=== PATIENT | male | born 1940 | race Caucasian/White ===

== ENCOUNTER 2024-09-25 08:49 | Inpatient (IN) | payer MEDICARE, SELFPAY ==
--- NOTE | ~2024-09-25 | CT_ITS ---
EXAMINATION: CT CHEST, ABDOMEN AND PELVIS WITH CONTRAST CLINICAL INFORMATION: Abdominal discomfort. Feeling unwell. COMPARISON: None available. TECHNIQUE: Multidetector volumetric CT imaging of the chest, abdomen, and pelvis was performed after the administration of 100 mL of Omnipaque 300 intravenous contrast without immediate adverse reactions. DOSE LOWERING TECHNIQUES: This CT examination was performed using dose optimization techniques as appropriate, variously including the following: - Automated exposure control - Adjustment of mA and/or kV according to patient size (this includes techniques or standardized protocols for targeted exams where dose is matched to indication/reason for exam; i.e. extremities or head) - Use of iterative reconstruction technique DLP: 885 mGy-cm. FINDINGS: CHEST: LUNGS: Left lower lobe atelectasis. No suspicious pulmonary nodule. Central airways are patent. Elevated left hemidiaphragm. MEDIASTINUM: No bulky axillary, hilar or mediastinal lymphadenopathy. Ascending thoracic aorta measures 4.5 cm. Heart is enlarged. No pericardial effusion. Severe coronary artery calcifications. PLEURA: No pleural effusion. ABDOMEN AND PELVIS: LIVER, GALLBLADDER, AND BILIARY TREE: The noncontrast liver is decreased in attenuation. No biliary ductal dilatation is present. Sludge and stones in the gallbladder. PANCREAS: Fatty infiltration. SPLEEN: Not enlarged. ADRENAL GLANDS: No adrenal mass. KIDNEYS AND URETERS: The kidneys are symmetric in size. 3.3 cm upper to mid pole right renal cyst. No further imaging follow-up is needed. No hydronephrosis. No perinephric stranding. Delayed images demonstrate intact renal function bilaterally. BLADDER: Fills with excreted contrast. Trabeculated pattern. Irregular filling defects at the base of the urinary bladder possibly related to the prostate gland. GASTROINTESTINAL TRACT: No small bowel obstruction. Fecal impaction in the rectum. Extensive diverticular disease of the colon. There are subtle mild pericolonic inflammatory changes in the right lower quadrant. Appendix is within normal limits. Lipoma in the duodenum. Duodenal diverticulum. ABDOMINAL WALL: Fat-containing right inguinal hernia. LYMPH NODES: No bulky lymphadenopathy. VASCULAR: Infrarenal abdominal aorta measures 2.7 x 3.2 cm. Recommend surveillance ultrasound in 3 years. Retroaortic left renal vein. 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 PELVIC VISCERA: Coarse calcification of the prostate gland. OSSEOUS STRUCTURES: Mild height loss at T1, T2 and T9 vertebral bodies. Sclerotic changes of the L1 and L2 vertebral bodies. Old right-sided rib fractures. CT/CT abdomen pelvis wo IV con IMPRESSION: Mild acute sigmoid diverticulitis. Trabeculated urinary bladder. Irregular filling defects at the base of the urinary bladder may be attributable to the prostate gland. Consider correlation with cystoscopy. Cholelithiasis. Ascending thoracic aorta measures 4.5 cm. Infrarenal abdominal aorta measures 2.7 x 3.2 cm. Recommend surveillance ultrasound 3 years. 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 Mild height loss T1, T2 and T9. Sclerotic changes of L1 and L2. Consider nuclear medicine bone scan. Electronically signed by: Joaquin Sharpe MD 09/25/2024 01:13 PM [facility]
--- NOTE | ~2024-09-25 | CT_ITS ---
EXAMINATION: CT HEAD WITHOUT CONTRAST CLINICAL INFORMATION: 84-year-old male COMPARISON: September 25, 2024 TECHNIQUE: Contiguous axial imaging was performed from the skull base to vertex without intravenous administration of contrast. This CT examination was performed using dose optimization techniques as appropriate, variously including the following: *Automated exposure control *Adjustment of mA and/or kV according to patient size (this includes techniques or standardized protocols for targeted exams where dose is matched to indication/reason for exam; i.e. extremities or head) *Use of iterative reconstruction technique DLP: 875 mGy-cm FINDINGS: There is no interval change since the previous examination in an appearance of mildly prominent sulci and ventricles and calcifications in basal ganglia. There is no new intracranial hemorrhage, masses, mass affect, midline shift. No new periventricular white matter changes. Osseous structures are unremarkable and paranasal sinuses and mastoids are well-aerated. CT/CT head/brain wo IV con IMPRESSION: No acute intracranial pathology. Mild global volume loss and calcifications in basal ganglia Electronically signed by: Ti Montes De Oca MD 09/29/2024 10:48 AM [facility]
--- NOTE | ~2024-09-25 | US_ITS ---
EXAMINATION: US RETROPERITONEAL LIMITED (RENAL ONLY) CLINICAL INFORMATION: VENU. COMPARISON: CT chest, abdomen and pelvis 09/25/2024. X-ray abdomen 01/07/2018. Ultrasound retroperitoneum 01/07/2018. TECHNIQUE: Real-time imaging of the kidneys. Technically limited study secondary to bowel gas and patient's limited mobility. FINDINGS: RIGHT KIDNEY: 7.4 x 4.5 x 3.5 cm (SAG x AP x TRV). Kidney is small with increased echogenicity. Renal cortical thickness is normal. No renal calculi or hydronephrosis. A benign mid to upper pole 1.4 cm Bosniak class I renal cyst is noted which requires no additional imaging or follow up. No solid renal masses are seen. LEFT KIDNEY: 10.0 x 4.3 x 3.9 cm (SAG x AP x TRV). The kidney is normal in size and contour but with slightly increased echogenicity. Renal cortical thickness is normal. No definite calculi or focal parenchymal lesions. No hydronephrosis. Pack seen at the lower pole of the kidney without discrete stones seen. US/US renal BI IMPRESSION: 1. Small right kidney with increased echogenicity suggesting medical renal disease. 2. Left kidney is normal in size but with slightly increased echogenicity suggesting medical renal disease. Electronically signed by: Justo Arora MD 09/27/2024 11:18 PM [facility]
--- NOTE | ~2024-09-25 | CT_ITS ---
EXAMINATION: CT HEAD WITHOUT CONTRAST (STROKE PROTOCOL) CLINICAL INFORMATION: Stroke protocol. Left-sided facial droopd COMPARISON: None available. TECHNIQUE: Contiguous axial imaging was performed from the skull base to vertex without intravenous administration of contrast. This CT examination was performed using dose optimization techniques as appropriate, variously including the following: *Automated exposure control *Adjustment of mA and/or kV according to patient size (this includes techniques or standardized protocols for targeted exams where dose is matched to indication/reason for exam; i.e. extremities or head) *Use of iterative reconstruction technique DLP: 880 mGy-cm FINDINGS: There is prominence of the sulci commensurate with that of the ventricles compatible with age-related volume loss. Minimal periventricular white matter changes compatible small vessel disease. There is no mass hemorrhage or cerebral edema Velásquez white differentiation normal. Basal ganglia calcifications noted bilaterally No extra-axial fluid collection. Sinuses clear. Mastoid air cells normal. CT/CT head for stroke IMPRESSION: No acute intracranial pathology. This critical result was discussed with Mayo Gonzalez at 9:05 AM on 09/25/2024 by physician support associated Rafael Velasquez. It was ascertained that the content and urgency of the report was understood at the time of direct communication. Electronically signed by: Yony Lopez MD 09/25/2024 09:07 AM [facility]
--- NOTE | ~2024-09-25 | CT_ITS ---
EXAMINATION: CTA NECK WITH CONTRAST (STROKE) CTA BRAIN WITH CONTRAST (STROKE) CLINICAL INFORMATION: Suspect acute stroke. Assess for major vessel occlusion. Please call report. COMPARISON: Concurrently performed CT of the head TECHNIQUE: CTA of the head and neck was performed in the axial plane from the mediastinum to the skull vertex using 70 mL Omnipaque 350 intravenous contrast. Additional reformatted multiplanar images including maximum intensity projection MIP images are generated on the CT workstation. This CT examination was performed using dose optimization techniques as appropriate, variously including the following: *Automated exposure control *Adjustment of mA and/or kV according to patient size (this includes techniques or standardized protocols for targeted exams where dose is matched to indication/reason for exam; i.e. extremities or head) *Use of iterative reconstruction technique DLP: 1706 mGy-cm FINDINGS: CTA Head: Atherosclerotic calcified plaque is noted involving the cavernous and supraclinoid portions of the internal carotid arteries, without significant stenosis. The anterior and middle cerebral arteries are patent with normal contrast enhancement and branching pattern. There is a normal anterior communicating artery complex. The vertebral and basilar arteries demonstrate normal enhancement without stenosis or occlusion. The posterior cerebral arteries have a normal caliber and branching pattern. The posterior communicating arteries are not definitely seen. There is no evidence of stenosis, occlusion, aneurysm or arteriovenous malformation. CTA Neck: Mild atherosclerotic plaque is noted at the aortic arch. The aortic arch and origin of the major vessels are otherwise unremarkable. Moderate atheromatous plaque is noted at the right carotid bulb, without significant stenosis by NASCET criteria. The right common, internal and external carotid arteries are normal in appearance. Moderate atheromatous plaque is noted at the left carotid bulb, without significant stenosis by NASCET criteria. The left common, internal and external carotid arteries are normal in appearance. The cervical portions of the vertebral arteries demonstrate normal enhancement. There is no evidence of a significant stenosis or a dissection. The visualized soft tissues are unremarkable. The visualized lung is unremarkable. Moderate degenerative disease of the cervical spine. Postsurgical changes of the left globe. CT/CT angio head neck stroke IMPRESSION: 1. No significant stenosis in the major arteries of the head and neck. 2. Moderate atheromatous plaque at the bilateral carotid bulbs, without significant stenosis by NASCET criteria. Electronically signed by: Rayna Michel MD 09/25/2024 09:16 AM KYLEE
--- NOTE | ~2024-09-25 | CT_ITS ---
EXAMINATION: CT FEMUR WITHOUT CONTRAST, LEFT CLINICAL INFORMATION: Upper leg pain. COMPARISON: None available. TECHNIQUE: Axial imaging. Sagittal and coronal reconstructions. The distal femur is not included in the [id number]. DLP: 331 mGy-cm FINDINGS: BONES/JOINTS: Femoral head is well-seated in the acetabulum. Mild left hip arthritis. No evidence of acute fracture in the visualized femur. No acute left pubic ramus fracture seen. Moderate symphysis pubis degeneration. Sclerotic focus in the left ischium measuring up to 2 cm. Partially visualized left SI joint appears intact. MUSCLE/TENDONS: Evaluation limited on CT. No measurable muscle tear is identified. SOFT TISSUES: There is mild soft tissue stranding in the medial left gluteal region. No fluid collection is seen. Vascular calcifications present. ADDITIONAL FINDINGS: Prostate calcifications. CT/CT femur LT wo IV con IMPRESSION: 1. Mild left hip arthritis. 2. No evidence of acute femur fracture or malalignment. 3. A 2 cm sclerotic focus in the left ischium. Consider bone scan evaluation. Electronically signed by: Farshad Escobedo MD 09/26/2024 04:43 PM KYLEE
--- NOTE | 2024-09-25 08:53 | ECG_ITS ---
Test Reason : stroke Blood Pressure : / mmHG Vent. Rate : 060 BPM Atrial Rate : 060 BPM P-R Int : 156 ms QRS Dur : 168 ms QT Int : 520 ms P-R-T Axes : 000 104 -82 degrees QTc Int : 520 ms AV dual-paced rhythm Abnormal ECG No previous ECGs available Referred By: Mayo Gonzalez Electronically Signed By:MYLENE BALES
--- NOTE | 2024-09-25 08:55 | ED.GENADULT ---
HPI - General Adult General Chief complaint: Stroke Stated complaint: L SIDED FACIAL DROOP/WEAKNESS Source: patient and EMS Mode of arrival: EMS Limitations: other (dementia/ poor historian) History of Present Illness ED Provider: Carlos MOJICA HPI narrative: 84 year old male hx of HFrEF, CKD, HTN, HLD, V tach, Afib, Pacer in place, anxiety, bipolar, dementia presents from [facility] with left sided facial droop and weakness noted at 0600 am when nurse was rounding on the residents on the unit. Per EMS nursing staff at [facility] reported he was normal last night but unclear exactly when patient started having this droop. This was noted around shift change. Patient is oriented to person and place not time or situation. He denies complaints at this time and states hes feeling fine. + thinners. No falls or trauma. NIHSS-0 Related Data Allergies Allergy/AdvReac Type Severity Reaction Status Date / Time Unable to Assess Allergy Verified 09/25/24 09:25 Review of Systems Review of Systems: Yes all other systems are reviewed and are negative [facility] Past Medical History Attestation statement: The following information was validated with the patient. Source: old records reviewed and nursing notes reviewed Social History Social History Advance Directives: No Advance Directives Information Provided: Yes Physical Exam ED Vital Signs: Vital Signs - 24 hr 09/25/24 09:18 09/25/24 11:37 Temperature 96.8 F 97.8 F Pulse Rate 60 62 Respiratory Rate 16 18 Blood Pressure 138/74 133/71 Pulse Oximetry 97 95 Oxygen Delivery Method Room Air Room Air BMI result Body Mass Index 25.5 vss Appearance: Alert.? Oriented X2.? No acute distress.? Head: Normocephalic, atraumatic, no step-offs or deformities Eyes: Pupils equal, round and reactive to light.? CVS: Normal heart rate and rhythm.? Pulses normal.? Respiratory: No respiratory distress.? Breath sounds normal.? Abdomen: Soft and diffusely tender abdomen.? Skin: Skin warm and dry.? Normal skin color.? Normal skin turgor.? Extremities: No lower extremity edema.? No calf ttp. 5/5 strength to bilateral upper and lower extremities Back: No midline tenderness, no C-spine tenderness, full range of motion, no CVA tenderness bilaterally Neuro: Oriented X 3.? No motor deficit.? No sensory deficit. CN 2-12 intact Course Reevaluation(s) Reevaluation #1: CT head no acute intracranial findings, no significant stenosis in the major arteries of the head and neck. Moderate atheromatous plaque at the b/l carotid bulbs without significant stenosis. CBC unremarkable. Chemistry with VENU. Will give 1 L IV fluids at this time. UA clean Time: 12:00 Reevaluation #2: Per [facility] 09/20 patient was admitted to [facility]. Patient was verbal at that time and talking. Yesterday afternoon [employer] reported he didnt feel well but was still talking and verbal. Baseline incontinence. Night time meds taken ok last night around 2100. He has been feeling unwell over the past few days. Nursing this morning noted a big change in behavior. Per nurse there daughter visted him last night. Time: 12:20 Reevaluation #3: Patient was recently seen on 09/12 at [facility] [place] for hypotension and PNA dc to [facility] on 09/20/2024/ Time: 12:24 Additional Reevaluation(s): CT abdomen and pelvis mild acute sigmoid diverticulitis, trabeculated urinary bladder irregular filling defects at the base of the urinary bladder could attribute to prostate gland. Cholelithiasis no signs of acute cholecystitis. 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 Mild height loss T1, T2 and T9. Will give Flagyl and Levaquin. Patient poor historian, becoming more lethargic. Diffusely tender abdomen Plan- hospital admission Medications Administered Discontinued Medications Generic Name Dose Route Start Last Admin Trade Name Freq PRN Reason Stop Dose Admin Sodium Chloride 1,000 mls @ 999 mls/hr 09/25/24 12:30 09/25/24 12:44 Ns IV 09/25/24 13:30 999 mls/hr .Q1H1M SHAYY Administration Iohexol 100 ml 09/25/24 09:06 09/25/24 09:06 Iohexol 350 Mg/Ml 100 Ml Infus..Btl IV 09/25/24 09:07 70 ml ONCE ONE Administration Medical Decision Making Medical Decision Making [facility] Narrative: 0853 84 year old male presents w/ weakness and left sided facial droop coming from SNF PE left sided facial droop, noted to be oriented to person and place not time or situation . Diffusely tender abdomen Hx and pe concerning for possible stroke , ich, tia. Also possible metabolic deragments, uti, complex migrane Plan- labs, urine, stroke protocol No indication for TNK, LKWT unclear, on thinenrs, no need for neuro stat consult NIHSS-3 NIH Stroke Scale/Score (NIHSS) from [employer] on 09/25/2024 All calculations should be rechecked by clinician prior to use RESULT SUMMARY: 3 points NIH Stroke Scale INPUTS: 1A: Level of consciousness ?> 0 = Alert; keenly responsive 1B: Ask month and age ?> 2 = 0 questions right 1C: 'Blink eyes' & 'squeeze hands' ?> 0 = Performs both tasks 2: Horizontal extraocular movements ?> 0 = Normal 3: Visual salcedo ?> 0 = No visual loss 4: Facial palsy ?> 1 = Minor paralysis (flat nasolabial fold, smile asymmetry) 5A: Left arm motor drift ?> 0 = No drift for 10 seconds 5B: Right arm motor drift ?> 0 = No drift for 10 seconds 6A: Left leg motor drift ?> 0 = No drift for 5 seconds 6B: Right leg motor drift ?> 0 = No drift for 5 seconds 7: Limb Ataxia ?> 0 = No ataxia 8: Sensation ?> 0 = Normal; no sensory loss 9: Language/aphasia ?> 0 = Normal; no aphasia 10: Dysarthria ?> 0 = Normal 11: Extinction/inattention ?> 0 = No abnormality Differential Diagnosis Differential Diagnoses: The differential diagnosis associated with the presentation includes (Hx and pe concerning for possible stroke , ich, tia. Also possible metabolic deragments, uti, complex migrane ) Admission/Observation Consideration of admission/observation: Escalation of care including admission/observation considered Lab Data MDM Lab Attestation statement: I reviewed the patient's lab results. 09/25/24 09:21 09/25/24 09:21 Labs: Lab Results 09/25/24 09/25/24 09/25/24 Range/Units 08:52 09:21 09:52 WBC 6.2 (4.8-10.8) X10*3/uL RBC 3.68 L (4.60-5.80) X10*6/uL Hgb 10.7 L (14.0-18.0) g/dl Hct 32.9 L (42.0-52.0) % MCV 89.4 (80.0-98.0) fL MCH 29.1 (27.0-33.0) pg MCHC 32.5 (31.0-36.0) g/dl RDW 14.1 (11.0-16.0) % Plt Count 183 (160-400) X10*3/uL MPV 9.8 (9.4-12.4) fL Immature Gran % (Auto) 0.5 H (0.0-0.4) % Neut % (Auto) 59.4 (45-73) % Lymph % (Auto) 21.9 (20-40) % Bryan % (Auto) 13.5 H (2-11) % Eos % (Auto) 4.2 H (0-4) % Baso % (Auto) 0.5 (0-2) % Lymph # (Auto) 1.4 (1.2-4.9) X10*3/uL Bryan # (Auto) 0.8 (0.1-1.2) X10*3/uL Eos # (Auto) 0.3 (0.0-0.4) X10*3/uL Baso # (Auto) 0.0 (0.0-0.2) X10*3/uL Abs Immat Gran (auto) 0.03 (0.00-0.03) X10*3/uL Absolute Neuts (auto) 3.7 (2.0-8.3) x10*3/uL Absolute Nucleated RBC 0.000 (0.0-0.012) X10*3/uL Nucleated RBC % (auto) 0.0 (0.0-0.2) /100WBC PT 16.4 H (10.9-12.4) SEC Whole Blood PT 15.9 H (11.1-13.5) sec INR 1.4 H (0.9-1.1) Whole Blood INR 1.3 H (0.9-1.1) APTT 32.0 (26.0-36.8) SEC Sodium 142 (135-145) mmol/L Potassium 4.3 (3.3-5.1) mmol/L Chloride 108 (96-108) mmol/L Carbon Dioxide 25 (22-29) mmol/L Anion Gap 13 (12-20) BUN 29 H (9-16) mg/dL Creatinine 1.73 H (0.5-1.4) mg/dL Estim Creat Clear Calc 32.2 Estimated GFR 38 POC Glucose 81 (60-115) mg/dL Random Glucose 85 (60-115) mg/dL Calcium 9.4 (8.4-10.2) mg/dL Total Creatine Kinase 37 L (38-174) U/L Troponin I High Sens 9.9 (<3.5-35.0) ng/L Triglycerides 86 (<150) mg/dL Cholesterol 136 (<200) mg/dL LDL Cholesterol, Calc 92 (<100) mg/dL HDL Cholesterol 27 L (>40) mg/dL Urine Color Urine Appearance Urine pH (5.0-9.0) Ur Specific Rosebud (1.005-1.025) Urine Protein (Neg-Trace) mg/dL Urine Glucose (UA) (Negative) mg/dL Urine Ketones (Negative) mg/dL Urine Blood (Negative) Urine Nitrite (Negative) Ur Leukocyte Esterase (Negative) 09/25/24 Range/Units 11:35 WBC (4.8-10.8) X10*3/uL RBC (4.60-5.80) X10*6/uL Hgb (14.0-18.0) g/dl Hct (42.0-52.0) % MCV (80.0-98.0) fL MCH (27.0-33.0) pg MCHC (31.0-36.0) g/dl RDW (11.0-16.0) % Plt Count (160-400) X10*3/uL MPV (9.4-12.4) fL Immature Gran % (Auto) (0.0-0.4) % Neut % (Auto) (45-73) % Lymph % (Auto) (20-40) % Bryan % (Auto) (2-11) % Eos % (Auto) (0-4) % Baso % (Auto) (0-2) % Lymph # (Auto) (1.2-4.9) X10*3/uL Bryan # (Auto) (0.1-1.2) X10*3/uL Eos # (Auto) (0.0-0.4) X10*3/uL Baso # (Auto) (0.0-0.2) X10*3/uL Abs Immat Gran (auto) (0.00-0.03) X10*3/uL Absolute Neuts (auto) (2.0-8.3) x10*3/uL Absolute Nucleated RBC (0.0-0.012) X10*3/uL Nucleated RBC % (auto) (0.0-0.2) /100WBC PT (10.9-12.4) SEC Whole Blood PT (11.1-13.5) sec INR (0.9-1.1) Whole Blood INR (0.9-1.1) APTT (26.0-36.8) SEC Sodium (135-145) mmol/L Potassium (3.3-5.1) mmol/L Chloride (96-108) mmol/L Carbon Dioxide (22-29) mmol/L Anion Gap (12-20) BUN (9-16) mg/dL Creatinine (0.5-1.4) mg/dL Estim Creat Clear Calc Estimated GFR POC Glucose (60-115) mg/dL Random Glucose (60-115) mg/dL Calcium (8.4-10.2) mg/dL Total Creatine Kinase (38-174) U/L Troponin I High Sens (<3.5-35.0) ng/L Triglycerides (<150) mg/dL Cholesterol (<200) mg/dL LDL Cholesterol, Calc (<100) mg/dL HDL Cholesterol (>40) mg/dL Urine Color Yellow Urine Appearance Clear Urine pH 6.5 (5.0-9.0) Ur Specific Rosebud >= 1.030 H (1.005-1.025) Urine Protein Negative (Neg-Trace) mg/dL Urine Glucose (UA) Negative (Negative) mg/dL Urine Ketones Trace (Negative) mg/dL Urine Blood Negative (Negative) Urine Nitrite Negative (Negative) Ur Leukocyte Esterase Negative (Negative) Independent Interpretation I performed an independent interpretation of an: CT Scan ( CT/CT angio head neck stroke IMPRESSION: 1. No significant stenosis in the major arteries of the head and neck. 2. Moderate atheromatous plaque at the bilateral carotid bulbs, without significant stenosis by NASCET criteria. ) Radiology Impression Discussion of test interpretation with radiology: I have reviewed the radiologist's reading. Independent Historian Clinical information obtained from an independent historian. History obtained from or confirmed by: EMS ([facility] ) Chronic Conditions Patient?s care impacted by: Other (see HPI ) Critical Care Time Critical Care Time Critical Care Time: Yes Total Critical Care Time: 35 Attestation: I attest to this time spent taking care of the patient, obtaining history, physical, reviewing labs, imaging, treatment of patients condition +/- specialist/hospitalist consult Discharge Plan Discharge Clinical Impression: Diverticulitis, Delirium Patient Disposition: Still a Patient Print Language: Burkinan
[2024-09-25 08:56] LABS: Glucose, Whole Blood 81 mg/dL (60-115)
[2024-09-25 08:57] LABS: Prothrombin Time Whole Bld POC 15.9 sec (11.1-13.5); ~PT, ~INR - Anti Coag Clinic 1.3 (0.9-1.1)
[2024-09-25] MEDS: iohexoL 350 MG/ML 100 ML INFUS..BTL IV (09:06)
[2024-09-25 09:18] VITALS: BP 138/74; PULSE 60; RESP 16; TEMP 36; O2SAT 97; BMI 25.5
[2024-09-25 09:24] LABS: MANUAL DIFF FLAG NO
[2024-09-25 09:25] LABS: Basophils Percent Auto 0.5 % (0-2); Eosinophils Absolute Auto 0.3 X10*3/uL (0.0-0.4); Eosinophils Percent Auto 4.2 % (0-4); Hematocrit 32.9 % (42.0-52.0); Hemoglobin 10.7 g/dl (14.0-18.0); Imm Gran Abs Auto 0.03 X10*3/uL (0.00-0.03); Imm Gran Pct Auto 0.5 % (0.0-0.4); Lymphocytes Absolute Auto 1.4 X10*3/uL (1.2-4.9); Lymphocytes Percent Auto 21.9 % (20-40); Mean Corpuscular HGB Conc 32.5 g/dl (31.0-36.0); Mean Corpuscular Hemoglobin 29.1 pg (27.0-33.0); Mean Corpuscular Volume 89.4 fL (80.0-98.0); Mean Platelet Volume 9.8 fL (9.4-12.4); Monocytes Absolute Auto 0.8 X10*3/uL (0.1-1.2); Monocytes Percent Auto 13.5 % (2-11); Neutrophils Absolute Auto 3.7 x10*3/uL (2.0-8.3); Neutrophils Percent Auto 59.4 % (45-73); Platelet Count 183 X10*3/uL (160-400); Red Blood Count 3.68 X10*6/uL (4.60-5.80); Red Cell Distribution Width 14.1 % (11.0-16.0); White Blood Count 6.2 X10*3/uL (4.8-10.8)
[2024-09-25 09:30] LABS: INTERNATIONAL NORM RATIO 1.4 (0.9-1.1); Prothrombin Time 16.4 SEC (10.9-12.4)
[2024-09-25 09:33] LABS: Stroke Lab Use COMPLETE
[2024-09-25 09:38] LABS: Anion Gap 13 (12-20); Blood Urea Nitrogen 29 mg/dL (9-16); Calcium 9.4 mg/dL (8.4-10.2); Carbon Dioxide 25 mmol/L (22-29); Chloride 108 mmol/L (96-108); Cholesterol 136 mg/dL (<200); Creatinine Clr Calc Pharmacy 32.2; Estimated Glomerular Filt Rate 38; Glucose Random 85 mg/dL (60-115); HDL Cholesterol 27 mg/dL (>40); LDL Cholesterol Calculated 92 mg/dL (<100); Potassium 4.3 mmol/L (3.3-5.1); Sodium 142 mmol/L (135-145); Triglycerides 86 mg/dL (<150)
[2024-09-25 09:46] LABS: Troponin-I High Sensitivity 9.9 ng/L (<3.5-35.0)
[2024-09-25 11:37] VITALS: BP 133/71; PULSE 62; RESP 18; TEMP 36.6; O2SAT 95
[2024-09-25 11:46] LABS: Appearance Urine Clear; Color Urine Yellow; Glucose Urine UA Negative (Negative); Leukocyte Esterase Urine Negative (Negative); Nitrite Urine Negative (Negative); PH 6.5 (5.0-9.0); Specific Gravity - Urine >= 1.030 (1.005-1.025); Urine Blood Negative (Negative); Urine Ketones Trace mg/dL (Negative); Urine Protein Negative (Neg-Trace)
[2024-09-25] MEDS: 0.9 % Sodium Chloride 1,000 ML 999 ML IV (12:44)
--- NOTE | 2024-09-25 12:44 | PC.NURSE ---
BEN lara from [facility] whom provided information about patient baseline since arriving to their facitily and stated he came on 09/20 and had been doing well and from [employer] reports that on thursday was ambulating to BR with 1 assist and eating independently on own, but at night would have some disturbed screaming and sleep disruptions. Per jane patient had self reported not feeling well yesterday afternoon but ate dinner and took bedtime medications per their documentation. Then overnight [employer] checks every 2hrs noted him sleeping well no concerns until RN assessed pt this morning at 6am and was noting a left sided facial droop and weakness and fatigue and not as alert as he had been. Jane reports daughter elda had visitng patient last night but unable to get ahold of her to discuss patient transfer to hospital. This RN attempted phone call to daughter fabricio as well with direct voicemail. Will attempt again later. MD aware of new information.
[2024-09-25 14:15] LABS: Influenza A PCR NEGATIVE (Negative); Influenza B PCR NEGATIVE (Negative); Resp Syncy Virus RNA Qual PCR NEGATIVE (Negative); SARS COV2 PCR INHOUSE NEGATIVE (Negative)
[2024-09-25] MEDS: levoFLOXacin/D5W 500 MG/100 ML PIGGYBACK 100 MG IV (14:26)
[2024-09-25] MEDS: metroNIDAZOLE/NS 500 MG/100 ML PIGGYBACK 100 MG IV ×2 (14:26→21:30)
[2024-09-25 14:40] LABS: Lactic Acid 1.4 mmol/L (0.5-2.0)
--- NOTE | 2024-09-25 14:44 | MHC.EDTECH ---
lab called to add matt to ua, results pending
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
[2024-09-25 15:02] LABS: Amphetamine Screen Urine Not Detected (Not Detect); Barbiturates, Urine Not Detected (Not Detect); Benzodiazepines Screen Urine POSITIVE (Not Detect); Buprenorphine Scr Not Detected (Not Detect); Cannabinoid Screen Urine Not Detected (Not Detect); Cocaine Screen Urine Not Detected (Not Detect); Fentanyl, urine Not Detected (Not Detect); Methadone Screen, Urine Not Detected (Not Detect); Opiate Screen Urine Not Detected (Not Detect); Oxycodone Screen Urine Not Detected (Not Detect); Phencyclidine Screen Urine Not Detected (Not Detect)
--- NOTE | 2024-09-25 15:05 | PHA.MEDREC ---
Addendum entered by Payton Dodge RPh 09/25/24 15:45: [facility] reviewed Original Note: Pharmacy Consult ? Medication Reconciliation Pharmacy has completed the medication reconciliation. List from [facility]. at [place].
[2024-09-25 16:18] VITALS: BP 127/67; PULSE 60; RESP 20; TEMP 36.6; O2SAT 97
[2024-09-25 16:26] LABS: Alanine Aminotransferase 40 U/L (0-40); Albumin Level 3.1 g/dL (3.5-5.0); Alkaline Phosphatase 45 U/L (39-117); Aspartate Amino Transferase 45 U/L (5-37); Bilirubin Direct 0.2 mg/dL (0.0-0.5); Bilirubin Total 0.5 mg/dL (0.0-1.0); Total Protein 5.6 g/dL (6.5-8.0)
[2024-09-25 17:20] LABS: Ammonia 30 umol/L (13-55)
[2024-09-25] MEDS: Aspirin 81 MG TAB.CHEW PO (17:32)
--- NOTE | 2024-09-25 18:48 | MHC.EDTECH ---
pt was redirected after he successfully got out of bed by himself, 2 other ED Techs assisted, pt was helped back in bed, obie was changed, linens changed, warm blanket given, pt resting comfortably and all needs met at this time.
[2024-09-25 19:59] VITALS: BP 116/60; PULSE 60; RESP 16; TEMP 36.9; O2SAT 97
[2024-09-25 21:55] VITALS: BMI 25.8
[2024-09-26] MEDS: Mirtazapine 15 MG TABLET PO ×2 (00:25→20:21)
[2024-09-26] MEDS: Divalproex Sodium Sprinkles 125 MG CAP.DR.SPR 750 MG PO ×2 (00:25→20:20)
[2024-09-26] MEDS: Tamsulosin HCL 0.4 MG CAPSULE PO ×2 (00:25→20:21)
[2024-09-26] MEDS: Apixaban 2.5 MG TABLET PO ×2 (00:25→20:21)
[2024-09-26] MEDS: 0.9 % Sodium Chloride Flush 3 ML SYRINGE IVFLUSH ×3 (00:26→20:21)
[2024-09-26 04:00] VITALS: BP 111/58; PULSE 64; RESP 18; TEMP 36.1; O2SAT 92
[2024-09-26] MEDS: metroNIDAZOLE/NS 500 MG/100 ML PIGGYBACK 100 MG IV ×3 (05:25→23:08)
[2024-09-26 06:45] LABS: Alanine Aminotransferase 35 U/L (0-40); Alkaline Phosphatase 47 U/L (39-117); Anion Gap 14 (12-20); Aspartate Amino Transferase 41 U/L (5-37); Bilirubin Total 0.5 mg/dL (0.0-1.0); Blood Urea Nitrogen 26 mg/dL (9-16); Calcium 9.2 mg/dL (8.4-10.2); Carbon Dioxide 24 mmol/L (22-29); Chloride 108 mmol/L (96-108); Creatinine Clr Calc Pharmacy 35.5; Estimated Glomerular Filt Rate 42; Glucose Random 76 mg/dL (60-115); Potassium 4.3 mmol/L (3.3-5.1); Sodium 142 mmol/L (135-145); Total Protein 5.6 g/dL (6.5-8.0)
[2024-09-26 07:42] VITALS: BP 117/65; PULSE 80; RESP 18; TEMP 36.2; O2SAT 95
[2024-09-26] MEDS: Fluticasone/Vilanterol 100/25 BLST.W.DEV 1 PUFF INHALE (08:34)
[2024-09-26 08:36] VITALS: PULSE 65; RESP 16; O2SAT 95
--- NOTE | 2024-09-26 09:49 | PM.NEUROCN ---
History of Present Illness Data of Consult Service Date: 09/26/24 Primary Care Provider: Jarvis Perez MD [facility] Reason for consult: Possible stroke 84-year-old male with a PMH significant for?HFrEF, CKD, paroxysmal AFib on Eliquis, hx of V tach, s/p pacer in place, HLD, dementia, anxiety, and bipolar disorder who presents to the ED from [facility] for evalatuion of possible left-sided facial droop and weakness. He said that he was fine and has been walking without a walker. He also said that he was living at home. Review of Systems Review of Systems: Could not be reliably done with him PMFSH Past Medical History Medical History Bipolar disorder Dementia Hyperlipidemia Ventricular tachycardia Paroxysmal A-fib CKD (chronic kidney disease) Systolic heart failure Social History Social History Household Members: Other Housing: Senior Living Do you presently have visiting nurse or other home services: Yes Patient Tobacco Use Status: Tobacco use Unknown Smoked in Last 30 Days: No Patient Interested in Nicotine Replacement: No Patient Given Instructions on How to Stop Smoking: No Use of substances other than those prescribed or required for medical reasons: No Currently Displaying Signs/Symptoms of Drug Intoxication Withdrawal: No Any prior treatment program specific to substance use: No Have you been hit, kicked, punched, or otherwise hurt by someone within the past year? If so, by whom?: No Do you feel safe in your current relationship?: No Current Relationship Is there a partner from a previous relationship who is making you feel unsafe now?: No Are you made to feel afraid or neglected: No Advance Directives: No Advance Directives Information Provided: No Advance Directives on File: No Do you have a plan to hurt others: No Plan Recently lost weight without trying: Unsure How much weight loss: Unsure Eating poorly because of decreased appetite: No Nutrition screen score: 4 Nutrition Risks: On aspiration precautions Poor oral hygiene: No Meds Allergies Allergy/AdvReac Type Severity Reaction Status Date / Time melatonin Allergy Unknown Unverified 09/26/24 08:24 rosuvastatin [From Crestor] Allergy Unknown Unverified 09/26/24 08:24 [id number]-[id number] Reductase Allergy Unknown Unverified 09/26/24 08:24 Inhibitor Active Medications: Current Medications Acetaminophen (Acetaminophen 325 Mg Tablet) 650 mg PO Q6H PRN PRN Reason: Pain, Mild (Pain Scale 1-3), fever or headache Albuterol Sulfate (Albuterol Sulfate 90 Mcg 8 Gm Inhaler) 2 puff INHALE Q4H PRN PRN Reason: Shortness Of Breath Or Wheezing Alprazolam (Alprazolam 0.5 Mg Tablet) 0.5 mg PO BID [facility] Last Admin: 09/26/24 08:53 Dose: Not Given Amiodarone HCl (Amiodarone Hcl 200 Mg Tablet) 200 mg PO DAILY [facility] Last Admin: 09/26/24 08:53 Dose: Not Given Apixaban (Apixaban 2.5 Mg Tablet) 2.5 mg PO BID [facility] Last Admin: 09/26/24 08:53 Dose: Not Given Benzonatate (Benzonatate 100 Mg Capsule) 100 mg PO TID PRN PRN Reason: Cough Bisacodyl (Bisacodyl 10 Mg Supp.Rect) 10 mg IA DAILY PRN PRN Reason: Constipation Calcium Carbonate (Calcium Carbonate 750 Mg Tab.Chew) 750 mg PO Q4H PRN PRN Reason: Heartburn Ceftriaxone Sodium (Ceftriaxone Sodium 1 Gm Vial) 1 gm IVPUSH Q24H [facility] Divalproex Sodium (Divalproex Sodium Sprinkles 125 Mg Cap.Dr.Spr) 750 mg PO BEDTIME [facility] Last Admin: 09/26/24 00:25 Dose: 750 mg Fluticasone/Vilanterol (Fluticasone/Vilanterol 100/25 Blst.W.Dev) 1 puff INHALE RDAILY [facility] Last Admin: 09/26/24 08:34 Dose: 1 puff Metronidazole (Flagyl) 500 mg in 100 mls @ 100 mls/hr IV Q8H [facility] Last Infusion: 09/26/24 06:25 Dose: Infused Magnesium Hydroxide (Milk Of Magnesia 30 Ml Oral.Susp) 30 ml PO DAILY PRN PRN Reason: Constipation Melatonin (Melatonin 3 Mg Tablet) 6 mg PO BEDTIME PRN PRN Reason: Insomnia Metoprolol Succinate (Metoprolol Succinate Er 50 Mg Tab.Er.24h) 50 mg PO DAILY [facility]; Protocol Last Admin: 09/26/24 08:53 Dose: Not Given Mirtazapine (Mirtazapine 15 Mg Tablet) 15 mg PO BEDTIME [facility] Last Admin: 09/26/24 00:25 Dose: 15 mg Naloxone HCl (Naloxone Hcl Nasal 4 Mg [place]) 4 mg NOSTRILALT Q3M PRN PRN Reason: Opioid Overdose Risperidone (Risperidone 1 Mg Tablet) 1 mg PO DAILY [facility] Last Admin: 09/26/24 08:53 Dose: Not Given Sodium Biphosphate/Sodium Phosphate (Sodium Phosphate,[place]-Dibasic 133 Ml Enema) 118 ml IA DAILY PRN PRN Reason: Constipation Sodium Chloride (0.9 % Sodium Chloride Flush 3 Ml Syringe) 3 ml IVFLUSH QSHIFT [facility] Last Admin: 09/26/24 09:31 Dose: 3 ml Tamsulosin HCl (Tamsulosin Hcl 0.4 Mg Capsule) 0.4 mg PO BEDTIME [facility] Last Admin: 09/26/24 00:25 Dose: 0.4 mg Trazodone HCl (Trazodone Hcl 50 Mg Tablet) 50 mg PO BEDTIME [facility] Last Admin: 09/26/24 00:50 Dose: Not Given Home Medications ?Medication ?Instructions ?Recorded ?Confirmed ?Last Taken ?Type acetaminophen 325 mg tablet 650 mg PO Q4H PRN Fever Or Pain 09/25/24 09/25/24 Unknown History (Tylenol) acetaminophen 650 mg rectal 650 mg IA Q4H PRN Fever Or Pain 09/25/24 09/25/24 Unknown History suppository albuterol sulfate 90 mcg/actuation 2 puff inhalation Q4H PRN 09/25/24 09/25/24 Unknown History aerosol inhaler Shortness Of Breath Or Wheezing alprazolam 0.5 mg tablet 0.5 mg PO BID 09/25/24 09/25/24 Unknown History amiodarone 200 mg tablet 200 mg PO DAILY 09/25/24 09/25/24 Unknown History apixaban 2.5 mg tablet (Eliquis) 2.5 mg PO BID 09/25/24 09/25/24 Unknown History apixaban 2.5 mg tablet (Eliquis) 5 mg PO BID 09/25/24 09/25/24 Unknown History bisacodyl 10 mg rectal suppository 10 mg IA DAILY PRN Constipation 09/25/24 09/25/24 Unknown History divalproex 125 mg capsule,delayed 750 mg PO BEDTIME 09/25/24 09/25/24 Unknown History release sprinkle fluticasone furoate 100 1 inh inhalation DAILY 09/25/24 09/25/24 Unknown History mcg-vilanterol 25 mcg/dose inhalation powder (Breo Ellipta) magnesium hydroxide 400 mg/5 mL 30 ml PO DAILY PRN Constipation 09/25/24 09/25/24 Unknown History oral suspension (Milk of Magnesia) metoprolol succinate 50 mg 50 mg PO DAILY 09/25/24 09/25/24 Unknown History tablet,extended release 24 hr mirtazapine 15 mg tablet 15 mg PO BEDTIME 09/25/24 09/25/24 Unknown History naloxone 4 mg/actuation nasal 4 mg intranasal Q3M PRN Opioid 09/25/24 09/25/24 Unknown History spray (Narcan) Overdose risperidone 1 mg tablet 1 mg PO DAILY 09/25/24 09/25/24 Unknown History sodium phosphates 19 gram-7 118 ml IA DAILY PRN Constipation 09/25/24 09/25/24 Unknown History gram/118 mL enema (Fleet Enema) tamsulosin 0.4 mg capsule 0.4 mg PO BEDTIME 09/25/24 09/25/24 Unknown History trazodone 50 mg tablet 50 mg PO BEDTIME 09/25/24 09/25/24 Unknown History Physical Exam Vital Signs: Vital Signs: Last Vital Signs Temp 97.2 F 09/26/24 07:42 Pulse 65 09/26/24 08:36 Resp 16 09/26/24 08:36 BP 117/65 09/26/24 07:42 Pulse Ox 95 09/26/24 07:42 O2 Del Method Room Air 09/26/24 07:42 BMI result Body Mass Index 25.8 Neuro: Other: He is alert and awake with normal spontaneity of speech fluency comprehension and affect. There is mild left-sided ptosis. Face otherwise symmetrical. Visual salcedo are full. There is no pronator drift. [id number] testing revealed mild tremor. Deep tendon reflexes are absent with left equivocal and right flexor plantars. Speech is normal. Results Labs 09/25/24 09:21 09/26/24 05:49 Labs: BMP 09/26/24 05:49 Sodium 142 Potassium 4.3 Chloride 108 Carbon Dioxide 24 BUN 26 H Creatinine 1.57 H Calcium 9.2 Cardiac Enzymes 09/25/24 Range/Units 09:21 Total Creatine Kinase 37 L (38-174) U/L Liver Function 09/25/24 09/26/24 Range/Units 09:21 05:49 Total Bilirubin 0.5 0.5 (0.0-1.0) mg/dL Direct Bilirubin 0.2 (0.0-0.5) mg/dL AST 45 H 41 H (5-37) U/L ALT 40 35 (0-40) U/L Alkaline Phosphatase 45 47 (39-117) U/L Albumin 3.1 L 3.0 L (3.5-5.0) g/dL Urine 09/25/24 Range/Units 11:35 Urine Color Yellow Urine Appearance Clear Urine pH 6.5 (5.0-9.0) Ur Specific [place] >= 1.030 H (1.005-1.025) Urine Protein Negative (Neg-Trace) mg/dL Urine Glucose (UA) Negative (Negative) mg/dL Head CT revealed moderately severe diffuse cerebral and cerebellar central cortical atrophy and moderate bilateral basal ganglia area calcification. CTA did not reveal any vascular lesion. EKG revealed paced rhythm. Assessment and Plan (1) Delirium: Status: Acute 84 years old man who probably has moderately severe degenerative dementia came to hospital with observation of change in mental status and left facial droop. At this time, he was disoriented but cooperative to exam. There was mild left-sided ptosis, probably old. There was no obvious metabolic or infectious condition that was diagnosed. My recommendation is to obtain an EEG as possibility of seizure disorder were significant in this patient. Otherwise symptomatic supportive care is recommended. Procedures Date of Service Date of Service: 09/26/24
[2024-09-26 11:09] VITALS: BP 123/60; PULSE 62; RESP 18; TEMP 36.3; O2SAT 98
--- NOTE | 2024-09-26 14:04 | MHC.CM.PN ---
Addendum entered by Zari Iraheta 09/26/24 15:40: This CM placed a call to pts daughter/HCP Frei[facility], voicemail was left, awaiting return call. Original Note: Pt with confusion, unable to answer this CM's questions appropriately to complete CM intake assessment. Pt was from [facility] [place] for STR, he is not a bed hold, but they will follow for his discharge. This CM requested [facility] send a copy of his HCP to us.
[2024-09-26] MEDS: cefTRIAXone sodium 1 GM VIAL IVPUSH (14:23)
--- NOTE | 2024-09-26 14:23 | P.PNIM_ITS ---
Subjective Subjective Date of Service: 09/26/24 Interval History: encephalopathy vs dementia unspecified Review of Systems seems more awake and calm denies any chest pain or sob has left upper thigh pain Physical Exam 2 Vital Signs: Vital Signs: Last Vital Signs Temp 97.3 F 09/26/24 11:09 Pulse 62 09/26/24 11:09 Resp 18 09/26/24 11:09 BP 123/60 09/26/24 11:09 Pulse Ox 98 09/26/24 11:09 O2 Del Method Room Air 09/26/24 11:09 BMI result Body Mass Index 25.8 Appearance: Alert.? Oriented X2 (knows his name and says it is daytime).? cvs: rrr, [id number] . res: clear to auscultation ,no rhonchii or wheezing abd: no rebound or guarding ,nt, bs present. ext pulses present , no cyanosis ,left upper leg pain , also left leg weakness ( somewhat improving from yesterday). neuro: axo3 , nonfocal. Objective Data Active Medications Acetaminophen (Acetaminophen 325 Mg Tablet) 650 mg PO Q6H PRN PRN Reason: Pain, Mild (Pain Scale 1-3), fever or headache Albuterol Sulfate (Albuterol Sulfate 90 Mcg 8 Gm Inhaler) 2 puff INHALE Q4H PRN PRN Reason: Shortness Of Breath Or Wheezing Alprazolam (Alprazolam 0.5 Mg Tablet) 0.5 mg PO BID [facility] Last Admin: 09/26/24 08:53 Dose: Not Given Documented By: JAMAR Non-Admin Reason: NPO Amiodarone HCl (Amiodarone Hcl 200 Mg Tablet) 200 mg PO DAILY [facility] Last Admin: 09/26/24 08:53 Dose: Not Given Documented By: JAMAR Non-Admin Reason: NPO Apixaban (Apixaban 2.5 Mg Tablet) 2.5 mg PO BID [facility] Last Admin: 09/26/24 08:53 Dose: Not Given Documented By: JAMAR Non-Admin Reason: NPO Benzonatate (Benzonatate 100 Mg Capsule) 100 mg PO TID PRN PRN Reason: Cough Bisacodyl (Bisacodyl 10 Mg Supp.Rect) 10 mg AL DAILY PRN PRN Reason: Constipation Calcium Carbonate (Calcium Carbonate 750 Mg Tab.Chew) 750 mg PO Q4H PRN PRN Reason: Heartburn Ceftriaxone Sodium (Ceftriaxone Sodium 1 Gm Vial) 1 gm IVPUSH Q24H [facility] Divalproex Sodium (Divalproex Sodium Sprinkles 125 Mg ) 750 mg PO BEDTIME [facility] Last Admin: 09/26/24 00:25 Dose: 750 mg Documented By: NATHAN Fluticasone/Vilanterol (Fluticasone/Vilanterol 100/25 Blst.W.Dev) 1 puff INHALE RDAILY [facility] Last Admin: 09/26/24 08:34 Dose: 1 puff Documented By: KEVIN Metronidazole (Flagyl) 500 mg in 100 mls @ 100 mls/hr IV Q8H [facility] Last Infusion: 09/26/24 06:25 Dose: Infused Documented By: NATHAN Magnesium Hydroxide (Milk Of Magnesia 30 Ml Oral.Susp) 30 ml PO DAILY PRN PRN Reason: Constipation Melatonin (Melatonin 3 Mg Tablet) 6 mg PO BEDTIME PRN PRN Reason: Insomnia Metoprolol Succinate (Metoprolol Succinate Er 50 Mg Tab.Er.24h) 50 mg PO DAILY [facility]; Protocol Last Admin: 09/26/24 08:53 Dose: Not Given Documented By: JAMAR Non-Admin Reason: NPO Mirtazapine (Mirtazapine 15 Mg Tablet) 15 mg PO BEDTIME [facility] Last Admin: 09/26/24 00:25 Dose: 15 mg Documented By: NATHAN Naloxone HCl (Naloxone Hcl Nasal 4 Mg [place]) 4 mg NOSTRILALT Q3M PRN PRN Reason: Opioid Overdose Risperidone (Risperidone 1 Mg Tablet) 1 mg PO DAILY [facility] Last Admin: 09/26/24 08:53 Dose: Not Given Documented By: JAMAR Non-Admin Reason: NPO Sodium Biphosphate/Sodium Phosphate (Sodium Phosphate,[place]-Dibasic 133 Ml Enema) 118 ml AL DAILY PRN PRN Reason: Constipation Sodium Chloride (0.9 % Sodium Chloride Flush 3 Ml Syringe) 3 ml IVFLUSH QSHIFT [facility] Last Admin: 09/26/24 09:31 Dose: 3 ml Documented By: JAMAR Tamsulosin HCl (Tamsulosin Hcl 0.4 Mg Capsule) 0.4 mg PO BEDTIME [facility] Last Admin: 09/26/24 00:25 Dose: 0.4 mg Documented By: NATHAN Trazodone HCl (Trazodone Hcl 50 Mg Tablet) 50 mg PO BEDTIME [facility] Last Admin: 09/26/24 00:50 Dose: Not Given Documented By: NATHAN Non-Admin Reason: hold per md order Labs 09/25/24 09:21 09/26/24 05:49 Labs: Laboratory Results - last 24 hr 09/25/24 09/25/24 09/25/24 09:21 11:35 14:11 Hold Purple Top Hold Blue Top Anion Gap Estim Creat Clear Calc Estimated GFR Random Glucose Lactic Acid 1.4 Calcium Total Bilirubin 0.5 Direct Bilirubin 0.2 AST 45 H ALT 40 Alkaline Phosphatase 45 Ammonia Total Protein 5.6 L Albumin 3.1 L Hold Red Top Urine Opiates Screen Not Detected Ur Buprenorphine Scrn Not Detected Ur Oxycodone Screen Not Detected Urine Methadone Screen Not Detected Urine Fentanyl Screen Not Detected Ur Barbiturates Screen Not Detected Ur Phencyclidine Scrn Not Detected Ur Amphetamines Screen Not Detected U Benzodiazepines Scrn POSITIVE H Urine Cocaine Screen Not Detected U Marijuana (THC) Screen Not Detected 09/25/24 09/26/24 17:08 05:49 Hold Purple Top SEE NOTE SEE NOTE Hold Blue Top SEE NOTE Anion Gap 14 Estim Creat Clear Calc 35.5 Estimated GFR 42 Random Glucose 76 Lactic Acid Calcium 9.2 Total Bilirubin 0.5 Direct Bilirubin AST 41 H ALT 35 Alkaline Phosphatase 47 Ammonia 30 Total Protein 5.6 L Albumin 3.0 L Hold Red Top See Note Urine Opiates Screen Ur Buprenorphine Scrn Ur Oxycodone Screen Urine Methadone Screen Urine Fentanyl Screen Ur Barbiturates Screen Ur Phencyclidine Scrn Ur Amphetamines Screen U Benzodiazepines Scrn Urine Cocaine Screen U Marijuana (THC) Screen Assessment and Plan (1) Acute metabolic encephalopathy: Status: Acute (2) Delirium: Status: Acute (3) Diverticulitis: Status: Acute Assessment and Plan: 84-year-old male with a PMH significant for?HFrEF, CKD, paroxysmal AFib on Eliquis, hx of V tach, s/p pacer in place, HLD, dementia, anxiety, and bipolar disorder who presents to the ED from [facility] for evalatuion of possible left-sided facial droop and weakness at 06:00 during nursing rounds. Pt will be admitted to the hospital for treatment and further evaluation of acute metabolic encephalopathy and generalized weakness in the setting of acute diverticulitis. Acute sigmoid diverticulitis As noted on CT scan; left lower side pain, no N/V/D noted continue Flagyl and ceftriaxone, started 09/25/2024 NPO for now, swallow eval pending ?Left-sided deficits-consern for tia vs cva Left-sided facial droop noted at SNF, Left lower extremity weaker than right, upper extremities equal CTA of head and neck negative for acute findings. MRI of head/brain added left leg ct added . plan:continue aspirin Lipid panel with HDL low at 27 PT/OT consult Monitor on telemetry Neurology consult Acute metabolic encephalopathy vs dementia unspecified. possible mulitfactorial-dehydration ,elavted cr UA negative Pt more confused at baseline per [facility] Treat and workup as above Monitor mentation,sitter CT found irregular filling defects at base of urinary bladder moniter pvr Consider urology consult outaptient ckd stage 3? Elevated creatinine on CKD 3 s/p IVF Creatinine imrpoving from 1.73 - 1.57 (Elevated from 1.48 on discharge from [facility] on 09/20) Likely in the setting of decreased p.o. 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 Pt will require hospital-level of care for administration of IV antibiotics, additional imaging and specialist consultation for possible CVA, and close monitoring of mentation Quality Stroke Does the patient have a stroke diagnosis?: No Reason for No Anti-thrombotic by Day Two: Contraindicated (Last known well time outside of tNK therapeutic window; pt already on Eliquis) VTE Prior VTE?: No VTE Risk Level:: Medical - moderate - high VTE Device Contraindication: Treatment Not Indicated VTE Drug Contraindication: N/A - Med Ordered
[2024-09-26 15:45] VITALS: BP 136/68; PULSE 65; RESP 18; TEMP 36.6; O2SAT 97
--- NOTE | 2024-09-26 16:11 | MHC.SL.SWA ---
Speech Pathologist Impression: Mild dysphagia, ? thrush Risk of Aspiration Due to: Altered mental status Question of CVA Dysphasia Diet Status: Liquid Consistency and Strategies for Safe Swallow: Liquid Intake Recommendation: Thin Liquid Intake Strategies: Small Sips Solid Food Consistency: Dietary Recommendations: Pureed (NDD1) Additional Modifications to Solid Foods: Pt trialed only with thins and purees d/t reduced ROM and decreased strength of L side of mouth/cheek. Pt tolerated sips of thins by cup and by straw without overt s/s of aspiration. No anterior loss with thins. Purees by tsp tolerated efficiently, with good coordination of anterior to posterior transit/trigger of pharyngeal swallow. Pt voicing absent of wetness, no concerns for airway penetration upon consecutive boluses and swallows. Pt is able to communicate his preferences in PO intake, but expressed worry that he usually brushes his tongue. Tongue appears to be coated by plaque, question thrush. RN consulted. Oral Medication Intake: Crushed with Puree Please contact the pharmacy regarding appropriate crushable or liquid drug formulations that are available whenever modified delivery is recommended. Compensatory Strategies and Precautions to be Taken for Safe Swallow: Sitting Upright (90 deg) Liquids from Cup Liquids from Straw Liquids from Wide Cup Small Bites and Sips Alternate Liquids/Solids Rate of Ingestion Change Supervision While Eating and Drinking for Safe Swallow: Total Supervision (1:1) Foods to Avoid: Swallowing Recommended Treatments: Compens. Strategy Educat. Recommendation for Speech: Comment: Frequency/Duration: Date Range for Service Req: Timeline to reassess: Health Information Technologist Clinican/Clinical Fellow: No Supervisory Statement: I have reviewed and agree with the student/clinical fellow's documentation: N/A Speech Language Pathologist: Madison Dickens M.S., CCC-SYSTEM ADMIN
[2024-09-26 20:00] VITALS: BP 124/72; PULSE 88; RESP 16; TEMP 36.5; O2SAT 97
[2024-09-26] MEDS: traZODone HCL 50 MG TABLET PO (20:21)
[2024-09-26] MEDS: Acetaminophen 325 MG TABLET 650 MG PO (20:21)
[2024-09-26] MEDS: ALPRAZolam 0.5 MG TABLET PO (20:32)
[2024-09-27] VITALS (8 sets, daily range): BP systolic 96–137; BP diastolic 54–73; PULSE 60–116; RESP 14–18; TEMP 36.2–36.9; O2SAT 95–98
--- NOTE | 2024-09-27 | EEG_ITS ---
FINDINGS: Waking background activity consists of a moderate voltage diffuse 6 hertz theta intermixed with muscle artifacts anteriorly. Photic stimulation is without activation. Hyperventilation was omitted. No focal, lateralizing, or paroxysmal discharges are seen. IMPRESSION: This is an abnormal EEG due to diffuse background slowing consistent with a diffuse encephalopathic process. No epileptiform discharges are seen. MD BAKARI Morales/KERMIT / [id number]
[2024-09-27] MEDS: metroNIDAZOLE/NS 500 MG/100 ML PIGGYBACK 100 MG IV ×3 (05:58→21:29)
[2024-09-27] MEDS: Fluticasone/Vilanterol 100/25 BLST.W.DEV 1 PUFF INHALE (08:01)
[2024-09-27 08:02] LABS: Alanine Aminotransferase 33 U/L (0-40); Albumin Level 3.1 g/dL (3.5-5.0); Alkaline Phosphatase 61 U/L (39-117); Anion Gap 16 (12-20); Aspartate Amino Transferase 33 U/L (5-37); Bilirubin Total 0.4 mg/dL (0.0-1.0); Blood Urea Nitrogen 29 mg/dL (9-16); Calcium 9.4 mg/dL (8.4-10.2); Carbon Dioxide 20 mmol/L (22-29); Chloride 110 mmol/L (96-108); Creatinine Clr Calc Pharmacy 32.2; Estimated Glomerular Filt Rate 38; Glucose Random 90 mg/dL (60-115); Potassium 3.9 mmol/L (3.3-5.1); Sodium 142 mmol/L (135-145); Total Protein 5.8 g/dL (6.5-8.0)
[2024-09-27] MEDS: Metoprolol Succinate ER 50 MG TAB.ER.24H PO (08:44)
[2024-09-27] MEDS: Apixaban 2.5 MG TABLET PO ×2 (08:45→21:29)
[2024-09-27] MEDS: Amiodarone HCL 200 MG TABLET PO (08:45)
[2024-09-27] MEDS: ALPRAZolam 0.5 MG TABLET PO ×2 (08:45→21:29)
[2024-09-27] MEDS: risperiDONE 1 MG TABLET PO (08:45)
[2024-09-27] MEDS: 0.9 % Sodium Chloride Flush 3 ML SYRINGE IVFLUSH ×2 (08:45→15:31)
[2024-09-27] MEDS: Dextrose 5 % and 0.9 % NaCl 1,000 ML 80 ML IVCONT (11:50)
[2024-09-27] MEDS: Albumin Human 25 % 100 ML IV ×2 (11:50→17:23)
--- NOTE | 2024-09-27 12:44 | P.CONNP_ITS ---
History of Present Illness Reason for Consult Consult date: 09/27/24 Chief Complaint Chief complaint: Encephalopathy, acute diverticulitis, ?CVA History of Present Illness Narrative: 84 y/o male with a medical history of HFrEF, CKD, paroxysmal afib, hx vtach, s/p pacer in place, HLD, dementia, anxiety, bipolar disorder. ED from SNF on 09/25 with change in mental status per SNF, left-sided facial droop and weakness. Reportedly feeling unwell/not himself for a few days. CT head negative for acute process. CTA head/neck negative. Utox + benzodiazepines. Nephrology consult for VENU on CKD 09/25 creatinine 1.73, 09/26 1.57, 09/27 1.73. Per 09/25 hospitalist creatinine 1.[address] [facility] on 09/20 GFR 38-42 09/25-09/27 09/25 urine bland with elevated specific gravity UA negative for UTI CT scan on 09/25 kidneys and ureters unremarkable, no hydronephrosis or obstruction noted. 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 trabeculated urinary bladder and mild acute diverticulitis on CT. pt is receiving albumin 25% every 6 hours and D5 and NS at 80mL/hr at bedside pt is awake in chair, but does not make eye contact. He states he is upset because he recently lost two of his sisters. He does not wish to answer when I ask if he lives at long term or other place/with whom he states his breathing is comfortable he denies chest pain, dizziness he denies pain, difficulty urinating, states he has been urianting regularly and comfortably he states he has pain in his left thigh ongoing He denies other concerns/complaints Review of Systems Constitutional: Reports fatigue and Reports weakness (reports improving) Denies dizziness Cardiovascular: Denies chest pain, Denies lightheadedness and Denies dyspnea Respiratory: Denies cough and Denies dyspnea Gastrointestinal: Denies abdominal pain, Denies constipation, Denies diarrhea, Denies nausea and Denies vomiting Genitourinary: Denies hematuria, Denies oliguria, Denies difficulty urinating, Denies flank pain and Denies urinary incontinence Comments: reports pain in upper left thigh ongoing Skin/Breast: Denies rash Reports confusion, Denies dizziness and Reports weakness (reports improving) Psychiatric: Reports confusion Endocrine: Reports fatigue PMFSH Past Medical History Medical History (Updated 09/27/24 @ 13:08 by Ann Killian, TANJA, SUPERIOR COURT CLERK-BC) Bipolar disorder Dementia Hyperlipidemia Ventricular tachycardia Paroxysmal A-fib CKD (chronic kidney disease) Systolic heart failure Social History Social History Household Members: Other Housing: Care Home Do you presently have visiting nurse or other home services: Yes Comment: sitter in room Patient Tobacco Use Status: Tobacco use Unknown Smoked in Last 30 Days: No Patient Interested in Nicotine Replacement: No Patient Given Instructions on How to Stop Smoking: No Use of substances other than those prescribed or required for medical reasons: No Currently Displaying Signs/Symptoms of Drug Intoxication Withdrawal: No Any prior treatment program specific to substance use: No Have you been hit, kicked, punched, or otherwise hurt by someone within the past year? If so, by whom?: No Do you feel safe in your current relationship?: No Current Relationship Is there a partner from a previous relationship who is making you feel unsafe now?: No Are you made to feel afraid or neglected: No Advance Directives: No Advance Directives Information Provided: No Advance Directives on File: No Do you have a plan to hurt others: No Plan Recently lost weight without trying: Unsure How much weight loss: Unsure Eating poorly because of decreased appetite: No Nutrition screen score: 4 Nutrition Risks: On aspiration precautions Poor oral hygiene: No service: Yes Meds Allergies Allergy/AdvReac Type Severity Reaction Status Date / Time melatonin Allergy Unknown Unverified 09/26/24 08:24 rosuvastatin [From Crestor] Allergy Unknown Unverified 09/26/24 08:24 [id number] Reductase Allergy Unknown Unverified 09/26/24 08:24 Inhibitor Active Medications: Current Medications Acetaminophen (Acetaminophen 325 Mg Tablet) 650 mg PO Q6H PRN PRN Reason: Pain, Mild (Pain Scale 1-3), fever or headache Last Admin: 09/26/24 20:21 Dose: 650 mg Albuterol Sulfate (Albuterol Sulfate 90 Mcg 8 Gm Inhaler) 2 puff INHALE Q4H PRN PRN Reason: Shortness Of Breath Or Wheezing Alprazolam (Alprazolam 0.5 Mg Tablet) 0.5 mg PO BID SHAYY Last Admin: 09/27/24 08:45 Dose: 0.5 mg Amiodarone HCl (Amiodarone Hcl 200 Mg Tablet) 200 mg PO DAILY [facility] Last Admin: 09/27/24 08:45 Dose: 200 mg Apixaban (Apixaban 2.5 Mg Tablet) 2.5 mg PO BID [facility] Last Admin: 09/27/24 08:45 Dose: 2.5 mg Benzonatate (Benzonatate 100 Mg Capsule) 100 mg PO TID PRN PRN Reason: Cough Bisacodyl (Bisacodyl 10 Mg Supp.Rect) 10 mg [place] DAILY PRN PRN Reason: Constipation Calcium Carbonate (Calcium Carbonate 750 Mg Tab.Chew) 750 mg PO Q4H PRN PRN Reason: Heartburn Ceftriaxone Sodium (Ceftriaxone Sodium 1 Gm Vial) 1 gm IVPUSH Q24H [facility] Last Admin: 09/26/24 14:23 Dose: 1 gm Divalproex Sodium (Divalproex Sodium Sprinkles 125 Mg Cap.DrTarikSpr) 750 mg PO BEDTIME [facility] Last Admin: 09/26/24 20:20 Dose: 750 mg Fluticasone/Vilanterol (Fluticasone/Vilanterol 100/25 Blst.W.Dev) 1 puff INHALE RDAILY [facility] Last Admin: 09/27/24 08:01 Dose: 1 puff Metronidazole (Flagyl) 500 mg in 100 mls @ 100 mls/hr IV Q8H [facility] Last Infusion: 09/27/24 07:40 Dose: Infused Dextrose/Sodium Chloride (D5ns) 1,000 mls @ 80 mls/hr IVCONT .[id number] [facility] Last Admin: 09/27/24 11:50 Dose: 80 mls/hr Albumin Human (Kedbumin 25 %) 100 mls @ 100 mls/hr IV Q6H [facility] Stop: 09/28/24 06:14 Last Admin: 09/27/24 11:50 Dose: 100 mls/hr Magnesium Hydroxide (Milk Of Magnesia 30 Ml Oral.Susp) 30 ml PO DAILY PRN PRN Reason: Constipation Melatonin (Melatonin 3 Mg Tablet) 6 mg PO BEDTIME PRN PRN Reason: Insomnia Metoprolol Succinate (Metoprolol Succinate Er 50 Mg Tab.Er.24h) 50 mg PO DAILY [facility]; Protocol Last Admin: 09/27/24 08:44 Dose: 50 mg Mirtazapine (Mirtazapine 15 Mg Tablet) 15 mg PO BEDTIME [facility] Last Admin: 09/26/24 20:21 Dose: 15 mg Naloxone HCl (Naloxone Hcl Nasal 4 Mg [place]) 4 mg NOSTRILALT Q3M PRN PRN Reason: Opioid Overdose Risperidone (Risperidone 1 Mg Tablet) 1 mg PO DAILY [facility] Last Admin: 09/27/24 08:45 Dose: 1 mg Sodium Biphosphate/Sodium Phosphate (Sodium Phosphate,[place]-Dibasic 133 Ml Enema) 118 ml NV DAILY PRN PRN Reason: Constipation Sodium Chloride (0.9 % Sodium Chloride Flush 3 Ml Syringe) 3 ml IVFLUSH QSHIFT [facility] Last Admin: 09/27/24 08:45 Dose: 3 ml Tamsulosin HCl (Tamsulosin Hcl 0.4 Mg Capsule) 0.4 mg PO BEDTIME [facility] Last Admin: 09/26/24 20:21 Dose: 0.4 mg Trazodone HCl (Trazodone Hcl 50 Mg Tablet) 50 mg PO BEDTIME [facility] Last Admin: 09/26/24 20:21 Dose: 50 mg Home Medications ?Medication ?Instructions ?Recorded ?Confirmed ?Last Taken ?Type acetaminophen 325 mg tablet 650 mg PO Q4H PRN Fever Or Pain 09/25/24 09/25/24 Unknown History (Tylenol) acetaminophen 650 mg rectal 650 mg NV Q4H PRN Fever Or Pain 09/25/24 09/25/24 Unknown History suppository albuterol sulfate 90 mcg/actuation 2 puff inhalation Q4H PRN 09/25/24 09/25/24 Unknown History aerosol inhaler Shortness Of Breath Or Wheezing alprazolam 0.5 mg tablet 0.5 mg PO BID 09/25/24 09/25/24 Unknown History amiodarone 200 mg tablet 200 mg PO DAILY 09/25/24 09/25/24 Unknown History apixaban 2.5 mg tablet (Eliquis) 2.5 mg PO BID 09/25/24 09/25/24 Unknown History apixaban 2.5 mg tablet (Eliquis) 5 mg PO BID 09/25/24 09/25/24 Unknown History bisacodyl 10 mg rectal suppository 10 mg NV DAILY PRN Constipation 09/25/24 09/25/24 Unknown History divalproex 125 mg capsule,delayed 750 mg PO BEDTIME 09/25/24 09/25/24 Unknown History release sprinkle fluticasone furoate 100 1 inh inhalation DAILY 09/25/24 09/25/24 Unknown History mcg-vilanterol 25 mcg/dose inhalation powder (Breo Ellipta) magnesium hydroxide 400 mg/5 mL 30 ml PO DAILY PRN Constipation 09/25/24 09/25/24 Unknown History oral suspension (Milk of Magnesia) metoprolol succinate 50 mg 50 mg PO DAILY 09/25/24 09/25/24 Unknown History tablet,extended release 24 hr mirtazapine 15 mg tablet 15 mg PO BEDTIME 09/25/24 09/25/24 Unknown History naloxone 4 mg/actuation nasal 4 mg intranasal Q3M PRN Opioid 09/25/24 09/25/24 Unknown History spray (Narcan) Overdose risperidone 1 mg tablet 1 mg PO DAILY 09/25/24 09/25/24 Unknown History sodium phosphates 19 gram-7 118 ml NV DAILY PRN Constipation 09/25/24 09/25/24 Unknown History gram/118 mL enema (Fleet Enema) tamsulosin 0.4 mg capsule 0.4 mg PO BEDTIME 09/25/24 09/25/24 Unknown History trazodone 50 mg tablet 50 mg PO BEDTIME 09/25/24 09/25/24 Unknown History Physical Exam Vital Signs: Last Vital Signs Temp 97.2 F 09/27/24 11:36 Pulse 60 09/27/24 11:36 Resp 18 09/27/24 11:36 BP 96/54 L 09/27/24 11:36 Pulse Ox 96 09/27/24 11:36 O2 Del Method Room Air 09/27/24 11:36 BMI result Body Mass Index 25.8 Const General: alert, awake and confusion Orientation/consciousness: confusion Resp Effort & Inspection: normal respiratory effort and able to speak in complete sentences Auscultation: clear to auscultation bilaterally Cardio Jugular venous distension: no JVD Rate: regular rate Rhythm: regular rhythm Heart sounds: S1 normal heart sound present and S2 normal heart sound present GI Palpation (GI): Soft to palpation and nontender General: Yes no CVA tenderness Back/Spine/Pelvis Back: no CVA tenderness Skin Rashes: no rashes Neuro General: confusion Extrem General: No edema (no LE edema) Results Lab Results 09/25/24 09:21 09/27/24 07:22 Lab results: Chemistry 09/25/24 09/26/24 09/27/24 09:21 05:49 07:22 Sodium 142 142 142 Potassium 4.3 4.3 3.9 Carbon Dioxide 25 24 20 L BUN 29 H 26 H 29 H Creatinine 1.73 H 1.57 H 1.73 H Calcium 9.4 9.2 9.4 Hematology 09/25/24 09:21 WBC 6.2 Hgb 10.7 L Plt Count 183 Urinalysis 09/25/24 11:35 Urine Color Yellow Urine Appearance Clear Urine pH 6.5 Ur Specific [place] >= 1.030 H Urine Protein Negative Urine Glucose (UA) Negative Urine Ketones Trace Urine Blood Negative Urine Nitrite Negative Ur Leukocyte Esterase Negative Assessment and Plan (1) VENU (acute kidney injury): Status: Acute Plan VENU on CKD secondary to hypoperfusion from reduced oral intake at [facility] has improvement in creatinine 09/26, then followed by second VENU due to contrast nephropathy from contrast received from [facility] on 09/25 recommend to discontinue albumin recommend only 1L of D5 NA fluids then discontinue recommend reducing dose of metoprolol from 50mg daily to 25mg daily due to hypotension recommend checking electrolytes and renal function daily monitor intake and output and blood pressure closely avoid nephrotoxic medications continue supportive care will continue to follow Discussed with Dr Josemanuel Herman Date of Service Date of Service: 09/27/24
--- NOTE | 2024-09-27 13:12 | P.PNIM_ITS ---
Subjective Subjective Date of Service: 09/27/24 Interval History: encephalopathy ,?little boderline bp Review of Systems mental status seems improving no fevers Physical Exam 2 Vital Signs: Vital Signs: Last Vital Signs Temp 97.2 F 09/27/24 11:36 Pulse 60 09/27/24 11:36 Resp 18 09/27/24 11:36 BP 96/54 L 09/27/24 11:36 Pulse Ox 96 09/27/24 11:36 O2 Del Method Room Air 09/27/24 11:36 BMI result Body Mass Index 25.8 Appearance: Alert.? Oriented X2 (knows his name and says it is daytime).? cvs: rrr, [id number] . res: clear to auscultation ,no rhonchii or wheezing abd: no rebound or guarding ,NT , bs present. ext pulses present , no cyanosis ,left upper leg pain , also left leg weakness ( somewhat improving from yesterday). neuro: axo3 , nonfocal. Objective Data Active Medications Acetaminophen (Acetaminophen 325 Mg Tablet) 650 mg PO Q6H PRN PRN Reason: Pain, Mild (Pain Scale 1-3), fever or headache Last Admin: 09/26/24 20:21 Dose: 650 mg Documented By: BAILEY Albuterol Sulfate (Albuterol Sulfate 90 Mcg 8 Gm Inhaler) 2 puff INHALE Q4H PRN PRN Reason: Shortness Of Breath Or Wheezing Alprazolam (Alprazolam 0.5 Mg Tablet) 0.5 mg PO BID [facility] Last Admin: 09/27/24 08:45 Dose: 0.5 mg Documented By: JUAN LUIS Amiodarone HCl (Amiodarone Hcl 200 Mg Tablet) 200 mg PO DAILY [facility] Last Admin: 09/27/24 08:45 Dose: 200 mg Documented By: JUAN LUIS Apixaban (Apixaban 2.5 Mg Tablet) 2.5 mg PO BID [facility] Last Admin: 09/27/24 08:45 Dose: 2.5 mg Documented By: JUAN LUIS Benzonatate (Benzonatate 100 Mg Capsule) 100 mg PO TID PRN PRN Reason: Cough Bisacodyl (Bisacodyl 10 Mg Supp.Rect) 10 mg [place] DAILY PRN PRN Reason: Constipation Calcium Carbonate (Calcium Carbonate 750 Mg Tab.Chew) 750 mg PO Q4H PRN PRN Reason: Heartburn Ceftriaxone Sodium (Ceftriaxone Sodium 1 Gm Vial) 1 gm IVPUSH Q24H [facility] Last Admin: 09/26/24 14:23 Dose: 1 gm Documented By: JAMAR Divalproex Sodium (Divalproex Sodium Sprinkles 125 Mg ) 750 mg PO BEDTIME [facility] Last Admin: 09/26/24 20:20 Dose: 750 mg Documented By: BAILEY Fluticasone/Vilanterol (Fluticasone/Vilanterol 100/25 Blst.W.Dev) 1 puff INHALE RDAILY [facility] Last Admin: 09/27/24 08:01 Dose: 1 puff Documented By: BEN Metronidazole (Flagyl) 500 mg in 100 mls @ 100 mls/hr IV Q8H [facility] Last Infusion: 09/27/24 07:40 Dose: Infused Documented By: JUAN LUIS Dextrose/Sodium Chloride (D5ns) 1,000 mls @ 80 mls/hr IVCONT .[id number] [facility] Last Admin: 09/27/24 11:50 Dose: 80 mls/hr Documented By: JUAN LUIS Albumin Human (Kedbumin 25 %) 100 mls @ 100 mls/hr IV Q6H [facility] Stop: 09/28/24 06:14 Last Infusion: 09/27/24 12:50 Dose: Infused Documented By: JUAN LUIS Magnesium Hydroxide (Milk Of Magnesia 30 Ml Oral.Susp) 30 ml PO DAILY PRN PRN Reason: Constipation Melatonin (Melatonin 3 Mg Tablet) 6 mg PO BEDTIME PRN PRN Reason: Insomnia Metoprolol Succinate (Metoprolol Succinate Er 50 Mg Tab.Er.24h) 50 mg PO DAILY [facility]; Protocol Last Admin: 09/27/24 08:44 Dose: 50 mg Documented By: JUAN LUIS Mirtazapine (Mirtazapine 15 Mg Tablet) 15 mg PO BEDTIME [facility] Last Admin: 09/26/24 20:21 Dose: 15 mg Documented By: BAILEY Naloxone HCl (Naloxone Hcl Nasal 4 Mg [place]) 4 mg NOSTRILALT Q3M PRN PRN Reason: Opioid Overdose Risperidone (Risperidone 1 Mg Tablet) 1 mg PO DAILY [facility] Last Admin: 09/27/24 08:45 Dose: 1 mg Documented By: JUAN LUIS Sodium Biphosphate/Sodium Phosphate (Sodium Phosphate,[place]-Dibasic 133 Ml Enema) 118 ml [place] DAILY PRN PRN Reason: Constipation Sodium Chloride (0.9 % Sodium Chloride Flush 3 Ml Syringe) 3 ml IVFLUSH QSHIFT [facility] Last Admin: 09/27/24 08:45 Dose: 3 ml Documented By: JUAN LUIS Tamsulosin HCl (Tamsulosin Hcl 0.4 Mg Capsule) 0.4 mg PO BEDTIME [facility] Last Admin: 09/26/24 20:21 Dose: 0.4 mg Documented By: BAILEY Trazodone HCl (Trazodone Hcl 50 Mg Tablet) 50 mg PO BEDTIME [facility] Last Admin: 09/26/24 20:21 Dose: 50 mg Documented By: BAILEY Labs 09/25/24 09:21 09/27/24 07:22 Labs: Laboratory Results - last 24 hr 09/27/24 07:22 Hold Purple Top SEE NOTE Anion Gap 16 Estim Creat Clear Calc 32.2 Estimated GFR 38 Random Glucose 90 Calcium 9.4 Total Bilirubin 0.4 AST 33 ALT 33 Alkaline Phosphatase 61 Total Protein 5.8 L Albumin 3.1 L Microbiology Microbiology Results: Microbiology 09/25/24 14:18 Blood Culture - Preliminary Blood - Venous No growth after 24 hours. 09/25/24 14:10 Blood Culture - Preliminary Blood - Venous No growth after 24 hours. Assessment and Plan (1) Acute metabolic encephalopathy: Status: Acute (2) Delirium: Status: Acute (3) Diverticulitis: Status: Acute Assessment and Plan: 84-year-old male with a PMH significant for?HFrEF, CKD, paroxysmal AFib on Eliquis, hx of V tach, s/p pacer in place, HLD, dementia, anxiety, and bipolar disorder who presents to the ED from [facility] for evalatuion of possible left-sided facial droop and weakness at 06:00 during nursing rounds. Pt will be admitted to the hospital for treatment and further evaluation of acute metabolic encephalopathy and generalized weakness in the setting of acute diverticulitis. Acute sigmoid diverticulitis As noted on CT scan; left lower side pain, no N/V/D noted continue Flagyl and ceftriaxone, started 09/25/2024 diet advanced as [employer]. ?Left-sided deficits-consern for tia vs cva Left-sided facial droop noted at SNF, Left lower extremity weaker than right, upper extremities equal CTA of head and neck negative for acute findings. MRI of head/brain added left leg ct added- he said has leg soarness -mild hip arthritis . 2 cm sclerotic focus in the left ischium. Consider bone scan evaluation . leg pain seems to improved. plan:continue aspirin Lipid panel with HDL low at 27 neuro eval noted(please see neuro note on 09/26/24) -added eeg PT/OT consult-rec str Acute metabolic encephalopathy vs dementia unspecified. possible mulitfactorial-dehydration ,elavted cr UA negative confusion somewhat improving Treat and workup as above Monitor mentation,sitter CT found irregular filling defects at base of urinary bladder moniter pvr Consider urology consult outaptient ckd stage 3? , boderline bp Elevated creatinine worsening,Likely in the setting of decreased p.o. intake Creatinine flactuating from 1.57 - 1.73 (Elevated from 1.48 on [place] [facility] [place] hypoalbuminemia plan: added ivf ,albumin nutrionist consult moniter bmp closely consider nephrology eval. 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 outpatient follow up Paroxysmal AFib Continue Eliquis, metoprolol HFrEF Not in acute exacerbation, appears euvolemic Not on home diuretics Continue metoprolol BPH Tamsulosin Mood disorder/dementia Continue alprazolam, Depakote, mirtazapine, risperidone, and trazodone Full Code DVT Prophylaxis: On Eliquis ongoing need for hospitalization of at least two nights for treatment of?acute metabolic encephalopathy and generalized weakness in the setting of acute diverticulitis, as well as left-sided deficits vs delirum,little: -need of IV antibiotics, additional imaging and specialist consultation for possible CVA, and close monitoring of mentation Quality Stroke Does the patient have a stroke diagnosis?: No Reason for No Anti-thrombotic by Day Two: Contraindicated (Last known well time outside of tNK therapeutic window; pt already on Eliquis) VTE Prior VTE?: No VTE Risk Level:: Medical - moderate - high VTE Device Contraindication: Treatment Not Indicated VTE Drug Contraindication: N/A - Med Ordered
--- NOTE | 2024-09-27 13:40 | MHC.SPEECHCO ---
Pt out of room during Lunch. RN requested to contact LEARNING CONSULTANT when he returns. Per RN, he is requesting upgrade.
--- NOTE | 2024-09-27 14:36 | MHC.CM.PN ---
IMM 09/27/24, EMR REVIEWED, PT W/DEMENTIA, ABLE TO ANSWER SOME QUESTIONS HOWEVER CM DID NEED TO CONTACT PT'S DTR/HCP ALBERTO SILVA LIVES W/PT, PT HAS A CANE HE USES ON OCCASION FOR AMBULATION, NO HOME SERVICES AT THIS TIME PT CAME FROM [facility], CONY WOULD LIKE PT TO RETURN AND REPORTS SHE IS WORKING ON HOME SERVICES FOR PT FOR BATHING AND LOOKING FOR A WALKER AND WC (FOR APPTS), CONY GIVEN CONTACT INFO FOR [facility], [facility] ON AGING AND ADDRESS AND HRS FOR FREE ERIC'S DME PROGRAM ON SATURDAYS. PCP VERIFIED DR. CONNELL AND HCP IS CONY AND COPY FAXED TO CM FROM [facility].
[2024-09-27] MEDS: 0.9 % Sodium Chloride 1,000 ML 80 ML IVCONT (15:30)
[2024-09-27] MEDS: cefTRIAXone sodium 1 GM VIAL IVPUSH (15:31)
--- NOTE | 2024-09-27 15:48 | MHC.SL.DTX ---
Dysphagia Diet modifications: Last documented Solid diet consistencies: Pureed (NDD1) Last documented Liquid consistency: Thin Changes made to current diet?: Yes Liquid Consistency and Strategies: Liquid Intake Recommendation: Thin Compensatory Strategies for Safe Swallow: Small Sips Compensatory Strategies for Safe Swallow(b): Sitting Upright (90 deg) No Straw Liquids from Cup Small Bites and Sips Alternate Liquids/Solids Rate of Ingestion Change Solid Food Consistency: Dietary Recommendations: Chopped/Advanced (NDD3) Oral Medication Intake: Whole with Puree Strategies and Precautions to be Taken for Safe Swallow: Sitting Upright (90 deg) No Straw Liquids from Cup Small Bites and Sips Alternate Liquids/Solids Rate of Ingestion Change Supervision While Eating and/Drinking: Total Supervision (1:1) Foods to Avoid: Swallowing Recommended Treatments: Compens. Strategy Educat. Level of Impact on: Daily activities: Mild Interpersonal interactions: Education: Employment: Community: Mild Prognosis for Improvement: Good Recommendation for Speech: Treatment: DENTAL CERAMIST HELPER attempted to see Pt for Lunch but he was out of the room. RN contact DENTAL CERAMIST HELPER when he returned. Per RN, he has been complaining about the texture of his food. Pt is upright in his chair. He is verbalizing more, but still confused. Left-side facial droop is decreased. No evidence of Dysarthria. He remains confused, states that, if you knew the stories about my family it would make you curl up into a ball . But he is redirectable. He rejects initial offering of Pudding or Samir Cracker, but agrees to trial a [place] with Stein. Pt observed eating half of the sandwich within overt s/s of aspiration and mild oral residue. Oral residue is removed with Thin Liquid wash. Pt is noted to take small bites and sips independently. He is able to bring food and liquid to his mouth from a bedside table. DENTAL CERAMIST HELPER recommending upgrade to Chopped/Advanced Solids (NDD3) and Thin Liquids. Meds Whole with Liquids. Pt will benefit from tray set-up and intermittent supervision to encourage completion of meals. Assessment: Databases Software Consultant Clinican/Clinical Fellow: No Supervisory Statement: I have reviewed and agree with the student/clinical fellow's documentation: N/A Speech Language Pathologist: Kiko Damon M.A., [facility]-DENTAL CERAMIST HELPER
[2024-09-27 18:02] LABS: Creatinine Urine 227.39 mg/dL; Microalbum/Creatinine Ratio Ur 5.7 ug/mg cr (<30); Protein/Creatinine Ratio, Ur 0.06 (<0.2); Total Protein Urine Random 14 mg/dL (<12)
[2024-09-27] MEDS: Mirtazapine 15 MG TABLET PO (21:29)
[2024-09-27] MEDS: Divalproex Sodium Sprinkles 125 MG CAP.DR.SPR 750 MG PO (21:29)
[2024-09-27] MEDS: Tamsulosin HCL 0.4 MG CAPSULE PO (21:29)
[2024-09-27] MEDS: traZODone HCL 50 MG TABLET PO (21:29)
[2024-09-28] MEDS: Dextrose 5 % and 0.9 % NaCl 1,000 ML 80 ML IVCONT (00:14)
[2024-09-28] MEDS: Albumin Human 25 % 100 ML IV ×2 (00:15→04:44)
[2024-09-28 03:43] VITALS: BP 126/76; PULSE 61; RESP 18; TEMP 36.4; O2SAT 98
[2024-09-28] MEDS: metroNIDAZOLE/NS 500 MG/100 ML PIGGYBACK 100 MG IV (04:44)
[2024-09-28 07:22] VITALS: BP 135/71; PULSE 60; RESP 18; TEMP 36.7; O2SAT 95
[2024-09-28 08:10] LABS: Alanine Aminotransferase 20 U/L (0-40); Albumin Level 3.9 g/dL (3.5-5.0); Alkaline Phosphatase 34 U/L (39-117); Anion Gap 14 (12-20); Aspartate Amino Transferase 23 U/L (5-37); Bilirubin Total 0.6 mg/dL (0.0-1.0); Blood Urea Nitrogen 21 mg/dL (9-16); Calcium 9.1 mg/dL (8.4-10.2); Carbon Dioxide 21 mmol/L (22-29); Chloride 111 mmol/L (96-108); Creatinine Clr Calc Pharmacy 39.2; Estimated Glomerular Filt Rate 47; Glucose Random 83 mg/dL (60-115); Potassium 3.7 mmol/L (3.3-5.1); Sodium 142 mmol/L (135-145); Total Protein 5.8 g/dL (6.5-8.0)
--- NOTE | 2024-09-28 08:15 | P.PNNP_ITS ---
Subjective Subjective Date of Service: 09/28/24 Interval history: 84 y/o male with a medical history of HFrEF, CKD, paroxysmal afib, hx vtach, s/p pacer in place, HLD, dementia, anxiety, bipolar disorder. ED from [facility] on 09/25 with change in mental status per SNF, left-sided facial droop and weakness. Reportedly feeling unwell/not himself for a few days. CT head negative for acute process. CTA head/neck negative. Utox + benzodiazepines. Nephrology consult for VENU on CKD 09/25 creatinine 1.73, 09/26 1.57, 09/27 1.73, 09/28 1.42. Per 09/25 hospitalist creatinine 1.48 upon discharge from [facility] on 09/20 GFR 38-42 09/25-09/27 09/25 urine bland with elevated specific gravity UA negative for UTI CT scan on 09/25 kidneys and ureters unremarkable, no hydronephrosis or obstruction noted. 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 trabeculated urinary bladder and mild acute diverticulitis on CT. he states his breathing is comfortable today he denies chest pain, dizziness he denies pain, difficulty urinating, states he has been urinating regularly and comfortably he has pain in his left thigh ongoing He denies other concerns/complaints Physical Exam 2 Vital Signs: Vital Signs: Last Vital Signs Temp 97.6 F 09/28/24 10:56 Pulse 68 09/28/24 10:56 Resp 18 09/28/24 10:56 BP 114/66 09/28/24 10:56 Pulse Ox 95 09/28/24 10:56 O2 Del Method Room Air 09/28/24 10:56 BMI result Body Mass Index 25.8 Const: General: alert, awake and confusion Orientation/consciousness: c onfusion Resp: Effort & Inspection: normal respiratory effort and able to speak in complete sentences Auscultation: clear to auscultation bilaterally Cardio: Jugular venous distension: no JVD Rate: regular rate Rhythm: r egular rhythm Heart sounds: S1 normal heart sound present and S2 normal heart sound present GI: Palpation (GI): Soft to palpation and nontender : General: Yes no CVA tenderness Back/Spine/Pelvis: Back: no CVA tenderness Skin: Rashes: no rashes Neuro: General: confusion Extrem: General: No edema (no LE edema) Objective Data Labs 09/25/24 09:21 09/28/24 06:55 Labs: Laboratory Results - last 24 hr 09/27/24 09/28/24 17:37 06:55 Hold Purple Top SEE NOTE Sodium 142 Potassium 3.7 Chloride 111 H Carbon Dioxide 21 L Anion Gap 14 BUN 21 H Creatinine 1.42 H Estim Creat Clear Calc 39.2 Estimated GFR 47 Random Glucose 83 Calcium 9.1 Total Bilirubin 0.6 AST 23 ALT 20 Alkaline Phosphatase 34 L Total Protein 5.8 L Albumin 3.9 U Random Total Protein 14 H Urine Creatinine 227.39 Urine Microalbumin 13.0 Microalb/Creat Ratio 5.7 Protein/Creatinin Ratio 0.06 Microbiology Microbiology Results: Microbiology 09/25/24 14:18 Blood - Venous Blood Culture - Preliminary No growth after 48 hours. 09/25/24 14:10 Blood - Venous Blood Culture - Preliminary No growth after 48 hours. Procedures Date of Service Date of Service: 09/28/24 Assessment & Plan Assessment and plan (1) CKD (chronic kidney disease): Status: Acute (2) VENU (acute kidney injury): Status: Acute Plan VENU on CKD secondary to hypoperfusion from reduced oral intake at SNF has improvement in creatinine 09/26, then followed by second VENU due to contrast nephropathy from contrast received from CTA on 09/25 creatinine improving, unknown baseline continue metoprolol 25mg daily, blood pressures acceptable recommend checking electrolytes and renal function daily monitor intake and output and blood pressure closely avoid nephrotoxic medications continue supportive care will continue to follow recommend nephrology outpatient follow up in 2-4 weeks post discharge for continued management of CKD Discussed with Dr Abernathy Time Spent With Patient Time: Total time managing care of this patient today ____ minutes. Progress Note: Quality Stroke Does the patient have a stroke diagnosis?: No Reason for No Anti-thrombotic by Day Two: Contraindicated (Last known well time outside of tNK therapeutic window; pt already on Eliquis)
[2024-09-28] MEDS: ALPRAZolam 0.5 MG TABLET PO ×2 (09:06→20:37)
[2024-09-28] MEDS: risperiDONE 1 MG TABLET PO (09:06)
[2024-09-28] MEDS: Metoprolol Succinate ER 25 MG TAB.ER.24H PO (09:06)
[2024-09-28] MEDS: Amiodarone HCL 200 MG TABLET PO (09:06)
[2024-09-28] MEDS: Apixaban 2.5 MG TABLET PO ×2 (09:06→20:37)
[2024-09-28 10:56] VITALS: BP 114/66; PULSE 68; RESP 18; TEMP 36.4; O2SAT 95
--- NOTE | 2024-09-28 11:54 | HE.CSO ---
EMR REVIEWED, PER HOSPITLALIST PT WILL REMAIN INPT SHARON HERRING UPDATED AND WILL SUBMIT FOR AUTH, CM WILL CONT TO FOLLOW DC NEEDS.
--- NOTE | 2024-09-28 12:41 | HO.PM.IMPN ---
Subjective Subjective Date of Service: 09/28/24 Interval History: Agitated overnight, now minimally arousable Physical Exam Vital Signs: Vital Signs: Last Vital Signs Temp 97.6 F 09/28/24 10:56 Pulse 68 09/28/24 10:56 Resp 18 09/28/24 10:56 BP 114/66 09/28/24 10:56 Pulse Ox 95 09/28/24 10:56 O2 Del Method Room Air 09/28/24 10:56 BMI result Body Mass Index 25.8 Obtunded, does react to deep stimulation, frail appearing, lungs clear Objective Data Active Medications Acetaminophen (Acetaminophen 325 Mg Tablet) 650 mg PO Q6H PRN PRN Reason: Pain, Mild (Pain Scale 1-3), fever or headache Last Admin: 09/26/24 20:21 Dose: 650 mg Documented By: BAILEY Albuterol Sulfate (Albuterol Sulfate 90 Mcg 8 Gm Inhaler) 2 puff INHALE Q4H PRN PRN Reason: Shortness Of Breath Or Wheezing Alprazolam (Alprazolam 0.5 Mg Tablet) 0.5 mg PO BID [facility] Last Admin: 09/28/24 09:06 Dose: 0.5 mg Documented By: THUY Amiodarone HCl (Amiodarone Hcl 200 Mg Tablet) 200 mg PO DAILY [facility] Last Admin: 09/28/24 09:06 Dose: 200 mg Documented By: THUY Apixaban (Apixaban 2.5 Mg Tablet) 2.5 mg PO BID [facility] Last Admin: 09/28/24 09:06 Dose: 2.5 mg Documented By: THUY Benzonatate (Benzonatate 100 Mg Capsule) 100 mg PO TID PRN PRN Reason: Cough Bisacodyl (Bisacodyl 10 Mg Supp.Rect) 10 mg [place] DAILY PRN PRN Reason: Constipation Calcium Carbonate (Calcium Carbonate 750 Mg Tab.Chew) 750 mg PO Q4H PRN PRN Reason: Heartburn Ceftriaxone Sodium (Ceftriaxone Sodium 1 Gm Vial) 1 gm IVPUSH Q24H [facility] Last Admin: 09/27/24 15:31 Dose: 1 gm Documented By: JUAN LUIS Divalproex Sodium (Divalproex Sodium Sprinkles 125 Mg ) 750 mg PO BEDTIME [facility] Last Admin: 09/27/24 21:29 Dose: 750 mg Documented By: BO Fluticasone/Vilanterol (Fluticasone/Vilanterol 100/25 Blst.W.Dev) 1 puff INHALE RDAILY [facility] Last Admin: 09/28/24 08:02 Dose: Not Given Documented By: KEVIN Non-Admin Reason: pt asleep, sitter in room. diff night. Dextrose/Sodium Chloride (D5ns) 1,000 mls @ 80 mls/hr IVCONT .[id number] [facility] Last Admin: 09/28/24 00:14 Dose: 80 mls/hr Documented By: BO Magnesium Hydroxide (Milk Of Magnesia 30 Ml Oral.Susp) 30 ml PO DAILY PRN PRN Reason: Constipation Melatonin (Melatonin 3 Mg Tablet) 6 mg PO BEDTIME PRN PRN Reason: Insomnia Metoprolol Succinate (Metoprolol Succinate Er 25 Mg Tab.Er.24h) 25 mg PO DAILY [facility]; Protocol Last Admin: 09/28/24 09:06 Dose: 25 mg Documented By: THUY Metronidazole (Metronidazole 500 Mg Tablet) 500 mg PO Q12H [facility] Mirtazapine (Mirtazapine 15 Mg Tablet) 15 mg PO BEDTIME [facility] Last Admin: 09/27/24 21:29 Dose: 15 mg Documented By: BO Naloxone HCl (Naloxone Hcl Nasal 4 Mg [place]) 4 mg NOSTRILALT Q3M PRN PRN Reason: Opioid Overdose Risperidone (Risperidone 1 Mg Tablet) 1 mg PO DAILY [facility] Last Admin: 09/28/24 09:06 Dose: 1 mg Documented By: THUY Sodium Biphosphate/Sodium Phosphate (Sodium Phosphate,[place]-Dibasic 133 Ml Enema) 118 ml [place] DAILY PRN PRN Reason: Constipation Sodium Chloride (0.9 % Sodium Chloride Flush 3 Ml Syringe) 3 ml IVFLUSH QSHIFT [facility] Last Admin: 09/28/24 09:06 Dose: Not Given Documented By: THUY Non-Admin Reason: IV Running Tamsulosin HCl (Tamsulosin Hcl 0.4 Mg Capsule) 0.4 mg PO BEDTIME [facility] Last Admin: 09/27/24 21:29 Dose: 0.4 mg Documented By: BO Trazodone HCl (Trazodone Hcl 50 Mg Tablet) 50 mg PO BEDTIME [facility] Last Admin: 09/27/24 21:29 Dose: 50 mg Documented By: BO Labs 09/25/24 09:21 09/28/24 06:55 Labs: Laboratory Results - last 24 hr 09/27/24 09/28/24 17:37 06:55 Hold Purple Top SEE NOTE Anion Gap 14 Estim Creat Clear Calc 39.2 Estimated GFR 47 Random Glucose 83 Calcium 9.1 Total Bilirubin 0.6 AST 23 ALT 20 Alkaline Phosphatase 34 L Total Protein 5.8 L Albumin 3.9 U Random Total Protein 14 H Urine Creatinine 227.39 Urine Microalbumin 13.0 Microalb/Creat Ratio 5.7 Protein/Creatinin Ratio 0.06 Microbiology Microbiology Results: Microbiology 09/25/24 14:18 Blood Culture - Preliminary Blood - Venous No growth after 48 hours. 09/25/24 14:10 Blood Culture - Preliminary Blood - Venous No growth after 48 hours. Assessment and Plan (1) Acute metabolic encephalopathy: Status: Acute (2) Delirium: Status: Acute (3) Diverticulitis: Status: Acute Assessment and Plan: 84M PMH significant for?HFrEF, CKD, paroxysmal AFib on Eliquis, hx of V tach, s/p pacer in place, HLD, dementia, anxiety, and bipolar disorder who presented to the ED from [facility]F for evalatuion of possible left-sided facial droop and weakness at 06:00 during nursing rounds. Pt admitted to the hospital for treatment and further evaluation of acute metabolic encephalopathy and generalized weakness in the setting of acute diverticulitis. Acute sigmoid diverticulitis As noted on CT scan; left lower side pain, no N/V/D noted continue Flagyl and ceftriaxone, started 09/25/2024 diet advanced as [employer]. ?Left-sided deficits-consern for tia vs cva Left-sided facial droop noted at SNF, Left lower extremity weaker than right, upper extremities equal CTA of head and neck negative for acute findings. MRI of head/brain unobtainable due to AICD We will get repeat CT head continue apixaban Lipid panel with LDL low at 92 Neuro appreciated-Follow up EEG PT/OT consult-rec str Acute metabolic encephalopathy vs dementia unspecified. 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 outpatient follow up Paroxysmal AFib Continue Eliquis, metoprolol HFrEF Not in acute exacerbation, appears euvolemic Not on home diuretics Continue metoprolol BPH Tamsulosin Mood disorder/dementia Continue alprazolam, Depakote, mirtazapine, risperidone, and trazodone Full Code DVT Prophylaxis: On Eliquis reason for continued hospitalization: Following up repeat CT head, EEG Quality Stroke Does the patient have a stroke diagnosis?: No Reason for No Anti-thrombotic by Day Two: Contraindicated (Last known well time outside of tNK therapeutic window; pt already on Eliquis) VTE Prior VTE?: No VTE Risk Level:: Medical - moderate - high VTE Device Contraindication: Treatment Not Indicated VTE Drug Contraindication: N/A - Med Ordered
--- NOTE | 2024-09-28 14:17 | MHC.SLORD ---
Speech Language Pathology Order Status: Pt sleeping this morning, too lethargic for [employer] tx. Pt taken for procedure in afternoon. [employer] to check PO tolerance tomorrow, pt currently on NDD1 with thin liquids and full supevision.
[2024-09-28] MEDS: cefTRIAXone sodium 1 GM VIAL IVPUSH (14:55)
[2024-09-28] MEDS: 0.9 % Sodium Chloride Flush 3 ML SYRINGE IVFLUSH ×2 (14:56→20:37)
[2024-09-28 15:18] VITALS: BP 119/67; PULSE 60; RESP 19; TEMP 36.3; O2SAT 94
[2024-09-28] MEDS: metroNIDAZOLE 500 MG TABLET PO (15:46)
[2024-09-28] MEDS: Acetaminophen 325 MG TABLET 650 MG PO (15:46)
[2024-09-28 19:35] VITALS: BP 120/64; PULSE 60; RESP 16; TEMP 36.6; O2SAT 96
[2024-09-28] MEDS: Mirtazapine 15 MG TABLET PO (20:37)
[2024-09-28] MEDS: traZODone HCL 50 MG TABLET PO (20:37)
[2024-09-28] MEDS: Tamsulosin HCL 0.4 MG CAPSULE PO (20:37)
[2024-09-28] MEDS: Divalproex Sodium Sprinkles 125 MG CAP.DR.SPR 750 MG PO (20:37)
[2024-09-28 23:41] VITALS: BP 113/69; PULSE 60; RESP 18; TEMP 36.3; O2SAT 96
[2024-09-29 03:52] VITALS: BP 116/67; PULSE 60; RESP 18; O2SAT 96
[2024-09-29] MEDS: metroNIDAZOLE 500 MG TABLET PO (05:36)
[2024-09-29 06:42] LABS: Hematocrit 31.6 % (42.0-52.0); Hemoglobin 10.3 g/dl (14.0-18.0); Mean Corpuscular HGB Conc 32.6 g/dl (31.0-36.0); Mean Platelet Volume 9.9 fL (9.4-12.4); Platelet Count 180 X10*3/uL (160-400); Red Blood Count 3.55 X10*6/uL (4.60-5.80); Red Cell Distribution Width 14.4 % (11.0-16.0); White Blood Count 5.3 X10*3/uL (4.8-10.8)
[2024-09-29 06:55] LABS: Anion Gap 12 (12-20); Blood Urea Nitrogen 22 mg/dL (9-16); Calcium 9.1 mg/dL (8.4-10.2); Carbon Dioxide 23 mmol/L (22-29); Chloride 110 mmol/L (96-108); Creatinine Clr Calc Pharmacy 42.8; Estimated Glomerular Filt Rate 52; Glucose Fasting 90 mg/dL (60-99); Potassium 3.9 mmol/L (3.3-5.1); Sodium 141 mmol/L (135-145)
[2024-09-29 07:29] VITALS: BP 137/66; PULSE 60; RESP 20; TEMP 36.2; O2SAT 95
[2024-09-29] MEDS: Fluticasone/Vilanterol 100/25 BLST.W.DEV 1 PUFF INHALE (07:39)
[2024-09-29 07:41] VITALS: PULSE 63; RESP 20; O2SAT 97
[2024-09-29 08:39] VITALS: BP 137/66; PULSE 63
[2024-09-29] MEDS: risperiDONE 1 MG TABLET PO (08:39)
[2024-09-29] MEDS: 0.9 % Sodium Chloride Flush 3 ML SYRINGE IVFLUSH (08:39)
[2024-09-29] MEDS: Amiodarone HCL 200 MG TABLET PO (08:39)
[2024-09-29] MEDS: Apixaban 2.5 MG TABLET PO (08:39)
[2024-09-29] MEDS: Metoprolol Succinate ER 25 MG TAB.ER.24H PO (08:39)
[2024-09-29] MEDS: ALPRAZolam 0.5 MG TABLET PO (08:43)
--- NOTE | 2024-09-29 10:06 | P.PNNP_ITS ---
Subjective Subjective Date of Service: 09/29/24 Interval history: 84 y/o male with a medical history of HFrEF, CKD, paroxysmal afib, hx vtach, s/p pacer in place, HLD, dementia, anxiety, bipolar disorder. ED from [facility] on 09/25 with change in mental status per SNF, left-sided facial droop and weakness. Reportedly feeling unwell/not himself for a few days. CT head negative for acute process. CTA head/neck negative. Utox + benzodiazepines. Nephrology consult for VENU on CKD 09/25 creatinine 1.73, 09/26 1.57, 09/27 1.73, 09/28 1.42, 09/29 is 1.30. Per 09/25 hospitalist creatinine 1.48 upon [place] [facility] [place] GFR 38-42 09/25-09/29 09/25 urine bland with elevated specific gravity UA negative for UTI CT scan on 09/25 kidneys and ureters unremarkable, no hydronephrosis or obstruction noted. 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 trabeculated urinary bladder and mild acute diverticulitis on CT. he states his breathing is comfortable today he denies chest pain, dizziness he denies pain, difficulty urinating, states he has been urinating regularly and comfortably he has pain in his left thigh ongoing He denies other concerns/complaints Physical Exam 2 Vital Signs: Vital Signs: Last Vital Signs Temp 97.2 F 09/29/24 07:29 Pulse 63 09/29/24 08:39 Resp 20 09/29/24 07:41 BP 137/66 09/29/24 08:39 Pulse Ox 95 09/29/24 07:29 O2 Del Method Room Air 09/29/24 07:29 BMI result Body Mass Index 25.8 Const: General: alert, awake and confusion Orientation/consciousness: c onfusion Resp: Effort & Inspection: normal respiratory effort and able to speak in complete sentences Auscultation: clear to auscultation bilaterally Cardio: Jugular venous distension: no JVD Rate: regular rate Rhythm: r egular rhythm Heart sounds: S1 normal heart sound present and S2 normal heart sound present GI: Palpation (GI): Soft to palpation and nontender : General: Yes no CVA tenderness Back/Spine/Pelvis: Back: no CVA tenderness Skin: Rashes: no rashes Neuro: General: confusion Extrem: General: No edema (no LE edema) Objective Data Labs 09/29/24 06:24 09/29/24 06:24 Labs: Laboratory Results - last 24 hr 09/29/24 06:24 WBC 5.3 RBC 3.55 L Hgb 10.3 L Hct 31.6 L MCV 89.0 MCH 29.0 MCHC 32.6 RDW 14.4 Plt Count 180 MPV 9.9 Absolute Nucleated RBC 0.000 Nucleated RBC % (auto) 0.0 Sodium 141 Potassium 3.9 Chloride 110 H Carbon Dioxide 23 Anion Gap 12 BUN 22 H Creatinine 1.30 Estim Creat Clear Calc 42.8 Estimated GFR 52 Fasting Glucose 90 Calcium 9.1 Microbiology Microbiology Results: Microbiology 09/25/24 14:18 Blood - Venous Blood Culture - Preliminary No growth after 48 hours. 09/25/24 14:10 Blood - Venous Blood Culture - Preliminary No growth after 48 hours. Procedures Date of Service Date of Service: 09/29/24 Assessment & Plan Assessment and plan (1) CKD (chronic kidney disease): Status: Acute (2) VENU (acute kidney injury): Status: Acute Plan VENU on CKD secondary to hypoperfusion from reduced oral intake at [facility] has improvement in creatinine 09/26, then followed by second VENU due to contrast nephropathy from contrast received from CTA on 09/25 creatinine improving, unknown baseline but is improved from recent [facility] discharge continue metoprolol 25mg daily, blood pressures acceptable recommend checking electrolytes and renal function daily monitor intake and output and blood pressure closely avoid nephrotoxic medications continue supportive care will continue to follow recommend nephrology outpatient follow up in 2-4 weeks post discharge for continued management of CKD Discussed with Dr Abernathy Time Spent With Patient Time: Total time managing care of this patient today ____ minutes. Progress Note: Quality Stroke Does the patient have a stroke diagnosis?: No Reason for No Anti-thrombotic by Day Two: Contraindicated (Last known well time outside of tNK therapeutic window; pt already on Eliquis)
--- NOTE | 2024-09-29 10:29 | P.PNIM_ITS ---
Subjective Subjective Date of Service: 09/29/24 Interval History: much calmer and more alert today Physical Exam 2 Vital Signs: Vital Signs: Last Vital Signs Temp 97.2 F 09/29/24 07:29 Pulse 63 09/29/24 08:39 Resp 20 09/29/24 07:41 BP 137/66 09/29/24 08:39 Pulse Ox 95 09/29/24 07:29 O2 Del Method Room Air 09/29/24 07:29 BMI result Body Mass Index 25.8 General: AO X 1, no acute distress Resp: CTA bilateral, no accessory muscles used CVS: S1,S2,RRR GI: soft, non tender, non distended Neuro: motor grossly intact, alert Objective Data Active Medications Acetaminophen (Acetaminophen 325 Mg Tablet) 650 mg PO Q6H PRN PRN Reason: Pain, Mild (Pain Scale 1-3), fever or headache Last Admin: 09/28/24 15:46 Dose: 650 mg Documented By: THUY Albuterol Sulfate (Albuterol Sulfate 90 Mcg 8 Gm Inhaler) 2 puff INHALE Q4H PRN PRN Reason: Shortness Of Breath Or Wheezing Alprazolam (Alprazolam 0.5 Mg Tablet) 0.5 mg PO BID [facility] Last Admin: 09/29/24 08:43 Dose: 0.5 mg Documented By: KATHRINE Amiodarone HCl (Amiodarone Hcl 200 Mg Tablet) 200 mg PO DAILY [facility] Last Admin: 09/29/24 08:39 Dose: 200 mg Documented By: KATHRINE Apixaban (Apixaban 2.5 Mg Tablet) 2.5 mg PO BID [facility] Last Admin: 09/29/24 08:39 Dose: 2.5 mg Documented By: KATHRINE Benzonatate (Benzonatate 100 Mg Capsule) 100 mg PO TID PRN PRN Reason: Cough Bisacodyl (Bisacodyl 10 Mg Supp.Rect) 10 mg [place] DAILY PRN PRN Reason: Constipation Calcium Carbonate (Calcium Carbonate 750 Mg Tab.Chew) 750 mg PO Q4H PRN PRN Reason: Heartburn Ceftriaxone Sodium (Ceftriaxone Sodium 1 Gm Vial) 1 gm IVPUSH Q24H [facility] Last Admin: 09/28/24 14:55 Dose: 1 gm Documented By: THUY Divalproex Sodium (Divalproex Sodium Sprinkles 125 Mg ) 750 mg PO BEDTIME [facility] Last Admin: 09/28/24 20:37 Dose: 750 mg Documented By: DEANA Fluticasone/Vilanterol (Fluticasone/Vilanterol 100/25 Blst.W.Dev) 1 puff INHALE RDAILY [facility] Last Admin: 09/29/24 07:39 Dose: 1 puff Documented By: HARMAN Magnesium Hydroxide (Milk Of Magnesia 30 Ml Oral.Susp) 30 ml PO DAILY PRN PRN Reason: Constipation Melatonin (Melatonin 3 Mg Tablet) 6 mg PO BEDTIME PRN PRN Reason: Insomnia Metoprolol Succinate (Metoprolol Succinate Er 25 Mg Tab.Er.24h) 25 mg PO DAILY [facility]; Protocol Last Admin: 09/29/24 08:39 Dose: 25 mg Documented By: KATHRINE Metronidazole (Metronidazole 500 Mg Tablet) 500 mg PO Q12H [facility] Last Admin: 09/29/24 05:36 Dose: 500 mg Documented By: DEANA Mirtazapine (Mirtazapine 15 Mg Tablet) 15 mg PO BEDTIME [facility] Last Admin: 09/28/24 20:37 Dose: 15 mg Documented By: DEANA Naloxone HCl (Naloxone Hcl Nasal 4 Mg [place]) 4 mg NOSTRILALT Q3M PRN PRN Reason: Opioid Overdose Risperidone (Risperidone 1 Mg Tablet) 1 mg PO DAILY [facility] Last Admin: 09/29/24 08:39 Dose: 1 mg Documented By: KATHRINE Sodium Biphosphate/Sodium Phosphate (Sodium Phosphate,[place]-Dibasic 133 Ml Enema) 118 ml [place] DAILY PRN PRN Reason: Constipation Sodium Chloride (0.9 % Sodium Chloride Flush 3 Ml Syringe) 3 ml IVFLUSH QSHIFT [facility] Last Admin: 09/29/24 08:39 Dose: 3 ml Documented By: KATHRINE Tamsulosin HCl (Tamsulosin Hcl 0.4 Mg Capsule) 0.4 mg PO BEDTIME [facility] Last Admin: 09/28/24 20:37 Dose: 0.4 mg Documented By: DEANA Trazodone HCl (Trazodone Hcl 50 Mg Tablet) 50 mg PO BEDTIME [facility] Last Admin: 09/28/24 20:37 Dose: 50 mg Documented By: DEANA Labs 09/29/24 06:24 09/29/24 06:24 Labs: Laboratory Results - last 24 hr 09/29/24 06:24 MCV 89.0 MCH 29.0 MCHC 32.6 RDW 14.4 Plt Count 180 MPV 9.9 Absolute Nucleated RBC 0.000 Nucleated RBC % (auto) 0.0 Anion Gap 12 Estim Creat Clear Calc 42.8 Estimated GFR 52 Fasting Glucose 90 Calcium 9.1 Assessment and Plan (1) Acute metabolic encephalopathy: Status: Acute (2) Delirium: Status: Acute (3) Diverticulitis: Status: Acute Assessment and Plan: 84M PMH significant for?HFrEF, CKD, paroxysmal AFib on Eliquis, hx of V tach, s/p pacer in place, HLD, dementia, anxiety, and bipolar disorder who presented to the ED from [facility] for evalatuion of possible left-sided facial droop and weakness at 06:00 during nursing rounds. Pt admitted to the hospital for treatment and further evaluation of acute metabolic encephalopathy and generalized weakness in the setting of acute diverticulitis. Acute sigmoid diverticulitis As noted on CT scan; left lower side pain, no N/V/D noted continue Flagyl and ceftriaxone, started 09/25/2024 diet advanced as [employer]. ?Left-sided deficits-consern for tia vs cva Left-sided facial droop noted at SNF, Left lower extremity weaker than right, upper extremities equal CTA of head and neck negative for acute findings. MRI of head/brain unobtainable due to AICD follow up repeat CT head continue apixaban Lipid panel with LDL low at 92 Neuro appreciated-Follow up EEG PT/OT consult-rec str Acute metabolic encephalopathy vs dementia unspecified. 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 outpatient follow up Paroxysmal AFib Continue Eliquis, metoprolol HFrEF Not in acute exacerbation, appears euvolemic Not on home diuretics Continue metoprolol BPH Tamsulosin Mood disorder/dementia Continue alprazolam, Depakote, mirtazapine, risperidone, and trazodone Full Code DVT Prophylaxis: On Eliquis reason for continued hospitalization: Following up repeat CT head, EEG Quality Stroke Does the patient have a stroke diagnosis?: No Reason for No Anti-thrombotic by Day Two: Contraindicated (Last known well time outside of tNK therapeutic window; pt already on Eliquis) VTE Prior VTE?: No VTE Risk Level:: Medical - moderate - high VTE Device Contraindication: Treatment Not Indicated VTE Drug Contraindication: N/A - Med Ordered
--- NOTE | 2024-09-29 10:30 | MHC.SL.SWA ---
Speech Pathologist Impression: Risk of Aspiration Due to: None Dysphasia Diet Status: Recommend continue on diet of Chopped/Advanced (NDD3) with thin liquids, pills whole in puree. Patient currently requires 1-1 feeding. Do not attempt if patient is too lethargic/not attentive or aware of meal. Liquid Consistency and Strategies for Safe Swallow: Liquid Intake Recommendation: Thin Liquid Intake Strategies: Small Sips Solid Food Consistency: Dietary Recommendations: Chopped/Advanced (NDD3) Additional Modifications to Solid Foods: 1-1 feeding. Do not attempted if patient is too lethargic, and discontinue if patient becomes lethargic/disengaged during meal. Alternate liquids and solids. Assure patient has swallowed bite of food before administering more. Oral Medication Intake: Whole with Puree Please contact the pharmacy regarding appropriate crushable or liquid drug formulations that are available whenever modified delivery is recommended. Compensatory Strategies and Precautions to be Taken for Safe Swallow: Sitting Upright (90 deg) No Straw Liquids from Cup Small Bites and Sips Alternate Liquids/Solids Rate of Ingestion Change Oral Check Supervision While Eating and Drinking for Safe Swallow: Total Assistance (1:1) Foods to Avoid: Mixed consistencies, tough to chew solids. Swallowing Recommended Treatments: Compens. Strategy Educat. Recommendation for Speech: Comment: Patient seen at breakfast, immediately after being bathed/cleaned up by RN and placed in recliner beside bed. Initially patient was awake and alert, communicative but confused. Asked about preference to have food re-warmed, patient stated it doesn't matter. NEUROUROLOGIST prepped chopped pancakes with syrup, scooped some on fork and invited patient to eat, however patient did not initiate, began to close eyes. NEUROUROLOGIST then fed patient bites of pancake, with patient producing slow, rotary chew on texture, and initiating swallow after mild delay. After 2-3 bites, patient noted to cough, but appeared unrelated to swallow. Patient was alternately given sips of milk by straw, which patient was noted to hold bolus sucked up by straw in mouth before propelling for swallow. As meal slowly progressed patient became lethargic to a point where it was deemed unsafe to continue to feed him. Patient took only trace amounts of food on tray. Nutritional supplement was removed from tray to be tried with patient at later time if he became more alert (which was advised to NIGHT TIME NANNY/Sitter in room). Per NIGHT TIME NANNY, he also needed to feed patient yesterday (patient was not independent with meal) but he noted no difficulties/coughing. Recommend continue on diet of Chopped/Advanced (NDD3) with thin liquids, pills whole in puree. Patient currently requires 1-1 feeding. Do not attempt is patient is too lethargic/not attentive or aware of meal. NEUROUROLOGIST will continue to follow. Frequency/Duration: Date Range for Service Req: Timeline to reassess: Meter Technician Clinican/Clinical Fellow: No Supervisory Statement: I have reviewed and agree with the student/clinical fellow's documentation: N/A Speech Language Pathologist: Ann Dodd M.A., CCC-NEUROUROLOGIST
--- NOTE | 2024-09-29 10:39 | MHC.CM.PN ---
Addendum entered by Ann Allen RN 09/29/24 12:00: CM RECEIVED CALL BACK FROM PT'S DTR/HCP CONY DONNELLY AGREEABLE TO DC PLAN. Addendum entered by Ann Allen RN 09/29/24 10:40: CM ATTEMPTED TO CONTACT PT'S DTR/HCP CONY HOWEVER VOICEMAIL FULL, CM TO REVISIT. Original Note: PT MEDICALLY CLEARED FOR DC BACK TO [facility], THEY HAVE INSURANCE [facility] FOR BLS TRANSPORT AT 2PM
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
[2024-09-29 11:09] VITALS: BP 84/52; PULSE 60; RESP 23; TEMP 36.4; O2SAT 96
[2024-09-29] MEDS: 0.9 % Sodium Chloride 500 ML 999 ML IV (11:29)
[2024-09-29] MEDS: cefTRIAXone sodium 1 GM VIAL IVPUSH (13:28)
== END 2024-09-29 14:42 | disposition skilled nursing facility (03) | DRG 391 ==
LOC: HO.ED 14:33 → HO.EDOVER 16:30 → HO.IMC 19:34
PROVIDERS: Family Medicine; Internal Medicine; Physician Assistant; Admitting Provider Student in an Organized Health Care Education/Training Program; Emergency Provider Emergency Medicine Emergency Medical Services; PCP Internal Medicine; Visit Provider Internal Medicine
DX: K57.32 Diverticulitis of large intestine without perforation or abscess without bleeding (principal); G93.41 Metabolic encephalopathy; I13.0 Hypertensive heart and chronic kidney disease with heart failure and stage 1 through stage 4 chronic kidney disease, or unspecified chronic kidney disease; I50.22 Chronic systolic (congestive) heart failure; N17.9 Acute kidney failure, unspecified; F31.9 Bipolar disorder, unspecified; I71.43 Infrarenal abdominal aortic aneurysm, without rupture; N18.30 Chronic kidney disease, stage 3 unspecified; N32.89 Other specified disorders of bladder; G83.14 Monoplegia of lower limb affecting left nondominant side; N40.0 Benign prostatic hyperplasia without lower urinary tract symptoms; N14.11 Contrast-induced nephropathy; T50.8X5A Adverse effect of diagnostic agents, initial encounter; F03.C0 Unspecified dementia, severe, without behavioral disturbance, psychotic disturbance, mood disturbance, and anxiety; I48.0 Paroxysmal atrial fibrillation; Z95.0 Presence of cardiac pacemaker; Z20.822 Contact with and (suspected) exposure to COVID-19; Z79.51 Long term (current) use of inhaled steroids; Z79.01 Long term (current) use of anticoagulants; Z79.899 Other long term (current) drug therapy
CPT/HCPCS: 0241U; 36415; 70450; 70496; 70498; 71250; 73700; 74176; 76775; 80048; 80053; 80061; 80076; 80307; 81003; 82043; 82140; 82550; 82570; 82947; 83605; 84156; 84484; 85025; 85027; 85610; 85730; 87040; 92526; 92610; 93005; 94640; 95816; 97162; 97165; 97166; 97530; 99285; J0696; J1836; J1956; P9047; Q9967

== ENCOUNTER → 2024-09-25 08:53 | Outpatient (BNV) | payer MEDICARE, SELFPAY | PROVIDERS: Emergency Provider Emergency Medicine Emergency Medical Services; PCP Family Medicine; Visit Provider Internal Medicine | DX: R94.31 Abnormal electrocardiogram [ECG] [EKG] (principal) | CPT/HCPCS: 93010 ==

== ENCOUNTER → 2024-09-25 16:11 | Outpatient (BNV) | payer MEDICARE, SELFPAY | PROVIDERS: Admitting Provider Student in an Organized Health Care Education/Training Program; Emergency Provider Emergency Medicine Emergency Medical Services; PCP Family Medicine; Visit Provider Nurse Practitioner Family | DX: N17.9 Acute kidney failure, unspecified (principal); N18.9 Chronic kidney disease, unspecified | CPT/HCPCS: 99222; 99232 ==

== ENCOUNTER → 2024-09-25 16:11 | Outpatient (BNV) | payer MEDICARE, SELFPAY | PROVIDERS: Admitting Provider Student in an Organized Health Care Education/Training Program; Emergency Provider Emergency Medicine Emergency Medical Services; PCP Family Medicine; Visit Provider Psychiatry & Neurology Neurology | DX: R41.82 Altered mental status, unspecified (principal) | CPT/HCPCS: 99222 ==

== ENCOUNTER → 2024-09-25 16:11 | Outpatient (BNV) | payer MEDICARE, SELFPAY | PROVIDERS: Admitting Provider Student in an Organized Health Care Education/Training Program; Emergency Provider Emergency Medicine Emergency Medical Services; PCP Family Medicine; Visit Provider Student in an Organized Health Care Education/Training Program | DX: G93.41 Metabolic encephalopathy (principal); R41.0 Disorientation, unspecified; K57.92 Diverticulitis of intestine, part unspecified, without perforation or abscess without bleeding | CPT/HCPCS: 99223; 99231; 99232; 99239; 99499 ==

== ENCOUNTER 2024-10-02 13:16 | Emergency (ER) | payer MEDICARE, SELFPAY ==
[2024-10-02 13:22] VITALS: BP 96/53; PULSE 62; O2SAT 98; BMI 24.3
[2024-10-02 13:32] VITALS: BP 95/56; PULSE 60; RESP 16; TEMP 36.4; O2SAT 96
[2024-10-02 13:41] LABS: MANUAL DIFF FLAG NO
[2024-10-02 13:47] LABS: Basophils Percent Auto 0.2 % (0-2); Eosinophils Absolute Auto 0.2 X10*3/uL (0.0-0.4); Eosinophils Percent Auto 2.1 % (0-4); Hematocrit 35.8 % (42.0-52.0); Hemoglobin 11.8 g/dl (14.0-18.0); Imm Gran Abs Auto 0.05 X10*3/uL (0.00-0.03); Imm Gran Pct Auto 0.6 % (0.0-0.4); Lymphocytes Absolute Auto 0.7 X10*3/uL (1.2-4.9); Lymphocytes Percent Auto 7.7 % (20-40); Mean Corpuscular Hemoglobin 29.2 pg (27.0-33.0); Mean Corpuscular Volume 88.6 fL (80.0-98.0); Mean Platelet Volume 9.9 fL (9.4-12.4); Monocytes Absolute Auto 0.7 X10*3/uL (0.1-1.2); Neutrophils Absolute Auto 7.1 x10*3/uL (2.0-8.3); Neutrophils Percent Auto 81.4 % (45-73); Platelet Count 224 X10*3/uL (160-400); Red Blood Count 4.04 X10*6/uL (4.60-5.80); Red Cell Distribution Width 14.7 % (11.0-16.0); White Blood Count 8.7 X10*3/uL (4.8-10.8)
[2024-10-02 13:56] LABS: Alanine Aminotransferase 24 U/L (0-40); Albumin Level 3.9 g/dL (3.5-5.0); Alkaline Phosphatase 42 U/L (39-117); Anion Gap 15 (12-20); Aspartate Amino Transferase 30 U/L (5-37); Bilirubin Total 0.4 mg/dL (0.0-1.0); Blood Urea Nitrogen 33 mg/dL (9-16); Carbon Dioxide 23 mmol/L (22-29); Chloride 110 mmol/L (96-108); Estimated Glomerular Filt Rate 37; Glucose Random 133 mg/dL (60-115); Potassium 4.1 mmol/L (3.3-5.1); Sodium 144 mmol/L (135-145); Total Protein 6.5 g/dL (6.5-8.0)
--- NOTE | 2024-10-02 14:00 | PC.NURSE ---
[place] from [facility] d/t period of unknown amount of time while pt was unresponsive. pt reports not responding to staff at facility purposely d/t increased depression x a few weeks r/t recent in family. denies SI/HI. upon ED arrival - pt mostly alert and oriented. alert to self, date of and location. pt unaware on what year it is. vss and up to date aside from being slightly hypotensive (hx hypotension). pt has no physical complaints. denies any pain. pt reports that when he was at the facility he didn't answer the staff on purpose because i didn't want to. i have been so off and so sad for the past few weeks since the multiple deaths that have happened in my family recently. pt reports deaths including , and 2 daughters. pt denies any SI/HI to this chief underwriter. labs obtained/sent to lab. [place] catheter in place as pt was incontinent upon arrival. stage 1 pressure ulcer noted to pt's coccyx. original dressing from facility removed as it was not dated. barrier cream/new pink foam applied to affected area. pt tolerated well. on RA w/o difficulty. no sob/wob noted. respirations even/unlabored. plan of care ongoing. call colon placed within reach.
--- NOTE | 2024-10-02 15:10 | ED.GENADULT ---
HPI - General Adult General Chief complaint: Psychiatric Symptoms Stated complaint: DEPRESSION Time Seen by Provider: 10/02/24 13:35 Source: patient, EMS, RN notes reviewed and old records reviewed Mode of arrival: EMS History of Present Illness ED Provider: Mary Kay PA-C HPI narrative: 84-year-old male with a past medical history bipolar disorder, dementia, HLD, ventricular tachycardia, proximal AFib, CKD, CHF, presenting to the ED via EMS from [facility] due to unresponsive episode at facility. Per EMS patient stated he was not responding to staff at facility purposefully secondary to increased depression over the past few weeks due to multiple deaths in the family. Patient states he recently lost his daughter and . Denies SI/HI at present, however slow/hesitant to respond. Patient denies other complaints at present. Remaining history limited due to patient's baseline dementia Related Data Home Medications ?Medication ?Instructions ?Recorded ?Confirmed acetaminophen 325 mg tablet 650 mg PO Q4H PRN Fever Or Pain 09/25/24 09/25/24 (Tylenol) acetaminophen 650 mg rectal 650 mg ID Q4H PRN Fever Or Pain 09/25/24 09/25/24 suppository albuterol sulfate 90 mcg/actuation 2 puff inhalation Q4H PRN 09/25/24 09/25/24 aerosol inhaler Shortness Of Breath Or Wheezing alprazolam 0.5 mg tablet 0.5 mg PO BID 09/25/24 09/25/24 amiodarone 200 mg tablet 200 mg PO DAILY 09/25/24 09/25/24 apixaban 2.5 mg tablet (Eliquis) 2.5 mg PO BID 09/25/24 09/25/24 apixaban 2.5 mg tablet (Eliquis) 5 mg PO BID 09/25/24 09/25/24 bisacodyl 10 mg rectal suppository 10 mg ID DAILY PRN Constipation 09/25/24 09/25/24 divalproex 125 mg capsule,delayed 750 mg PO BEDTIME 09/25/24 09/25/24 release sprinkle fluticasone furoate 100 1 inh inhalation DAILY 09/25/24 09/25/24 mcg-vilanterol 25 mcg/dose inhalation powder (Breo Ellipta) magnesium hydroxide 400 mg/5 mL 30 ml PO DAILY PRN Constipation 09/25/24 09/25/24 oral suspension (Milk of Magnesia) metoprolol succinate 50 mg 50 mg PO DAILY 09/25/24 09/25/24 tablet,extended release 24 hr mirtazapine 15 mg tablet 15 mg PO BEDTIME 09/25/24 09/25/24 naloxone 4 mg/actuation nasal 4 mg intranasal Q3M PRN Opioid 09/25/24 09/25/24 spray (Narcan) Overdose risperidone 1 mg tablet 1 mg PO DAILY 09/25/24 09/25/24 sodium phosphates 19 gram-7 118 ml ID DAILY PRN Constipation 09/25/24 09/25/24 gram/118 mL enema (Fleet Enema) tamsulosin 0.4 mg capsule 0.4 mg PO BEDTIME 09/25/24 09/25/24 trazodone 50 mg tablet 50 mg PO BEDTIME 09/25/24 09/25/24 Previous Rx's ?Medication ?Instructions ?Recorded cefuroxime axetil 500 mg tablet 500 mg PO Q12H #10 tabs 09/29/24 metronidazole 500 mg tablet 500 mg PO Q12H #0 tabs 09/29/24 Allergies Allergy/AdvReac Type Severity Reaction Status Date / Time melatonin Allergy Unknown Verified 10/02/24 13:25 rosuvastatin [From Crestor] Allergy Unknown Verified 10/02/24 13:25 Wpekgpm-AQU-JrA Reductase Allergy Unknown Verified 10/02/24 13:25 Inhibitor Review of Systems Review of Systems: Yes all other systems are reviewed and are negative Constitutional: Constitutional: Reports as per [facility] Past Medical History Attestation statement: The following information was validated with the patient. Source: old records reviewed Medical History Bipolar disorder Dementia Hyperlipidemia Ventricular tachycardia Paroxysmal A-fib CKD (chronic kidney disease) Systolic heart failure Social History Social History Household Members: Other Housing: Detention Do you presently have visiting nurse or other home services: Yes Comment: sitter in room Patient Tobacco Use Status: Tobacco use Unknown Advance Directives: No Advance Directives Information Provided: No Do you have a plan to hurt others: No Plan service: Yes Physical Exam ED Vital Signs: Vital Signs - 24 hr 10/02/24 13:32 Temperature 97.6 F Pulse Rate 60 Respiratory Rate 16 Blood Pressure 95/56 L Pulse Oximetry 96 Oxygen Delivery Method Room Air BMI result Body Mass Index 24.3 Const General: no acute distress Orientation/consciousness: oriented to person and oriented to place HENMT Head: Yes normal to inspection and Yes atraumatic Ears: hearing grossly normal bilaterally General nose exam: Normal external nose present Face and sinus: Yes normal facial exam Eyes General: appearance normal, both eyes and all related structures EOM: EOMs intact bilaterally Neck Neck: Yes normal visual inspection and Yes no meningeal signs Resp Effort & Inspection: normal respiratory effort and no respiratory distress Auscultation: clear to auscultation bilaterally Cardio Rate: regular rate Heart sounds: S1 normal heart sound present and S2 normal heart sound present GI Inspection: Yes normal to inspection Palpation (GI): Soft to palpation, nontender, no guarding and not rigid Skin Rashes: no rashes Wounds: no wounds Neuro Other: Pleasantly confused General: oriented to person, oriented to place, tone normal, moves all extremities and no meningeal signs Cranial nerves: Yes CN's II-XII intact bilaterally Extrem General: Yes normal to inspection Psych Affect: Sad affect present Thought content: suicidality, no homicidality and Depressive thoughts present Course Course Course Narrative: -1514--no leukocytosis. H/H stable. Acute on chronic CKD. -physician observation initiated at 15:15 as patient needs more time to be evaluated by CARE team. UA currently pending -1630--ED care transferred to [facility] pending UA and CARE team consult Medical Decision Making Medical Decision Making MDM Narrative: 84-year-old male with a past medical history bipolar disorder, dementia, HLD, ventricular tachycardia, proximal AFib, CKD, CHF, presenting to the ED via EMS from [facility] due to unresponsive episode at facility. Per EMS patient stated he was not responding to staff at facility purposefully secondary to increased depression over the past few weeks due to multiple deaths in the family. On exam BP soft, NAD, nontoxic appearing, awake and alert at baseline mentation per facility, baseline dementia, A&O x2, no evidence of trauma. Reports increasing depression however denies SI/HI. Low suspicion for severe sepsis at this time. Rule out metabolic / infectious etiologies Plan: Labs, UA, tox screen, CARE team consult Please refer to course for remaining clinical decision making, interpretation of labs/imaging results, and discussions with consultants and/or family members. Differential Diagnosis Differential Diagnoses: The differential diagnosis associated with the presentation includes As above Admission/Observation Consideration of admission/observation: Escalation of care including admission/observation considered Consult Healthcare Provider Management of the patient was discussed with: Behavioral Health Provider Lab Data MDM Lab Attestation statement: I reviewed the patient's lab results. 10/02/24 13:37 10/02/24 13:37 Labs: Lab Results 10/02/24 Range/Units 13:37 WBC 8.7 (4.8-10.8) X10*3/uL RBC 4.04 L (4.60-5.80) X10*6/uL Hgb 11.8 L (14.0-18.0) g/dl Hct 35.8 L (42.0-52.0) % MCV 88.6 (80.0-98.0) fL MCH 29.2 (27.0-33.0) pg MCHC 33.0 (31.0-36.0) g/dl RDW 14.7 (11.0-16.0) % Plt Count 224 (160-400) X10*3/uL MPV 9.9 (9.4-12.4) fL Immature Gran % (Auto) 0.6 H (0.0-0.4) % Neut % (Auto) 81.4 H (45-73) % Lymph % (Auto) 7.7 L (20-40) % [place] % (Auto) 8.0 (2-11) % Eos % (Auto) 2.1 (0-4) % Baso % (Auto) 0.2 (0-2) % Lymph # (Auto) 0.7 L (1.2-4.9) X10*3/uL [place] # (Auto) 0.7 (0.1-1.2) X10*3/uL Eos # (Auto) 0.2 (0.0-0.4) X10*3/uL Baso # (Auto) 0.0 (0.0-0.2) X10*3/uL Abs Immat Gran (auto) 0.05 H (0.00-0.03) X10*3/uL Absolute Neuts (auto) 7.1 (2.0-8.3) x10*3/uL Absolute Nucleated RBC 0.000 (0.0-0.012) X10*3/uL Nucleated RBC % (auto) 0.0 (0.0-0.2) /100WBC Sodium 144 (135-145) mmol/L Potassium 4.1 (3.3-5.1) mmol/L Chloride 110 H (96-108) mmol/L Carbon Dioxide 23 (22-29) mmol/L Anion Gap 15 (12-20) BUN 33 H (9-16) mg/dL Creatinine 1.74 H (0.5-1.4) mg/dL Estim Creat Clear Calc 33.0 Estimated GFR 37 Random Glucose 133 H (60-115) mg/dL Calcium 10.0 D (8.4-10.2) mg/dL Magnesium 2.0 (1.6-2.6) mg/dL Total Bilirubin 0.4 (0.0-1.0) mg/dL AST 30 (5-37) U/L ALT 24 (0-40) U/L Alkaline Phosphatase 42 (39-117) U/L Total Protein 6.5 (6.5-8.0) g/dL Albumin 3.9 (3.5-5.0) g/dL Radiology Impression Discussion of test interpretation with radiology: I have reviewed the radiologist's reading. Independent Historian Clinical information obtained from an independent historian. History obtained from or confirmed by: EMS External Record Review External record reviewed: Inpatient record, Office record, Outpatient record, Prior outpatient labs, Prior outpatient radiology, Primary care record and Outside ED record Tests considered The following testing was considered but not selected: As above Chronic Conditions Patient?s care impacted by: Other Social Determinants Patient?s care significantly limited by Social Determinants of Health including: Problems related to primary support group and Other Social Determinant of Health Discharge Plan Discharge Clinical Impression: CKD (chronic kidney disease), Depression Patient Disposition: Still a Patient Prescriptions: No Action acetaminophen [Tylenol] 325 mg Tablet 650 mg PO Q4H PRN (Reason: Fever Or Pain) Rx Instructions: DNE 3G/24 HRS acetaminophen 650 mg Suppository 650 mg ID Q4H PRN (Reason: Fever Or Pain) Rx Instructions: DNE 3G/24HRS trazodone 50 mg tablet 50 mg PO BEDTIME amiodarone 200 mg tablet 200 mg PO DAILY metoprolol succinate 50 mg tablet extended release 24 hr 50 mg PO DAILY alprazolam 0.5 mg tablet 0.5 mg PO BID magnesium hydroxide [Milk of Magnesia] 400 mg/5 mL Suspension 30 ml PO DAILY PRN (Reason: Constipation) tamsulosin 0.4 mg capsule 0.4 mg PO BEDTIME bisacodyl 10 mg Suppository 10 mg ID DAILY PRN (Reason: Constipation) Fleet Enema 19-7 gram/118 mL Enema 118 ml ID DAILY PRN (Reason: Constipation) mirtazapine 15 mg tablet 15 mg PO BEDTIME albuterol sulfate 90 mcg/actuation HFA aerosol inhaler 2 puff inhalation Q4H PRN (Reason: Shortness Of Breath Or Wheezing) divalproex 125 mg capsule, delayed rel sprinkle 750 mg PO BEDTIME risperidone 1 mg tablet 1 mg PO DAILY Eliquis 2.5 mg Tablet 2.5 mg PO BID Rx Instructions: START 09/28/24 Eliquis 2.5 mg Tablet 5 mg PO BID Rx Instructions: END DATE: 09/27/24 fluticasone furoate-vilanterol [Breo Ellipta] 100-25 mcg/dose Blister With Device 1 inh INHALATION DAILY naloxone [Narcan] 4 mg/actuation [place],Non-Aerosol 4 mg INTRANASAL Q3M PRN (Reason: Opioid Overdose) Rx Instructions: spray 1 dose into ONE nostril; alternate nostrils w each dose until help arrives metronidazole 500 mg Tablet 500 mg PO Q12H Qty: 0 0RF cefuroxime axetil 500 mg tablet 500 mg PO Q12H Qty: 10 0RF Print Language: Cypriot
--- NOTE | 2024-10-02 18:30 | PC.NURSE ---
geovanni catheter originally in place but pt self removed. pt incontinent of urine. gricel care performed. new sheets/pads/hospital attire applied. new [place] catheter now in place at this time. pt aware urine sample is still needed at this time in order to proceed w/ original care in regards to speaking w/ care team. per [facility], pt does not need to have a straight catheterization performed until bladder reaches >500ml. tech bedside obtaining bladder scan. bladder can displays w/ 220ml. provider notified/aware of results. pt provided w/ dinner tray but states he is not hungry. tray placed bedside for convenience. pt otherwise continues to rest in no apparent distress. vss and up to date. on RA w/o difficulty. no sob/wob noted. respirations remain even/unlabored. plan of care ongoing. call colon placed within reach.
[2024-10-02 18:43] VITALS: BP 137/76; PULSE 59; RESP 14; O2SAT 93
[2024-10-02 21:21] VITALS: BP 138/70; PULSE 59; RESP 16; TEMP 36.9; O2SAT 97
--- NOTE | 2024-10-02 21:25 | MHC.EDTECH ---
This pct assumed care of Patient at 2114 ,vitals taken ,patient urine sample collected and sent to lab ,Patient was clean up and reposition in bed ,warm blanket given ,Patient refused supper ,rn aware ,All safety measure in place .Patient resting with eyes closed.
[2024-10-02 21:39] LABS: Appearance Urine Clear; Color Urine Dark Yellow; Glucose Urine UA Negative (Negative); Leukocyte Esterase Urine Moderate (2+) (Negative); Nitrite Urine Negative (Negative); PH 5.5 (5.0-9.0); Specific Gravity - Urine 1.025 (1.005-1.025); UMIC TRIGGER UACC YES; Urine Blood Negative (Negative); Urine Ketones 15 mg/dL (Negative); Urine Protein Trace mg/dL (Neg-Trace)
[2024-10-02 21:49] LABS: Amphetamine Screen Urine Not Detected (Not Detect); Barbiturates, Urine Not Detected (Not Detect); Benzodiazepines Screen Urine POSITIVE (Not Detect); Buprenorphine Scr Not Detected (Not Detect); Cannabinoid Screen Urine Not Detected (Not Detect); Cocaine Screen Urine Not Detected (Not Detect); Fentanyl, urine Not Detected (Not Detect); Methadone Screen, Urine Not Detected (Not Detect); Opiate Screen Urine Not Detected (Not Detect); Oxycodone Screen Urine Not Detected (Not Detect); Phencyclidine Screen Urine Not Detected (Not Detect)
[2024-10-02 21:51] LABS: Bacteria Urine None Seen (None Seen); Hyaline Casts Urine 0-2 /LPF (0-2); RBC Urine 0-2 /HPF (0-2); Squamous Epithelial Cell Urine 0-2 /HPF (0-2); UACC Culture Trigger YES
[2024-10-02 23:57] VITALS: BP 140/79; PULSE 59; RESP 16; TEMP 36.4; O2SAT 95
[2024-10-03 06:00] VITALS: BP 128/69; PULSE 72; RESP 16; TEMP 36.1; O2SAT 98
[2024-10-03 08:08] VITALS: BP 157/79; PULSE 64; RESP 17; TEMP 36.8; O2SAT 92
--- NOTE | 2024-10-03 09:33 | PC.NURSE ---
Incontinence care provided to pt. by electric motor repairman. Full bed change and bed bath. Pt. is clean and dry at this time.
--- NOTE | 2024-10-03 09:59 | MHC.CARE ---
Pt seen and cleared by CARE team and can be discharged back to [facility]
--- NOTE | 2024-10-03 11:15 | PC.NURSE ---
Report given to Diamante Sarmiento RN
[2024-10-03 12:50] VITALS: BP 146/72; PULSE 65; RESP 18; O2SAT 95
[2024-10-03 13:52] VITALS: BP 146/72; PULSE 68; RESP 18; TEMP 36.8; O2SAT 97
== END 2024-10-03 13:53 ==
PROVIDERS: Physician Assistant; Emergency Provider Emergency Medicine; PCP Internal Medicine
DX: F33.1 Major depressive disorder, recurrent, moderate (principal); F03.90 Unspecified dementia, unspecified severity, without behavioral disturbance, psychotic disturbance, mood disturbance, and anxiety; I47.20 Ventricular tachycardia, unspecified; N18.9 Chronic kidney disease, unspecified; Z79.899 Other long term (current) drug therapy; Z51.81 Encounter for therapeutic drug level monitoring; Z79.01 Long term (current) use of anticoagulants
CPT/HCPCS: 36415; 80053; 80307; 81001; 83735; 85025; 87086; 99285; S9485

== ENCOUNTER 2024-10-10 11:08 | Emergency (ER) | payer MEDICARE, SELFPAY ==
[2024-10-10] VITALS (8 sets, daily range): BP systolic 92–128; BP diastolic 60–78; PULSE 66–84; RESP 14–25; TEMP 36.9–37.7; O2SAT 89–94; BMI 23.8
--- NOTE | ~2024-10-10 | CT_ITS ---
EXAMINATION: CT HEAD WITHOUT CONTRAST CLINICAL INFORMATION: ams COMPARISON: CT chest dated September 28, 2024. TECHNIQUE: Contiguous axial imaging was performed from the skull base to vertex without intravenous administration of contrast. This CT examination was performed using dose optimization techniques as appropriate, variously including the following: *Automated exposure control *Adjustment of mA and/or kV according to patient size (this includes techniques or standardized protocols for targeted exams where dose is matched to indication/reason for exam; i.e. extremities or head) *Use of iterative reconstruction technique DLP: 812 mGy-cm FINDINGS: No acute intracranial hemorrhage, mass effect, midline shift, hydrocephalus or herniation. Velásquez-white matter differentiation is normal. Posterior cranial fossa contents demonstrated no acute intracranial hemorrhage or mass effect. Dystrophic calcifications in the basal ganglia/putamen bilaterally. Bilateral multifocal patchy deep periventricular white matter both hemispheres. Sellar/suprasellar region demonstrated no gross mass. Craniocervical junction is intact. Prominence of the extra-axial CSF spaces cerebral sulci and ventricles. Calcified plaques in the cavernous supracavernous segments both ICA. Radiopaque banding of the left eyeball. No air-fluid levels in the included paranasal sinuses. Tympanic cavities and mastoid cells are aerated. CT/CT head/brain wo IV con IMPRESSION: No acute intracranial hemorrhage. Small vessel occlusive disease. Global atrophy. Calcium metabolic disorders cannot be excluded. Electronically signed by: Bernard Alicea MD 10/10/2024 02:12 PM [facility]
--- NOTE | ~2024-10-10 | CT_ITS ---
EXAMINATION: CT CHEST WITHOUT CONTRAST CLINICAL INFORMATION: eval pna vs chronic changes COMPARISON: CT chest September 25, 2024 TECHNIQUE: Multidetector volumetric CT imaging of the chest was done. Axial MIP volume rendering provided. Sagittal and coronal reformatted images were obtained. This CT examination was performed using dose optimization techniques as appropriate, variously including the following: *Automated exposure control *Adjustment of mA and/or kV according to patient size (this includes techniques or standardized protocols for targeted exams where dose is matched to indication/reason for exam; i.e. extremities or head) *Use of iterative reconstruction technique DLP: 322 mGy-cm FINDINGS: Breathing motion limits study. LUNGS: Bilateral lower lobe reticular opacities likely due to atelectasis, right greater than left. No focal consolidation. Central bronchial airways are open. MEDIASTINUM: No mediastinal mass or significant lymphadenopathy. Pacemaker leads in the heart. Heart size normal. No pericardial effusion. Vascular calcifications of aorta. No aneurysm. CORONARY ARTERY CALCIFICATION: Heavy volume of coronary calcification PLEURA: There is no pleural effusion. No pleural mass or thickening. AXILLA: No lymphadenopathy. UPPER ABDOMEN: Unremarkable. OSSEOUS STRUCTURES: Multilevel degenerative spondylosis spine. CT/CT chest wo IV con IMPRESSION: Bilateral lower lobe reticular opacities likely due to atelectasis, right greater than left. No focal consolidation. Fleischner guidelines were followed. Electronically signed by: Chidi Yap MD 10/10/2024 08:12 PM [facility]
--- NOTE | ~2024-10-10 | XR_ITS ---
EXAMINATION: XR CHEST CLINICAL INFORMATION: ams. cough COMPARISON: Correlated to CT chest dated September 25, 2024 TECHNIQUE: Frontal view of the chest was obtained. FINDINGS: Haziness in the left lower hemithorax. Prominence of the interstitial markings. No pneumothorax. Cardiomediastinal silhouette overlaps the left hemithorax due to patient's positioning. There are 3 intact electrode leads in the right transverse and coronary sinus. Left-sided pacemaker reservoir. Calcified plaque thoracic aorta. Multilevel thoracic spondylosis. S-shaped curvature of the thoracic spine. Osteopenia versus osteoporosis. Degenerative changes in the right shoulder. XR/XR chest 1V IMPRESSION: Left-sided pleural effusion, [id number] volume. Acute on chronic airspace disease versus mild interstitial lung edema Electronically signed by: Bernard Alicea MD 10/10/2024 01:45 PM [facility]
--- NOTE | 2024-10-10 11:29 | HO.SKINPHOTO ---
Location: coccyx Category: Stage: 2 Length: Width: Depth: cm Location: Category: Stage: Length: Width: Depth: cm Location: Category: Stage: Length: Width: Depth: cm Location: Category: Stage: Length: Width: Depth: cm Location: Category: Stage: Length: Width: Depth: cm Location: Category: Stage: Length: Width: Depth: cm
--- NOTE | 2024-10-10 11:38 | ECG_ITS ---
Test Reason : AMS Blood Pressure : / mmHG Vent. Rate : 066 BPM Atrial Rate : 066 BPM P-R Int : 156 ms QRS Dur : 134 ms QT Int : 512 ms P-R-T Axes : 023 -84 091 degrees QTc Int : 536 ms Atrial-sensed ventricular-paced rhythm Abnormal ECG When compared with ECG of 25-SEP-2024 09:16, Vent. rate has increased BY 6 BPM Referred By: Mary Kay Electronically Signed By:PRASAD ALVARADO MD
--- NOTE | 2024-10-10 11:39 | ED.AMS ---
HPI - Altered Mental Status General Chief Complaint: Altered Mental Status Stated Complaint: Per Staff, disoriented SNF, Low BP, 96% 2Liters Time Seen by Provider: 10/10/24 11:26 Source: patient, EMS, RN notes reviewed and old records reviewed Mode of arrival: EMS History of Present Illness ED Provider: Mary Kay PA-C HPI narrative: 84-year-old male with a past medical history VENU, dementia, mood disorder, anxiety, PE, AFib on Eliquis, CHF, diverticulitis, metabolic encephalopathy, hemiplegia affecting left side, presenting to the ED via EMS from [facility] for noted confusion upon waking this morning by facility RN. Per RN at facility she is unaware of patient's baseline. No reported fall/trauma. Remaining history limited due to patient's acute mental status Related Data Home Medications ?Medication ?Instructions ?Recorded ?Confirmed alprazolam 0.5 mg tablet 0.5 mg PO BID 09/25/24 10/10/24 amiodarone 200 mg tablet 200 mg PO DAILY 09/25/24 10/10/24 apixaban 2.5 mg tablet (Eliquis) 2.5 mg PO BID 09/25/24 10/10/24 divalproex 125 mg capsule,delayed 750 mg PO BEDTIME 09/25/24 10/10/24 release sprinkle fluticasone furoate 100 1 inh inhalation DAILY 09/25/24 10/10/24 mcg-vilanterol 25 mcg/dose inhalation powder (Breo Ellipta) metoprolol succinate 50 mg 50 mg PO DAILY 09/25/24 10/10/24 tablet,extended release 24 hr mirtazapine 15 mg tablet 15 mg PO BEDTIME 09/25/24 10/10/24 risperidone 1 mg tablet 1 mg PO DAILY 09/25/24 10/10/24 tamsulosin 0.4 mg capsule 0.4 mg PO BEDTIME 09/25/24 10/10/24 trazodone 50 mg tablet 50 mg PO BEDTIME 09/25/24 10/10/24 Allergies Allergy/AdvReac Type Severity Reaction Status Date / Time melatonin Allergy Unknown Verified 10/10/24 11:21 rosuvastatin [From Crestor] Allergy Unknown Verified 10/10/24 11:21 Lfteiit-MVL-VsY Reductase Allergy Unknown Verified 10/10/24 11:21 Inhibitor Review of Systems Review of Systems: Yes all other systems are reviewed and are negative Constitutional: Constitutional: Reports as per [facility] Past Medical History Attestation statement: The following information was validated with the patient. Source: old records reviewed Medical History Bipolar disorder Dementia Hyperlipidemia Ventricular tachycardia Paroxysmal A-fib CKD (chronic kidney disease) Systolic heart failure Social History Social History Household Members: Other Housing: Shelter Do you presently have visiting nurse or other home services: Yes Comment: sitter in room Patient Tobacco Use Status: Tobacco use Unknown Smoked in Last 30 Days: No Use of substances other than those prescribed or required for medical reasons: No Advance Directives: No Advance Directives Information Provided: No Do you have a plan to hurt others: No Plan service: Yes Physical Exam ED Vital Signs: Vital Signs - 24 hr 10/10/24 11:19 10/10/24 11:38 10/10/24 13:30 Temperature 99.9 F Pulse Rate 70 66 76 Respiratory Rate 17 25 H 20 Blood Pressure 106/62 108/64 128/78 Pulse Oximetry 91 L 93 94 Oxygen Delivery Method Room Air Room Air Room Air 10/10/24 14:17 10/10/24 16:27 Temperature 99.6 F Pulse Rate 82 81 Respiratory Rate 14 15 Blood Pressure 110/61 102/70 Pulse Oximetry 94 94 Oxygen Delivery Method Room Air Room Air BMI result Body Mass Index 23.8 Const General: cooperative, healthy appearing and no acute distress Orientation/consciousness: oriented to person Limitations: no limitations HENNJ Head: Yes normal to inspection and Yes atraumatic Ears: hearing grossly normal bilaterally General nose exam: Normal external nose present Face and sinus: Yes normal facial exam Eyes General: appearance normal, both eyes and all related structures EOM: EOMs intact bilaterally Neck Neck: Yes normal visual inspection and Yes no meningeal signs Resp Effort & Inspection: normal respiratory effort and no respiratory distress Auscultation: diminished lung sounds diffuse Cardio Rate: regular rate Heart sounds: S1 normal heart sound present and S2 normal heart sound present GI Inspection: Yes normal to inspection Palpation (GI): Soft to palpation, nontender, no guarding and not rigid General: Yes no CVA tenderness Back/Spine/Pelvis Back: no CVA tenderness Skin Rashes: no rashes Wounds: no wounds Neuro General: oriented to person, tone normal, moves all extremities, no meningeal signs, no focal motor deficits and CN's II-XI intact bilaterally Cranial nerves: Yes CN's II-XII intact bilaterally Extrem General: Yes normal to inspection Course Course Course Narrative: -1524--leukocytosis of 13.1. H&H at patient's baseline. Chronic CKD. Initial troponin 20.1 > will obtain 3 hour repeat XR chest 1V IMPRESSION: Left-sided pleural effusion, [id number] volume. Acute on chronic airspace disease versus mild interstitial lung edema > will obtain chest CT for further eval CT head/brain wo IV con IMPRESSION: No acute intracranial hemorrhage. Small vessel occlusive disease. Global atrophy. Calcium metabolic disorders cannot be excluded. -1630--ED care transferred to [facility] pending UA and CT chest. Anticipate admission >1654--UA infected will give empiric IV Rocephin Medical Decision Making Medical Decision Making [facility] Narrative: 84-year-old male with a past medical history VENU, dementia, mood disorder, anxiety, PE, AFib on Eliquis, CHF, diverticulitis, metabolic encephalopathy, hemiplegia affecting left side, presenting to the ED via EMS from [facility] for noted confusion upon waking this morning by facility RN. On exam satting 93% on RA, low-grade temp 99.9 degrees rectally, A&O x1 with known baseline dementia. Patient's ED nurse spoke with facility nurse who was unaware of patient's baseline. This administrative underwriter attempted to contact [facility] however unable to get a hold of anyone for additional information. Concern for AMS vs encephalopathy vs known dementia. Rule out metabolic infectious etiologies. Rule out CVA. Low suspicion for severe sepsis at this time Plan: EKG, labs, UA, CXR, head CT Please refer to course for remaining clinical decision making, interpretation of labs/imaging results, and discussions with consultants and/or family members. Differential Diagnosis Differential Diagnoses: The differential diagnosis associated with the presentation includes As above Admission/Observation Consideration of admission/observation: Escalation of care including admission/observation considered Lab Data [facility] Lab Attestation statement: I reviewed the patient's lab results. 10/10/24 11:46 10/10/24 11:46 Labs: Lab Results 10/10/24 10/10/24 10/10/24 Range/Units 11:45 11:46 16:26 WBC 13.1 H (4.8-10.8) X10*3/uL RBC 4.26 L (4.60-5.80) X10*6/uL Hgb 12.3 L (14.0-18.0) g/dl Hct 38.2 L (42.0-52.0) % MCV 89.7 (80.0-98.0) fL MCH 28.9 (27.0-33.0) pg MCHC 32.2 (31.0-36.0) g/dl RDW 14.7 (11.0-16.0) % Plt Count 232 (160-400) X10*3/uL MPV 9.9 (9.4-12.4) fL Immature Gran % (Auto) 0.5 H (0.0-0.4) % Neut % (Auto) 79.5 H (45-73) % Lymph % (Auto) 9.2 L (20-40) % [place] % (Auto) 9.7 (2-11) % Eos % (Auto) 0.7 (0-4) % Baso % (Auto) 0.4 (0-2) % Lymph # (Auto) 1.2 (1.2-4.9) X10*3/uL [place] # (Auto) 1.3 H (0.1-1.2) X10*3/uL Eos # (Auto) 0.1 (0.0-0.4) X10*3/uL Baso # (Auto) 0.1 (0.0-0.2) X10*3/uL Abs Immat Gran (auto) 0.07 H (0.00-0.03) X10*3/uL Absolute Neuts (auto) 10.4 H (2.0-8.3) x10*3/uL Absolute Nucleated RBC 0.000 (0.0-0.012) X10*3/uL Nucleated RBC % (auto) 0.0 (0.0-0.2) /100WBC PT 15.5 H (10.9-12.4) SEC INR 1.3 H (0.9-1.1) Sodium 145 (135-145) mmol/L Potassium 4.1 (3.3-5.1) mmol/L Chloride 111 H (96-108) mmol/L Carbon Dioxide 27 (22-29) mmol/L Anion Gap 11 L (12-20) BUN 27 H (9-16) mg/dL Creatinine 1.75 H (0.5-1.4) mg/dL Estim Creat Clear Calc 31.8 Estimated GFR 37 Random Glucose 117 H (60-115) mg/dL Lactic Acid 1.2 (0.5-2.0) mmol/L Calcium 9.8 (8.4-10.2) mg/dL Magnesium 1.9 (1.6-2.6) mg/dL Total Bilirubin 0.7 (0.0-1.0) mg/dL Direct Bilirubin 0.3 (0.0-0.5) mg/dL AST 49 H (5-37) U/L ALT 17 (0-40) U/L Alkaline Phosphatase 50 (39-117) U/L Ammonia 29 (13-55) umol/L Troponin I High Sens 20.1 D (<3.5-35.0) ng/L Total Protein 6.5 (6.5-8.0) g/dL Albumin 3.8 (3.5-5.0) g/dL Lipase 14 (8-78) U/L Urine Color Dark Yellow Urine Appearance Clear Urine pH 6.0 (5.0-9.0) Ur Specific [place] 1.025 (1.005-1.025) Urine Protein 30 (1+) H (Neg-Trace) mg/dL Urine Glucose (UA) Negative (Negative) mg/dL Urine Ketones 15 (Negative) mg/dL Urine Blood Large (3+) H (Negative) Urine Nitrite Negative (Negative) Ur Leukocyte Esterase Small (1+) H (Negative) Urine RBC >20 H (0-2) /HPF Urine WBC 21-50 H (0-5) /HPF Ur Squamous Epith Cells 0-2 (0-2) /HPF Urine Bacteria None Seen (None Seen) Hyaline Casts 0-2 (0-2) /LPF Influenza Type A (PCR) NEGATIVE (Negative) Influenza Type B (PCR) NEGATIVE (Negative) RSV RNA Qual (PCR) NEGATIVE (Negative) SARS-CoV-2 RNA (RT-PCR) NEGATIVE (Negative) Radiology Impression Discussion of test interpretation with radiology: I have reviewed the radiologist's reading. Independent Historian Clinical information obtained from an independent historian. History obtained from or confirmed by: EMS External Record Review External record reviewed: Inpatient record, Office record, Outpatient record, Prior outpatient labs, Prior outpatient radiology, Primary care record and Outside ED record Tests considered The following testing was considered but not selected: As above Chronic Conditions Patient?s care impacted by: Other Social Determinants Patient?s care significantly limited by Social Determinants of Health including: Inadequate housing, Problems related to primary support group and Other Social Determinant of Health Discharge Plan Discharge Clinical Impression: Altered mental status Patient Disposition: Still a Patient Prescriptions: No Action trazodone 50 mg tablet 50 mg PO BEDTIME amiodarone 200 mg tablet 200 mg PO DAILY metoprolol succinate 50 mg tablet extended release 24 hr 50 mg PO DAILY alprazolam 0.5 mg tablet 0.5 mg PO BID tamsulosin 0.4 mg capsule 0.4 mg PO BEDTIME mirtazapine 15 mg tablet 15 mg PO BEDTIME divalproex 125 mg capsule, delayed rel sprinkle 750 mg PO BEDTIME risperidone 1 mg tablet 1 mg PO DAILY Eliquis 2.5 mg Tablet 2.5 mg PO BID Rx Instructions: START 09/28/24 fluticasone furoate-vilanterol [Breo Ellipta] 100-25 mcg/dose Blister With Device 1 inh INHALATION DAILY Print Language: Grenadian
[2024-10-10 11:51] LABS: MANUAL DIFF FLAG NO
[2024-10-10 11:58] LABS: Basophils Absolute Auto 0.1 X10*3/uL (0.0-0.2); Basophils Percent Auto 0.4 % (0-2); Eosinophils Absolute Auto 0.1 X10*3/uL (0.0-0.4); Eosinophils Percent Auto 0.7 % (0-4); Hematocrit 38.2 % (42.0-52.0); Hemoglobin 12.3 g/dl (14.0-18.0); Imm Gran Abs Auto 0.07 X10*3/uL (0.00-0.03); Imm Gran Pct Auto 0.5 % (0.0-0.4); Lymphocytes Absolute Auto 1.2 X10*3/uL (1.2-4.9); Lymphocytes Percent Auto 9.2 % (20-40); Mean Corpuscular HGB Conc 32.2 g/dl (31.0-36.0); Mean Corpuscular Hemoglobin 28.9 pg (27.0-33.0); Mean Corpuscular Volume 89.7 fL (80.0-98.0); Mean Platelet Volume 9.9 fL (9.4-12.4); Monocytes Absolute Auto 1.3 X10*3/uL (0.1-1.2); Monocytes Percent Auto 9.7 % (2-11); Neutrophils Absolute Auto 10.4 x10*3/uL (2.0-8.3); Neutrophils Percent Auto 79.5 % (45-73); Platelet Count 232 X10*3/uL (160-400); Red Blood Count 4.26 X10*6/uL (4.60-5.80); Red Cell Distribution Width 14.7 % (11.0-16.0); White Blood Count 13.1 X10*3/uL (4.8-10.8)
[2024-10-10 12:02] LABS: INTERNATIONAL NORM RATIO 1.3 (0.9-1.1); Prothrombin Time 15.5 SEC (10.9-12.4)
[2024-10-10 12:06] LABS: Ammonia 29 umol/L (13-55)
[2024-10-10 12:08] LABS: Lactic Acid 1.2 mmol/L (0.5-2.0)
[2024-10-10 12:10] LABS: Alanine Aminotransferase 17 U/L (0-40); Albumin Level 3.8 g/dL (3.5-5.0); Alkaline Phosphatase 50 U/L (39-117); Anion Gap 11 (12-20); Aspartate Amino Transferase 49 U/L (5-37); Bilirubin Direct 0.3 mg/dL (0.0-0.5); Bilirubin Total 0.7 mg/dL (0.0-1.0); Blood Urea Nitrogen 27 mg/dL (9-16); Calcium 9.8 mg/dL (8.4-10.2); Carbon Dioxide 27 mmol/L (22-29); Chloride 111 mmol/L (96-108); Creatinine Clr Calc Pharmacy 31.8; Estimated Glomerular Filt Rate 37; Glucose Random 117 mg/dL (60-115); Lipase 14 U/L (8-78); Magnesium 1.9 mg/dL (1.6-2.6); Potassium 4.1 mmol/L (3.3-5.1); Sodium 145 mmol/L (135-145); Total Protein 6.5 g/dL (6.5-8.0)
[2024-10-10 12:16] LABS: Troponin-I High Sensitivity 20.1 ng/L (<3.5-35.0)
[2024-10-10 12:35] LABS: Influenza A PCR NEGATIVE (Negative); Influenza B PCR NEGATIVE (Negative); Resp Syncy Virus RNA Qual PCR NEGATIVE (Negative); SARS COV2 PCR INHOUSE NEGATIVE (Negative)
--- NOTE | 2024-10-10 15:28 | PHA.MEDREC ---
Addendum entered by Payton Dodge RPh 10/10/24 16:46: [employer] reviewed Original Note: Pharmacy Consult ? Medication Reconciliation Pharmacy has completed the medication reconciliation Utilized list from [facility] to confirm med list..
[2024-10-10 16:37] LABS: Appearance Urine Clear; Color Urine Dark Yellow; Glucose Urine UA Negative (Negative); Leukocyte Esterase Urine Small (1+) (Negative); Nitrite Urine Negative (Negative); Specific Gravity - Urine 1.025 (1.005-1.025); UMIC TRIGGER UACC YES; Urine Blood Large (3+) (Negative); Urine Ketones 15 mg/dL (Negative); Urine Protein 30 (1+) mg/dL (Neg-Trace)
[2024-10-10 16:50] LABS: Bacteria Urine None Seen (None Seen); Hyaline Casts Urine 0-2 /LPF (0-2); RBC Urine >20 /HPF (0-2); Squamous Epithelial Cell Urine 0-2 /HPF (0-2); UACC Culture Trigger YES; WBC Urine 21-50 /HPF (0-5)
[2024-10-10] MEDS: cefTRIAXone sodium 1 GM VIAL IVPUSH (18:36)
--- NOTE | 2024-10-10 21:25 | PC.NURSE ---
nurse to nurse given to Se[facility]
== END 2024-10-10 22:33 | disposition home or self-care (01) ==
PROVIDERS: Physician Assistant; Emergency Provider Emergency Medicine Emergency Medical Services; PCP Family Medicine
DX: R41.82 Altered mental status, unspecified (principal); N39.0 Urinary tract infection, site not specified; J90 Pleural effusion, not elsewhere classified; Z03.818 Encounter for observation for suspected exposure to other biological agents ruled out; E78.5 Hyperlipidemia, unspecified; I48.0 Paroxysmal atrial fibrillation; F03.90 Unspecified dementia, unspecified severity, without behavioral disturbance, psychotic disturbance, mood disturbance, and anxiety; Z95.0 Presence of cardiac pacemaker; Z79.01 Long term (current) use of anticoagulants; Z79.899 Other long term (current) drug therapy
CPT/HCPCS: 0241U; 51701; 70450; 71045; 71250; 80048; 80076; 81001; 82140; 83605; 83690; 83735; 84484; 85025; 85610; 87040; 87086; 87088; 87186; 93005; 96374; 99285; J0696

== ENCOUNTER → 2024-10-10 11:38 | Outpatient (BNV) | payer MEDICARE, SELFPAY | PROVIDERS: Emergency Provider Emergency Medicine Emergency Medical Services; PCP Family Medicine; Visit Provider Internal Medicine Cardiovascular Disease | DX: R94.31 Abnormal electrocardiogram [ECG] [EKG] (principal) | CPT/HCPCS: 93010 ==

== ENCOUNTER → 2024-10-10 11:38 | Outpatient (BNV) | payer MEDICARE, SELFPAY | PROVIDERS: Emergency Provider Emergency Medicine Emergency Medical Services; PCP Family Medicine; Visit Provider Radiology Diagnostic Radiology | DX: R41.82 Altered mental status, unspecified (principal); G31.89 Other specified degenerative diseases of nervous system; J90 Pleural effusion, not elsewhere classified | CPT/HCPCS: 70450; 71045 ==

== ENCOUNTER 2024-10-14 14:16 | Inpatient (IN) | payer MEDICARE, SELFPAY ==
[2024-10-14] VITALS (13 sets, daily range): BP systolic 90–149; BP diastolic 56–92; PULSE 60–159; RESP 10–26; TEMP 36.6–37.2; O2SAT 80–100; BMI 23.2
--- NOTE | ~2024-10-14 | US_ITS ---
EXAMINATION: US ABDOMEN LIMITED (GALLBLADDER) CLINICAL INFORMATION: Distended gallbladder seen on CT without gallstones (see gallbladder/CBD only per M.D.). COMPARISON: CT abdomen and pelvis 10/14/2024. Ultrasound renal 09/27/2024. TECHNIQUE: Real-time imaging of the right upper quadrant abdominal viscera. FINDINGS: GALLBLADDER: Cholelithiasis. Distended gallbladder without wall thickening or pericholecystic free fluid to suggest acute cholecystitis. Negative sonographic Fox's sign. COMMON BILE DUCT: Likely visualized measuring up to 0.8 cm. US/US abdomen limited IMPRESSION: Cholelithiasis without gallbladder wall thickening or pericholecystic free fluid to suggest acute cholecystitis. Negative sonographic Fox's sign. Electronically signed by: Claude Núñez MD 10/15/2024 07:58 PM EST
--- NOTE | ~2024-10-14 | CT_ITS ---
EXAMINATION: CT CHEST, ABDOMEN AND PELVIS WITHOUT CONTRAST CLINICAL INFORMATION: Fall. Hypoxia COMPARISON: 09/25/2024 TECHNIQUE: Multidetector volumetric imaging was performed from the thoracic inlet through the pubic symphysis without intravenous contrast. Sagittal and coronal reformatted images were obtained on the technologist workstation. This CT examination was performed using dose optimization techniques as appropriate, variously including the following: *Automated exposure control *Adjustment of mA and/or kV according to patient size (this includes techniques or standardized protocols for targeted exams where dose is matched to indication/reason for exam; i.e. extremities or head) *Use of iterative reconstruction technique DLP: 294 mGy-cm FINDINGS: CHEST: LUNGS: Motion degradation limits assessment. No discrete nodule or mass. Bibasilar dependent atelectasis. MEDIASTINUM: The mediastinum is notable for dual-chamber pacemaker device in place. Severe coronary atherosclerotic calcifications are present. No mediastinal mass or hematoma. No pathologic lymphadenopathy. Ascending aorta remains 4.5 cm in diameter. PERICARDIUM/PLEURA: There is no significant effusion. No pleural mass or thickening. CHEST WALL/AXILLA: Unremarkable. ABDOMEN/PELVIS: LIVER, GALLBLADDER, BILIARY TREE: The liver is normal in size, shape, and attenuation. No focal hepatic lesion or biliary ductal dilatation is present. The gallbladder appears distended without gallstones. No definite gallbladder wall thickening on this nonenhanced study. Limited detail. No gross biliary ductal dilatation. PANCREAS: Unremarkable. SPLEEN: Unremarkable. ADRENAL GLANDS: Unremarkable. KIDNEYS AND URETERS: The kidneys are normal in size, shape, and attenuation. No hydronephrosis or hydroureter or calculi seen. No perinephric stranding. Right-sided renal cortical cysts noted. 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 BLADDER: Unremarkable. GASTROINTESTINAL TRACT: Large stool ball within the rectum measuring up to 8 cm which can predispose to stercoral colitis. Severe diverticulosis throughout the colon without definite acute inflammatory changes. No obstruction. No fluid collection. No small bowel pathology. Normal appendix. Large duodenal diverticulum at the third portion of duodenum. No free fluid. ABDOMINAL WALL: No hernia is demonstrated. LYMPH NODES: Normal. VASCULAR: Unremarkable. PELVIC VISCERA: Unremarkable. OSSEOUS STRUCTURES: Severe spondylosis. No definite acute deformity. Stable minor endplate concavities. CT/CT abdomen pelvis wo IV con IMPRESSION: 1. No acute traumatic abnormality. No hematoma. 2. Distended gallbladder without gallstones. Consider ultrasound. 3. Severe diverticulosis without acute inflammatory changes. 4. Large stool ball within the rectum which can predispose to stercoral colitis. Electronically signed by: Scott Kruse MD 10/14/2024 06:56 PM EST
--- NOTE | ~2024-10-14 | CT_ITS ---
EXAM: CT HEAD WITHOUT CONTRAST CT CERVICAL SPINE INDICATION: Head injury, altered mental status. TECHNIQUE: A noncontrast CT scan was performed from the skull base to the vertex. A noncontrast CT scan of the cervical spine was performed from the base of the skull through T1 at 2.5 mm and 0.625 mm collimation. Coronal and sagittal reformats were obtained at the acquisition workstation. This CT examination was performed using dose optimization techniques as appropriate, variously including the following: Automated exposure control Adjustment of mA and/or kV according to patient size (this includes techniques or standardized protocols for targeted exams where dose is matched to indication/reason for exam; i.e. extremities or head) Use of iterative reconstruction technique Dose length product is 687 mGy-cm. COMPARISON: CT 10/10/2024. FINDINGS: Head: Motion artifact degrading images limiting evaluation of the inferior brain and posterior fossa. Consider repeat CT scan. There is no evidence of acute intracranial hemorrhage or edematous large vessel territorial infarction. No abnormal mass effect or midline shift is seen. Velásquez to white matter differentiation is well preserved. No abnormal extra-axial fluid collections are identified. Commensurate prominence of the ventricles and sulci is compatible with generalized parenchymal volume loss. There is patchy periventricular and subcortical white matter hypoattenuation, most likely representing microangiopathic disease. Prominent bilateral basal ganglia dystrophic calcifications, stable. No acute calvarial fracture.. Paranasal sinuses and mastoid air cells are well-aerated. Cervical Spine: Motion artifact, degrading image. This limits evaluation. The atlantooccipital and atlantoaxial articulation is maintained. Mild anterolisthesis of C4 on C5, C5 on C6. There is depression of the superior aspect of the T2 vertebral body. There is undulation/depression of the superior aspect T1 vertebral body. These are of indeterminate age. Motion artifact limiting evaluation of the C6 and C7 vertebral bodies. No acute fractures otherwise seen. Multilevel cervical spondylosis. Findings include moderate C6-C7, C7-T1 disc degeneration. Multilevel severe disc degeneration. No prevertebral soft tissue swelling. No suspicious thyroid findings. No suspicious finding the visualized lung apices. CT/CT head/brain wo IV con IMPRESSION: 1. Motion artifact degrading images of the CT head, limiting evaluation. Consider repeat CT scan as clinically indicated. 2. In the nonobscured portion of the brain, there is no CT evidence of acute intracranial hemorrhage or edematous territorial infarction 3. Motion artifact degrading the cervical spine imaging. Consider repeat CT scan as clinically warranted. 4. Depression of the superior aspect of T2 vertebral body, and the T1 vertebral body. This of indeterminate age. Clinically correlate. Further evaluation with MRI as clinically indicated. 5. Multilevel cervical spondylosis. Electronically signed by: Farshad Escobedo MD 10/14/2024 06:16 PM KYLEE CINTRON
--- NOTE | 2024-10-14 14:21 | ED.GENADULT ---
HPI - General Adult General Chief complaint: Fall Stated complaint: AMS FROM SNF, FALL X1HR Time Seen by Provider: 10/14/24 14:20 Source: patient, EMS, RN notes reviewed and old records reviewed Mode of arrival: EMS History of Present Illness ED Provider: Mary Kay PA-C HPI narrative: 84-year-old male with a past medical history bipolar, dementia, HLD, ventricular tachycardia, proximal AFib on Eliquis, CKD, CHF, presenting to the ED via EMS from [facility] s/p unwitnessed fall from bed at facility [facility]. Per EMS patient was found on the ground head 1st, with feet still on bed, unknown LOC. patient was hypoxic at facility, 80% on RA, placed on 3 L NC with good effect, productive / coarse cough appreciated. Patient is DNR, not DNI. patient was recently discharged from our facility on 10/10 s/p evaluation for AMS, diagnosed with UTI and questionable pneumonia, discharged back to facility. Related Data Home Medications ?Medication ?Instructions ?Recorded ?Confirmed alprazolam 0.5 mg tablet 0.5 mg PO BID 09/25/24 10/10/24 amiodarone 200 mg tablet 200 mg PO DAILY 09/25/24 10/10/24 apixaban 2.5 mg tablet (Eliquis) 2.5 mg PO BID 09/25/24 10/10/24 divalproex 125 mg capsule,delayed 750 mg PO BEDTIME 09/25/24 10/10/24 release sprinkle fluticasone furoate 100 1 inh inhalation DAILY 09/25/24 10/10/24 mcg-vilanterol 25 mcg/dose inhalation powder (Breo Ellipta) metoprolol succinate 50 mg 50 mg PO DAILY 09/25/24 10/10/24 tablet,extended release 24 hr mirtazapine 15 mg tablet 15 mg PO BEDTIME 09/25/24 10/10/24 risperidone 1 mg tablet 1 mg PO DAILY 09/25/24 10/10/24 tamsulosin 0.4 mg capsule 0.4 mg PO BEDTIME 09/25/24 10/10/24 trazodone 50 mg tablet 50 mg PO BEDTIME 09/25/24 10/10/24 Previous Rx's ?Medication ?Instructions ?Recorded cephalexin 500 mg capsule 500 mg PO BID #14 caps 10/10/24 Allergies Allergy/AdvReac Type Severity Reaction Status Date / Time melatonin Allergy Unknown Verified 10/14/24 14:21 rosuvastatin [From Crestor] Allergy Unknown Verified 10/14/24 14:21 [id number] Reductase Allergy Unknown Verified 10/14/24 14:21 Inhibitor Review of Systems Review of Systems: Yes all other systems are reviewed and are negative Constitutional: Constitutional: Reports as per [facility] Past Medical History Attestation statement: The following information was validated with the patient. Source: old records reviewed Medical History Bipolar disorder Dementia Hyperlipidemia Ventricular tachycardia Paroxysmal A-fib CKD (chronic kidney disease) Systolic heart failure Social History Social History Household Members: Other Housing: Alf Do you presently have visiting nurse or other home services: Yes Unable to assess alcohol history related to: Unable to respond Comment: sitter in room Patient Tobacco Use Status: Tobacco use Unknown Use of substances other than those prescribed or required for medical reasons: Refusing to respond Advance Directives: No Advance Directives Information Provided: Yes Do you have a plan to hurt others: No Plan service: Yes Physical Exam ED Vital Signs: Vital Signs - 24 hr 10/14/24 14:19 10/14/24 14:30 10/14/24 14:31 Temperature 98.9 F Pulse Rate 159 H Respiratory Rate 10 L Blood Pressure 149/87 H Pulse Oximetry 90 L 84 L 90 L Oxygen Delivery Method Nasal Cannula Nasal Cannula Nasal Cannula Oxygen Flow Rate 3 6 10/14/24 14:50 10/14/24 14:55 10/14/24 15:00 Temperature Pulse Rate 93 90 Respiratory Rate 18 26 H Blood Pressure 141/79 H Pulse Oximetry 91 L 99 Oxygen Delivery Method Nasal Cannula Nasal Cannula Oxygen Flow Rate 3 3 10/14/24 16:09 10/14/24 17:57 Temperature 98.4 F 97.8 F Pulse Rate 90 96 Respiratory Rate 22 H 18 Blood Pressure 127/69 130/86 Pulse Oximetry 91 L 97 Oxygen Delivery Method Nasal Cannula Nasal Cannula Oxygen Flow Rate 3 3 BMI result Body Mass Index 23.2 Const Other: Arousable to voice/painful stimuli. No answering questions HENUT Head: Yes normal to inspection and Yes atraumatic Ears: hearing grossly normal bilaterally General nose exam: Normal external nose present Face and sinus: Yes normal facial exam Eyes General: appearance normal, both eyes and all related structures Pupils: Equal, round and reactive pupils present EOM: EOMs intact bilaterally Neck Other: C-collar in place Neck: Yes normal visual inspection and Yes no meningeal signs Resp Effort & Inspection: Actively coughing and no stridor Auscultation: rhonchi lower bilaterally and diminished lung sounds diffuse Cardio Rate: tachycardic Heart sounds: S1 normal heart sound present and S2 normal heart sound present GI Inspection: Yes normal to inspection Palpation (GI): Soft to palpation, Tenderness to palpation present (GI) in the RLQ; with no rebound tenderness, no guarding and not rigid Back/Spine/Pelvis Other: No midline cervical/thoracic/lumbar spinous tenderness/step-off or deformity Skin Rashes: no rashes Wounds: no wounds Neuro General: tone normal and no meningeal signs Cranial nerves: Yes Equal, round and reactive pupils present Extrem General: Yes normal to inspection and Yes no pedal edema Course Course Course Narrative: -1900-- no leukocytosis. H/H stable. BNP mildly elevated 378. Troponin x2 negative - viral studies negative CT head/brain wo IV con/CT cervical spine wo IV con IMPRESSION: 1. Motion artifact degrading images of the CT head, limiting evaluation. Consider repeat CT scan as clinically indicated. 2. In the nonobscured portion of the brain, there is no CT evidence of acute intracranial hemorrhage or edematous territorial infarction 3. Motion artifact degrading the cervical spine imaging. Consider repeat CT scan as clinically warranted. 4. Depression of the superior aspect of T2 vertebral body, and the T1 vertebral body. This of indeterminate age. Clinically correlate. Further evaluation with MRI as clinically indicated. 5. Multilevel cervical spondylosis. > C-collar cleared CT chest wo IV con/CT abdomen pelvis wo IV con IMPRESSION: 1. No acute traumatic abnormality. No hematoma. 2. Distended gallbladder without gallstones. Consider ultrasound. 3. Severe diverticulosis without acute inflammatory changes. 4. Large stool ball within the rectum which can predispose to stercoral colitis. > will perform rectal disimpaction. Patient with urinary retention > 891 mL on bladder scan >> Corral catheter placed with gurvinder bloody output, manually irrigated with some clots however now clogged. Will place [address] for CBI > manual disimpaction successful -patient admitted for further management Medications Administered Discontinued Medications Generic Name Dose Route Start Last Admin Trade Name Abdoulayeq PRN Reason Stop Dose Admin Albuterol Sulfate 2.5 mg/ 0 mg 10/14/24 14:38 10/14/24 14:44 Albuterol/Ipratropium 3 ml INHALE 10/14/24 14:39 1 dose ONCE ONE Administration Piperacillin Sod/Tazobactam 50 mls @ 100 mls/hr 10/14/24 14:44 10/14/24 15:49 Sod 3.375 gm/ Sodium Chloride IV 10/14/24 15:13 Infused ONCE ONE Infusion Medical Decision Making Medical Decision Making MDM Narrative: 84-year-old male with a past medical history bipolar, dementia, HLD, ventricular tachycardia, proximal AFib on Eliquis, CKD, CHF, presenting to the ED via EMS from [facility] s/p unwitnessed fall from bed at facility [facility] & hypoxia, 80% on RA, placed on 3 L NC with good effect, productive / coarse cough appreciated. on exam tachycardic, hypoxic > satting 98% on 3L NC, coarse cough/ upper airway sounds appreciated, diminished lung sounds throughout, abdomen soft with right-sided tenderness, no rebound or guarding. Concern for pneumonia vs aspiration vs ICH vs fractures vs intra-abdominal pathology or bleeding. Lower suspicion for dissection/PE at this time Plan: EKG, labs, UA, CT head/C-spine / chest/ abdomen /pelvis, empiric IV antibiotics, anticipated admission Please refer to course for remaining clinical decision making, interpretation of labs/imaging results, and discussions with consultants and/or family members. Differential Diagnosis Differential Diagnoses: The differential diagnosis associated with the presentation includes As above Admission/Observation Consideration of admission/observation: Escalation of care including admission/observation considered Consult Healthcare Provider Management of the patient was discussed with: Hospitalist Lab Data [facility] Lab Attestation statement: I reviewed the patient's lab results. 10/14/24 14:56 10/14/24 14:57 Labs: Lab Results 10/14/24 10/14/24 10/14/24 Range/Units 14:56 14:57 15:09 WBC 8.9 (4.8-10.8) X10*3/uL RBC 4.07 L (4.60-5.80) X10*6/uL Hgb 11.7 L (14.0-18.0) g/dl Hct 36.9 L (42.0-52.0) % MCV 90.7 (80.0-98.0) fL MCH 28.7 (27.0-33.0) pg MCHC 31.7 (31.0-36.0) g/dl RDW 14.9 (11.0-16.0) % Plt Count 203 (160-400) X10*3/uL MPV 10.3 (9.4-12.4) fL Immature Gran % (Auto) 0.4 (0.0-0.4) % Neut % (Auto) 69.3 (45-73) % Lymph % (Auto) 18.8 L (20-40) % [place] % (Auto) 9.5 (2-11) % Eos % (Auto) 1.7 (0-4) % Baso % (Auto) 0.3 (0-2) % Lymph # (Auto) 1.7 (1.2-4.9) X10*3/uL [place] # (Auto) 0.9 (0.1-1.2) X10*3/uL Eos # (Auto) 0.2 (0.0-0.4) X10*3/uL Baso # (Auto) 0.0 (0.0-0.2) X10*3/uL Abs Immat Gran (auto) 0.04 H (0.00-0.03) X10*3/uL Absolute Neuts (auto) 6.2 (2.0-8.3) x10*3/uL Absolute Nucleated RBC 0.000 (0.0-0.012) X10*3/uL Nucleated RBC % (auto) 0.0 (0.0-0.2) /100WBC PT 16.5 H (10.9-12.4) SEC INR 1.4 H (0.9-1.1) VBG pH 7.33 (7.32-7.43) VBG pCO2 48 mmHg VBG pO2 43 mmHg VBG HCO3 25 (22-26) mmol/L VBG O2 Saturation 68.0 % VBG Base Excess -0.4 mmol/L Sodium 146 H (135-145) mmol/L Potassium 4.2 (3.3-5.1) mmol/L Chloride 113 H (96-108) mmol/L Carbon Dioxide 24 (22-29) mmol/L Anion Gap 13 (12-20) BUN 21 H (9-16) mg/dL Creatinine 1.26 (0.5-1.4) mg/dL Estim Creat Clear Calc 47.0 Estimated GFR 54 Random Glucose 102 (60-115) mg/dL Lactic Acid 1.5 (0.5-2.0) mmol/L Calcium 9.4 (8.4-10.2) mg/dL Magnesium 1.9 (1.6-2.6) mg/dL Total Bilirubin 0.6 (0.0-1.0) mg/dL Direct Bilirubin 0.3 (0.0-0.5) mg/dL AST 28 (5-37) U/L ALT 16 (0-40) U/L Alkaline Phosphatase 47 (39-117) U/L Ammonia 29 (13-55) umol/L Troponin I High Sens 13.2 (<3.5-35.0) ng/L B-Natriuretic Peptide 378 H (<100) pg/mL Total Protein 6.4 L (6.5-8.0) g/dL Albumin 3.5 (3.5-5.0) g/dL Lipase 14 (8-78) U/L Urine Color Urine Appearance Urine pH (5.0-9.0) Ur Specific [place] (1.005-1.025) Urine Protein (Neg-Trace) mg/dL Urine Glucose (UA) (Negative) mg/dL Urine Ketones (Negative) mg/dL Urine Blood (Negative) Urine Nitrite (Negative) Influenza Type A (PCR) NEGATIVE (Negative) Influenza Type B (PCR) NEGATIVE (Negative) RSV RNA Qual (PCR) NEGATIVE (Negative) SARS-CoV-2 RNA (RT-PCR) NEGATIVE (Negative) 10/14/24 10/14/24 Range/Units 18:22 19:05 WBC (4.8-10.8) X10*3/uL RBC (4.60-5.80) X10*6/uL Hgb (14.0-18.0) g/dl Hct (42.0-52.0) % MCV (80.0-98.0) fL MCH (27.0-33.0) pg MCHC (31.0-36.0) g/dl RDW (11.0-16.0) % Plt Count (160-400) X10*3/uL MPV (9.4-12.4) fL Immature Gran % (Auto) (0.0-0.4) % Neut % (Auto) (45-73) % Lymph % (Auto) (20-40) % [place] % (Auto) (2-11) % Eos % (Auto) (0-4) % Baso % (Auto) (0-2) % Lymph # (Auto) (1.2-4.9) X10*3/uL [place] # (Auto) (0.1-1.2) X10*3/uL Eos # (Auto) (0.0-0.4) X10*3/uL Baso # (Auto) (0.0-0.2) X10*3/uL Abs Immat Gran (auto) (0.00-0.03) X10*3/uL Absolute Neuts (auto) (2.0-8.3) x10*3/uL Absolute Nucleated RBC (0.0-0.012) X10*3/uL Nucleated RBC % (auto) (0.0-0.2) /100WBC PT (10.9-12.4) SEC INR (0.9-1.1) VBG pH (7.32-7.43) VBG pCO2 mmHg VBG pO2 mmHg VBG HCO3 (22-26) mmol/L VBG O2 Saturation % VBG Base Excess mmol/L Sodium (135-145) mmol/L Potassium (3.3-5.1) mmol/L Chloride (96-108) mmol/L Carbon Dioxide (22-29) mmol/L Anion Gap (12-20) BUN (9-16) mg/dL Creatinine (0.5-1.4) mg/dL Estim Creat Clear Calc Estimated GFR Random Glucose (60-115) mg/dL Lactic Acid (0.5-2.0) mmol/L Calcium (8.4-10.2) mg/dL Magnesium (1.6-2.6) mg/dL Total Bilirubin (0.0-1.0) mg/dL Direct Bilirubin (0.0-0.5) mg/dL AST (5-37) U/L ALT (0-40) U/L Alkaline Phosphatase (39-117) U/L Ammonia (13-55) umol/L Troponin I High Sens 11.2 (<3.5-35.0) ng/L B-Natriuretic Peptide (<100) pg/mL Total Protein (6.5-8.0) g/dL Albumin (3.5-5.0) g/dL Lipase (8-78) U/L Urine Color RED Urine Appearance Hazy Urine pH 5.0 (5.0-9.0) Ur Specific [place] 1.020 (1.005-1.025) Urine Protein See Note (Neg-Trace) mg/dL Urine Glucose (UA) Negative (Negative) mg/dL Urine Ketones See Note (Negative) mg/dL Urine Blood Large (3+) H (Negative) Urine Nitrite See Note (Negative) Influenza Type A (PCR) (Negative) Influenza Type B (PCR) (Negative) RSV RNA Qual (PCR) (Negative) SARS-CoV-2 RNA (RT-PCR) (Negative) Independent Interpretation I performed an independent interpretation of an: EKG and CT Scan Radiology Impression Discussion of test interpretation with radiology: I have reviewed the radiologist's reading. Independent Historian Clinical information obtained from an independent historian. History obtained from or confirmed by: EMS External Record Review External record reviewed: Inpatient record, Office record, Outpatient record, Prior outpatient labs, Prior outpatient radiology, Primary care record and Outside ED record Tests considered The following testing was considered but not selected: As above Prescription Management I considered prescription management with: Antibiotic Chronic Conditions Patient?s care impacted by: Other Social Determinants Patient?s care significantly limited by Social Determinants of Health including: Problems related to primary support group, Unemployment and Other Social Determinant of Health Critical Care Time Critical Care Time Critical Care Time: Yes Total Critical Care Time: 50 Attestation: I have personally provided critical care time exclusive of time spent on separately billable procedures. Time includes review of lab data, radiology results, discussion with consultants, and monitoring for potential decompensation. Intervention performed as documented. Discharge Plan Discharge Clinical Impression: Aspiration pneumonia, Fall, Fecal impaction, Acute urinary retention, Hematuria Patient Disposition: Admitted As Inpatient Print Language: Nepali
--- NOTE | 2024-10-14 14:30 | ECG_ITS ---
Test Reason : SOB Blood Pressure : / mmHG Vent. Rate : 084 BPM Atrial Rate : 084 BPM P-R Int : 162 ms QRS Dur : 132 ms QT Int : 410 ms P-R-T Axes : 036 -26 086 degrees QTc Int : 484 ms Atrial-sensed ventricular-paced rhythm Abnormal ECG When compared with ECG of 10-OCT-2024 11:49, Vent. rate has increased BY 18 BPM Referred By: Mary Kay Electronically Signed By:PRASAD ALVARADO MD
[2024-10-14] MEDS: Albuterol Sulfate 2.5 MG, Albuterol/Iprat 2.5/0.5MG 3 ML 3 ML INHALE (14:44)
[2024-10-14 15:03] LABS: MANUAL DIFF FLAG NO
[2024-10-14] MEDS: Piperacillin Sodium/Tazobactam 3.375 GM in 0.9 % Sodium Chloride 50 ML IV (15:04)
[2024-10-14 15:07] LABS: Basophils Percent Auto 0.3 % (0-2); Eosinophils Absolute Auto 0.2 X10*3/uL (0.0-0.4); Eosinophils Percent Auto 1.7 % (0-4); Hematocrit 36.9 % (42.0-52.0); Hemoglobin 11.7 g/dl (14.0-18.0); Imm Gran Abs Auto 0.04 X10*3/uL (0.00-0.03); Imm Gran Pct Auto 0.4 % (0.0-0.4); Lymphocytes Absolute Auto 1.7 X10*3/uL (1.2-4.9); Lymphocytes Percent Auto 18.8 % (20-40); Mean Corpuscular HGB Conc 31.7 g/dl (31.0-36.0); Mean Corpuscular Hemoglobin 28.7 pg (27.0-33.0); Mean Corpuscular Volume 90.7 fL (80.0-98.0); Mean Platelet Volume 10.3 fL (9.4-12.4); Monocytes Absolute Auto 0.9 X10*3/uL (0.1-1.2); Monocytes Percent Auto 9.5 % (2-11); Neutrophils Absolute Auto 6.2 x10*3/uL (2.0-8.3); Neutrophils Percent Auto 69.3 % (45-73); Platelet Count 203 X10*3/uL (160-400); Red Blood Count 4.07 X10*6/uL (4.60-5.80); Red Cell Distribution Width 14.9 % (11.0-16.0); White Blood Count 8.9 X10*3/uL (4.8-10.8)
[2024-10-14 15:11] LABS: INTERNATIONAL NORM RATIO 1.4 (0.9-1.1); Prothrombin Time 16.5 SEC (10.9-12.4)
[2024-10-14 15:16] LABS: Ammonia 29 umol/L (13-55)
[2024-10-14 15:23] LABS: Alanine Aminotransferase 16 U/L (0-40); Albumin Level 3.5 g/dL (3.5-5.0); Alkaline Phosphatase 47 U/L (39-117); Anion Gap 13 (12-20); Aspartate Amino Transferase 28 U/L (5-37); Bilirubin Direct 0.3 mg/dL (0.0-0.5); Bilirubin Total 0.6 mg/dL (0.0-1.0); Blood Urea Nitrogen 21 mg/dL (9-16); Calcium 9.4 mg/dL (8.4-10.2); Carbon Dioxide 24 mmol/L (22-29); Chloride 113 mmol/L (96-108); Estimated Glomerular Filt Rate 54; Glucose Random 102 mg/dL (60-115); Lipase 14 U/L (8-78); Magnesium 1.9 mg/dL (1.6-2.6); Potassium 4.2 mmol/L (3.3-5.1); Sodium 146 mmol/L (135-145); Total Protein 6.4 g/dL (6.5-8.0)
[2024-10-14 15:24] LABS: Lactic Acid 1.5 mmol/L (0.5-2.0)
[2024-10-14 15:24] LABS: VBG Base Excess -0.4 mmol/L; VBG HCO3 25 mmol/L (22-26); VBG pCO2 48 mmHg; VBG pH 7.33 (7.32-7.43); VBG pO2 43 mmHg
[2024-10-14 15:28] LABS: B Type Natriuretic Peptide 378 pg/mL (<100)
--- NOTE | 2024-10-14 15:30 | PC.NURSE ---
pt to CT on 3L via NC at this time. no respiratory distress noted. will resume care of pt when he returns.
[2024-10-14 15:31] LABS: Troponin-I High Sensitivity 13.2 ng/L (<3.5-35.0)
[2024-10-14 16:02] LABS: Venous Blood Gas Refer to POC result
[2024-10-14 16:07] LABS: Influenza A PCR NEGATIVE (Negative); Influenza B PCR NEGATIVE (Negative); Resp Syncy Virus RNA Qual PCR NEGATIVE (Negative); SARS COV2 PCR INHOUSE NEGATIVE (Negative)
--- NOTE | 2024-10-14 16:34 | PC.NURSE ---
although pt remains disoriented, pt becoming more responsive to verbal stimuli at this time. answers questions/follows commands but not appropriately. vss and up to date. a-paced sinus tachycardia. pt remains on 3L via NC at this time - SPO2 @ 99%. pt positioned upright to promote patent airway. no sob/wob noted. decreased gargling noted in pt's airway. respirations even/unlabored. pt aware UA is needed - [place] catheter remains in place. c-collar remains intact. scan results remain pending at this time. plan of care ongoing. call colon placed within reach.
--- NOTE | 2024-10-14 17:52 | PC.NURSE ---
pt noted to have nonproductive thick/gurgling sounding cough. 92% on 3L via NC. no sob/wob noted. pt repositioned upright/suctioned to promote patent airway. approx 10ml of blood tinged thick/frothy sputum noted in canister. pt tolerated suction well w/o complications. respirations remain even/unlabored. vss and up to date. a-paced nsr on the awake overnight monitor. scan results remain pending at this time. plan of care ongoing. call colon placed within reach.
--- NOTE | 2024-10-14 18:32 | PC.NURSE ---
repeat troponin obtained/sent to lab.
[2024-10-14 18:54] LABS: Troponin-I High Sensitivity 11.2 ng/L (<3.5-35.0)
--- NOTE | 2024-10-14 19:03 | PC.NURSE ---
pt noted to still not have urine output in [place] catheter. bladder scan obtained displaying 891ml. abd distended. tender w/ palpation. this RN as well as another RN/PA attempted to place/manually irrigate chow catheter. no success. will attempt to place 3 way catheter.
[2024-10-14 19:13] LABS: Appearance Urine Hazy; Color Urine RED; Glucose Urine UA Negative (Negative); UMIC TRIGGER UACC YES; Urine Blood Large (3+) (Negative)
--- NOTE | 2024-10-14 19:22 | PC.NURSE ---
this RN assumed care of pt, pt alert to self but confused. This RN at bedside assisting with chow placement, pt noted to have bright red blood and no urinary output. Mary GOFF called to bedside, per Mary, plan for CBI. Mary GOFF at bedside de compacting fecal matter from rectum, pt tolerated well.
[2024-10-14 19:39] LABS: Bacteria Urine None Seen (None Seen); Hyaline Casts Urine 0-2 /LPF (0-2); RBC Urine >20 /HPF (0-2); Squamous Epithelial Cell Urine 0-2 /HPF (0-2); UACC Culture Trigger YES
[2024-10-14] MEDS: bisacodyL 10 MG SUPP.RECT PR (19:41)
--- NOTE | 2024-10-14 19:52 | PC.NURSE ---
provider at bedside, aware of BP, manual BP taken, provider aware, liter administered.
--- NOTE | 2024-10-14 20:01 | PM.IMHP ---
History of Present Illness Date of Service: 10/14/24 Attending physician on admission: Milton Dewitt Chief Complaint: Unwitnessed fall at SNF Pt is an 84-year-old female with a PMH significant for HFrEF, CKD, paroxysmal AFib on Eliquis, hx of V tach, s/p pacer in place, HLD, urinary retention, BPH, dementia, anxiety, and bipolar disorder?who presents to the ED from [facility] after unwitnessed fall out of bed. Patient was apparently found with his head on the ground in feet stuck in the bed. Unknown if had LOC. Staff report patient was previously checked 10 minutes prior. EMS found patient 80% on RA and placed him on 3 L NC with good effect. Workup in the ED was significant for large stool burden in the rectum and urinary retention. SNF staff report patient is last recorded BM over 3 weeks ago. Patient was manually disimpacted which produced a modest amount of stool. Bladder scan indicated 100 cc of urine. Multiple unsuccessful attempts at inserting Corral catheter remained. Patient then began producing 100 mL of bright red blood, and patient was started on CBI. Patient himself is alert to self only and incapable providing any accurate HPI or ROS. In the ED pt was afebrile, but tachycardic up to 159, tachypneic up to 26, and with soft BP as low as 90/56, satting as low as 84% on 3 L NC. Labs were significant for elevated BNP of 378, otherwise grossly unremarkable and baseline for patient. No leukocytosis. Stable H& H. No significant electrolyte abnormalities. Renal function baseline. Initial troponin 13.2 with repeat 11.2 . VBG reassuring and WNL. CT?of head limited due to motion artifact, but showed no evidence of acute intracranial hemorrhage or edematous territorial infarction and non obscured portion. CT of cervical spine also limited due to motion artifact, finding depression of superior aspect of T1 and T2 vertebral bodies of indeterminate age. Chest CT limited due to motion degradation, but found no discrete nodule or mass. CT of abdomen/pelvis without acute traumatic abnormality or hematoma, though did show severe diverticulosis and distended gallbladder without gallstones. Also found a large stool ball within rectum. EKG demonstrated atrial sensed ventricular paced rhythm. Pt was treated with DuoNebs and Zosyn. Pt will be admitted to the hospital for treatment and further evaluation of acute hypoxic respiratory failure in the setting of likely aspiration pneumonitis after unwitnessed fall out of bed. Review of Systems Review of Systems: Yes Unobtainable due to mental status [facility] Medical History Bipolar disorder Dementia Hyperlipidemia Ventricular tachycardia Paroxysmal A-fib CKD (chronic kidney disease) Systolic heart failure Social History Household Members: Other Housing: Residential Do you presently have visiting nurse or other home services: Yes Unable to assess alcohol history related to: Unable to respond Comment: sitter in room Patient Tobacco Use Status: Tobacco use Unknown Use of substances other than those prescribed or required for medical reasons: Refusing to respond Advance Directives: No Advance Directives Information Provided: Yes Do you have a plan to hurt others: No Plan service: Yes Meds Allergies Allergy/AdvReac Type Severity Reaction Status Date / Time melatonin Allergy Unknown Verified 10/14/24 14:21 rosuvastatin [From Crestor] Allergy Unknown Verified 10/14/24 14:21 [id number] Reductase Allergy Unknown Verified 10/14/24 14:21 Inhibitor Active Medications: Current Medications Acetaminophen (Acetaminophen 325 Mg Tablet) 650 mg PO Q6H PRN PRN Reason: Pain, Mild (Pain Scale 1-3), fever or headache Calcium Carbonate (Calcium Carbonate 750 Mg Tab.Chew) 750 mg PO Q4H PRN PRN Reason: Heartburn Lactated Ringer's (Lr) 1,000 mls @ 999 mls/hr IV .Q1H1M SHAYY Stop: 10/14/24 21:00 Piperacillin Sod/Tazobactam (Sod 4.5 gm/ Sodium Chloride) 100 mls @ 200 mls/hr IV Q6H [facility] Magnesium Hydroxide (Milk Of Magnesia 30 Ml Oral.Susp) 30 ml PO DAILY PRN PRN Reason: Constipation Melatonin (Melatonin 3 Mg Tablet) 6 mg PO BEDTIME PRN PRN Reason: Insomnia Ondansetron HCl (Ondansetron Hcl 4 Mg/2 Ml Vial) 4 mg IVPUSH Q8H PRN PRN Reason: Nausea and Vomiting Sodium Chloride (0.9 % Sodium Chloride Flush 3 Ml Syringe) 3 ml IVFLUSH QSHIFT [facility] Home Medications ?Medication ?Instructions ?Recorded ?Confirmed ?Last Taken ?Type alprazolam 0.5 mg tablet 0.5 mg PO BID 09/25/24 10/14/24 Unknown History amiodarone 200 mg tablet 200 mg PO DAILY 09/25/24 10/14/24 Unknown History apixaban 2.5 mg tablet (Eliquis) 2.5 mg PO BID 09/25/24 10/14/24 Unknown History divalproex 125 mg capsule,delayed 750 mg PO BEDTIME 09/25/24 10/14/24 Unknown History release sprinkle fluticasone furoate 100 1 inh inhalation DAILY 09/25/24 10/14/24 Unknown History mcg-vilanterol 25 mcg/dose inhalation powder (Breo Ellipta) metoprolol succinate 50 mg 50 mg PO BEDTIME 09/25/24 10/14/24 Unknown History tablet,extended release 24 hr mirtazapine 15 mg tablet 15 mg PO BEDTIME 09/25/24 10/14/24 Unknown History risperidone 1 mg tablet 1 mg PO DAILY 09/25/24 10/14/24 Unknown History tamsulosin 0.4 mg capsule 0.4 mg PO BEDTIME 09/25/24 10/14/24 Unknown History trazodone 50 mg tablet 50 mg PO BEDTIME 09/25/24 10/14/24 Unknown History acetaminophen 325 mg tablet 650 mg PO Q4H PRN Pain/Fever 10/14/24 10/14/24 Unknown History acetaminophen 650 mg rectal 650 mg DE Q4H PRN Pain/Fever 10/14/24 10/14/24 Unknown History suppository albuterol sulfate 90 mcg/actuation 2 puff inhalation Q4H PRN 10/14/24 10/14/24 Unknown History aerosol inhaler Shortness Of Breath bisacodyl 10 mg rectal suppository 10 mg DE DAILY PRN Constipation 10/14/24 10/14/24 Unknown History magnesium hydroxide 400 mg/5 mL 5 ml PO DAILY PRN Constiaption 10/14/24 10/14/24 Unknown History oral suspension (Milk of Magnesia) naloxone 0.4 mg/mL injection 0.4 mg subcut Q3M PRN 10/14/24 10/14/24 Unknown History solution Sedation/Unresponsive sodium chloride 0.9 % 2,000 ml IV Q48H 10/14/24 10/14/24 Unknown History sodium phosphates 19 gram-7 118 ml DE DAILY PRN Constipation 10/14/24 10/14/24 Unknown History gram/118 mL enema (Fleet Enema) Physical Exam Vital Signs and Narrative: Vital Signs: Last Vital Signs Temp 98.8 F 10/14/24 19:46 Pulse 97 10/14/24 19:46 Resp 25 H 10/14/24 19:46 BP 102/56 L 10/14/24 19:52 Pulse Ox 98 10/14/24 19:46 O2 Del Method Nasal Cannula 10/14/24 19:46 O2 Flow Rate 3 10/14/24 19:46 Oxygen Flow Rate 3 10/14/24 14:19 BMI result Body Mass Index 23.2 General: AOx1 only, dissheveled, unkempt, confused. In no acute distress Resp: Bilateral rhonchi. Coarse and wet-sounding cough appreciated CVS: S1, S2, RRR GI: +BS, NT, no distention Skin: Warm, dry Neuro: Cranial nerves II-XII grossly intact bilaterally. Motor grossly intact bilaterally, though barely moves lower extremities : Corral in place draining bright red blood. Extremities: No edema Psych: Confused, unable to follow most commands Results Labs 10/14/24 14:56 10/14/24 14:57 Labs: Laboratory Results - last 24 hr 10/14/24 10/14/24 10/14/24 14:56 14:57 15:09 MCV 90.7 MCH 28.7 MCHC 31.7 RDW 14.9 Plt Count 203 MPV 10.3 Immature Gran % (Auto) 0.4 Neut % (Auto) 69.3 Lymph % (Auto) 18.8 L [place] % (Auto) 9.5 Eos % (Auto) 1.7 Baso % (Auto) 0.3 Lymph # (Auto) 1.7 [place] # (Auto) 0.9 Eos # (Auto) 0.2 Baso # (Auto) 0.0 Abs Immat Gran (auto) 0.04 H Absolute Neuts (auto) 6.2 Absolute Nucleated RBC 0.000 Nucleated RBC % (auto) 0.0 PT 16.5 H INR 1.4 H VBG pH 7.33 VBG pCO2 48 VBG pO2 43 VBG HCO3 25 VBG O2 Saturation 68.0 VBG Base Excess -0.4 Anion Gap 13 Estim Creat Clear Calc 47.0 Estimated GFR 54 Random Glucose 102 Lactic Acid 1.5 Calcium 9.4 Magnesium 1.9 Total Bilirubin 0.6 Direct Bilirubin 0.3 AST 28 ALT 16 Alkaline Phosphatase 47 Ammonia 29 Troponin I High Sens 13.2 B-Natriuretic Peptide 378 H Total Protein 6.4 L Albumin 3.5 Lipase 14 Urine Color Urine Appearance Urine pH Ur Specific [place] Urine Protein Urine Glucose (UA) Urine Ketones Urine Blood Urine Nitrite Ur Leukocyte Esterase Urine RBC Urine WBC Ur Squamous Epith Cells Urine Bacteria Hyaline Casts Influenza Type A (PCR) NEGATIVE Influenza Type B (PCR) NEGATIVE RSV RNA Qual (PCR) NEGATIVE SARS-CoV-2 RNA (RT-PCR) NEGATIVE 10/14/24 10/14/24 18:22 19:05 MCV MCH MCHC RDW Plt Count MPV Immature Gran % (Auto) Neut % (Auto) Lymph % (Auto) [place] % (Auto) Eos % (Auto) Baso % (Auto) Lymph # (Auto) [place] # (Auto) Eos # (Auto) Baso # (Auto) Abs Immat Gran (auto) Absolute Neuts (auto) Absolute Nucleated RBC Nucleated RBC % (auto) PT INR VBG pH VBG pCO2 VBG pO2 VBG HCO3 VBG O2 Saturation VBG Base Excess Anion Gap Estim Creat Clear Calc Estimated GFR Random Glucose Lactic Acid Calcium Magnesium Total Bilirubin Direct Bilirubin AST ALT Alkaline Phosphatase Ammonia Troponin I High Sens 11.2 B-Natriuretic Peptide Total Protein Albumin Lipase Urine Color RED Urine Appearance Hazy Urine pH 5.0 Ur Specific [place] 1.020 Urine Protein See Note Urine Glucose (UA) Negative Urine Ketones See Note Urine Blood Large (3+) H Urine Nitrite See Note Ur Leukocyte Esterase See Note Urine RBC >20 H Urine WBC 6-10 Ur Squamous Epith Cells 0-2 Urine Bacteria None Seen Hyaline Casts 0-2 Influenza Type A (PCR) Influenza Type B (PCR) RSV RNA Qual (PCR) SARS-CoV-2 RNA (RT-PCR) Imaging Radiologist's Impressions: Impressions Abdomen/Pelvis CT 10/14/24 14:30 IMPRESSION: 1. No acute traumatic abnormality. No hematoma. 2. Distended gallbladder without gallstones. Consider ultrasound. 3. Severe diverticulosis without acute inflammatory changes. 4. Large stool ball within the rectum which can predispose to stercoral colitis. Electronically signed by: Scott Kruse MD 10/14/2024 06:56 PM EST RP Chest CT 10/14/24 14:32 IMPRESSION: 1. No acute traumatic abnormality. No hematoma. 2. Distended gallbladder without gallstones. Consider ultrasound. 3. Severe diverticulosis without acute inflammatory changes. 4. Large stool ball within the rectum which can predispose to stercoral colitis. Electronically signed by: Scott Kruse MD 10/14/2024 06:56 PM EST RP Cervical Spine CT 10/14/24 15:15 IMPRESSION: 1. Motion artifact degrading images of the CT head, limiting evaluation. Consider repeat CT scan as clinically indicated. 2. In the nonobscured portion of the brain, there is no CT evidence of acute intracranial hemorrhage or edematous territorial infarction 3. Motion artifact degrading the cervical spine imaging. Consider repeat CT scan as clinically warranted. 4. Depression of the superior aspect of T2 vertebral body, and the T1 vertebral body. This of indeterminate age. Clinically correlate. Further evaluation with MRI as clinically indicated. 5. Multilevel cervical spondylosis. Electronically signed by: Farshad Escobedo MD 10/14/2024 06:16 PM EST RP Head CT 10/14/24 15:15 IMPRESSION: 1. Motion artifact degrading images of the CT head, limiting evaluation. Consider repeat CT scan as clinically indicated. 2. In the nonobscured portion of the brain, there is no CT evidence of acute intracranial hemorrhage or edematous territorial infarction 3. Motion artifact degrading the cervical spine imaging. Consider repeat CT scan as clinically warranted. 4. Depression of the superior aspect of T2 vertebral body, and the T1 vertebral body. This of indeterminate age. Clinically correlate. Further evaluation with MRI as clinically indicated. 5. Multilevel cervical spondylosis. Electronically signed by: Farshad Escobedo MD 10/14/2024 06:16 PM EST RP Assessment and Plan (1) Aspiration pneumonitis: Status: Acute (2) Hematuria: Status: Acute Plan Pt is an 84-year-old female with a PMH significant for HFrEF, CKD, paroxysmal AFib on Eliquis, hx of V tach, s/p pacer in place, HLD, urinary retention, BPH, dementia, anxiety, and bipolar disorder?who presents to the ED from [facility] after unwitnessed fall out of bed. Pt will be admitted to the hospital for treatment and further evaluation of acute hypoxic respiratory failure in the setting of likely aspiration pneumonitis after unwitnessed fall out of bed. Acute hypoxic respiratory failure in the setting of likely aspiration pneumonitis meeting SIRS criteria Patient with unwitnessed fall out of bed, found head 1st on floor with feet still elevated in bed Likely aspirated during event Patient hypoxic into the 80s on RA, rhonchus on exam with noted wet-sounding/course cough Meets SIRS criteria: Tachycardia, tachypnea; lactic acid WNL at 1.5 Will empirically cover with Zosyn, started 10/14/2024 Receiving 1L IVF Titrate supplemental O2>92, wean as tolerated Monitor respiratory status Urinary retention with hematuria Bladder scan found 800 cc Hematuria likely secondary to traumatic Corral insertion inpatient on anticoagulation Hold Eliquis CBI Constipation CT found large stool ball within rectum Last BM reported at SNF apparently three weeks ago Small amount of stool manually disimpacted in the ED Will give suppository now Will likely need enema tomorrow depending on stool output tonight Distended gallbladder CT found distended gallbladder without radiopaque gallstones Will get ultrasound to evaluate for cholecystitis CKD 3 Stable, at baseline Paroxysmal AFib Hold Eliquis due to hematuria Continue metoprolol HFrEF Not in acute exacerbation, appears euvolemic Not on home diuretics Continue metoprolol BPH Tamsulosin Mood disorder/dementia Continue alprazolam, Depakote, mirtazapine, risperidone, and trazodone DNR Attending:?Dr. Dewitt DVT Prophylaxis: Pneumatic compression due to hematuria Pt will require a hospitalization of at least two nights for treatment of?acute hypoxic respiratory failure in the setting of likely aspiration pneumonitis secondary to unwitnessed fall at SNF. Patient will require hospital level care for administration of IV antibiotics, supplemental oxygen, and CBI for gross hematuria. Quality Stroke Does the patient have a stroke diagnosis?: No VTE Prior VTE?: No VTE Risk Level:: Medical - moderate - high VTE Device Contraindication: N/A - Device Ordered VTE Drug Contraindication: Treatment Not Indicated
--- NOTE | 2024-10-14 20:15 | PHA.MEDREC ---
Addendum entered by Joseph Dalal fausto 10/14/24 20:29: med rec reviewed Original Note: Pharmacy Consult ? Medication Reconciliation Pharmacy has completed the medication reconciliation. Confirmed medications with list from [facility].
[2024-10-14] MEDS: Lactated Ringers 1,000 ML 999 ML IV (20:44)
[2024-10-14] MEDS: Piperacillin Sodium/Tazobactam 4.5 GM in 0.9 % Sodium Chloride 100 ML IV (20:45)
--- NOTE | 2024-10-14 20:48 | MHC.EDTECH ---
Patient a very difficult stick ,was able to draw 1 tube and was sent to lab .NINO Sullivan aware .
--- NOTE | 2024-10-14 20:50 | MHC.EDTECH ---
Patient was bladder scan ,RN aware that Patient had 328 in his bladder .
--- NOTE | 2024-10-14 20:52 | PC.NURSE ---
[address] placed, 200ml bright red blood drained. pt noted to have no output following insertion, bladder scan >300. at bedside for manual irrigation, noted to have drainage at this time. aware.
[2024-10-14 21:01] LABS: Anion Gap 18 (12-20); Blood Urea Nitrogen 21 mg/dL (9-16); Calcium 9.1 mg/dL (8.4-10.2); Carbon Dioxide 15 mmol/L (22-29); Chloride 115 mmol/L (96-108); Estimated Glomerular Filt Rate 54; Glucose Random 109 mg/dL (60-115); Potassium 4.5 mmol/L (3.3-5.1); Sodium 143 mmol/L (135-145)
[2024-10-14 21:12] LABS: Hematocrit 36.2 % (42.0-52.0); Hemoglobin 11.4 g/dl (14.0-18.0); Mean Corpuscular HGB Conc 31.5 g/dl (31.0-36.0); Mean Corpuscular Hemoglobin 28.6 pg (27.0-33.0); Mean Corpuscular Volume 90.7 fL (80.0-98.0); Mean Platelet Volume 10.2 fL (9.4-12.4); Platelet Count 198 X10*3/uL (160-400); Red Blood Count 3.99 X10*6/uL (4.60-5.80); Red Cell Distribution Width 14.9 % (11.0-16.0); White Blood Count 9.7 X10*3/uL (4.8-10.8)
[2024-10-14] MEDS: Morphine Sulfate 2 MG/ML CARTRIDGE IVPUSH (21:14)
[2024-10-14 21:33] LABS: VBG Base Excess -1.4 mmol/L; VBG HCO3 25 mmol/L (22-26); VBG pCO2 50 mmHg; VBG pO2 32 mmHg
[2024-10-14 21:35] LABS: Venous Blood Gas Refer to POC result
[2024-10-14 21:44] LABS: Lactic Acid 2.4 mmol/L (0.5-2.0)
--- NOTE | 2024-10-14 21:45 | MHC.EDTECH ---
Patient was incontinent of large amount of stool ,care given .
[2024-10-14 22:04] LABS: ABG Base Excess -3.5 mmol/L; ABG HCO3 21 mmol/L (22-26); ABG pCO2 35 mmHg (32-45); ABG pH 7.37 (7.35-7.45); ABG pO2 116 mmHg (83-108)
[2024-10-14 23:08] LABS: Reflex Lactate? Lactic Acid Added
[2024-10-14 23:47] LABS: ABG Refer to POC result
[2024-10-15 00:03] LABS: ~Lactic Acid-LAB USE ONLY 3.4 mmol/L (0.5-2.0)
[2024-10-15] MEDS: 0.9 % Sodium Chloride Flush 3 ML SYRINGE IVFLUSH ×3 (00:41→20:18)
[2024-10-15 01:32] LABS: Reflex Lactate? 2 Y
[2024-10-15 01:55] LABS: Cancel Lactic Acid Canceled
[2024-10-15 02:03] VITALS: BMI 24.5
[2024-10-15] MEDS: Piperacillin Sodium/Tazobactam 4.5 GM in 0.9 % Sodium Chloride 100 ML IV ×4 (03:38→20:06)
[2024-10-15 03:52] VITALS: BP 123/68; PULSE 70; RESP 16; TEMP 36.4; O2SAT 99
[2024-10-15] MEDS: Lactated Ringers 1,000 ML 999 ML IV (04:23)
[2024-10-15 07:42] VITALS: BP 144/70; PULSE 68; RESP 17; TEMP 36.5; O2SAT 97
[2024-10-15 08:06] LABS: Hematocrit 31.4 % (42.0-52.0); Hemoglobin 9.7 g/dl (14.0-18.0); Mean Corpuscular HGB Conc 30.9 g/dl (31.0-36.0); Mean Corpuscular Hemoglobin 28.4 pg (27.0-33.0); Mean Corpuscular Volume 91.8 fL (80.0-98.0); Mean Platelet Volume 10.4 fL (9.4-12.4); Platelet Count 161 X10*3/uL (160-400); Red Blood Count 3.42 X10*6/uL (4.60-5.80); White Blood Count 8.2 X10*3/uL (4.8-10.8)
[2024-10-15 08:25] LABS: Anion Gap 13 (12-20); Blood Urea Nitrogen 22 mg/dL (9-16); Calcium 8.7 mg/dL (8.4-10.2); Carbon Dioxide 22 mmol/L (22-29); Chloride 114 mmol/L (96-108); Creatinine Clr Calc Pharmacy 44.9; Estimated Glomerular Filt Rate 52; Glucose Random 85 mg/dL (60-115); Potassium 3.8 mmol/L (3.3-5.1); Sodium 145 mmol/L (135-145)
[2024-10-15] MEDS: ALPRAZolam 0.5 MG TABLET PO ×2 (10:22→20:05)
[2024-10-15] MEDS: Amiodarone HCL 200 MG TABLET PO (10:22)
[2024-10-15] MEDS: risperiDONE 1 MG TABLET PO (10:22)
--- NOTE | 2024-10-15 10:48 | MHC.SL.SWA ---
Speech Pathologist Impression: Mild to moderate oral pharyngeal dysphagia Risk of Aspiration Due to: History of Pneumonia Reduced Cognition Dysphasia Diet Status: Recommend diet of Puree (NDD1) with [place] Thick liquids, pills crushed in puree. Patient currently requires 1-1 feeding. Do not attempt if patient is too lethargic/not attentive or aware of meal. Liquid Consistency and Strategies for Safe Swallow: Liquid Intake Recommendation: [place] Thick Liquid Intake Strategies: Small Sips No Straws Solid Food Consistency: Dietary Recommendations: Pureed (NDD1) Additional Modifications to Solid Foods: Provide liquids by tsp and/or cup sip as tolerated. Blend gravies into purees, break up/soften if congealed. Do not attempt if patient is overly lethargic, discontinue if patient becomes too lethargic during meal, or with evidence/clinical signs of aspiration (coughing, increased upper airway noise, drop in 02 sats). Oral Medication Intake: Crushed with Puree Please contact the pharmacy regarding appropriate crushable or liquid drug formulations that are available whenever modified delivery is recommended. Compensatory Strategies and Precautions to be Taken for Safe Swallow: Sitting Upright (90 deg) Liquids from Spoon Small Bites and Sips Alternate Liquids/Solids Supervision While Eating and Drinking for Safe Swallow: Total Assistance (1:1) Foods to Avoid: mixed consistencies Swallowing Recommended Treatments: Compens. Strategy Educat. Recommendation for Speech: Inpatient Speech Therapy Comment: Patient presents with mild to moderate oral pharyngeal dysphagia complicated by confusion/dementia and lethargy. Patient allowed only limited trials of PO today, and it is recommended he be started on a conservative diet with 1-1 feeding and aspiration precautions. Recommend START diet of PUREE (NDD3) with [place] THICK liquids, pills crushed in puree. Patient requires a 1-1 feed, is noted to have waxing and waning lethargy. Do not attempt if patient is overly lethargic, discontinue if patient becomes too lethargic during meal, or with evidence/clinical signs of aspiration (coughing, increased upper airway noise, drop in 02 sats). NETWORK CONTROL SUPERVISOR will follow, re-assess for a possible upgrade/toleration on Thursday. MD/RD notified of recommendation by secure text, RN in person. Frequency/Duration: Date Range for Service Req: Timeline to reassess: [employer] Supervisor Clinican/Clinical Fellow: No Supervisory Statement: I have reviewed and agree with the student/clinical fellow's documentation: N/A Speech Language Pathologist: Ann Dodd M.A., CCC-NETWORK CONTROL SUPERVISOR
[2024-10-15 11:11] VITALS: BP 142/71; PULSE 53; RESP 17; TEMP 36.5; O2SAT 94
--- NOTE | 2024-10-15 13:51 | MHC.CM.PN ---
Addendum entered by Ambika Thomas 10/15/24 13:58: Second contact already was removed. Original Note: IMM 10/15/24, Discussed with dtr / HCP Freida on phone, left copy in pt.'s room for her. Pt. resides at [facility]. He went there for STR, but HCP was working with facility to have him stay there LTC. DCP will be for him to return to [facility]. HCP is dtr, copy requested. Second contact listed is , task in to update demographic info. CM to follow for DC needs.
--- NOTE | 2024-10-15 14:35 | P.PNIM_ITS ---
Subjective Subjective Date of Service: 10/15/24 Review of Systems Follow up aspiration pna confused Review of Systems: Yes Unobtainable due to mental status Physical Exam 2 Vital Signs: Vital Signs: Last Vital Signs Temp 97.7 F 10/15/24 11:11 Pulse 53 10/15/24 11:11 Resp 17 10/15/24 11:11 BP 142/71 H 10/15/24 11:11 Pulse Ox 94 10/15/24 11:11 O2 Del Method Nasal Cannula 10/15/24 11:11 O2 Flow Rate 1 10/15/24 11:11 Oxygen Flow Rate 3 10/14/24 14:19 BMI result Body Mass Index 24.5 Appearing in no acute distress lung sounds are clear to auscultation heart regular rate rhythm, clear S1, S2 positive bowel sounds, abdomen is soft, nontender neuro patient is alert x3, no focal deficits Objective Data Active Medications Acetaminophen (Acetaminophen 325 Mg Tablet) 650 mg PO Q6H PRN PRN Reason: Pain, Mild (Pain Scale 1-3), fever or headache Acetaminophen (Acetaminophen Supp 650 Mg Supp.Rect) 650 mg [place] Q4H PRN PRN Reason: Pain/Fever Albuterol Sulfate (Albuterol Sulfate 90 Mcg 8 Gm Inhaler) 2 puff INHALE Q4H PRN PRN Reason: Shortness Of Breath Alprazolam (Alprazolam 0.5 Mg Tablet) 0.5 mg PO BID [facility] Last Admin: 10/15/24 10:22 Dose: 0.5 mg Documented By: BHANU Amiodarone HCl (Amiodarone Hcl 200 Mg Tablet) 200 mg PO DAILY [facility] Last Admin: 10/15/24 10:22 Dose: 200 mg Documented By: BHANU Bisacodyl (Bisacodyl 10 Mg Supp.Rect) 10 mg [place] DAILY PRN PRN Reason: Constipation Calcium Carbonate (Calcium Carbonate 750 Mg Tab.Chew) 750 mg PO Q4H PRN PRN Reason: Heartburn Divalproex Sodium (Divalproex Sodium Sprinkles 125 Mg Cap.DrTarikSpr) 750 mg PO BEDTIME [facility] Last Admin: 10/14/24 21:11 Dose: Not Given Documented By: NADINE Non-Admin Reason: NPO Fluticasone/Vilanterol (Fluticasone/Vilanterol 100/25 Blst.W.Dev) 1 puff INHALE RDAILY [facility] Last Admin: 10/15/24 08:43 Dose: Not Given Documented By: JOHN Non-Admin Reason: See Note Piperacillin Sod/Tazobactam (Sod 4.5 gm/ Sodium Chloride) 100 mls @ 200 mls/hr IV Q6H [facility] Last Infusion: 10/15/24 11:29 Dose: Infused Documented By: BHANU Magnesium Hydroxide (Milk Of Magnesia 30 Ml Oral.Susp) 30 ml PO DAILY PRN PRN Reason: Constipation Melatonin (Melatonin 3 Mg Tablet) 6 mg PO BEDTIME PRN PRN Reason: Insomnia Metoprolol Succinate (Metoprolol Succinate Er 50 Mg Tab.Er.24h) 50 mg PO BEDTIME [facility]; Protocol Last Admin: 10/14/24 21:11 Dose: Not Given Documented By: NADINE Non-Admin Reason: NPO Mirtazapine (Mirtazapine 15 Mg Tablet) 15 mg PO BEDTIME [facility] Last Admin: 10/14/24 21:11 Dose: Not Given Documented By: NADINE Non-Admin Reason: NPO Naloxone HCl (Naloxone Hcl 0.4 Mg/Ml Vial) 0.4 mg SUBCUT Q3M PRN PRN Reason: Sedation/Unresponsive Ondansetron HCl (Ondansetron Hcl 4 Mg/2 Ml Vial) 4 mg IVPUSH Q8H PRN PRN Reason: Nausea and Vomiting Risperidone (Risperidone 1 Mg Tablet) 1 mg PO DAILY [facility] Last Admin: 10/15/24 10:22 Dose: 1 mg Documented By: BHANU Sodium Biphosphate/Sodium Phosphate (Sodium Phosphate,[place]-Dibasic 133 Ml Enema) 118 ml [place] DAILY PRN PRN Reason: Constipation Sodium Chloride (0.9 % Sodium Chloride Flush 3 Ml Syringe) 3 ml IVFLUSH QSHIFT [facility] Last Admin: 10/15/24 10:28 Dose: 3 ml Documented By: BHANU Tamsulosin HCl (Tamsulosin Hcl 0.4 Mg Capsule) 0.4 mg PO BEDTIME [facility] Last Admin: 10/14/24 21:22 Dose: Not Given Documented By: NADINE Non-Admin Reason: NPO Trazodone HCl (Trazodone Hcl 50 Mg Tablet) 50 mg PO BEDTIME [facility] Last Admin: 10/14/24 21:22 Dose: Not Given Documented By: NADINE Non-Admin Reason: NPO Labs 10/15/24 07:09 10/15/24 07:09 Labs: Laboratory Results - last 24 hr 10/14/24 10/14/24 10/14/24 14:56 14:57 15:09 MCV 90.7 MCH 28.7 MCHC 31.7 RDW 14.9 Plt Count 203 MPV 10.3 Immature Gran % (Auto) 0.4 Neut % (Auto) 69.3 Lymph % (Auto) 18.8 L [place] % (Auto) 9.5 Eos % (Auto) 1.7 Baso % (Auto) 0.3 Lymph # (Auto) 1.7 [place] # (Auto) 0.9 Eos # (Auto) 0.2 Baso # (Auto) 0.0 Abs Immat Gran (auto) 0.04 H Absolute Neuts (auto) 6.2 Absolute Nucleated RBC 0.000 Nucleated RBC % (auto) 0.0 PT 16.5 H INR 1.4 H O2 Saturation ABG pH at Pt Temp ABG pCO2 at Pt Temp ABG pO2 at Pt Temp ABG HCO3 ABG Base Excess (Actual) VBG pH 7.33 VBG pCO2 48 VBG pO2 43 VBG HCO3 25 VBG O2 Saturation 68.0 VBG Base Excess -0.4 Anion Gap 13 Estim Creat Clear Calc 47.0 Estimated GFR 54 Random Glucose 102 Lactic Acid 1.5 Lactic Acid F/U @ 2Hr Calcium 9.4 Magnesium 1.9 Total Bilirubin 0.6 Direct Bilirubin 0.3 AST 28 ALT 16 Alkaline Phosphatase 47 Ammonia 29 Troponin I High Sens 13.2 B-Natriuretic Peptide 378 H Total Protein 6.4 L Albumin 3.5 Lipase 14 Urine Color Urine Appearance Urine pH Ur Specific [place] Urine Protein Urine Glucose (UA) Urine Ketones Urine Blood Urine Nitrite Ur Leukocyte Esterase Urine RBC Urine WBC Ur Squamous Epith Cells Urine Bacteria Hyaline Casts Influenza Type A (PCR) NEGATIVE Influenza Type B (PCR) NEGATIVE RSV RNA Qual (PCR) NEGATIVE SARS-CoV-2 RNA (RT-PCR) NEGATIVE 10/14/24 10/14/24 10/14/24 18:22 19:05 20:36 MCV MCH MCHC RDW Plt Count MPV Immature Gran % (Auto) Neut % (Auto) Lymph % (Auto) [place] % (Auto) Eos % (Auto) Baso % (Auto) Lymph # (Auto) [place] # (Auto) Eos # (Auto) Baso # (Auto) Abs Immat Gran (auto) Absolute Neuts (auto) Absolute Nucleated RBC Nucleated RBC % (auto) PT INR O2 Saturation ABG pH at Pt Temp ABG pCO2 at Pt Temp ABG pO2 at Pt Temp ABG HCO3 ABG Base Excess (Actual) VBG pH VBG pCO2 VBG pO2 VBG HCO3 VBG O2 Saturation VBG Base Excess Anion Gap 18 Estim Creat Clear Calc 47.0 Estimated GFR 54 Random Glucose 109 Lactic Acid Lactic Acid F/U @ 2Hr Calcium 9.1 Magnesium Total Bilirubin Direct Bilirubin AST ALT Alkaline Phosphatase Ammonia Troponin I High Sens 11.2 B-Natriuretic Peptide Total Protein Albumin Lipase Urine Color RED Urine Appearance Hazy Urine pH 5.0 Ur Specific [place] 1.020 Urine Protein See Note Urine Glucose (UA) Negative Urine Ketones See Note Urine Blood Large (3+) H Urine Nitrite See Note Ur Leukocyte Esterase See Note Urine RBC >20 H Urine WBC 6-10 Ur Squamous Epith Cells 0-2 Urine Bacteria None Seen Hyaline Casts 0-2 Influenza Type A (PCR) Influenza Type B (PCR) RSV RNA Qual (PCR) SARS-CoV-2 RNA (RT-PCR) 10/14/24 10/14/24 10/14/24 21:05 21:08 21:52 MCV 90.7 MCH 28.6 MCHC 31.5 RDW 14.9 Plt Count 198 MPV 10.2 Immature Gran % (Auto) Neut % (Auto) Lymph % (Auto) [place] % (Auto) Eos % (Auto) Baso % (Auto) Lymph # (Auto) [place] # (Auto) Eos # (Auto) Baso # (Auto) Abs Immat Gran (auto) Absolute Neuts (auto) Absolute Nucleated RBC 0.000 Nucleated RBC % (auto) 0.0 PT INR O2 Saturation 100.0 ABG pH at Pt Temp 7.37 ABG pCO2 at Pt Temp 35 ABG pO2 at Pt Temp 116 H ABG HCO3 21 L ABG Base Excess (Actual) -3.5 VBG pH 7.30 L VBG pCO2 50 VBG pO2 32 VBG HCO3 25 VBG O2 Saturation 45.0 VBG Base Excess -1.4 Anion Gap Estim Creat Clear Calc Estimated GFR Random Glucose Lactic Acid 2.4 H* Lactic Acid F/U @ 2Hr Calcium Magnesium Total Bilirubin Direct Bilirubin AST ALT Alkaline Phosphatase Ammonia Troponin I High Sens B-Natriuretic Peptide Total Protein Albumin Lipase Urine Color Urine Appearance Urine pH Ur Specific [place] Urine Protein Urine Glucose (UA) Urine Ketones Urine Blood Urine Nitrite Ur Leukocyte Esterase Urine RBC Urine WBC Ur Squamous Epith Cells Urine Bacteria Hyaline Casts Influenza Type A (PCR) Influenza Type B (PCR) RSV RNA Qual (PCR) SARS-CoV-2 RNA (RT-PCR) 10/14/24 10/15/24 23:28 07:09 MCV 91.8 MCH 28.4 MCHC 30.9 L RDW 15.0 Plt Count 161 MPV 10.4 Immature Gran % (Auto) Neut % (Auto) Lymph % (Auto) [place] % (Auto) Eos % (Auto) Baso % (Auto) Lymph # (Auto) [place] # (Auto) Eos # (Auto) Baso # (Auto) Abs Immat Gran (auto) Absolute Neuts (auto) Absolute Nucleated RBC 0.000 Nucleated RBC % (auto) 0.0 PT INR O2 Saturation ABG pH at Pt Temp ABG pCO2 at Pt Temp ABG pO2 at Pt Temp ABG HCO3 ABG Base Excess (Actual) VBG pH VBG pCO2 VBG pO2 VBG HCO3 VBG O2 Saturation VBG Base Excess Anion Gap 13 Estim Creat Clear Calc 44.9 Estimated GFR 52 Random Glucose 85 Lactic Acid Lactic Acid F/U @ 2Hr 3.4 H* Calcium 8.7 Magnesium Total Bilirubin Direct Bilirubin AST ALT Alkaline Phosphatase Ammonia Troponin I High Sens B-Natriuretic Peptide Total Protein Albumin Lipase Urine Color Urine Appearance Urine pH Ur Specific [place] Urine Protein Urine Glucose (UA) Urine Ketones Urine Blood Urine Nitrite Ur Leukocyte Esterase Urine RBC Urine WBC Ur Squamous Epith Cells Urine Bacteria Hyaline Casts Influenza Type A (PCR) Influenza Type B (PCR) RSV RNA Qual (PCR) SARS-CoV-2 RNA (RT-PCR) Microbiology Microbiology Results: Microbiology 10/14/24 19:05 Urine Culture - Preliminary Urine clean catch - Clean Catch Midstream No growth to date. Assessment and Plan (1) Hematuria: Status: Acute Plan Pt is an 84-year-old female with a PMH significant for HFrEF, CKD, paroxysmal AFib on Eliquis, hx of V tach, s/p pacer in place, HLD, urinary retention, BPH, dementia, anxiety, and bipolar disorder?who presents to the ED from [facility] after unwitnessed fall out of bed. Pt will be admitted to the hospital for treatment and further evaluation of acute hypoxic respiratory failure in the setting of likely aspiration pneumonitis after unwitnessed fall out of bed. Acute hypoxic respiratory failure in the setting of likely aspiration pneumonitis meeting SIRS criteria Patient with unwitnessed fall out of bed, found head 1st on floor with feet still elevated in bed Likely aspirated during event Patient hypoxic into the 80s on RA, rhonchus on exam with noted wet- sounding/course cough Meets SIRS criteria: Tachycardia, tachypnea; lactic acid WNL at 1.5 Will empirically cover with Zosyn, started 10/14/2024 Receiving 1L IVF Titrate supplemental O2>92, wean as tolerated Monitor respiratory status Urinary retention with hematuria Bladder scan found 800 cc Hematuria likely secondary to traumatic Corral insertion inpatient on anticoagulation Hold Eliquis CBI Constipation CT found large stool ball within rectum Last BM reported at SNF apparently three weeks ago Small amount of stool manually disimpacted in the ED s/p suppository Distended gallbladder CT found distended gallbladder without radiopaque gallstones Will get ultrasound to evaluate for cholecystitis CKD 3 Stable, at baseline Paroxysmal AFib Hold Eliquis due to hematuria Continue metoprolol HFrEF Not in acute exacerbation, appears euvolemic Not on home diuretics Continue metoprolol BPH Tamsulosin Mood disorder/dementia Continue alprazolam, Depakote, mirtazapine, risperidone, and trazodone DNR Attending:?Dr. Shipley DVT Prophylaxis: Pneumatic compression due to hematuria Pt will require a hospitalization of at least two nights for treatment of?acute hypoxic respiratory failure in the setting of likely aspiration pneumonitis secondary to unwitnessed fall at SNF. Patient will require hospital level care for administration of IV antibiotics, supplemental oxygen, and CBI for gross hematuria. Quality Stroke Does the patient have a stroke diagnosis?: No VTE Prior VTE?: No VTE Risk Level:: Medical - moderate - high VTE Device Contraindication: N/A - Device Ordered VTE Drug Contraindication: Treatment Not Indicated
[2024-10-15 15:01] VITALS: BP 127/84; PULSE 65; RESP 17; TEMP 36.3; O2SAT 97
[2024-10-15 20:00] VITALS: BP 147/75; PULSE 81; RESP 20; TEMP 36.4; O2SAT 99
[2024-10-15] MEDS: Tamsulosin HCL 0.4 MG CAPSULE PO (20:05)
[2024-10-15] MEDS: Mirtazapine 15 MG TABLET PO (20:05)
[2024-10-15] MEDS: Metoprolol Succinate ER 50 MG TAB.ER.24H PO (20:05)
[2024-10-15] MEDS: traZODone HCL 50 MG TABLET PO (20:05)
[2024-10-15] MEDS: Divalproex Sodium Sprinkles 125 MG CAP.DR.SPR 750 MG PO (20:06)
[2024-10-15 23:57] VITALS: BP 130/60; PULSE 60; RESP 20; TEMP 36.1; O2SAT 99
[2024-10-16] VITALS (7 sets, daily range): BP systolic 125–142; BP diastolic 58–78; PULSE 60–71; RESP 18–20; TEMP 36.1–36.6; O2SAT 95–100
[2024-10-16] MEDS: Piperacillin Sodium/Tazobactam 4.5 GM in 0.9 % Sodium Chloride 100 ML IV ×4 (02:48→20:44)
[2024-10-16] MEDS: Acetaminophen 325 MG TABLET 650 MG PO (04:37)
[2024-10-16] MEDS: ALPRAZolam 0.5 MG TABLET PO ×2 (07:42→20:51)
[2024-10-16] MEDS: Amiodarone HCL 200 MG TABLET PO (07:42)
[2024-10-16] MEDS: risperiDONE 1 MG TABLET PO (07:42)
--- NOTE | 2024-10-16 09:12 | HO.PM.IMPN ---
Subjective Subjective Date of Service: 10/16/24 Review of Systems Follow up aspiration pna confused Review of Systems: Yes Unobtainable due to mental status Physical Exam Vital Signs: Vital Signs: Last Vital Signs Temp 97.5 F 10/16/24 07:21 Pulse 62 10/16/24 07:21 Resp 20 10/16/24 07:21 BP 142/74 H 10/16/24 07:21 Pulse Ox 100 10/16/24 07:21 O2 Del Method Nasal Cannula 10/16/24 07:21 O2 Flow Rate 2 10/16/24 07:21 Oxygen Flow Rate 3 10/14/24 14:19 BMI result Body Mass Index 24.5 Appearing in no acute distress lung sounds are clear to auscultation heart regular rate rhythm, clear S1, S2 positive bowel sounds, abdomen is soft, nontender neuro patient is alert, confused Objective Data Active Medications Acetaminophen (Acetaminophen 325 Mg Tablet) 650 mg PO Q6H PRN PRN Reason: Pain, Mild (Pain Scale 1-3), fever or headache Last Admin: 10/16/24 04:37 Dose: 650 mg Documented By: ISABEL Acetaminophen (Acetaminophen Supp 650 Mg Supp.Rect) 650 mg [place] Q4H PRN PRN Reason: Pain/Fever Albuterol Sulfate (Albuterol Sulfate 90 Mcg 8 Gm Inhaler) 2 puff INHALE Q4H PRN PRN Reason: Shortness Of Breath Alprazolam (Alprazolam 0.5 Mg Tablet) 0.5 mg PO BID [facility] Last Admin: 10/16/24 07:42 Dose: 0.5 mg Documented By: BHANU Amiodarone HCl (Amiodarone Hcl 200 Mg Tablet) 200 mg PO DAILY [facility] Last Admin: 10/16/24 07:42 Dose: 200 mg Documented By: BHANU Bisacodyl (Bisacodyl 10 Mg Supp.Rect) 10 mg [place] DAILY PRN PRN Reason: Constipation Calcium Carbonate (Calcium Carbonate 750 Mg Tab.Chew) 750 mg PO Q4H PRN PRN Reason: Heartburn Divalproex Sodium (Divalproex Sodium Sprinkles 125 Mg Cap.Spr) 750 mg PO BEDTIME [facility] Last Admin: 10/15/24 20:06 Dose: 750 mg Documented By: ISABEL Fluticasone/Vilanterol (Fluticasone/Vilanterol 100/25 Blst.W.Dev) 1 puff INHALE RDAILY [facility] Last Admin: 10/16/24 07:40 Dose: Not Given Documented By: JOHN Non-Admin Reason: See Note Piperacillin Sod/Tazobactam (Sod 4.5 gm/ Sodium Chloride) 100 mls @ 200 mls/hr IV Q6H [facility] Last Admin: 10/16/24 07:42 Dose: 200 mls/hr Documented By: BHANU Magnesium Hydroxide (Milk Of Magnesia 30 Ml Oral.Susp) 30 ml PO DAILY PRN PRN Reason: Constipation Melatonin (Melatonin 3 Mg Tablet) 6 mg PO BEDTIME PRN PRN Reason: Insomnia Metoprolol Succinate (Metoprolol Succinate Er 50 Mg Tab.Er.24h) 50 mg PO BEDTIME [facility]; Protocol Last Admin: 10/15/24 20:05 Dose: 50 mg Documented By: ISABEL Mirtazapine (Mirtazapine 15 Mg Tablet) 15 mg PO BEDTIME [facility] Last Admin: 10/15/24 20:05 Dose: 15 mg Documented By: ISABEL Naloxone HCl (Naloxone Hcl 0.4 Mg/Ml Vial) 0.4 mg SUBCUT Q3M PRN PRN Reason: Sedation/Unresponsive Ondansetron HCl (Ondansetron Hcl 4 Mg/2 Ml Vial) 4 mg IVPUSH Q8H PRN PRN Reason: Nausea and Vomiting Risperidone (Risperidone 1 Mg Tablet) 1 mg PO DAILY [facility] Last Admin: 10/16/24 07:42 Dose: 1 mg Documented By: BHANU Sodium Biphosphate/Sodium Phosphate (Sodium Phosphate,[place]-Dibasic 133 Ml Enema) 118 ml [place] DAILY PRN PRN Reason: Constipation Sodium Chloride (0.9 % Sodium Chloride Flush 3 Ml Syringe) 3 ml IVFLUSH QSHIFT [facility] Last Admin: 10/15/24 20:18 Dose: 3 ml Documented By: ISABEL Tamsulosin HCl (Tamsulosin Hcl 0.4 Mg Capsule) 0.4 mg PO BEDTIME [facility] Last Admin: 10/15/24 20:05 Dose: 0.4 mg Documented By: ISABEL Trazodone HCl (Trazodone Hcl 50 Mg Tablet) 50 mg PO BEDTIME [facility] Last Admin: 10/15/24 20:05 Dose: 50 mg Documented By: ISABEL Labs 10/15/24 07:09 10/15/24 07:09 Microbiology Microbiology Results: Microbiology 10/14/24 14:57 Blood Culture - Preliminary Blood - Venous No growth after 24 hours. 10/14/24 14:56 Blood Culture - Preliminary Blood - Venous No growth after 24 hours. 10/14/24 19:05 Urine Culture - Preliminary Urine clean catch - Clean Catch Midstream No growth to date. Assessment and Plan (1) Hematuria: Status: Acute Plan [id number] female with a PMH significant for HFrEF, CKD, paroxysmal AFib on Eliquis, hx of V tach, s/p pacer in place, HLD, urinary retention, BPH, dementia, anxiety, and bipolar disorder?who presented to the ED from [facility] after unwitnessed fall out of bed. Pt admitted to the hospital for treatment and further evaluation of acute hypoxic respiratory failure in the setting of likely aspiration pneumonitis after unwitnessed fall out of bed. Acute hypoxic respiratory failure in the setting of likely aspiration pneumonitis meeting SIRS criteria Patient with unwitnessed fall out of bed, found head 1st on floor with feet still elevated in bed Likely aspirated during event Patient hypoxic into the 80s on RA, rhonchus on exam with noted wet-sounding/course cough continue Zosyn, started 10/14/2024 Titrate supplemental O2>92, wean as tolerated Monitor respiratory status Urinary retention with hematuria Hematuria likely secondary to traumatic Corral insertion inpatient on anticoagulation Hold Eliquis CBI clamped for now to assess need to continue Constipation CT found large stool ball within rectum Last BM reported at SNF apparently three weeks ago Small amount of stool manually disimpacted in the ED s/p suppository Distended gallbladder CT found distended gallbladder without radiopaque gallstones ultrasound neg for cholecystitis Normocytic anemia Noted hematuria Stable H&H CKD 3 Stable, at baseline Paroxysmal AFib Hold Eliquis due to hematuria Continue metoprolol HFrEF Not in acute exacerbation, appears euvolemic Not on home diuretics Continue metoprolol BPH Tamsulosin Mood disorder/dementia Continue alprazolam, Depakote, mirtazapine, risperidone, and trazodone DNR Attending:?Dr. Mlapah DVT Prophylaxis: Pneumatic compression due to hematuria Quality Stroke Does the patient have a stroke diagnosis?: No VTE Prior VTE?: No VTE Risk Level:: Medical - moderate - high VTE Device Contraindication: N/A - Device Ordered VTE Drug Contraindication: Treatment Not Indicated
[2024-10-16] MEDS: 0.9 % Sodium Chloride Flush 3 ML SYRINGE IVFLUSH ×2 (09:29→20:53)
--- NOTE | 2024-10-16 17:02 | PM.UROCN ---
History of Present Illness Consult details Consult date: 10/16/24 Narrative: CC: hematuria 84-year-old male Background AFib on Eliquis, dementia, BPH Present to emergency room from custodial facility after unwitnessed fall from bed. ED evaluation identified large stool burden in rectum with mild urinary retention Difficulty with Corral catheter placement Hematuria noted CBI started Imaging of pelvis shows severe diverticulosis and large stool ball Nursing tells me he has had 2 bowel motions since admission to the floor Corral catheter in place with concentrated urine however hematuria appears to have resolved Recommend Corral catheter removal when bowel is empty Has been on tamsulosin - add finasteride and switch to terazosin Review of Systems Constitutional: Constitutional: Reports as per HPI and Reports no additional constitutional complaints Cardiovascular: Cardiovascular: Reports as per HPI and Reports no additional cardiovascular complaints Respiratory: Respiratory: Reports as per HPI and Reports no additional respiratory complaints Gastrointestinal: Gastrointestinal: Reports as per HPI and Reports no additional gastrointestinal complaints Genitourinary: Genitourinary: Reports as per HPI Musculoskeletal: Musculoskeletal: Reports no additional musculoskeletal complaints and Reports as per HPI Neurologic: Reports system reviewed and no additional complaints, except as documented and Reports as per HPI [facility] Past Medical History Medical History Bipolar disorder Dementia Hyperlipidemia Ventricular tachycardia Paroxysmal A-fib CKD (chronic kidney disease) Systolic heart failure Social History Social History Household Members: Other Housing: Retirement Do you presently have visiting nurse or other home services: Yes Unable to assess alcohol history related to: Unable to respond Comment: sitter in room Patient Tobacco Use Status: Tobacco use Unknown service: No Meds Allergies Allergy/AdvReac Type Severity Reaction Status Date / Time melatonin Allergy Unknown Verified 10/14/24 14:21 rosuvastatin [From Crestor] Allergy Unknown Verified 10/14/24 14:21 [id number] Reductase Allergy Unknown Verified 10/14/24 14:21 Inhibitor Active Medications: Current Medications Acetaminophen (Acetaminophen 325 Mg Tablet) 650 mg PO Q6H PRN PRN Reason: Pain, Mild (Pain Scale 1-3), fever or headache Last Admin: 10/16/24 04:37 Dose: 650 mg Acetaminophen (Acetaminophen Supp 650 Mg Supp.Rect) 650 mg IN Q4H PRN PRN Reason: Pain/Fever Albuterol Sulfate (Albuterol Sulfate 90 Mcg 8 Gm Inhaler) 2 puff INHALE Q4H PRN PRN Reason: Shortness Of Breath Alprazolam (Alprazolam 0.5 Mg Tablet) 0.5 mg PO BID [facility] Last Admin: 10/16/24 07:42 Dose: 0.5 mg Amiodarone HCl (Amiodarone Hcl 200 Mg Tablet) 200 mg PO DAILY [facility] Last Admin: 10/16/24 07:42 Dose: 200 mg Bisacodyl (Bisacodyl 10 Mg Supp.Rect) 10 mg IN DAILY PRN PRN Reason: Constipation Calcium Carbonate (Calcium Carbonate 750 Mg Tab.Chew) 750 mg PO Q4H PRN PRN Reason: Heartburn Divalproex Sodium (Divalproex Sodium Sprinkles 125 Mg Cap.Dr.Spr) 750 mg PO BEDTIME [facility] Last Admin: 10/15/24 20:06 Dose: 750 mg Fluticasone/Vilanterol (Fluticasone/Vilanterol 100/25 Blst.W.Dev) 1 puff INHALE RDAILY [facility] Last Admin: 10/16/24 07:40 Dose: Not Given Piperacillin Sod/Tazobactam (Sod 4.5 gm/ Sodium Chloride) 100 mls @ 200 mls/hr IV Q6H [facility] Last Infusion: 10/16/24 16:02 Dose: Infused Magnesium Hydroxide (Milk Of Magnesia 30 Ml Oral.Susp) 30 ml PO DAILY PRN PRN Reason: Constipation Melatonin (Melatonin 3 Mg Tablet) 6 mg PO BEDTIME PRN PRN Reason: Insomnia Metoprolol Succinate (Metoprolol Succinate Er 50 Mg Tab.Er.24h) 50 mg PO BEDTIME [facility]; Protocol Last Admin: 10/15/24 20:05 Dose: 50 mg Mirtazapine (Mirtazapine 15 Mg Tablet) 15 mg PO BEDTIME [facility] Last Admin: 10/15/24 20:05 Dose: 15 mg Naloxone HCl (Naloxone Hcl 0.4 Mg/Ml Vial) 0.4 mg SUBCUT Q3M PRN PRN Reason: Sedation/Unresponsive Ondansetron HCl (Ondansetron Hcl 4 Mg/2 Ml Vial) 4 mg IVPUSH Q8H PRN PRN Reason: Nausea and Vomiting Risperidone (Risperidone 1 Mg Tablet) 1 mg PO DAILY [facility] Last Admin: 10/16/24 07:42 Dose: 1 mg Sodium Biphosphate/Sodium Phosphate (Sodium Phosphate,[place]-Dibasic 133 Ml Enema) 118 ml IN DAILY PRN PRN Reason: Constipation Sodium Chloride (0.9 % Sodium Chloride Flush 3 Ml Syringe) 3 ml IVFLUSH QSHIFT [facility] Last Admin: 10/16/24 16:02 Dose: Not Given Tamsulosin HCl (Tamsulosin Hcl 0.4 Mg Capsule) 0.4 mg PO BEDTIME [facility] Last Admin: 10/15/24 20:05 Dose: 0.4 mg Trazodone HCl (Trazodone Hcl 50 Mg Tablet) 50 mg PO BEDTIME [facility] Last Admin: 10/15/24 20:05 Dose: 50 mg Home Medications ?Medication ?Instructions ?Recorded ?Confirmed ?Last Taken ?Type alprazolam 0.5 mg tablet 0.5 mg PO BID 09/25/24 10/14/24 Unknown History amiodarone 200 mg tablet 200 mg PO DAILY 09/25/24 10/14/24 Unknown History apixaban 2.5 mg tablet (Eliquis) 2.5 mg PO BID 09/25/24 10/14/24 Unknown History divalproex 125 mg capsule,delayed 750 mg PO BEDTIME 09/25/24 10/14/24 Unknown History release sprinkle fluticasone furoate 100 1 inh inhalation DAILY 09/25/24 10/14/24 Unknown History mcg-vilanterol 25 mcg/dose inhalation powder (Breo Ellipta) metoprolol succinate 50 mg 50 mg PO BEDTIME 09/25/24 10/14/24 Unknown History tablet,extended release 24 hr mirtazapine 15 mg tablet 15 mg PO BEDTIME 09/25/24 10/14/24 Unknown History risperidone 1 mg tablet 1 mg PO DAILY 09/25/24 10/14/24 Unknown History tamsulosin 0.4 mg capsule 0.4 mg PO BEDTIME 09/25/24 10/14/24 Unknown History trazodone 50 mg tablet 50 mg PO BEDTIME 09/25/24 10/14/24 Unknown History acetaminophen 325 mg tablet 650 mg PO Q4H PRN Pain/Fever 10/14/24 10/14/24 Unknown History acetaminophen 650 mg rectal 650 mg IN Q4H PRN Pain/Fever 10/14/24 10/14/24 Unknown History suppository albuterol sulfate 90 mcg/actuation 2 puff inhalation Q4H PRN 10/14/24 10/14/24 Unknown History aerosol inhaler Shortness Of Breath bisacodyl 10 mg rectal suppository 10 mg IN DAILY PRN Constipation 10/14/24 10/14/24 Unknown History magnesium hydroxide 400 mg/5 mL 5 ml PO DAILY PRN Constiaption 10/14/24 10/14/24 Unknown History oral suspension (Milk of Magnesia) naloxone 0.4 mg/mL injection 0.4 mg subcut Q3M PRN 10/14/24 10/14/24 Unknown History solution Sedation/Unresponsive sodium chloride 0.9 % 2,000 ml IV Q48H 10/14/24 10/14/24 Unknown History sodium phosphates 19 gram-7 118 ml IN DAILY PRN Constipation 10/14/24 10/14/24 Unknown History gram/118 mL enema (Fleet Enema) Physical Exam Vital Signs: Vital Signs: Last Vital Signs Temp 97.5 F 10/16/24 16:00 Pulse 60 10/16/24 16:00 Resp 18 10/16/24 16:00 BP 133/58 L 10/16/24 16:00 Pulse Ox 98 10/16/24 16:00 O2 Del Method Nasal Cannula 10/16/24 12:00 O2 Flow Rate 2 10/16/24 12:00 Oxygen Flow Rate 3 10/14/24 14:19 BMI result Body Mass Index 24.5 Const: General: cooperative, healthy appearing, comfortable and no acute distress Orientation/consciousness: patient oriented x3 HEENT: Face and sinus: Yes normal facial exam Mouth: moist mucous membranes Neck: Neck: Yes normal visual inspection, Yes full ROM and Yes trachea midline Chest: Chest palpation & inspection: normal inspection of the chest Resp: Effort & Inspection: normal respiratory effort, able to speak in complete sentences and no respiratory distress GI: Inspection: Yes normal to inspection Back/Spine/Pelvis: Cervical Spine: normal cervical lordosis Thoracic/Lumbar Spine: thoracic and lumbar spine normal to inspection Skin: General skin exam: no rashes or lesions noted Neuro: General: patient oriented x3, tone normal and moves all extremities Extrem: General: Yes normal to inspection and Yes capillary refill normal Results Labs 10/15/24 07:09 10/15/24 07:09 Labs: Urine 10/14/24 Range/Units 19:05 Urine Color RED Urine Appearance Hazy Urine pH 5.0 (5.0-9.0) Ur Specific Jud 1.020 (1.005-1.025) Urine Protein See Note (Neg-Trace) mg/dL Urine Glucose (UA) Negative (Negative) mg/dL All other labs normal. Assessment and Plan (1) Acute urinary retention: Status: Acute (2) Hematuria: Status: Acute Plan Add finasteride Switch from tamsulosin to doxazosin 4 mg p.o. q.h.s. Would consider removing Corral in 48 hours Procedures Date of Service Date of Service: 10/16/24
[2024-10-16] MEDS: Doxazosin Mesylate 2 MG TABLET 4 MG PO (20:47)
[2024-10-16] MEDS: Mirtazapine 15 MG TABLET PO (20:51)
[2024-10-16] MEDS: Metoprolol Succinate ER 50 MG TAB.ER.24H PO (20:52)
[2024-10-16] MEDS: Divalproex Sodium Sprinkles 125 MG CAP.DR.SPR 750 MG PO (20:53)
[2024-10-16] MEDS: traZODone HCL 50 MG TABLET PO (21:14)
[2024-10-17] VITALS (10 sets, daily range): BP systolic 103–148; BP diastolic 55–69; PULSE 54–76; RESP 15–20; TEMP 36.1–37.4; O2SAT 93–99; BMI 24.5
[2024-10-17] MEDS: Piperacillin Sodium/Tazobactam 4.5 GM in 0.9 % Sodium Chloride 100 ML IV ×4 (04:12→20:40)
[2024-10-17] MEDS: Fluticasone/Vilanterol 100/25 BLST.W.DEV 1 PUFF INHALE (07:44)
--- NOTE | 2024-10-17 09:54 | MHC.SLORD ---
Speech Language Pathology Order Status: Pt sleeping this morning, PO intake minimal per BENDER MACHINE OPERATOR. ESTIMATOR AND DRAFTER to followup when pt awake, pt currently on NDD1 with NTL.
--- NOTE | 2024-10-17 10:17 | MHC.CM.PN ---
Per ROUNDS discussion, Patient is not yet medically cleared for dc (continued treatment for Aspiration PNA with IV Zosyn); returning to SNF is the goal and CM will continue to follow.
[2024-10-17] MEDS: Amiodarone HCL 200 MG TABLET PO (10:36)
[2024-10-17] MEDS: risperiDONE 1 MG TABLET PO (10:36)
[2024-10-17] MEDS: Finasteride 5 MG TABLET PO (10:36)
--- NOTE | 2024-10-17 10:36 | MHC.CLN ---
RE; CONSULT PT WITH INCREASED NUTRITION RISK R/T PRESSURE INJURY DIET CARDIAC PUREED WITH NT LIQ-RECOMMEND LIBERALIZED DIET R/T ADVANCED AGE AND INCREASED NUTRITION NEEDS R/T PRESSURE INJURY RECOMMEND ADDING ENSURE TID TO PROMOTE WOUND HEALING SUPP TO PROVIDE 1050KCALS, 60G PROTEIN WITH 100% ACCEPTANCE MONITOR PO INTAKE AND ENCOURAGE SUPPLEMENTS SEE ALSO FULL CLINICAL NUTRITION ASSESSMENT
[2024-10-17] MEDS: ALPRAZolam 0.5 MG TABLET PO ×2 (10:37→20:42)
[2024-10-17] MEDS: 0.9 % Sodium Chloride Flush 3 ML SYRINGE IVFLUSH ×3 (10:43→20:32)
[2024-10-17 10:53] LABS: Hematocrit 32.2 % (42.0-52.0); Hemoglobin 10.2 g/dl (14.0-18.0); Mean Corpuscular HGB Conc 31.7 g/dl (31.0-36.0); Mean Corpuscular Hemoglobin 28.6 pg (27.0-33.0); Mean Corpuscular Volume 90.2 fL (80.0-98.0); Platelet Count 187 X10*3/uL (160-400); Red Blood Count 3.57 X10*6/uL (4.60-5.80); Red Cell Distribution Width 14.3 % (11.0-16.0); White Blood Count 8.6 X10*3/uL (4.8-10.8)
[2024-10-17 11:05] LABS: Anion Gap 16 (12-20); Blood Urea Nitrogen 21 mg/dL (9-16); Calcium 8.8 mg/dL (8.4-10.2); Carbon Dioxide 23 mmol/L (22-29); Chloride 110 mmol/L (96-108); Creatinine Clr Calc Pharmacy 43.5; Estimated Glomerular Filt Rate 50; Glucose Random 82 mg/dL (60-115); Potassium 3.7 mmol/L (3.3-5.1); Sodium 145 mmol/L (135-145)
--- NOTE | 2024-10-17 11:26 | MHC.SL.SWA ---
Speech Pathologist Impression:Anticipate pt will continue to experience intermittent dysphagia given advanced age and medical complexity. Risk of Aspiration Due to: History of Pneumonia Reduced Cognition Dysphasia Diet Status: Recommend continue on diet of Chopped/Advanced (NDD3) with thin liquids, pills whole in puree. Patient currently requires 1-1 feeding. Do not attempt if patient is too lethargic/not attentive or aware of meal. Liquid Consistency and Strategies for Safe Swallow: Liquid Intake Recommendation: Thin Liquid Intake Strategies: Small Sips Solid Food Consistency: Dietary Recommendations: Grnd/Mech Altered (NDD2) Additional Modifications to Solid Foods: Provide liquids by tsp and/or cup sip as tolerated. Blend gravies into purees, break up/soften if congealed. Do not attempt if patient is overly lethargic, discontinue if patient becomes too lethargic during meal, or with evidence/clinical signs of aspiration (coughing, increased upper airway noise, drop in 02 sats). Oral Medication Intake: Crushed with Puree Please contact the pharmacy regarding appropriate crushable or liquid drug formulations that are available whenever modified delivery is recommended. Compensatory Strategies and Precautions to be Taken for Safe Swallow: Sitting Upright (90 deg) Double Swallow Small Bites and Sips Rate of Ingestion Change Supervision While Eating and Drinking for Safe Swallow: Total Supervision (1:1) Foods to Avoid: mixed consistencies Swallowing Recommended Treatments: Compens. Strategy Educat. Recommendation for Speech: Inpatient Speech Therapy Comment: Pt on NDD2 with HTL, but expresses dissatisfaction with thickened liquids. Pt tolerated trials of thins given 1:1 supervision and aspiration precautions (upright positioning to 90degrees, slow pacing, verbal cueing, prompting to clear throat/re-swallow x1). Recc upgrade to thins with full supervision, continued ANIMAL CARE ATTENDANT intervention upon d/c. Frequency/Duration: Date Range for Service Req: Timeline to reassess: Coin Box Collector Clinican/Clinical Fellow: No Supervisory Statement: I have reviewed and agree with the student/clinical fellow's documentation: N/A Speech Language Pathologist: Madison Dickens M.S., CCC-ANIMAL CARE ATTENDANT
--- NOTE | 2024-10-17 12:28 | HO.PM.IMPN ---
Subjective Subjective Date of Service: 10/17/24 Interval History: seen and examined this morning sleeping upon entering room but easily arousable to verbal stimuli when saying his name able to state his name but appears confused, unable to provide any ROS Physical Exam Vital Signs: Vital Signs: Last Vital Signs Temp 97.6 F 10/17/24 10:56 Pulse 68 10/17/24 10:56 Resp 18 10/17/24 10:56 BP 109/55 L 10/17/24 10:56 Pulse Ox 99 10/17/24 10:56 O2 Del Method Nasal Cannula 10/17/24 10:56 O2 Flow Rate 2 10/17/24 10:56 Oxygen Flow Rate 3 10/14/24 14:19 BMI result Body Mass Index 24.5 Const: General: alert and awake Nutritional Appearance: average body habitus Orientation/consciousness: oriented to person Resp: Effort & Inspection: normal respiratory effort, able to speak in complete sentences, no respiratory distress and no use of accessory muscles Cardio: Rate: regular rate GI: Inspection: No distended Palpation (GI): Soft to palpation and nontender : Other: chow - no hematuria Neuro: Other: difficult to assess due to confused, dementia General: oriented to person Objective Data Active Medications Acetaminophen (Acetaminophen 325 Mg Tablet) 650 mg PO Q6H PRN PRN Reason: Pain, Mild (Pain Scale 1-3), fever or headache Last Admin: 10/16/24 04:37 Dose: 650 mg Documented By: ISABEL Acetaminophen (Acetaminophen Supp 650 Mg Supp.Rect) 650 mg [place] Q4H PRN PRN Reason: Pain/Fever Albuterol Sulfate (Albuterol Sulfate 90 Mcg 8 Gm Inhaler) 2 puff INHALE Q4H PRN PRN Reason: Shortness Of Breath Alprazolam (Alprazolam 0.5 Mg Tablet) 0.5 mg PO BID [facility] Last Admin: 10/17/24 10:37 Dose: 0.5 mg Documented By: JUAN A Amiodarone HCl (Amiodarone Hcl 200 Mg Tablet) 200 mg PO DAILY [facility] Last Admin: 10/17/24 10:36 Dose: 200 mg Documented By: JUAN A Bisacodyl (Bisacodyl 10 Mg Supp.Rect) 10 mg [place] DAILY PRN PRN Reason: Constipation Calcium Carbonate (Calcium Carbonate 750 Mg Tab.Chew) 750 mg PO Q4H PRN PRN Reason: Heartburn Divalproex Sodium (Divalproex Sodium Sprinkles 125 Mg ) 750 mg PO BEDTIME [facility] Last Admin: 10/16/24 20:53 Dose: 750 mg Documented By: AISSATOU Doxazosin Mesylate (Doxazosin Mesylate 2 Mg Tablet) 4 mg PO BEDTIME [facility]; Protocol Last Admin: 10/16/24 20:47 Dose: 4 mg Documented By: AISSATOU Finasteride (Finasteride 5 Mg Tablet) 5 mg PO DAILY [facility] Last Admin: 10/17/24 10:36 Dose: 5 mg Documented By: JUAN A Fluticasone/Vilanterol (Fluticasone/Vilanterol 100/25 Blst.W.Dev) 1 puff INHALE RDAILY [facility] Last Admin: 10/17/24 07:44 Dose: 1 puff Documented By: BEN Piperacillin Sod/Tazobactam (Sod 4.5 gm/ Sodium Chloride) 100 mls @ 200 mls/hr IV Q6H [facility] Last Infusion: 10/17/24 11:10 Dose: Infused Documented By: JUAN A Magnesium Hydroxide (Milk Of Magnesia 30 Ml Oral.Susp) 30 ml PO DAILY PRN PRN Reason: Constipation Melatonin (Melatonin 3 Mg Tablet) 6 mg PO BEDTIME PRN PRN Reason: Insomnia Metoprolol Succinate (Metoprolol Succinate Er 50 Mg Tab.Er.24h) 50 mg PO BEDTIME [facility]; Protocol Last Admin: 10/16/24 20:52 Dose: 50 mg Documented By: AISSATOU Mirtazapine (Mirtazapine 15 Mg Tablet) 15 mg PO BEDTIME [facility] Last Admin: 10/16/24 20:51 Dose: 15 mg Documented By: AISSATOU Naloxone HCl (Naloxone Hcl 0.4 Mg/Ml Vial) 0.4 mg SUBCUT Q3M PRN PRN Reason: Sedation/Unresponsive Ondansetron HCl (Ondansetron Hcl 4 Mg/2 Ml Vial) 4 mg IVPUSH Q8H PRN PRN Reason: Nausea and Vomiting Risperidone (Risperidone 1 Mg Tablet) 1 mg PO DAILY [facility] Last Admin: 10/17/24 10:36 Dose: 1 mg Documented By: HO.ARMSTRH Sodium Biphosphate/Sodium Phosphate (Sodium Phosphate,[place]-Dibasic 133 Ml Enema) 118 ml [place] DAILY PRN PRN Reason: Constipation Sodium Chloride (0.9 % Sodium Chloride Flush 3 Ml Syringe) 3 ml IVFLUSH QSHIFT [facility] Last Admin: 10/17/24 10:43 Dose: 3 ml Documented By: JUAN A Trazodone HCl (Trazodone Hcl 50 Mg Tablet) 50 mg PO BEDTIME [facility] Last Admin: 10/16/24 21:14 Dose: 50 mg Documented By: SALMOD Labs 10/17/24 10:36 10/17/24 10:36 Labs: Laboratory Results - last 24 hr 10/17/24 10:36 MCV 90.2 MCH 28.6 MCHC 31.7 RDW 14.3 Plt Count 187 MPV 10.0 Absolute Nucleated RBC 0.000 Nucleated RBC % (auto) 0.0 Anion Gap 16 Estim Creat Clear Calc 43.5 Estimated GFR 50 Random Glucose 82 Calcium 8.8 Microbiology Microbiology Results: Microbiology 10/14/24 14:57 Blood Culture - Preliminary Blood - Venous No growth after 48 hours. 10/14/24 14:56 Blood Culture - Preliminary Blood - Venous No growth after 48 hours. 10/14/24 19:05 Urine Culture - Final Urine clean catch - Clean Catch Midstream No growth. Assessment and Plan (1) Aspiration pneumonitis: Status: Acute (2) Hematuria: Status: Acute (3) Acute urinary retention: Status: Acute Plan This is an 84-year-old female with a PMH significant for HFrEF, CKD, paroxysmal AFib on Eliquis, hx of V tach, s/p pacer in place, HLD, urinary retention, BPH, dementia, anxiety, and bipolar disorder?who presented to the ED from [facility] after unwitnessed fall out of bed. Pt admitted to the hospital for treatment and further evaluation of acute hypoxic respiratory failure in the setting of likely aspiration pneumonitis after unwitnessed fall out of bed. Acute hypoxic respiratory failure due to likely aspiration pneumonitis meeting SIRS criteria continue Zosyn, started 10/14/2024 Titrate supplemental O2>92, wean as tolerated, currently 99 on 2L, will attempt to wean o2 blood cultures negative speech following - NDD1 diet; 1:1 feeds Urinary retention likely due to constipation chow placed seen by urology -started on proscar, carduar; flomax stopped remove chow in am for voiding trial now that having regular BMs hematuria Hematuria likely secondary to traumatic Chow insertion on anticoagulation urinary Eliquis on hold for now, consider restarting in am s/p CBI, will stop Constipation CT found large stool ball within rectum s/p manually disimpacted in the ED having BM start on scheduled bowel regimen Distended gallbladder CT found distended gallbladder without radiopaque gallstones ultrasound neg for cholecystitis Normocytic anemia Noted hematuria Stable H&H CKD 3 Stable, at baseline Paroxysmal AFib Hold Eliquis due to hematuria Continue metoprolol HFrEF Not in acute exacerbation, appears euvolemic Not on home diuretics Continue metoprolol, amiodarone BPH Tamsulosin d/c, started on cardura, proscar as above Mood disorder/dementia Continue alprazolam, Depakote, mirtazapine, risperidone, and trazodone DNR Attending:?Dr. Shipley DVT Prophylaxis: Pneumatic compression due to hematuria, eliquis on hold requires ongoing inpatient stay for management of aspiration pneumonitis with IV antibiotics Quality Stroke Does the patient have a stroke diagnosis?: No VTE Prior VTE?: No VTE Risk Level:: Medical - moderate - high VTE Device Contraindication: N/A - Device Ordered VTE Drug Contraindication: Treatment Not Indicated
--- NOTE | 2024-10-17 13:33 | MHC.SL.SWA ---
Addendum entered and electronically signed by Madison Dickens MS, CCC-ENTRY LEVEL MARKETING REPRESENTATIVE 10/17/24 13:39: RADHA 10/17/24 Diet NDD1 is pureed consistency (not chopped/advanced, clerical error) Original Note: Speech Pathologist Impression: Moderate oropharyngeal weakness Risk of Aspiration Due to: History of Pneumonia Reduced Cognition Dysphasia Diet Status: Recommend continue on diet of Chopped/Advanced (NDD1) with nectar thickened liquids. Pills crushed or whole in puree. Patient currently requires 1-1 feeding. Aspiration precautions: upright positioning to highest degree pt can comfortably tolerate, slow pacing, alternating consistencies. Pause to encourage energy conservation. Do not attempt if patient is too lethargic/not attentive or aware of meal. Liquid Consistency and Strategies for Safe Swallow: Liquid Intake Recommendation: [place] Thick Liquid Intake Strategies: Small Sips Solid Food Consistency: Dietary Recommendations: Pureed (NDD1) Additional Modifications to Solid Foods: Provide liquids by tsp and/or cup sip as tolerated. Blend gravies into purees, break up/soften if congealed. Do not attempt if patient is overly lethargic, discontinue if patient becomes too lethargic during meal, or with evidence/clinical signs of aspiration (coughing, increased upper airway noise, drop in 02 sats). Oral Medication Intake: Crushed with Puree Please contact the pharmacy regarding appropriate crushable or liquid drug formulations that are available whenever modified delivery is recommended. Compensatory Strategies and Precautions to be Taken for Safe Swallow: Sitting Upright (90 deg) Double Swallow Liquids from Cup Liquids from Straw Small Bites and Sips Alternate Liquids/Solids Rate of Ingestion Change Oral Check Supervision While Eating and Drinking for Safe Swallow: Total Supervision (1:1) Foods to Avoid: mixed consistencies Swallowing Recommended Treatments: Compens. Strategy Educat. Recommendation for Speech: Inpatient Speech Therapy Comment: Pt tolerating small amounts of puree and NTL given slow pacing, verbal cueing and 1:1 feeding. Pt able to hold cup and drink, though tremors decrease steadiness. Pt tolerated sips of NTL by straw during this treatment. RN and RD consulted. Do not attempt if patient is overly lethargic, discontinue if patient becomes too lethargic during meal, or with evidence/clinical signs of aspiration (coughing, increased upper airway noise, drop in 02 sats). ENTRY LEVEL MARKETING REPRESENTATIVE will follow, re-assess for a possible upgrade/toleration on Thursday. MD/RD notified of recommendation by secure text, RN in person. Frequency/Duration: Date Range for Service Req: Timeline to reassess: Gas Generator Operator Clinican/Clinical Fellow: No Supervisory Statement: I have reviewed and agree with the student/clinical fellow's documentation: N/A Speech Language Pathologist: Madison Dickens M.S., CCC-ENTRY LEVEL MARKETING REPRESENTATIVE
[2024-10-17] MEDS: traZODone HCL 50 MG TABLET PO (20:41)
[2024-10-17] MEDS: Metoprolol Succinate ER 50 MG TAB.ER.24H PO (20:42)
[2024-10-17] MEDS: Mirtazapine 15 MG TABLET PO (20:42)
[2024-10-17] MEDS: Melatonin 3 MG TABLET 6 MG PO (20:43)
[2024-10-17] MEDS: Doxazosin Mesylate 2 MG TABLET 4 MG PO (20:43)
[2024-10-17] MEDS: Divalproex Sodium Sprinkles 125 MG CAP.DR.SPR 750 MG PO (20:44)
[2024-10-18] MEDS: Piperacillin Sodium/Tazobactam 4.5 GM in 0.9 % Sodium Chloride 100 ML IV ×4 (03:17→20:25)
[2024-10-18 04:00] VITALS: BP 128/64; PULSE 60; RESP 18; TEMP 36.1; O2SAT 95
[2024-10-18 06:52] VITALS: BP 112/63; PULSE 61; RESP 20; TEMP 36.6; O2SAT 96
[2024-10-18 09:06] LABS: Alanine Aminotransferase 11 U/L (0-40); Alkaline Phosphatase 38 U/L (39-117); Aspartate Amino Transferase 28 U/L (5-37); Bilirubin Direct 0.3 mg/dL (0.0-0.5); Bilirubin Total 0.6 mg/dL (0.0-1.0); Total Protein 5.2 g/dL (6.5-8.0)
[2024-10-18 09:07] LABS: Venous Blood Gas Refer to POC result
[2024-10-18 09:07] LABS: VBG Base Excess 2.4 mmol/L; VBG HCO3 26 mmol/L (22-26); VBG pCO2 39 mmHg; VBG pH 7.43 (7.32-7.43); VBG pO2 74 mmHg
[2024-10-18 09:15] LABS: Ammonia 37 umol/L (13-55)
[2024-10-18 11:12] VITALS: BP 118/66; PULSE 56; RESP 20; TEMP 36.1; O2SAT 100
[2024-10-18] MEDS: 0.9 % Sodium Chloride Flush 3 ML SYRINGE IVFLUSH ×3 (11:14→20:26)
--- NOTE | 2024-10-18 12:12 | MHC.SLORD ---
Speech Language Pathology Order Status: Per RN, Pt not responding to verbal stimuli, has not opened his eyes all morning. Please contact EMAIL MARKETER if Pt is more alert. Current diet recommendations for Puree Solids (NDD1) and Thin Liquids.
--- NOTE | 2024-10-18 13:12 | HO.PM.IMPN ---
Subjective Subjective Date of Service: 10/18/24 Interval History: seen and examined this morning follow up hematuria, aspiration pna lethargic this am but on re-eval awake and alert/confused unable to obtain ROS Physical Exam Vital Signs: Vital Signs: Last Vital Signs Temp 97.0 F 10/18/24 11:12 Pulse 56 10/18/24 11:12 Resp 20 10/18/24 11:12 BP 118/66 10/18/24 11:12 Pulse Ox 100 10/18/24 11:12 O2 Del Method Nasal Cannula 10/18/24 11:12 O2 Flow Rate 3 10/18/24 11:12 Oxygen Flow Rate 3 10/14/24 14:19 BMI result Body Mass Index 24.5 Const: General: alert and awake Nutritional Appearance: average body habitus Orientation/consciousness: oriented to person Resp: Effort & Inspection: normal respiratory effort, able to speak in complete sentences, no respiratory distress and no use of accessory muscles Cardio: Rate: regular rate GI: Inspection: No distended Palpation (GI): Soft to palpation and nontender : Other: chow - no hematuria Neuro: Other: difficult to assess due to confused, dementia; grossly nonfocal General: oriented to person Objective Data Active Medications Acetaminophen (Acetaminophen 325 Mg Tablet) 650 mg PO Q6H PRN PRN Reason: Pain, Mild (Pain Scale 1-3), fever or headache Last Admin: 10/16/24 04:37 Dose: 650 mg Documented By: ISABEL Acetaminophen (Acetaminophen Supp 650 Mg Supp.Rect) [address] Q4H PRN PRN Reason: Pain/Fever Albuterol Sulfate (Albuterol Sulfate 90 Mcg 8 Gm Inhaler) 2 puff INHALE Q4H PRN PRN Reason: Shortness Of Breath Alprazolam (Alprazolam 0.5 Mg Tablet) 0.5 mg PO BID [facility] Last Admin: 10/17/24 20:42 Dose: 0.5 mg Documented By: JONES Amiodarone HCl (Amiodarone Hcl 200 Mg Tablet) 200 mg PO DAILY [facility] Last Admin: 10/18/24 10:05 Dose: Not Given Documented By: BHANU Non-Admin Reason: Physician Held Med Bisacodyl (Bisacodyl 10 Mg Supp.Rect) [address] DAILY PRN PRN Reason: Constipation Calcium Carbonate (Calcium Carbonate 750 Mg Tab.Chew) 750 mg PO Q4H PRN PRN Reason: Heartburn Divalproex Sodium (Divalproex Sodium Sprinkles 125 Mg ) 750 mg PO BEDTIME [facility] Last Admin: 10/17/24 20:44 Dose: 750 mg Documented By: JONES Docusate Sodium (Docusate Sodium 100 Mg/10 Ml Liquid) 100 mg PO BEDTIME [facility] Last Admin: 10/17/24 20:47 Dose: Not Given Documented By: JONES Non-Admin Reason: Med Not Available Doxazosin Mesylate (Doxazosin Mesylate 2 Mg Tablet) 4 mg PO BEDTIME [facility]; Protocol Last Admin: 10/17/24 20:43 Dose: 4 mg Documented By: JONES Finasteride (Finasteride 5 Mg Tablet) 5 mg PO DAILY [facility] Last Admin: 10/18/24 10:05 Dose: Not Given Documented By: BHANU Non-Admin Reason: Physician Held Med Fluticasone/Vilanterol (Fluticasone/Vilanterol 100/25 Blst.W.Dev) 1 puff INHALE RDAILY [facility] Last Admin: 10/18/24 07:28 Dose: Not Given Documented By: JOHN Non-Admin Reason: See Note Piperacillin Sod/Tazobactam (Sod 4.5 gm/ Sodium Chloride) 100 mls @ 200 mls/hr IV Q6H [facility] Last Infusion: 10/18/24 11:44 Dose: Infused Documented By: BHANU Magnesium Hydroxide (Milk Of Magnesia 30 Ml Oral.Susp) 30 ml PO DAILY PRN PRN Reason: Constipation Melatonin (Melatonin 3 Mg Tablet) 6 mg PO BEDTIME PRN PRN Reason: Insomnia Last Admin: 10/17/24 20:43 Dose: 6 mg Documented By: JONES Metoprolol Succinate (Metoprolol Succinate Er 50 Mg Tab.Er.24h) 50 mg PO BEDTIME [facility]; Protocol Last Admin: 10/17/24 20:42 Dose: 50 mg Documented By: JONES Mirtazapine (Mirtazapine 15 Mg Tablet) 15 mg PO BEDTIME [facility] Last Admin: 10/17/24 20:42 Dose: 15 mg Documented By: JONES Naloxone HCl (Naloxone Hcl 0.4 Mg/Ml Vial) 0.4 mg SUBCUT Q3M PRN PRN Reason: Sedation/Unresponsive Ondansetron HCl (Ondansetron Hcl 4 Mg/2 Ml Vial) 4 mg IVPUSH Q8H PRN PRN Reason: Nausea and Vomiting Polyethylene Glycol (Polyethylene Glycol 3350 17 Gm Powd.Pack) 17 gm PO DAILY [facility] Last Admin: 10/18/24 10:05 Dose: Not Given Documented By: BHANU Non-Admin Reason: Physician Held Med Risperidone (Risperidone 1 Mg Tablet) 1 mg PO DAILY [facility] Last Admin: 10/18/24 10:05 Dose: Not Given Documented By: BHANU Non-Admin Reason: Physician Held Med Sodium Biphosphate/Sodium Phosphate (Sodium Phosphate,[place]-Dibasic 133 Ml Enema) [address] DAILY PRN PRN Reason: Constipation Sodium Chloride (0.9 % Sodium Chloride Flush 3 Ml Syringe) 3 ml IVFLUSH QSHIFT [facility] Last Admin: 10/18/24 11:14 Dose: 3 ml Documented By: BHAUN Trazodone HCl (Trazodone Hcl 50 Mg Tablet) 50 mg PO BEDTIME [facility] Last Admin: 10/17/24 20:41 Dose: 50 mg Documented By: JONES Labs 10/17/24 10:36 10/17/24 10:36 Labs: Laboratory Results - last 24 hr 10/17/24 10/18/24 10/18/24 10:36 08:57 09:03 VBG pH 7.43 VBG pCO2 39 VBG pO2 74 VBG HCO3 26 VBG O2 Saturation 95.0 VBG Base Excess 2.4 Total Bilirubin 0.6 Direct Bilirubin 0.3 AST 28 ALT 11 Alkaline Phosphatase 38 L Ammonia 37 Total Protein 5.2 L Albumin 3.0 L Assessment and Plan (1) Aspiration pneumonitis: Status: Acute (2) Hematuria: Status: Acute (3) Acute urinary retention: Status: Acute (4) Fecal impaction: Status: Acute Plan This is an 84-year-old female with a PMH significant for HFrEF, CKD, paroxysmal AFib on Eliquis, hx of V tach, s/p pacer in place, HLD, urinary retention, BPH, dementia, anxiety, and bipolar disorder?who presented to the ED from [facility] after unwitnessed fall out of bed. Pt admitted to the hospital for treatment and further evaluation of acute hypoxic respiratory failure in the setting of likely aspiration pneumonitis after unwitnessed fall out of bed. Acute hypoxic respiratory failure due to likely aspiration pneumonitis meeting SIRS criteria continue Zosyn, started 10/14/2024 Titrate supplemental O2>92, wean as tolerated, currently 99 on 2L, will attempt to wean o2 blood cultures negative speech following - NDD1 diet; 1:1 feeds Urinary retention likely due to constipation chow placed seen by urology -started on proscar, carduar; flomax stopped remove chow in am for voiding trial now that having regular BMs hematuria Hematuria likely secondary to traumatic Chow insertion on anticoagulation urinary Eliquis on hold for now, consider restarting in am s/p CBI, will stop Constipation CT found large stool ball within rectum s/p manually disimpacted in the ED having BM start on scheduled bowel regimen Distended gallbladder CT found distended gallbladder without radiopaque gallstones ultrasound neg for cholecystitis Normocytic anemia Noted hematuria Stable H&H CKD 3 Stable, at baseline Paroxysmal AFib Hold Eliquis due to hematuria Continue metoprolol HFrEF Not in acute exacerbation, appears euvolemic Not on home diuretics Continue metoprolol, amiodarone BPH Tamsulosin d/c, started on cardura, proscar as above Mood disorder/dementia on alprazolam, Depakote, mirtazapine, risperidone, and trazodone at baseline hold trazodone, alprazolam due to am sedation DNR Attending:?Dr. enrique DVT Prophylaxis: Pneumatic compression due to hematuria, eliquis on hold requires ongoing inpatient stay for management of aspiration pneumonitis with IV antibiotics Quality Stroke Does the patient have a stroke diagnosis?: No VTE Prior VTE?: No VTE Risk Level:: Medical - moderate - high VTE Device Contraindication: N/A - Device Ordered VTE Drug Contraindication: Treatment Not Indicated
[2024-10-18] MEDS: Amiodarone HCL 200 MG TABLET PO (13:43)
[2024-10-18] MEDS: risperiDONE 1 MG TABLET PO (13:43)
[2024-10-18] MEDS: bisacodyL 10 MG SUPP.RECT PR (13:44)
[2024-10-18] MEDS: Finasteride 5 MG TABLET PO (13:44)
[2024-10-18] MEDS: polyethylene glycoL 3350 17 GM POWD.PACK PO ×2 (13:44→20:28)
[2024-10-18 15:06] VITALS: BP 141/67; PULSE 67; RESP 18; TEMP 36.3; O2SAT 96
[2024-10-18] MEDS: Acetaminophen 325 MG TABLET 650 MG PO (15:07)
--- NOTE | 2024-10-18 15:18 | MHC.SL.DTX ---
Dysphagia Diet modifications: Last documented Solid diet consistencies: Pureed (NDD1) Last documented Liquid consistency: [place] Thick Changes made to current diet?: Yes Liquid Consistency and Strategies: Liquid Intake Recommendation: [place] Thick Compensatory Strategies for Safe Swallow: Small Sips Compensatory Strategies for Safe Swallow(b): Sitting Upright (90 deg) Double Swallow No Straw Liquids from Spoon Small Bites and Sips Alternate Liquids/Solids Rate of Ingestion Change Oral Check Solid Food Consistency: Dietary Recommendations: Pureed (NDD1) Additional Modifications to Solids: Provide liquids by tsp and/or cup sip as tolerated. Blend gravies into purees, break up/soften if congealed. Do not attempt if patient is overly lethargic, discontinue if patient becomes too lethargic during meal, or with evidence/clinical signs of aspiration (coughing, increased upper airway noise, drop in 02 sats). Oral Medication Intake: Crushed with Puree Strategies and Precautions to be Taken for Safe Swallow: Sitting Upright (90 deg) Double Swallow No Straw Liquids from Spoon Small Bites and Sips Alternate Liquids/Solids Rate of Ingestion Change Oral Check Supervision While Eating and/Drinking: Total Assistance (1:1) Foods to Avoid: mixed consistencies Swallowing Recommended Treatments: Compens. Strategy Educat. Level of Impact on: Daily activities: Mild Interpersonal interactions: Education: Employment: Community: Mild Prognosis for Improvement: Fair Recommendation for Speech: Inpatient Speech Therapy Additional Comments: Recc NDD1 with NTL, continued [employer] intervention, 1:1 supervision during meals, upright positioning, slow pacing, cueing for periodic throat clear/re-swallow. Diet adjustments as indicated. Anticipate pt will continue to experience intermittent dysphagia given advanced age and medical complexity. Treatment: Pt was too lethargic in the morning but was noted to be keeping his eyes open and maintaining conversation later in the day. PA contacted [employer] for re-assessment. Pt trialed Puree, Ground and Advanced Solids. Noted to have prolonged mastication > Advanced than for Ground with cues to take another bite of Puree needed to clear. He tolerated intial bites of Thin Liquid via Ice Chip, but demonstrated cough with and administered cup sip. He went on to tolerate Thin Liquids via Spoon Only [facility] Clinican/Clinical Fellow: No Supervisory Statement: I have reviewed and agree with the student/clinical fellow's documentation: N/A Speech Language Pathologist: Kiko Damon M.A., [facility]-[employer]
--- NOTE | 2024-10-18 16:17 | P.CDIM_ITS ---
PROVIDER RESPONSE TEXT: To clarify, the appropriate diagnosis supported by the clinical indicators: Dementia: unspecified dementia QUERY TEXT: PHYSICIAN'S DOCUMENTATION REQUEST Date of Query: 10/18/2024 08:34 AM EST Patient Name: Ramsey Caldera Admit Date: 10/15/2024 Dear Lorenza Mcallister PA, A review of the medical record indicates additional documentation may be needed. Please review below and update the documentation accordingly. Clinical Indicators: Patient arrived with altered mental status from SNF, confused, unable to review systems due to mental status, disheveled, AOx1 only, difficult to assess due to patient's confusion. Mood disorder, dementia, unwitnessed fall out of bed at snf, unknown if had LOC. If possible, please further clarify any associated specifics and manifestations to the documented sta te of confusion: Dementia vascular, progressive, senile, presenile, lewy body, frontal etc. with or without behavioral issues Metabolic encephalopathy possible, probable, suspected etc. Other etiology of patient's confusion Other (explain) Clinically unable to determine (explain) Thank you, Tanna Bowles, CCS, CDIS Use of terms such as suspected, likely, concern for, or probable (associated with a specific diagnosi s that is being evaluated, monitored, or treated as if it exists) are acceptable and can be coded in the inpatient se tting, when documented at the time of discharge. Please use your independent medical judgment in providing your response. THIS QUERY IS PART OF THE PERMANENT MEDICAL RECORD
[2024-10-18 19:21] VITALS: BP 133/80; PULSE 75; RESP 18; TEMP 36.2; O2SAT 95
[2024-10-18] MEDS: Divalproex Sodium Sprinkles 125 MG CAP.DR.SPR 750 MG PO (20:28)
[2024-10-18] MEDS: Mirtazapine 15 MG TABLET PO (20:28)
[2024-10-18] MEDS: Doxazosin Mesylate 2 MG TABLET 4 MG PO (20:28)
[2024-10-18] MEDS: Metoprolol Succinate ER 50 MG TAB.ER.24H PO (20:28)
[2024-10-18 23:36] VITALS: BP 129/21; PULSE 65; RESP 18; TEMP 36.3; O2SAT 97
[2024-10-19] VITALS (7 sets, daily range): BP systolic 107–145; BP diastolic 60–78; PULSE 62–109; RESP 17–20; TEMP 36.3–37.1; O2SAT 92–96
[2024-10-19] MEDS: Piperacillin Sodium/Tazobactam 4.5 GM in 0.9 % Sodium Chloride 100 ML IV ×4 (03:24→20:42)
[2024-10-19] MEDS: Fluticasone/Vilanterol 100/25 BLST.W.DEV 1 PUFF INHALE (08:01)
[2024-10-19 08:02] LABS: Hematocrit 34.4 % (42.0-52.0); Hemoglobin 10.6 g/dl (14.0-18.0); Mean Corpuscular HGB Conc 30.8 g/dl (31.0-36.0); Mean Corpuscular Hemoglobin 28.4 pg (27.0-33.0); Mean Corpuscular Volume 92.2 fL (80.0-98.0); Mean Platelet Volume 10.4 fL (9.4-12.4); Platelet Count 200 X10*3/uL (160-400); Red Blood Count 3.73 X10*6/uL (4.60-5.80); Red Cell Distribution Width 14.6 % (11.0-16.0); White Blood Count 6.9 X10*3/uL (4.8-10.8)
[2024-10-19 08:17] LABS: Anion Gap 21 (12-20); Blood Urea Nitrogen 22 mg/dL (9-16); Calcium 9.4 mg/dL (8.4-10.2); Carbon Dioxide 20 mmol/L (22-29); Chloride 114 mmol/L (96-108); Creatinine Clr Calc Pharmacy 42.6; Estimated Glomerular Filt Rate 49; Glucose Random 89 mg/dL (60-115); Potassium 3.5 mmol/L (3.3-5.1); Sodium 151 mmol/L (135-145)
[2024-10-19] MEDS: risperiDONE 1 MG TABLET PO (08:43)
[2024-10-19] MEDS: Finasteride 5 MG TABLET PO (08:43)
[2024-10-19] MEDS: Amiodarone HCL 200 MG TABLET PO (08:43)
[2024-10-19] MEDS: polyethylene glycoL 3350 17 GM POWD.PACK PO ×2 (08:43→20:42)
[2024-10-19] MEDS: 0.9 % Sodium Chloride Flush 3 ML SYRINGE IVFLUSH ×3 (08:46→23:40)
--- NOTE | 2024-10-19 09:21 | MHC.CLN ---
F/U PT WITH INCREASED NUTRITION RISK R/T PRESSURE INJURY DIET RX: GRD/M/S-MISDRAW HAND FOLLOWING FOR APPROPRIATE DIET CONSISTENCY RECOMMEND ADDING ENSURE TID TO PROMOTE WOUND HEALING SUPP TO PROVIDE 1050KCALS, 60G PROTEIN WITH 100% ACCEPTANCE MONITOR PO INTAKE AND ENCOURAGE SUPPLEMENTS
--- NOTE | 2024-10-19 10:37 | MHC.CM.PN ---
[facility] has asked Lisset @ [facility] to initiate [facility] auth in preparation for Patient's anticipated medical clearance for dc soon. CM will follow.
--- NOTE | 2024-10-19 11:49 | MHC.CM.PN ---
PT originally recommended STR and now finding that Patient is not appropriate for skilled therapy/may need LTC.Admitting CM was told that was working with [facility]'s SW on preparing for LTC @ [facility]. Per [facility], did not show up for the scheduled meeting with their SWto initiate the [facility] bennie. CM has made a referral to [facility] for LTC [facility]. CM will follow.
--- NOTE | 2024-10-19 14:24 | MHC.SL.SWA ---
Speech Pathologist Impression: Oropharyngeal swallow WNL, PO intake significantly reduced in setting of increased confusion and refusal to participate in PO Risk of Aspiration Due to: History of Pneumonia Reduced Cognition Dysphasia Diet Status:NDD1 with NTL, 1:1 feeding, aspiration precautions, encourage PO intake, anticipate pt will not meet nutritional needs by mouth d/t degree of confusion. Liquid Consistency and Strategies for Safe Swallow: Liquid Intake Recommendation: [place] Thick Liquid Intake Strategies: Small Sips Solid Food Consistency: Dietary Recommendations: Pureed (NDD1) Additional Modifications to Solid Foods: Provide liquids by tsp and/or cup sip as tolerated. Blend gravies into purees, break up/soften if congealed. Do not attempt if patient is overly lethargic, discontinue if patient becomes too lethargic during meal, or with evidence/clinical signs of aspiration (coughing, increased upper airway noise, drop in 02 sats). Oral Medication Intake: Crushed with Puree Please contact the pharmacy regarding appropriate crushable or liquid drug formulations that are available whenever modified delivery is recommended. Compensatory Strategies and Precautions to be Taken for Safe Swallow: Sitting Upright (90 deg) Liquids from Straw Alternate Liquids/Solids Rate of Ingestion Change Oral Check Supervision While Eating and Drinking for Safe Swallow: Total Supervision (1:1) Foods to Avoid: mixed consistencies Swallowing Recommended Treatments: Compens. Strategy Educat. Recommendation for Speech: Inpatient Speech Therapy Comment: Pt with increased confusion, inability to follow simple cues, perseverations pronounced. Physiological function of swallow WNL when pt accepts/participates in PO intake, but behavioral challenges and cognitive interference limit pt ability to maintain adequate PO intake. [employer] to continue following Frequency/Duration: Date Range for Service Req: Timeline to reassess: Greeting Card Writer Clinican/Clinical Fellow: No Supervisory Statement: I have reviewed and agree with the student/clinical fellow's documentation: N/A Speech Language Pathologist: Madison Dickens M.S., CCC-[employer]
--- NOTE | 2024-10-19 14:37 | HO.PM.IMPN ---
Subjective Subjective Date of Service: 10/19/24 Interval History: No further hematuria overnight. Remains confused somewhat lethargic at times Review of Systems Unable to obtain Physical Exam Vital Signs: Vital Signs: Last Vital Signs Temp 97.4 F 10/19/24 11:28 Pulse 69 10/19/24 11:28 Resp 18 10/19/24 11:28 BP 123/68 10/19/24 11:28 Pulse Ox 96 10/19/24 11:28 O2 Del Method Room Air 10/19/24 11:28 O2 Flow Rate 3 10/18/24 11:12 Oxygen Flow Rate 3 10/14/24 14:19 BMI result Body Mass Index 24.5 Const: Other: Awake intermittently with somnolence but easily arousable Resp: Other: Clear to auscultation bilaterally no rales rhonchi or wheezes Cardio: Other: No S4; positive S1-S2; no S3 murmurs rubs or gallops GI: Other: Soft nontender nondistended normoactive bowel sounds Extrem: Other: No edema bilaterally Objective Data Active Medications Acetaminophen (Acetaminophen 325 Mg Tablet) 650 mg PO Q6H PRN PRN Reason: Pain, Mild (Pain Scale 1-3), fever or headache Last Admin: 10/18/24 15:07 Dose: 650 mg Documented By: EDITH Acetaminophen (Acetaminophen Supp 650 Mg Supp.Rect) 650 mg ID Q4H PRN PRN Reason: Pain/Fever Albuterol Sulfate (Albuterol Sulfate 90 Mcg 8 Gm Inhaler) 2 puff INHALE Q4H PRN PRN Reason: Shortness Of Breath Alprazolam (Alprazolam 0.5 Mg Tablet) 0.5 mg PO BID [facility] Last Admin: 10/17/24 20:42 Dose: 0.5 mg Documented By: JONES Amiodarone HCl (Amiodarone Hcl 200 Mg Tablet) 200 mg PO DAILY [facility] Last Admin: 10/19/24 08:43 Dose: 200 mg Documented By: GEORGIE Bisacodyl (Bisacodyl 10 Mg Supp.Rect) 10 mg ID DAILY PRN PRN Reason: Constipation Last Admin: 10/18/24 13:44 Dose: 10 mg Documented By: BHANU Calcium Carbonate (Calcium Carbonate 750 Mg Tab.Chew) 750 mg PO Q4H PRN PRN Reason: Heartburn Divalproex Sodium (Divalproex Sodium Sprinkles 125 Mg ) 750 mg PO BEDTIME [facility] Last Admin: 10/18/24 20:28 Dose: 750 mg Documented By: JAGUAR Docusate Sodium (Docusate Sodium 100 Mg/10 Ml Liquid) 100 mg PO BEDTIME [facility] Last Admin: 10/18/24 22:17 Dose: Not Given Documented By: JAGUAR Non-Admin Reason: Med Not Available Doxazosin Mesylate (Doxazosin Mesylate 2 Mg Tablet) 4 mg PO BEDTIME [facility]; Protocol Last Admin: 10/18/24 20:28 Dose: 4 mg Documented By: JAGUAR Finasteride (Finasteride 5 Mg Tablet) 5 mg PO DAILY [facility] Last Admin: 10/19/24 08:43 Dose: 5 mg Documented By: GEORGIE Fluticasone/Vilanterol (Fluticasone/Vilanterol 100/25 Blst.W.Dev) 1 puff INHALE RDAILY [facility] Last Admin: 10/19/24 08:01 Dose: 1 puff Documented By: HARMAN Piperacillin Sod/Tazobactam (Sod 4.5 gm/ Sodium Chloride) 100 mls @ 200 mls/hr IV Q6H [facility] Last Infusion: 10/19/24 12:05 Dose: Infused Documented By: GEORGIE Magnesium Hydroxide (Milk Of Magnesia 30 Ml Oral.Susp) 30 ml PO DAILY PRN PRN Reason: Constipation Melatonin (Melatonin 3 Mg Tablet) 6 mg PO BEDTIME PRN PRN Reason: Insomnia Last Admin: 10/17/24 20:43 Dose: 6 mg Documented By: JONES Metoprolol Succinate (Metoprolol Succinate Er 50 Mg Tab.Er.24h) 50 mg PO BEDTIME [facility]; Protocol Last Admin: 10/18/24 20:28 Dose: 50 mg Documented By: JAGUAR Mirtazapine (Mirtazapine 15 Mg Tablet) 15 mg PO BEDTIME [facility] Last Admin: 10/18/24 20:28 Dose: 15 mg Documented By: JAGUAR Naloxone HCl (Naloxone Hcl 0.4 Mg/Ml Vial) 0.4 mg SUBCUT Q3M PRN PRN Reason: Sedation/Unresponsive Ondansetron HCl (Ondansetron Hcl 4 Mg/2 Ml Vial) 4 mg IVPUSH Q8H PRN PRN Reason: Nausea and Vomiting Polyethylene Glycol (Polyethylene Glycol 3350 17 Gm Powd.Pack) 17 gm PO BID [facility] Last Admin: 10/19/24 08:43 Dose: 17 gm Documented By: GEORGIE Risperidone (Risperidone 1 Mg Tablet) 1 mg PO DAILY [facility] Last Admin: 10/19/24 08:43 Dose: 1 mg Documented By: GEORGIE Sodium Biphosphate/Sodium Phosphate (Sodium Phosphate,[place]-Dibasic 133 Ml Enema) 118 ml ID DAILY PRN PRN Reason: Constipation Sodium Chloride (0.9 % Sodium Chloride Flush 3 Ml Syringe) 3 ml IVFLUSH QSHIFT [facility] Last Admin: 10/19/24 08:46 Dose: 3 ml Documented By: GEORGIE Trazodone HCl (Trazodone Hcl 50 Mg Tablet) 50 mg PO BEDTIME [facility] Last Admin: 10/17/24 20:41 Dose: 50 mg Documented By: JONES Labs 10/19/24 07:48 10/19/24 07:48 Labs: Laboratory Results - last 24 hr 10/19/24 07:48 MCV 92.2 MCH 28.4 MCHC 30.8 L RDW 14.6 Plt Count 200 MPV 10.4 Absolute Nucleated RBC 0.000 Nucleated RBC % (auto) 0.0 Anion Gap 21 H Estim Creat Clear Calc 42.6 Estimated GFR 49 Random Glucose 89 Calcium 9.4 D Assessment and Plan (1) Aspiration pneumonia: Status: Acute (2) CKD (chronic kidney disease): Status: Acute Plan This is an 84-year-old female with a PMH significant for HFrEF, CKD, paroxysmal AFib on Eliquis, hx of V tach, s/p pacer in place, HLD, urinary retention, BPH, dementia, anxiety, and bipolar disorder?who presented to the ED from [facility] SNF after unwitnessed fall out of bed. Pt admitted to the hospital for treatment and further evaluation of acute hypoxic respiratory failure in the setting of likely aspiration pneumonitis after unwitnessed fall out of bed. 1.Acute hypoxic respiratory failure likely secondary to aspiration pneumonitis -Han,(7) -Titrate supplemental O2>92, wean as tolerated -speech following - NDD1 diet; 1:1 feeds 2.Urinary retention/hematuria -proscar, carduar; flomax -Corral removed today for voiding trial -hematuria resolved; restart Eliquis after voiding trial complete 3.Paroxysmal AFib -acceptable rate control at this time -restart Eliquis 4.HFrEF -stable and well compensated at this time 5.Mood disorder/dementia -stable at this time -continue current therapies DNR Eliquis requires ongoing inpatient stay for management of aspiration pneumonitis with IV antibiotics Quality Stroke Does the patient have a stroke diagnosis?: No VTE Prior VTE?: No VTE Risk Level:: Medical - moderate - high VTE Device Contraindication: N/A - Device Ordered VTE Drug Contraindication: Treatment Not Indicated
[2024-10-19] MEDS: Dextrose 5 % 1,000 ML 125 ML IVCONT (18:02)
[2024-10-19] MEDS: Doxazosin Mesylate 2 MG TABLET 4 MG PO (20:41)
[2024-10-19] MEDS: Mirtazapine 15 MG TABLET PO (20:41)
[2024-10-19] MEDS: Divalproex Sodium Sprinkles 125 MG CAP.DR.SPR 750 MG PO (20:42)
[2024-10-19] MEDS: Metoprolol Succinate ER 50 MG TAB.ER.24H PO (20:42)
[2024-10-19] MEDS: Docusate Sodium 100 MG/10 ML LIQUID PO (20:42)
[2024-10-20] MEDS: Piperacillin Sodium/Tazobactam 4.5 GM in 0.9 % Sodium Chloride 100 ML IV ×3 (01:54→16:04)
[2024-10-20] MEDS: Dextrose 5 % 1,000 ML 125 ML IVCONT (04:17)
[2024-10-20 05:51] LABS: MANUAL DIFF FLAG NO
[2024-10-20 05:59] LABS: Basophils Percent Auto 0.4 % (0-2); Eosinophils Percent Auto 0.4 % (0-4); Hematocrit 28.1 % (42.0-52.0); Imm Gran Abs Auto 0.07 X10*3/uL (0.00-0.03); Imm Gran Pct Auto 0.6 % (0.0-0.4); Lymphocytes Absolute Auto 0.9 X10*3/uL (1.2-4.9); Lymphocytes Percent Auto 8.4 % (20-40); Mean Corpuscular Hemoglobin 28.5 pg (27.0-33.0); Mean Corpuscular Volume 88.9 fL (80.0-98.0); Mean Platelet Volume 10.6 fL (9.4-12.4); Monocytes Percent Auto 8.9 % (2-11); Neutrophils Absolute Auto 8.9 x10*3/uL (2.0-8.3); Neutrophils Percent Auto 81.3 % (45-73); Platelet Count 189 X10*3/uL (160-400); Red Blood Count 3.16 X10*6/uL (4.60-5.80); Red Cell Distribution Width 14.6 % (11.0-16.0); White Blood Count 10.9 X10*3/uL (4.8-10.8)
[2024-10-20 06:31] LABS: Alanine Aminotransferase 13 U/L (0-40); Albumin Level 2.7 g/dL (3.5-5.0); Alkaline Phosphatase 33 U/L (39-117); Anion Gap 12 (12-20); Aspartate Amino Transferase 52 U/L (5-37); Bilirubin Total 0.6 mg/dL (0.0-1.0); Blood Urea Nitrogen 25 mg/dL (9-16); Calcium 8.7 mg/dL (8.4-10.2); Carbon Dioxide 23 mmol/L (22-29); Chloride 114 mmol/L (96-108); Estimated Glomerular Filt Rate 35; Glucose Fasting 169 mg/dL (60-99); Potassium 2.9 mmol/L (3.3-5.1); Sodium 146 mmol/L (135-145)
--- NOTE | 2024-10-20 06:34 | PC.NURSE ---
Pt bladder scanned for 409ml approx 0556. Pt straight cathed approx 0605, urine was clear at first then had sediment, then tea colored w/small flecks of blood. 400ml out, post residual scan read zero. Pt tolerated well.
[2024-10-20] MEDS: Fluticasone/Vilanterol 100/25 BLST.W.DEV 1 PUFF INHALE (07:48)
[2024-10-20 07:51] VITALS: PULSE 69; RESP 18; O2SAT 95
[2024-10-20] MEDS: Amiodarone HCL 200 MG TABLET PO (07:57)
[2024-10-20] MEDS: Finasteride 5 MG TABLET PO (07:57)
[2024-10-20] MEDS: risperiDONE 1 MG TABLET PO (07:57)
[2024-10-20 08:00] VITALS: BP 128/58; PULSE 71; RESP 18; TEMP 36.3; O2SAT 93
[2024-10-20] MEDS: 0.9 % Sodium Chloride Flush 3 ML SYRINGE IVFLUSH ×3 (08:01→21:16)
[2024-10-20] MEDS: Potassium Chloride/H20 10 MEQ/100 ML PIGGYBACK 100 MEQ IV (08:19)
[2024-10-20 12:00] VITALS: BP 127/61; PULSE 64; RESP 18; TEMP 36.2; O2SAT 97
[2024-10-20] MEDS: KCl 40 mEq in 5% Dex/0.45% Sod 40 MEQ/1,000 ML IV.SOLN 100 MEQ IVCONT (12:16)
--- NOTE | 2024-10-20 13:49 | P.PNIM_ITS ---
Subjective Subjective Date of Service: 10/20/24 Interval History: Continues to be confused with marginal p.o. intake Review of Systems Unable to obtain Physical Exam 2 Vital Signs: Vital Signs: Last Vital Signs Temp 97.1 F 10/20/24 12:00 Pulse 64 10/20/24 12:00 Resp 18 10/20/24 12:00 BP 127/61 10/20/24 12:00 Pulse Ox 97 10/20/24 12:00 O2 Del Method Room Air 10/20/24 12:00 O2 Flow Rate 3 10/18/24 11:12 Oxygen Flow Rate 3 10/14/24 14:19 BMI result Body Mass Index 24.5 Const: Other: Awake intermittently with somnolence but easily arousable Resp: Other: Clear to auscultation bilaterally no rales rhonchi or wheezes Cardio: Other: No S4; positive S1-S2; no S3 murmurs rubs or gallops GI: Other: Soft nontender nondistended normoactive bowel sounds Extrem: Other: No edema bilaterally Objective Data Active Medications Acetaminophen (Acetaminophen 325 Mg Tablet) 650 mg PO Q6H PRN PRN Reason: Pain, Mild (Pain Scale 1-3), fever or headache Last Admin: 10/18/24 15:07 Dose: 650 mg Documented By: EDITH Acetaminophen (Acetaminophen Supp 650 Mg Supp.Rect) 650 mg [place] Q4H PRN PRN Reason: Pain/Fever Albuterol Sulfate (Albuterol Sulfate 90 Mcg 8 Gm Inhaler) 2 puff INHALE Q4H PRN PRN Reason: Shortness Of Breath Alprazolam (Alprazolam 0.5 Mg Tablet) 0.5 mg PO BID ON LICENSE OF [facility] Last Admin: 10/17/24 20:42 Dose: 0.5 mg Documented By: JONES Amiodarone HCl (Amiodarone Hcl 200 Mg Tablet) 200 mg PO DAILY ON LICENSE OF [facility] Last Admin: 10/20/24 07:57 Dose: 200 mg Documented By: GEORGIE Bisacodyl (Bisacodyl 10 Mg Supp.Rect) 10 mg [place] DAILY PRN PRN Reason: Constipation Last Admin: 10/18/24 13:44 Dose: 10 mg Documented By: BHANU Calcium Carbonate (Calcium Carbonate 750 Mg Tab.Chew) 750 mg PO Q4H PRN PRN Reason: Heartburn Divalproex Sodium (Divalproex Sodium Sprinkles 125 Mg ) 750 mg PO BEDTIME SHAYY Last Admin: 10/19/24 20:42 Dose: 750 mg Documented By: CONNOR Docusate Sodium (Docusate Sodium 100 Mg/10 Ml Liquid) 100 mg PO BEDTIME SHAYY Last Admin: 10/19/24 20:42 Dose: 100 mg Documented By: CONNOR Doxazosin Mesylate (Doxazosin Mesylate 2 Mg Tablet) 4 mg PO BEDTIME SHAYY; Protocol Last Admin: 10/19/24 20:41 Dose: 4 mg Documented By: CONNOR Finasteride (Finasteride 5 Mg Tablet) 5 mg PO DAILY [facility] Last Admin: 10/20/24 07:57 Dose: 5 mg Documented By: GEORGIE Fluticasone/Vilanterol (Fluticasone/Vilanterol 100/25 Blst.W.Dev) 1 puff INHALE RDAILY ON LICENSE OF [facility] Last Admin: 10/20/24 07:48 Dose: 1 puff Documented By: HARMAN Potassium Chloride/Dextrose/Sod Cl (Kcl 40 Meq In 5% Dex/0.45% Sod) 40 meq in 1,000 mls @ 100 mls/hr IVCONT .Q10H SHAYY Stop: 10/20/24 20:14 Last Admin: 10/20/24 12:16 Dose: 100 mls/hr Documented By: GEORGIE Piperacillin Sod/Tazobactam (Sod 4.5 gm/ Sodium Chloride) 100 mls @ 200 mls/hr IV Q8H SHAYY Magnesium Hydroxide (Milk Of Magnesia 30 Ml Oral.Susp) 30 ml PO DAILY PRN PRN Reason: Constipation Melatonin (Melatonin 3 Mg Tablet) 6 mg PO BEDTIME PRN PRN Reason: Insomnia Last Admin: 10/17/24 20:43 Dose: 6 mg Documented By: JONES Metoprolol Succinate (Metoprolol Succinate Er 50 Mg Tab.Er.24h) 50 mg PO BEDTIME SHAYY; Protocol Last Admin: 10/19/24 20:42 Dose: 50 mg Documented By: CONNOR Mirtazapine (Mirtazapine 15 Mg Tablet) 15 mg PO BEDTIME [facility]Y Last Admin: 10/19/24 20:41 Dose: 15 mg Documented By: CONNOR Naloxone HCl (Naloxone Hcl 0.4 Mg/Ml Vial) 0.4 mg SUBCUT Q3M PRN PRN Reason: Sedation/Unresponsive Ondansetron HCl (Ondansetron Hcl 4 Mg/2 Ml Vial) 4 mg IVPUSH Q8H PRN PRN Reason: Nausea and Vomiting Polyethylene Glycol (Polyethylene Glycol 3350 17 Gm Powd.Pack) 17 gm PO BID ON LICENSE OF [facility] Last Admin: 10/20/24 10:34 Dose: Not Given Documented By: GEORGIE Non-Admin Reason: Patient Refused Risperidone (Risperidone 1 Mg Tablet) 1 mg PO DAILY ON LICENSE OF [facility] Last Admin: 10/20/24 07:57 Dose: 1 mg Documented By: GEORGIE Sodium Biphosphate/Sodium Phosphate (Sodium Phosphate,[place]-Dibasic 133 Ml Enema) 118 ml [place] DAILY PRN PRN Reason: Constipation Sodium Chloride (0.9 % Sodium Chloride Flush 3 Ml Syringe) 3 ml IVFLUSH QSHIFT ON LICENSE OF [facility] Last Admin: 10/20/24 08:01 Dose: 3 ml Documented By: GEORGIE Trazodone HCl (Trazodone Hcl 50 Mg Tablet) 50 mg PO BEDTIME ON LICENSE OF [facility] Last Admin: 10/17/24 20:41 Dose: 50 mg Documented By: JONES Labs 10/20/24 05:30 10/20/24 05:30 Labs: Laboratory Results - last 24 hr 10/20/24 05:30 MCV 88.9 MCH 28.5 MCHC 32.0 RDW 14.6 Plt Count 189 MPV 10.6 Immature Gran % (Auto) 0.6 H Neut % (Auto) 81.3 H Lymph % (Auto) 8.4 L [place] % (Auto) 8.9 Eos % (Auto) 0.4 Baso % (Auto) 0.4 Lymph # (Auto) 0.9 L [place] # (Auto) 1.0 Eos # (Auto) 0.0 Baso # (Auto) 0.0 Abs Immat Gran (auto) 0.07 H Absolute Neuts (auto) 8.9 H Absolute Nucleated RBC 0.000 Nucleated RBC % (auto) 0.0 Anion Gap 12 Estim Creat Clear Calc 32.0 Estimated GFR 35 Fasting Glucose 169 H Calcium 8.7 D Total Bilirubin 0.6 AST 52 H ALT 13 Alkaline Phosphatase 33 L Total Protein 5.0 L Albumin 2.7 L Microbiology Microbiology Results: Microbiology 10/14/24 14:56 Blood Culture - Final Blood - Venous No growth after 5 days. 10/14/24 14:57 Blood Culture - Final Blood - Venous No growth after 5 days. Assessment and Plan (1) Aspiration pneumonitis: Status: Acute (2) CKD (chronic kidney disease): Status: Acute (3) Aspiration pneumonia: Status: Acute Plan This is an 84-year-old female with a PMH significant for HFrEF, CKD, paroxysmal AFib on Eliquis, hx of V tach, s/p pacer in place, HLD, urinary retention, BPH, dementia, anxiety, and bipolar disorder?who presented to the ED from [facility] after unwitnessed fall out of bed. Pt admitted to the hospital for treatment and further evaluation of acute hypoxic respiratory failure in the setting of likely aspiration pneumonitis after unwitnessed fall out of bed. 1.Acute hypoxic respiratory failure likely secondary to aspiration pneumonitis -Zosyn,(3) -Titrate supplemental O2>92, wean as tolerated -speech following - NDD1 diet; 1:1 feeds 2.Urinary retention/hematuria -proscar, carduar; flomax -Corarl removed today for voiding trial -hematuria resolved; restart Eliquis after voiding trial complete 3.Paroxysmal AFib -acceptable rate control at this time -restart Eliquis 4.HFrEF -stable and well compensated at this time 5.Mood disorder/dementia -stable at this time -continue current therapies DNR Eliquis requires ongoing inpatient stay for management of aspiration pneumonitis with IV antibiotics Quality Stroke Does the patient have a stroke diagnosis?: No VTE Prior VTE?: No VTE Risk Level:: Medical - moderate - high VTE Device Contraindication: N/A - Device Ordered VTE Drug Contraindication: Treatment Not Indicated
[2024-10-20 16:00] VITALS: BP 124/64; PULSE 77; RESP 19; TEMP 36.4; O2SAT 95
[2024-10-20] MEDS: Apixaban 2.5 MG TABLET PO ×2 (16:04→21:26)
[2024-10-20 21:14] VITALS: BP 138/76; PULSE 72; RESP 16; TEMP 36.8; O2SAT 93
[2024-10-20] MEDS: Divalproex Sodium Sprinkles 125 MG CAP.DR.SPR 750 MG PO (21:15)
[2024-10-20] MEDS: Mirtazapine 15 MG TABLET PO (21:16)
[2024-10-20] MEDS: Metoprolol Succinate ER 50 MG TAB.ER.24H PO (21:16)
[2024-10-20] MEDS: Melatonin 3 MG TABLET 6 MG PO (21:16)
[2024-10-20] MEDS: Doxazosin Mesylate 2 MG TABLET 4 MG PO (21:16)
[2024-10-21] VITALS (7 sets, daily range): BP systolic 99–150; BP diastolic 51–75; PULSE 6–85; RESP 16–20; TEMP 36.1–37.1; O2SAT 94–97
[2024-10-21] MEDS: Piperacillin Sodium/Tazobactam 4.5 GM in 0.9 % Sodium Chloride 100 ML IV ×3 (01:05→16:09)
[2024-10-21] MEDS: Acetaminophen 325 MG TABLET 650 MG PO ×2 (08:48→21:30)
[2024-10-21] MEDS: Amiodarone HCL 200 MG TABLET PO (08:49)
[2024-10-21] MEDS: Apixaban 2.5 MG TABLET PO ×2 (08:49→21:31)
[2024-10-21] MEDS: Finasteride 5 MG TABLET PO (08:49)
[2024-10-21] MEDS: risperiDONE 1 MG TABLET PO (08:49)
[2024-10-21] MEDS: 0.9 % Sodium Chloride Flush 3 ML SYRINGE IVFLUSH ×3 (08:58→21:31)
--- NOTE | 2024-10-21 13:40 | MHC.SL.DTX ---
Dysphagia Diet modifications: Last documented Solid diet consistencies: Grnd/Mech Altered (NDD2) Last documented Liquid consistency: Thin Changes made to current diet?: Yes Liquid Consistency and Strategies: Liquid Intake Recommendation: [place] Thick Compensatory Strategies for Safe Swallow: Small Sips Compensatory Strategies for Safe Swallow(b): Sitting Upright (90 deg) Liquids from Straw Alternate Liquids/Solids Rate of Ingestion Change Oral Check Solid Food Consistency: Dietary Recommendations: Ground/Altered (NDD2) Oral Medication Intake: Crushed with Puree Strategies and Precautions to be Taken for Safe Swallow: Sitting Upright (90 deg) Liquids from Straw Alternate Liquids/Solids Rate of Ingestion Change Oral Check Supervision While Eating and/Drinking: Total Supervision (1:1) Foods to Avoid: mixed consistencies Swallowing Recommended Treatments: Compens. Strategy Educat. Level of Impact on: Daily activities: Mild Community: Mild Prognosis for Improvement: Fair Recommendation for Speech: Inpatient Speech Therapy Pt current order is for Ground/Altered (NDD2) Solids and Thin Liquids. Previous recommendations were for NDD1 and [place]-Thick Liquids, but not changed in EMR. RIVET TAPPING MACHINE OPERATOR proceeded with trials of Thin Liquids which he tolerated via Ice Chip, Spoon and Self-administered Cup Sip with no overt s/s of aspiration. Straw not attempted on this date. Pt was administered Ground/Altered (NDD2) Solids via fork. He did not attempt to self feed when provided a fork. He tolerated small bites with mild oral residue but appropriate oral manipulation and preparation and no overt s/s of aspiration. RIVET TAPPING MACHINE OPERATOR recommends continue with current diet of Ground/Altered (NDD2) Solids and Thin Liquids. Ensure upright positioning and Pt alertness level prior to PO administration. [employer] Clinican/Clinical Fellow: No Supervisory Statement: I have reviewed and agree with the student/clinical fellow's documentation: N/A Speech Language Pathologist: Kiko Damon M.A., [facility]-[employer]IVET TAPPING MACHINE OPERATOR
--- NOTE | 2024-10-21 14:02 | P.PNIM_ITS ---
Subjective Subjective Date of Service: 10/21/24 Interval History: Minimal verbalization. No acute issues overnight Review of Systems Unable to obtain Physical Exam 2 Vital Signs: Vital Signs: Last Vital Signs Temp 98.6 F 10/21/24 12:00 Pulse 85 10/21/24 12:00 Resp 16 10/21/24 12:00 BP 119/69 10/21/24 12:00 Pulse Ox 95 10/21/24 12:00 O2 Del Method Room Air 10/21/24 12:00 O2 Flow Rate 3 10/18/24 11:12 Oxygen Flow Rate 3 10/14/24 14:19 BMI result Body Mass Index 24.5 Const: Other: Awake intermittently with somnolence but easily arousable Resp: Other: Clear to auscultation bilaterally no rales rhonchi or wheezes Cardio: Other: No S4; positive S1-S2; no S3 murmurs rubs or gallops GI: Other: Soft nontender nondistended normoactive bowel sounds Extrem: Other: No edema bilaterally Objective Data Active Medications Acetaminophen (Acetaminophen 325 Mg Tablet) 650 mg PO Q6H PRN PRN Reason: Pain, Mild (Pain Scale 1-3), fever or headache Last Admin: 10/21/24 08:48 Dose: 650 mg Documented By: DAVID Acetaminophen (Acetaminophen Supp 650 Mg Supp.Rect) 650 mg [place] Q4H PRN PRN Reason: Pain/Fever Albuterol Sulfate (Albuterol Sulfate 90 Mcg 8 Gm Inhaler) 2 puff INHALE Q4H PRN PRN Reason: Shortness Of Breath Alprazolam (Alprazolam 0.5 Mg Tablet) 0.5 mg PO BID [facility] Last Admin: 10/17/24 20:42 Dose: 0.5 mg Documented By: JONES Amiodarone HCl (Amiodarone Hcl 200 Mg Tablet) 200 mg PO DAILY [facility] Last Admin: 10/21/24 08:49 Dose: 200 mg Documented By: DAVID Apixaban (Apixaban 2.5 Mg Tablet) 2.5 mg PO BID [facility] Last Admin: 10/21/24 08:49 Dose: 2.5 mg Documented By: DAVID Bisacodyl (Bisacodyl 10 Mg Supp.Rect) 10 mg [place] DAILY PRN PRN Reason: Constipation Last Admin: 10/18/24 13:44 Dose: 10 mg Documented By: BHANU Calcium Carbonate (Calcium Carbonate 750 Mg Tab.Chew) 750 mg PO Q4H PRN PRN Reason: Heartburn Divalproex Sodium (Divalproex Sodium Sprinkles 125 Mg Cap.) 750 mg PO BEDTIME SHAYY Last Admin: 10/20/24 21:15 Dose: 750 mg Documented By: JAGUAR Docusate Sodium (Docusate Sodium 100 Mg/10 Ml Liquid) 100 mg PO BEDTIME SHAYY Last Admin: 10/20/24 21:26 Dose: Not Given Documented By: JAGUAR Non-Admin Reason: Med Not Available Doxazosin Mesylate (Doxazosin Mesylate 2 Mg Tablet) 4 mg PO BEDTIME [facility]; Protocol Last Admin: 10/20/24 21:16 Dose: 4 mg Documented By: JAGUAR Finasteride (Finasteride 5 Mg Tablet) 5 mg PO DAILY [facility] Last Admin: 10/21/24 08:49 Dose: 5 mg Documented By: DAVID Fluticasone/Vilanterol (Fluticasone/Vilanterol 100/25 Blst.W.Dev) 1 puff INHALE RDAILY [facility] Last Admin: 10/21/24 07:32 Dose: Not Given Documented By: HARMAN Non-Admin Reason: Patient Asleep Piperacillin Sod/Tazobactam (Sod 4.5 gm/ Sodium Chloride) 100 mls @ 200 mls/hr IV Q8H [facility] Last Infusion: 10/21/24 10:30 Dose: Infused Documented By: DAVID Magnesium Hydroxide (Milk Of Magnesia 30 Ml Oral.Susp) 30 ml PO DAILY PRN PRN Reason: Constipation Melatonin (Melatonin 3 Mg Tablet) 6 mg PO BEDTIME PRN PRN Reason: Insomnia Last Admin: 10/20/24 21:16 Dose: 6 mg Documented By: JAGUAR Metoprolol Succinate (Metoprolol Succinate Er 50 Mg Tab.Er.24h) 50 mg PO BEDTIME SHAYY; Protocol Last Admin: 10/20/24 21:16 Dose: 50 mg Documented By: JAGUAR Mirtazapine (Mirtazapine 15 Mg Tablet) 15 mg PO BEDTIME SHAYY Last Admin: 10/20/24 21:16 Dose: 15 mg Documented By: JAGUAR Naloxone HCl (Naloxone Hcl 0.4 Mg/Ml Vial) 0.4 mg SUBCUT Q3M PRN PRN Reason: Sedation/Unresponsive Ondansetron HCl (Ondansetron Hcl 4 Mg/2 Ml Vial) 4 mg IVPUSH Q8H PRN PRN Reason: Nausea and Vomiting Polyethylene Glycol (Polyethylene Glycol 3350 17 Gm Powd.Pack) 17 gm PO BID [facility] Last Admin: 10/21/24 08:47 Dose: Not Given Documented By: DAVID Non-Admin Reason: Patient Refused Risperidone (Risperidone 1 Mg Tablet) 1 mg PO DAILY [facility] Last Admin: 10/21/24 08:49 Dose: 1 mg Documented By: DAVID Sodium Biphosphate/Sodium Phosphate (Sodium Phosphate,[place]-Dibasic 133 Ml Enema) 118 ml [place] DAILY PRN PRN Reason: Constipation Sodium Chloride (0.9 % Sodium Chloride Flush 3 Ml Syringe) 3 ml IVFLUSH QSHIFT [facility] Last Admin: 10/21/24 08:58 Dose: 3 ml Documented By: DAVID Trazodone HCl (Trazodone Hcl 50 Mg Tablet) 50 mg PO BEDTIME [facility] Last Admin: 10/17/24 20:41 Dose: 50 mg Documented By: JONES Labs 10/20/24 05:30 10/20/24 05:30 Assessment and Plan (1) Aspiration pneumonitis: Status: Acute Plan This is an 84-year-old female with a PMH significant for HFrEF, CKD, paroxysmal AFib on Eliquis, hx of V tach, s/p pacer in place, HLD, urinary retention, BPH, dementia, anxiety, and bipolar disorder?who presented to the ED from [facility] after unwitnessed fall out of bed. Pt admitted to the hospital for treatment and further evaluation of acute hypoxic respiratory failure in the setting of likely aspiration pneumonitis after unwitnessed fall out of bed. 1.Acute hypoxic respiratory failure likely secondary to aspiration pneumonitis -Zosyn,(4) -Titrate supplemental O2>92, wean as tolerated -speech following - NDD1 diet; 1:1 feeds 2.Urinary retention/hematuria -proscar, carduar; flomax -Corral removed today for voiding trial -hematuria resolved; restart Eliquis after voiding trial complete 3.Paroxysmal AFib -acceptable rate control at this time -restart Eliquis 4.HFrEF -stable and well compensated at this time 5.Mood disorder/dementia -stable at this time -continue current therapies DNR Lillieis requires ongoing inpatient stay for management of aspiration pneumonitis with IV antibiotics Quality Stroke Does the patient have a stroke diagnosis?: No VTE Prior VTE?: No VTE Risk Level:: Medical - moderate - high VTE Device Contraindication: N/A - Device Ordered VTE Drug Contraindication: Treatment Not Indicated
[2024-10-21 14:04] LABS: MANUAL DIFF FLAG NO
[2024-10-21 14:06] LABS: Basophils Percent Auto 0.4 % (0-2); Eosinophils Absolute Auto 0.2 X10*3/uL (0.0-0.4); Eosinophils Percent Auto 2.1 % (0-4); Hematocrit 30.2 % (42.0-52.0); Hemoglobin 9.9 g/dl (14.0-18.0); Imm Gran Abs Auto 0.05 X10*3/uL (0.00-0.03); Imm Gran Pct Auto 0.6 % (0.0-0.4); Lymphocytes Percent Auto 12.1 % (20-40); Mean Corpuscular HGB Conc 32.8 g/dl (31.0-36.0); Mean Corpuscular Volume 88.6 fL (80.0-98.0); Mean Platelet Volume 10.2 fL (9.4-12.4); Monocytes Absolute Auto 0.9 X10*3/uL (0.1-1.2); Monocytes Percent Auto 10.1 % (2-11); Neutrophils Absolute Auto 6.3 x10*3/uL (2.0-8.3); Neutrophils Percent Auto 74.7 % (45-73); Platelet Count 192 X10*3/uL (160-400); Red Blood Count 3.41 X10*6/uL (4.60-5.80); Red Cell Distribution Width 14.8 % (11.0-16.0); White Blood Count 8.4 X10*3/uL (4.8-10.8)
[2024-10-21 14:25] LABS: Alanine Aminotransferase 16 U/L (0-40); Albumin Level 2.9 g/dL (3.5-5.0); Alkaline Phosphatase 35 U/L (39-117); Anion Gap 12 (12-20); Aspartate Amino Transferase 50 U/L (5-37); Bilirubin Total 0.5 mg/dL (0.0-1.0); Blood Urea Nitrogen 24 mg/dL (9-16); Calcium 8.5 mg/dL (8.4-10.2); Carbon Dioxide 23 mmol/L (22-29); Chloride 115 mmol/L (96-108); Creatinine Clr Calc Pharmacy 27.4; Estimated Glomerular Filt Rate 29; Glucose Random 125 mg/dL (60-115); Potassium 3.4 mmol/L (3.3-5.1); Sodium 147 mmol/L (135-145); Total Protein 5.4 g/dL (6.5-8.0)
--- NOTE | 2024-10-21 14:33 | MHC.CM.PN ---
EMR REVIEWED, PT REMAINS ON IV ABX FOR ASP PNEUMONITIS/FALL, WILL NEED LTC, REFERRAL TO [facility]VIOUSL[facility] MADE FOR LTC AM[facility], CM WILL CONT TO FOLLOW DC NEEDS.
--- NOTE | 2024-10-21 14:49 | MHC.CLN ---
F/U PT WITH INCREASED NUTRITION RISK R/T PRESSURE INJURY. DIET= GROUND. SEEN BY BARREL CUTTER TODAY AND DIET APPROPRIATE. ENSURE TID TO PROMOTE WOUND HEALING. SUPPLEMENT PROVIDES 1050 KCALS, 60 G PROTEIN. PO INTAKE VARIABLE, 0-50%. MONITOR PO INTAKE AND WOUND HEALING.
[2024-10-21] MEDS: Metoprolol Succinate ER 50 MG TAB.ER.24H PO (21:30)
[2024-10-21] MEDS: Doxazosin Mesylate 2 MG TABLET 4 MG PO (21:30)
[2024-10-21] MEDS: Divalproex Sodium Sprinkles 125 MG CAP.DR.SPR 750 MG PO (21:31)
[2024-10-21] MEDS: Mirtazapine 15 MG TABLET PO (21:31)
[2024-10-22] VITALS (8 sets, daily range): BP systolic 105–138; BP diastolic 55–82; PULSE 70–94; RESP 17–22; TEMP 36.2–37.5; O2SAT 93–97
[2024-10-22] MEDS: Piperacillin Sodium/Tazobactam 4.5 GM in 0.9 % Sodium Chloride 100 ML IV ×3 (02:37→16:21)
[2024-10-22] MEDS: Fluticasone/Vilanterol 100/25 BLST.W.DEV 1 PUFF INHALE (07:52)
[2024-10-22] MEDS: risperiDONE 1 MG TABLET PO (10:32)
[2024-10-22] MEDS: Amiodarone HCL 200 MG TABLET PO (10:32)
[2024-10-22] MEDS: Apixaban 2.5 MG TABLET PO (10:33)
[2024-10-22] MEDS: Finasteride 5 MG TABLET PO (10:33)
[2024-10-22] MEDS: 0.9 % Sodium Chloride Flush 3 ML SYRINGE IVFLUSH ×3 (10:33→20:45)
[2024-10-22] MEDS: Dextrose 5 % 1,000 ML 125 ML IVCONT ×3 (10:34→23:36)
[2024-10-22] MEDS: polyethylene glycoL 3350 17 GM POWD.PACK PO ×2 (10:38→20:45)
--- NOTE | 2024-10-22 14:45 | P.PNIM_ITS ---
Subjective Subjective Date of Service: 10/22/24 Interval History: No acute issues overnight. Remains confused but cooperative Review of Systems Unable to obtain Physical Exam 2 Vital Signs: Vital Signs: Last Vital Signs Temp 97.1 F 10/22/24 11:30 Pulse 78 10/22/24 11:30 Resp 18 10/22/24 11:30 BP 120/57 L 10/22/24 11:30 Pulse Ox 93 10/22/24 11:30 O2 Del Method Room Air 10/22/24 11:30 O2 Flow Rate 3 10/18/24 11:12 Oxygen Flow Rate 3 10/14/24 14:19 BMI result Body Mass Index 24.5 Const: Other: Awake intermittently with somnolence but easily arousable Resp: Other: Clear to auscultation bilaterally no rales rhonchi or wheezes Cardio: Other: No S4; positive S1-S2; no S3 murmurs rubs or gallops GI: Other: Soft nontender nondistended normoactive bowel sounds Extrem: Other: No edema bilaterally Objective Data Active Medications Acetaminophen (Acetaminophen 325 Mg Tablet) 650 mg PO Q6H PRN PRN Reason: Pain, Mild (Pain Scale 1-3), fever or headache Last Admin: 10/21/24 21:30 Dose: 650 mg Documented By: JAGUAR Acetaminophen (Acetaminophen Supp 650 Mg Supp.Rect) 650 mg [place] Q4H PRN PRN Reason: Pain/Fever Albuterol Sulfate (Albuterol Sulfate 90 Mcg 8 Gm Inhaler) 2 puff INHALE Q4H PRN PRN Reason: Shortness Of Breath Alprazolam (Alprazolam 0.5 Mg Tablet) 0.5 mg PO BID [facility] Last Admin: 10/17/24 20:42 Dose: 0.5 mg Documented By: JONES Amiodarone HCl (Amiodarone Hcl 200 Mg Tablet) 200 mg PO DAILY [facility] Last Admin: 10/22/24 10:32 Dose: 200 mg Documented By: THUY Apixaban (Apixaban 2.5 Mg Tablet) 2.5 mg PO BID [facility] Last Admin: 10/22/24 10:33 Dose: 2.5 mg Documented By: THUY Bisacodyl (Bisacodyl 10 Mg Supp.Rect) 10 mg [place] DAILY PRN PRN Reason: Constipation Last Admin: 10/18/24 13:44 Dose: 10 mg Documented By: BHANU Calcium Carbonate (Calcium Carbonate 750 Mg Tab.Chew) 750 mg PO Q4H PRN PRN Reason: Heartburn Divalproex Sodium (Divalproex Sodium Sprinkles 125 Mg Cap.Spr) 750 mg PO BEDTIME [facility] Last Admin: 10/21/24 21:31 Dose: 750 mg Documented By: JAGUAR Docusate Sodium (Docusate Sodium 100 Mg/10 Ml Liquid) 100 mg PO BEDTIME [facility] Last Admin: 10/21/24 21:32 Dose: Not Given Documented By: JAGUAR Non-Admin Reason: Med Not Available Doxazosin Mesylate (Doxazosin Mesylate 2 Mg Tablet) 4 mg PO BEDTIME [facility]; Protocol Last Admin: 10/21/24 21:30 Dose: 4 mg Documented By: JAGUAR Finasteride (Finasteride 5 Mg Tablet) 5 mg PO DAILY [facility] Last Admin: 10/22/24 10:33 Dose: 5 mg Documented By: THUY Fluticasone/Vilanterol (Fluticasone/Vilanterol 100/25 Blst.W.Dev) 1 puff INHALE RDAILY [facility] Last Admin: 10/22/24 07:52 Dose: 1 puff Documented By: HARMAN Piperacillin Sod/Tazobactam (Sod 4.5 gm/ Sodium Chloride) 100 mls @ 200 mls/hr IV Q8H [facility] Last Infusion: 10/22/24 11:07 Dose: Infused Documented By: THUY Dextrose (D5w) 1,000 mls @ 125 mls/hr IVCONT .Q8H [facility] Last Admin: 10/22/24 10:34 Dose: 125 mls/hr Documented By: THUY Magnesium Hydroxide (Milk Of Magnesia 30 Ml Oral.Susp) 30 ml PO DAILY PRN PRN Reason: Constipation Melatonin (Melatonin 3 Mg Tablet) 6 mg PO BEDTIME PRN PRN Reason: Insomnia Last Admin: 10/20/24 21:16 Dose: 6 mg Documented By: JAGUAR Metoprolol Succinate (Metoprolol Succinate Er 50 Mg Tab.Er.24h) 50 mg PO BEDTIME [facility]; Protocol Last Admin: 10/21/24 21:30 Dose: 50 mg Documented By: JAGUAR Mirtazapine (Mirtazapine 15 Mg Tablet) 15 mg PO BEDTIME [facility] Last Admin: 10/21/24 21:31 Dose: 15 mg Documented By: JAGUAR Naloxone HCl (Naloxone Hcl 0.4 Mg/Ml Vial) 0.4 mg SUBCUT Q3M PRN PRN Reason: Sedation/Unresponsive Ondansetron HCl (Ondansetron Hcl 4 Mg/2 Ml Vial) 4 mg IVPUSH Q8H PRN PRN Reason: Nausea and Vomiting Polyethylene Glycol (Polyethylene Glycol 3350 17 Gm Powd.Pack) 17 gm PO BID [facility] Last Admin: 10/22/24 10:38 Dose: 17 gm Documented By: THUY Risperidone (Risperidone 1 Mg Tablet) 1 mg PO DAILY [facility] Last Admin: 10/22/24 10:32 Dose: 1 mg Documented By: THUY Sodium Biphosphate/Sodium Phosphate (Sodium Phosphate,[place]-Dibasic 133 Ml Enema) 118 ml [place] DAILY PRN PRN Reason: Constipation Sodium Chloride (0.9 % Sodium Chloride Flush 3 Ml Syringe) 3 ml IVFLUSH QSHIFT [facility] Last Admin: 10/22/24 10:33 Dose: 3 ml Documented By: THUY Trazodone HCl (Trazodone Hcl 50 Mg Tablet) 50 mg PO BEDTIME [facility] Last Admin: 10/17/24 20:41 Dose: 50 mg Documented By: JONES Labs 10/21/24 13:42 10/21/24 13:42 Assessment and Plan (1) Aspiration pneumonitis: Status: Acute (2) Hematuria: Status: Acute Plan This is an 84-year-old female with a PMH significant for HFrEF, CKD, paroxysmal AFib on Eliquis, hx of V tach, s/p pacer in place, HLD, urinary retention, BPH, dementia, anxiety, and bipolar disorder?who presented to the ED from [facility] after unwitnessed fall out of bed. Pt admitted to the hospital for treatment and further evaluation of acute hypoxic respiratory failure in the setting of likely aspiration pneumonitis after unwitnessed fall out of bed. 1.Acute hypoxic respiratory failure likely secondary to aspiration pneumonitis -Zosyn,(5) -Titrate supplemental O2>92, wean as tolerated -speech following - NDD1 diet; 1:1 feeds 2.Urinary retention/hematuria -proscar, carduar; flomax -Corral reinserted secondary to urinary retention -hematuria return; will stop Eliquis 3.Paroxysmal AFib -acceptable rate control at this time -stop Eliquis secondary to hematuria 4.HFrEF -stable and well compensated at this time 5.Mood disorder/dementia -stable at this time -continue current therapies DNR Eliquis requires ongoing inpatient stay for management of aspiration pneumonitis with IV antibiotics Quality Stroke Does the patient have a stroke diagnosis?: No VTE Prior VTE?: No VTE Risk Level:: Medical - moderate - high VTE Device Contraindication: N/A - Device Ordered VTE Drug Contraindication: Treatment Not Indicated
[2024-10-22] MEDS: Divalproex Sodium Sprinkles 125 MG CAP.DR.SPR 750 MG PO (20:44)
[2024-10-22] MEDS: Docusate Sodium 100 MG/10 ML LIQUID PO (20:44)
[2024-10-22] MEDS: Doxazosin Mesylate 2 MG TABLET 4 MG PO (20:44)
[2024-10-22] MEDS: Mirtazapine 15 MG TABLET PO (20:45)
[2024-10-22] MEDS: Metoprolol Succinate ER 50 MG TAB.ER.24H PO (20:45)
[2024-10-22] MEDS: Melatonin 3 MG TABLET 6 MG PO (20:46)
[2024-10-23 03:08] VITALS: BP 109/58; PULSE 63; RESP 18; TEMP 37; O2SAT 94
[2024-10-23 07:55] LABS: MANUAL DIFF FLAG NO
[2024-10-23 07:57] LABS: Basophils Percent Auto 0.3 % (0-2); Eosinophils Absolute Auto 0.3 X10*3/uL (0.0-0.4); Eosinophils Percent Auto 3.3 % (0-4); Hematocrit 24.9 % (42.0-52.0); Imm Gran Abs Auto 0.08 X10*3/uL (0.00-0.03); Imm Gran Pct Auto 0.9 % (0.0-0.4); Lymphocytes Absolute Auto 1.2 X10*3/uL (1.2-4.9); Lymphocytes Percent Auto 13.1 % (20-40); Mean Corpuscular HGB Conc 32.1 g/dl (31.0-36.0); Mean Corpuscular Hemoglobin 28.6 pg (27.0-33.0); Mean Corpuscular Volume 88.9 fL (80.0-98.0); Mean Platelet Volume 10.1 fL (9.4-12.4); Monocytes Percent Auto 10.8 % (2-11); Neutrophils Absolute Auto 6.3 x10*3/uL (2.0-8.3); Neutrophils Percent Auto 71.6 % (45-73); Platelet Count 168 X10*3/uL (160-400); Red Cell Distribution Width 14.6 % (11.0-16.0); White Blood Count 8.8 X10*3/uL (4.8-10.8)
[2024-10-23 08:00] VITALS: BP 116/71; PULSE 64; RESP 18; TEMP 37.2; O2SAT 94
[2024-10-23 08:14] LABS: Alanine Aminotransferase 20 U/L (0-40); Albumin Level 2.3 g/dL (3.5-5.0); Alkaline Phosphatase 29 U/L (39-117); Anion Gap 10 (12-20); Aspartate Amino Transferase 42 U/L (5-37); Bilirubin Total 0.4 mg/dL (0.0-1.0); Blood Urea Nitrogen 20 mg/dL (9-16); Calcium 8.4 mg/dL (8.4-10.2); Carbon Dioxide 23 mmol/L (22-29); Chloride 110 mmol/L (96-108); Creatinine Clr Calc Pharmacy 47.4; Estimated Glomerular Filt Rate 55; Glucose Fasting 106 mg/dL (60-99); Sodium 140 mmol/L (135-145); Total Protein 4.5 g/dL (6.5-8.0)
[2024-10-23] MEDS: Dextrose 5 % 1,000 ML 125 ML IVCONT (08:25)
[2024-10-23] MEDS: Piperacillin Sodium/Tazobactam 4.5 GM in 0.9 % Sodium Chloride 100 ML IV ×3 (08:26→17:03)
[2024-10-23] MEDS: risperiDONE 1 MG TABLET PO (08:29)
[2024-10-23] MEDS: Finasteride 5 MG TABLET PO (08:29)
[2024-10-23] MEDS: 0.9 % Sodium Chloride Flush 3 ML SYRINGE IVFLUSH ×3 (08:29→20:35)
[2024-10-23] MEDS: Amiodarone HCL 200 MG TABLET PO (08:29)
[2024-10-23] MEDS: polyethylene glycoL 3350 17 GM POWD.PACK PO ×2 (08:29→20:35)
[2024-10-23 11:07] VITALS: BP 100/55; PULSE 76; RESP 18; TEMP 36.6; O2SAT 93
--- NOTE | 2024-10-23 13:27 | HO.PM.IMPN ---
Subjective Subjective Date of Service: 10/23/24 Interval History: No acute issues overnight. Back to baseline. Review of Systems Unable to obtain Physical Exam Vital Signs: Vital Signs: Last Vital Signs Temp 97.8 F 10/23/24 11:07 Pulse 76 10/23/24 11:07 Resp 18 10/23/24 11:07 BP 100/55 L 10/23/24 11:07 Pulse Ox 93 10/23/24 11:07 O2 Del Method Room Air 10/23/24 11:07 O2 Flow Rate 3 10/18/24 11:12 Oxygen Flow Rate 3 10/14/24 14:19 BMI result Body Mass Index 24.5 Const: Other: Awake intermittently with somnolence but easily arousable Resp: Other: Clear to auscultation bilaterally no rales rhonchi or wheezes Cardio: Other: No S4; positive S1-S2; no S3 murmurs rubs or gallops GI: Other: Soft nontender nondistended normoactive bowel sounds Extrem: Other: No edema bilaterally Objective Data Active Medications Acetaminophen (Acetaminophen 325 Mg Tablet) 650 mg PO Q6H PRN PRN Reason: Pain, Mild (Pain Scale 1-3), fever or headache Last Admin: 10/21/24 21:30 Dose: 650 mg Documented By: JAGUAR Acetaminophen (Acetaminophen Supp 650 Mg Supp.Rect) 650 mg PA Q4H PRN PRN Reason: Pain/Fever Albuterol Sulfate (Albuterol Sulfate 90 Mcg 8 Gm Inhaler) 2 puff INHALE Q4H PRN PRN Reason: Shortness Of Breath Alprazolam (Alprazolam 0.5 Mg Tablet) 0.5 mg PO BID [facility] Last Admin: 10/17/24 20:42 Dose: 0.5 mg Documented By: JONES Amiodarone HCl (Amiodarone Hcl 200 Mg Tablet) 200 mg PO DAILY [facility] Last Admin: 10/23/24 08:29 Dose: 200 mg Documented By: THUY Bisacodyl (Bisacodyl 10 Mg Supp.Rect) 10 mg PA DAILY PRN PRN Reason: Constipation Last Admin: 10/18/24 13:44 Dose: 10 mg Documented By: BHANU Calcium Carbonate (Calcium Carbonate 750 Mg Tab.Chew) 750 mg PO Q4H PRN PRN Reason: Heartburn Divalproex Sodium (Divalproex Sodium Sprinkles 125 Mg ) 750 mg PO BEDTIME [facility] Last Admin: 10/22/24 20:44 Dose: 750 mg Documented By: NATHAN Docusate Sodium (Docusate Sodium 100 Mg/10 Ml Liquid) 100 mg PO BEDTIME SHAYY Last Admin: 10/22/24 20:44 Dose: 100 mg Documented By: NATHAN Doxazosin Mesylate (Doxazosin Mesylate 2 Mg Tablet) 4 mg PO BEDTIME SHAYY; Protocol Last Admin: 10/22/24 20:44 Dose: 4 mg Documented By: NATHAN Finasteride (Finasteride 5 Mg Tablet) 5 mg PO DAILY [facility] Last Admin: 10/23/24 08:29 Dose: 5 mg Documented By: THUY Fluticasone/Vilanterol (Fluticasone/Vilanterol 100/25 Blst.W.Dev) 1 puff INHALE RDAILY [facility] Last Admin: 10/23/24 07:53 Dose: Not Given Documented By: HARMAN Non-Admin Reason: Patient Asleep Piperacillin Sod/Tazobactam (Sod 4.5 gm/ Sodium Chloride) 100 mls @ 200 mls/hr IV Q8H [facility] Last Infusion: 10/23/24 10:05 Dose: Infused Documented By: LAURA Dextrose (D5w) 1,000 mls @ 125 mls/hr IVCONT .Q8H [facility] Last Admin: 10/23/24 08:25 Dose: 125 mls/hr Documented By: THUY Magnesium Hydroxide (Milk Of Magnesia 30 Ml Oral.Susp) 30 ml PO DAILY PRN PRN Reason: Constipation Melatonin (Melatonin 3 Mg Tablet) 6 mg PO BEDTIME PRN PRN Reason: Insomnia Last Admin: 10/22/24 20:46 Dose: 6 mg Documented By: NATHAN Comments: requested for sleep as worried about his Metoprolol Succinate (Metoprolol Succinate Er 50 Mg Tab.Er.24h) 50 mg PO BEDTIME [facility]; Protocol Last Admin: 10/22/24 20:45 Dose: 50 mg Documented By: NATHAN Mirtazapine (Mirtazapine 15 Mg Tablet) 15 mg PO BEDTIME SHAYY Last Admin: 10/22/24 20:45 Dose: 15 mg Documented By: NATHAN Naloxone HCl (Naloxone Hcl 0.4 Mg/Ml Vial) 0.4 mg SUBCUT Q3M PRN PRN Reason: Sedation/Unresponsive Ondansetron HCl (Ondansetron Hcl 4 Mg/2 Ml Vial) 4 mg IVPUSH Q8H PRN PRN Reason: Nausea and Vomiting Polyethylene Glycol (Polyethylene Glycol 3350 17 Gm Powd.Pack) 17 gm PO BID [facility] Last Admin: 10/23/24 08:29 Dose: 17 gm Documented By: THUY Risperidone (Risperidone 1 Mg Tablet) 1 mg PO DAILY [facility] Last Admin: 10/23/24 08:29 Dose: 1 mg Documented By: THUY Sodium Biphosphate/Sodium Phosphate (Sodium Phosphate,[place]-Dibasic 133 Ml Enema) 118 ml PA DAILY PRN PRN Reason: Constipation Sodium Chloride (0.9 % Sodium Chloride Flush 3 Ml Syringe) 3 ml IVFLUSH QSHIFT [facility] Last Admin: 10/23/24 08:29 Dose: 3 ml Documented By: THUY Trazodone HCl (Trazodone Hcl 50 Mg Tablet) 50 mg PO BEDTIME [facility] Last Admin: 10/17/24 20:41 Dose: 50 mg Documented By: JONES Labs 10/23/24 07:16 10/23/24 07:16 Labs: Laboratory Results - last 24 hr 10/23/24 07:16 MCV 88.9 MCH 28.6 MCHC 32.1 RDW 14.6 Plt Count 168 MPV 10.1 Immature Gran % (Auto) 0.9 H Neut % (Auto) 71.6 Lymph % (Auto) 13.1 L [place] % (Auto) 10.8 Eos % (Auto) 3.3 Baso % (Auto) 0.3 Lymph # (Auto) 1.2 [place] # (Auto) 1.0 Eos # (Auto) 0.3 Baso # (Auto) 0.0 Abs Immat Gran (auto) 0.08 H Absolute Neuts (auto) 6.3 Absolute Nucleated RBC 0.000 Nucleated RBC % (auto) 0.0 Anion Gap 10 L Estim Creat Clear Calc 47.4 Estimated GFR 55 Fasting Glucose 106 H Calcium 8.4 Total Bilirubin 0.4 AST 42 H ALT 20 Alkaline Phosphatase 29 L Total Protein 4.5 L Albumin 2.3 L Assessment and Plan (1) Aspiration pneumonitis: Status: Acute (2) Hematuria: Status: Acute Plan This is an 84-year-old female with a PMH significant for HFrEF, CKD, paroxysmal AFib on Eliquis, hx of V tach, s/p pacer in place, HLD, urinary retention, BPH, dementia, anxiety, and bipolar disorder?who presented to the ED from [facility] after unwitnessed fall out of bed. Pt admitted to the hospital for treatment and further evaluation of acute hypoxic respiratory failure in the setting of likely aspiration pneumonitis after unwitnessed fall out of bed. 1.Acute hypoxic respiratory failure likely secondary to aspiration pneumonitis -Han,(6).... Switch to Augmentin upon DC -Titrate supplemental O2>92, wean as tolerated -speech following - NDD1 diet; 1:1 feeds 2.Urinary retention/hematuria -proscar, carduar; flomax -Corral reinserted secondary to urinary retention... Continue Ocrral upon discharge and can follow up with Urology as outpatient -hematuria return; will stop Eliquis 3.Paroxysmal AFib -acceptable rate control at this time -stop Eliquis secondary to hematuria 4.HFrEF -stable and well compensated at this time 5.Mood disorder/dementia -stable at this time -continue current therapies DNR Eliquis requires ongoing inpatient stay for management of aspiration pneumonitis with IV antibiotics Quality Stroke Does the patient have a stroke diagnosis?: No VTE Prior VTE?: No VTE Risk Level:: Medical - moderate - high VTE Device Contraindication: N/A - Device Ordered VTE Drug Contraindication: Treatment Not Indicated
[2024-10-23] MEDS: Potassium Chloride Packet 20 MEQ PACKET 40 MEQ PO ×2 (14:26→20:35)
[2024-10-23 15:08] VITALS: BP 121/65; PULSE 76; RESP 16; TEMP 37.2; O2SAT 96
[2024-10-23 19:48] VITALS: BP 135/69; PULSE 82; RESP 24; TEMP 37.5; O2SAT 96
[2024-10-23] MEDS: Doxazosin Mesylate 2 MG TABLET 4 MG PO (20:34)
[2024-10-23] MEDS: Metoprolol Succinate ER 50 MG TAB.ER.24H PO (20:34)
[2024-10-23] MEDS: Mirtazapine 15 MG TABLET PO (20:34)
[2024-10-23] MEDS: Divalproex Sodium Sprinkles 125 MG CAP.DR.SPR 750 MG PO (20:34)
[2024-10-23] MEDS: Acetaminophen 325 MG TABLET 650 MG PO (20:37)
[2024-10-23 23:55] VITALS: BP 106/56; PULSE 67; RESP 22; TEMP 36.9; O2SAT 94
[2024-10-24] MEDS: Piperacillin Sodium/Tazobactam 4.5 GM in 0.9 % Sodium Chloride 100 ML IV (02:26)
[2024-10-24 03:55] VITALS: BP 112/61; PULSE 63; RESP 18; TEMP 36.8; O2SAT 95
[2024-10-24 06:35] LABS: MANUAL DIFF FLAG NO
[2024-10-24 06:37] LABS: Basophils Percent Auto 0.5 % (0-2); Eosinophils Absolute Auto 0.3 X10*3/uL (0.0-0.4); Eosinophils Percent Auto 3.8 % (0-4); Hematocrit 25.5 % (42.0-52.0); Hemoglobin 8.6 g/dl (14.0-18.0); Imm Gran Abs Auto 0.08 X10*3/uL (0.00-0.03); Lymphocytes Absolute Auto 1.3 X10*3/uL (1.2-4.9); Mean Corpuscular HGB Conc 33.7 g/dl (31.0-36.0); Mean Corpuscular Hemoglobin 29.7 pg (27.0-33.0); Mean Corpuscular Volume 87.9 fL (80.0-98.0); Monocytes Percent Auto 12.4 % (2-11); Neutrophils Absolute Auto 5.6 x10*3/uL (2.0-8.3); Neutrophils Percent Auto 66.3 % (45-73); Platelet Count 193 X10*3/uL (160-400); Red Cell Distribution Width 14.6 % (11.0-16.0); White Blood Count 8.4 X10*3/uL (4.8-10.8)
[2024-10-24 06:52] LABS: Alanine Aminotransferase 25 U/L (0-40); Albumin Level 2.5 g/dL (3.5-5.0); Alkaline Phosphatase 31 U/L (39-117); Anion Gap 11 (12-20); Aspartate Amino Transferase 40 U/L (5-37); Bilirubin Total 0.4 mg/dL (0.0-1.0); Blood Urea Nitrogen 19 mg/dL (9-16); Calcium 8.3 mg/dL (8.4-10.2); Carbon Dioxide 23 mmol/L (22-29); Chloride 111 mmol/L (96-108); Creatinine Clr Calc Pharmacy 47.8; Estimated Glomerular Filt Rate 55; Glucose Fasting 91 mg/dL (60-99); Potassium 3.6 mmol/L (3.3-5.1); Sodium 141 mmol/L (135-145); Total Protein 4.7 g/dL (6.5-8.0)
[2024-10-24 08:00] VITALS: BP 125/65; PULSE 60; RESP 18; TEMP 36.6; O2SAT 95
--- NOTE | 2024-10-24 11:44 | MHC.CLN ---
F/U PT WITH INCREASED NUTRITION RISK R/T PRESSURE INJURY PO INTAKE 25% AVERAGE DIET RX: GROUND ENSURE TID TO PROMOTE WOUND HEALING SUPPLEMENT PROVIDES 1050 KCALS, 60 G PROTEIN WITH 100% ACCEPTANCE MONITOR PO INTAKE AND ENCOURAGE SUPPLEMENTS
[2024-10-24] MEDS: polyethylene glycoL 3350 17 GM POWD.PACK PO ×2 (11:58→21:58)
[2024-10-24] MEDS: Amiodarone HCL 200 MG TABLET PO (11:58)
[2024-10-24] MEDS: Calcium Carbonate 750 MG TAB.CHEW PO (11:58)
[2024-10-24] MEDS: Lactulose 20 GM/30 ML SOLUTION PO (11:59)
[2024-10-24] MEDS: risperiDONE 1 MG TABLET PO (11:59)
[2024-10-24] MEDS: Finasteride 5 MG TABLET PO (11:59)
[2024-10-24] MEDS: Potassium Chloride Packet 20 MEQ PACKET 40 MEQ PO (11:59)
[2024-10-24 12:00] VITALS: BP 128/68; PULSE 75; RESP 19; TEMP 36.6; O2SAT 95
[2024-10-24] MEDS: 0.9 % Sodium Chloride Flush 3 ML SYRINGE IVFLUSH ×2 (12:00→22:05)
--- NOTE | 2024-10-24 14:37 | P.PNIM_ITS ---
Subjective Subjective Date of Service: 10/24/24 Interval History: complaining not feeling well but unable to further express complaining nausea, abdominal discomfort, constipated, on IV Zosyn for aspiration pneumonia, denies fever, no chills, no cough, no shortness a breath, no nasal congestion, no sore throat or dysphagia, Review of Systems all other system reviewed and are negative. Physical Exam 2 Vital Signs: Vital Signs: Last Vital Signs Temp 97.9 F 10/24/24 12:00 Pulse 75 10/24/24 12:00 Resp 19 10/24/24 12:00 BP 128/68 10/24/24 12:00 Pulse Ox 95 10/24/24 12:00 O2 Del Method Room Air 10/24/24 12:00 O2 Flow Rate 3 10/18/24 11:12 Oxygen Flow Rate 3 10/14/24 14:19 BMI result Body Mass Index 24.5 Const: Other: General resting comfortably in no acute distress. Neck no JVD. CVS regular rate rhythm, Respiratory lungs clear to auscultation, no respiratory distress, no wheeze, no rhonchi. Gastrointestinal abdomen soft, mild left lower quadrant discomfort to palpation, bowel sounds audible, no guarding, no rigidity. Extremities no edema. Neuro non focal Skin no rash Objective Data Active Medications Acetaminophen (Acetaminophen 325 Mg Tablet) 650 mg PO Q6H PRN PRN Reason: Pain, Mild (Pain Scale 1-3), fever or headache Last Admin: 10/23/24 20:37 Dose: 650 mg Documented By: JAGUAR Acetaminophen (Acetaminophen Supp 650 Mg Supp.Rect) 650 mg [place] Q4H PRN PRN Reason: Pain/Fever Albuterol Sulfate (Albuterol Sulfate 90 Mcg 8 Gm Inhaler) 2 puff INHALE Q4H PRN PRN Reason: Shortness Of Breath Alprazolam (Alprazolam 0.5 Mg Tablet) 0.5 mg PO BID [facility] Last Admin: 10/17/24 20:42 Dose: 0.5 mg Documented By: JONES Amiodarone HCl (Amiodarone Hcl 200 Mg Tablet) 200 mg PO DAILY [facility] Last Admin: 10/24/24 11:58 Dose: 200 mg Documented By: JUAN A Bisacodyl (Bisacodyl 10 Mg Supp.Rect) 10 mg [place] DAILY PRN PRN Reason: Constipation Last Admin: 10/18/24 13:44 Dose: 10 mg Documented By: BHANU Calcium Carbonate (Calcium Carbonate 750 Mg Tab.Chew) 750 mg PO Q4H PRN PRN Reason: Heartburn Last Admin: 10/24/24 11:58 Dose: 750 mg Documented By: JUANA Divalproex Sodium (Divalproex Sodium Sprinkles 125 Mg ) 750 mg PO BEDTIME SHAYY Last Admin: 10/23/24 20:34 Dose: 750 mg Documented By: JAGUAR Docusate Sodium (Docusate Sodium 100 Mg/10 Ml Liquid) 100 mg PO BEDTIME SHAYY Last Admin: 10/23/24 20:36 Dose: Not Given Documented By: JAGUAR Non-Admin Reason: Med Not Available Doxazosin Mesylate (Doxazosin Mesylate 2 Mg Tablet) 4 mg PO BEDTIME SHAYY; Protocol Last Admin: 10/23/24 20:34 Dose: 4 mg Documented By: JAGUAR Finasteride (Finasteride 5 Mg Tablet) 5 mg PO DAILY [facility] Last Admin: 10/24/24 11:59 Dose: 5 mg Documented By: JUAN A Fluticasone/Vilanterol (Fluticasone/Vilanterol 100/25 Blst.W.Dev) 1 puff INHALE RDAILY [facility] Last Admin: 10/24/24 07:35 Dose: Not Given Documented By: JOHN Non-Admin Reason: See Note Magnesium Hydroxide (Milk Of Magnesia 30 Ml Oral.Susp) 30 ml PO DAILY PRN PRN Reason: Constipation Melatonin (Melatonin 3 Mg Tablet) 6 mg PO BEDTIME PRN PRN Reason: Insomnia Last Admin: 10/22/24 20:46 Dose: 6 mg Documented By: NATHAN Comments: requested for sleep as worried about his Metoprolol Succinate (Metoprolol Succinate Er 50 Mg Tab.Er.24h) 50 mg PO BEDTIME SHAYY; Protocol Last Admin: 10/23/24 20:34 Dose: 50 mg Documented By: JAGUAR Mirtazapine (Mirtazapine 15 Mg Tablet) 15 mg PO BEDTIME SHAYY Last Admin: 10/23/24 20:34 Dose: 15 mg Documented By: JAGUAR Naloxone HCl (Naloxone Hcl 0.4 Mg/Ml Vial) 0.4 mg SUBCUT Q3M PRN PRN Reason: Sedation/Unresponsive Ondansetron HCl (Ondansetron Hcl 4 Mg/2 Ml Vial) 4 mg IVPUSH Q8H PRN PRN Reason: Nausea and Vomiting Polyethylene Glycol (Polyethylene Glycol 3350 17 Gm Powd.Pack) 17 gm PO BID [facility] Last Admin: 10/24/24 11:58 Dose: 17 gm Documented By: JUAN A Risperidone (Risperidone 1 Mg Tablet) 1 mg PO DAILY [facility] Last Admin: 10/24/24 11:59 Dose: 1 mg Documented By: JUAN A Sodium Biphosphate/Sodium Phosphate (Sodium Phosphate,[place]-Dibasic 133 Ml Enema) 118 ml [place] DAILY PRN PRN Reason: Constipation Sodium Biphosphate/Sodium Phosphate (Sodium Phosphate,[place]-Dibasic 133 Ml Enema) 133 ml FL ONCE PRN PRN Reason: constipation Sodium Chloride (0.9 % Sodium Chloride Flush 3 Ml Syringe) 3 ml IVFLUSH QSHIFT [facility] Last Admin: 10/24/24 12:00 Dose: 3 ml Documented By: JUAN A Trazodone HCl (Trazodone Hcl 50 Mg Tablet) 50 mg PO BEDTIME [facility] Last Admin: 10/17/24 20:41 Dose: 50 mg Documented By: JONES Labs 10/24/24 06:21 10/24/24 06:21 Labs: Laboratory Results - last 24 hr 10/24/24 06:21 MCV 87.9 MCH 29.7 MCHC 33.7 RDW 14.6 Plt Count 193 MPV 10.0 Immature Gran % (Auto) 1.0 H Neut % (Auto) 66.3 Lymph % (Auto) 16.0 L [place] % (Auto) 12.4 H Eos % (Auto) 3.8 Baso % (Auto) 0.5 Lymph # (Auto) 1.3 [place] # (Auto) 1.0 Eos # (Auto) 0.3 Baso # (Auto) 0.0 Abs Immat Gran (auto) 0.08 H Absolute Neuts (auto) 5.6 Absolute Nucleated RBC 0.000 Nucleated RBC % (auto) 0.0 Anion Gap 11 L Estim Creat Clear Calc 47.8 Estimated GFR 55 Fasting Glucose 91 Calcium 8.3 L Total Bilirubin 0.4 AST 40 H ALT 25 Alkaline Phosphatase 31 L Total Protein 4.7 L Albumin 2.5 L Assessment and Plan (1) Aspiration pneumonitis: Status: Acute (2) Hematuria: Status: Acute (3) Acute urinary retention: Status: Acute Plan 84-year-old female with a PMH significant for HFrEF, CKD, paroxysmal AFib on Eliquis, hx of V tach, s/p pacer in place, HLD, urinary retention, BPH, dementia, anxiety, and bipolar disorder?who presented to the ED from [facility] after unwitnessed fall out of bed. Pt admitted to the hospital for treatment and further evaluation of acute hypoxic respiratory failure in the setting of likely aspiration pneumonitis after unwitnessed fall out of bed. 1.Acute hypoxic respiratory failure likely secondary to aspiration pneumonitis - Denies cough, no shortness of breath on IV Zosyn day 7, wean O2 not on home oxygen - speech following - NDD1 diet; 1:1 feeds , will request speech for follow-up 2.Urinary retention/hematuria - hematuria resolved, proscar, carduar; flomax -Corral reinserted secondary to urinary retention... Continue Corral upon discharge and can follow up with Urology as outpatient - Eliquis on hold due to hematuria 3.Paroxysmal AFib -acceptable rate control at this time -stop Eliquis secondary to hematuria 4.HFrEF -stable and well compensated at this time 5.Mood disorder/dementia -stable at this time -continue current therapies. 6. Constipation continue bowel regimen add lactulose and as needed Fleet enema. 7. VENU on CKD 3 resolved DNR compression boots requires ongoing inpatient stay for management of aspiration pneumonitis / abdominal discomfort and constipation Quality Stroke Does the patient have a stroke diagnosis?: No VTE Prior VTE?: No VTE Risk Level:: Medical - moderate - high VTE Device Contraindication: N/A - Device Ordered VTE Drug Contraindication: Treatment Not Indicated
[2024-10-24 15:36] VITALS: BP 117/65; PULSE 84; RESP 16; TEMP 37; O2SAT 95
--- NOTE | 2024-10-24 15:37 | MHC.CM.PN ---
EMR reviewed and per MD rounds, pt is not medically cleared for discharge due to management of aspiration pneumonitis.
--- NOTE | 2024-10-24 16:37 | MHC.SL.SWA ---
Speech Pathologist Impression: Mild to moderate oropharyngeal dysphagia secondary to weakness and AMS. Risk of Aspiration Due to: History of Pneumonia Reduced Cognition Dysphasia Diet Status: GREY GOODS EXAMINER recommending upgrade to Ground Solids and Thin Liquids/ Crushed in Puree. Pt will require 1:1 Assist with meals. Ensure upright positioning and report over s/s of aspiration to RN or GREY GOODS EXAMINER. Liquid Consistency and Strategies for Safe Swallow: Liquid Intake Recommendation: Thin Liquid Intake Strategies: Small Sips Solid Food Consistency: Dietary Recommendations: Grnd/Mech Altered (NDD2) Additional Modifications to Solid Foods: Provide small bites with slow pacing when pt upright and alert. Straws ok for liquids but monitor pt intake closely to ensure he is not gulping. Blend gravies into purees, break up/soften if congealed. Do not attempt if patient is overly lethargic, discontinue if patient becomes too lethargic during meal, or with evidence/clinical signs of aspiration (coughing, increased upper airway noise, drop in 02 sats). Oral Medication Intake: Crushed with Puree Please contact the pharmacy regarding appropriate crushable or liquid drug formulations that are available whenever modified delivery is recommended. Compensatory Strategies and Precautions to be Taken for Safe Swallow: Sitting Upright (90 deg) Liquids from Straw Alternate Liquids/Solids Rate of Ingestion Change Oral Check Supervision While Eating and Drinking for Safe Swallow: Total Supervision (1:1) Foods to Avoid: mixed consistencies Swallowing Recommended Treatments: Compens. Strategy Educat. Recommendation for Speech: Inpatient Speech Therapy Comment: Pt physiological function of swallow WNL when pt accepts/participates in PO intake, behavioral challenges and cognitive interference continue to limit pt ability to maintain adequate PO intake. GREY GOODS EXAMINER following Frequency/Duration: Date Range for Service Req: Timeline to reassess: Warehouse Shift Supervisor Clinican/Clinical Fellow: No Supervisory Statement: I have reviewed and agree with the student/clinical fellow's documentation: N/A Speech Language Pathologist: Madison Dickens M.S., [facility]-GREY GOODS EXAMINER
[2024-10-24 19:28] VITALS: BP 119/56; PULSE 78; RESP 12; TEMP 37.1; O2SAT 95
[2024-10-24] MEDS: Doxazosin Mesylate 2 MG TABLET 4 MG PO (21:58)
[2024-10-24] MEDS: Divalproex Sodium Sprinkles 125 MG CAP.DR.SPR 750 MG PO (21:58)
[2024-10-24] MEDS: Metoprolol Succinate ER 50 MG TAB.ER.24H PO (21:58)
[2024-10-24] MEDS: Mirtazapine 15 MG TABLET PO (22:03)
[2024-10-24] MEDS: Docusate Sodium 100 MG/10 ML LIQUID PO (22:45)
[2024-10-24 22:49] VITALS: BP 130/62; PULSE 60; RESP 16; TEMP 36.9; O2SAT 96
[2024-10-25 03:09] VITALS: BP 102/57; PULSE 63; RESP 18; TEMP 36.6; O2SAT 94
[2024-10-25 06:56] LABS: MANUAL DIFF FLAG NO
[2024-10-25 07:00] LABS: Basophils Percent Auto 0.5 % (0-2); Eosinophils Absolute Auto 0.3 X10*3/uL (0.0-0.4); Eosinophils Percent Auto 3.7 % (0-4); Hematocrit 28.7 % (42.0-52.0); Hematocrit 29.6 % (42.0-52.0); Hemoglobin 9.3 g/dl (14.0-18.0); Hemoglobin 9.5 g/dl (14.0-18.0); Imm Gran Abs Auto 0.08 X10*3/uL (0.00-0.03); Lymphocytes Absolute Auto 1.3 X10*3/uL (1.2-4.9); Lymphocytes Percent Auto 15.3 % (20-40); Mean Corpuscular HGB Conc 32.1 g/dl (31.0-36.0); Mean Corpuscular HGB Conc 32.4 g/dl (31.0-36.0); Mean Corpuscular Hemoglobin 29.1 pg (27.0-33.0); Mean Corpuscular Volume 89.4 fL (80.0-98.0); Mean Corpuscular Volume 90.5 fL (80.0-98.0); Mean Platelet Volume 10.1 fL (9.4-12.4); Mean Platelet Volume 9.9 fL (9.4-12.4); Monocytes Absolute Auto 1.2 X10*3/uL (0.1-1.2); Monocytes Percent Auto 14.1 % (2-11); Neutrophils Absolute Auto 5.5 x10*3/uL (2.0-8.3); Neutrophils Percent Auto 65.4 % (45-73); Platelet Count 211 X10*3/uL (160-400); Platelet Count 218 X10*3/uL (160-400); Red Blood Count 3.21 X10*6/uL (4.60-5.80); Red Blood Count 3.27 X10*6/uL (4.60-5.80); Red Cell Distribution Width 14.8 % (11.0-16.0); Red Cell Distribution Width 14.9 % (11.0-16.0); White Blood Count 7.8 X10*3/uL (4.8-10.8); White Blood Count 8.4 X10*3/uL (4.8-10.8)
[2024-10-25 07:18] LABS: Alanine Aminotransferase 32 U/L (0-40); Albumin Level 2.7 g/dL (3.5-5.0); Alkaline Phosphatase 35 U/L (39-117); Anion Gap 11 (12-20); Aspartate Amino Transferase 46 U/L (5-37); Bilirubin Total 0.5 mg/dL (0.0-1.0); Blood Urea Nitrogen 17 mg/dL (9-16); Carbon Dioxide 23 mmol/L (22-29); Chloride 112 mmol/L (96-108); Creatinine Clr Calc Pharmacy 53.8; Estimated Glomerular Filt Rate > 60; Glucose Fasting 81 mg/dL (60-99); Sodium 142 mmol/L (135-145); Total Protein 5.4 g/dL (6.5-8.0)
[2024-10-25 08:00] VITALS: BP 102/60; PULSE 60; RESP 20; TEMP 36.8; O2SAT 95
[2024-10-25] MEDS: 0.9 % Sodium Chloride Flush 3 ML SYRINGE IVFLUSH ×2 (09:46→20:44)
[2024-10-25] MEDS: Finasteride 5 MG TABLET PO (09:47)
[2024-10-25] MEDS: risperiDONE 1 MG TABLET PO (09:47)
[2024-10-25] MEDS: Amiodarone HCL 200 MG TABLET PO (09:47)
[2024-10-25] MEDS: polyethylene glycoL 3350 17 GM POWD.PACK PO ×2 (09:47→20:44)
--- NOTE | 2024-10-25 11:24 | MHC.CM.PN ---
CM has made another referral to [facility] [employer] for [facility] for Patient. CM will follow.
[2024-10-25 12:00] VITALS: BP 113/62; PULSE 68; RESP 20; TEMP 36.7; O2SAT 97
--- NOTE | 2024-10-25 12:02 | MHC.CM.PN ---
CM left a detailed message for Patient's Daughter/HCP/Freida @ [phone], encouraging her to cooperate with [facility] [employer] when she receives a call from them in order to secure [facility] LTC insurance for Patient, who will require LTC. FARA will continue to follow.
--- NOTE | 2024-10-25 13:01 | MHC.CM.PN ---
Addendum entered by Luz Elena Yee 10/25/24 13:10: Copy of HINN has been uploaded into [employer] and placed on the chart. Original Note: CM attempted again today to reach Daughter/HCP/Freida @ [phone], but again, was only able to leave a detailed message.FARA explained that a HINN 12 letter will be mailed out certified mail today. CM has encouraged Freida to speak with [facility] [employer] to get the [employer] bennie for LTC completed. CM will follow.
--- NOTE | 2024-10-25 14:18 | MHC.SL.DTX ---
Dysphagia Diet modifications: Last documented Solid diet consistencies: Grnd/Mech Altered (NDD2) Last documented Liquid consistency: Thin Last documented Medication Administration: Changes made to current diet?: Yes Liquid Consistency and Strategies: Liquid Intake Recommendation: Thin Compensatory Strategies for Safe Swallow: Small Sips Compensatory Strategies for Safe Swallow(b): Sitting Upright (90 deg) Liquids from Straw Alternate Liquids/Solids Rate of Ingestion Change Oral Check Solid Food Consistency: Dietary Recommendations: Chopped/Advanced (NDD3) Oral Medication Intake: Crushed with Puree Strategies and Precautions to be Taken for Safe Swallow: Sitting Upright (90 deg) Liquids from Straw Alternate Liquids/Solids Rate of Ingestion Change Oral Check Supervision While Eating and/Drinking: Total Assistance (1:1) Foods to Avoid: Mixed consistencies Swallowing Recommended Treatments: Compens. Strategy Educat. Level of Impact on: Daily activities: Mild Community: Mild Prognosis for Improvement: Fair Recommendation for Speech: Inpatient Speech Therapy Treatment: Per SHELL MOLDING ROLLER BLAST OPERATOR, Pt pocketing scrambled eggs for breakfast but tolerated 50% of his oatmeal. Pt is stating that he is not hungry, but is able to trial PO with encouragement. Pt provided Ground/Altered Solids (Chicken Salad) with adequate oral preparation and mild delay with no overt s/s of aspiration. He trialed Chopped/Advanced Solids (Chicken Salad [place]) with equally adequate oral preparation and mild delay with no overt s/s of aspiration. He tolerated Thin Liquids administered to him via Straw with no overt s/s of aspiration between each trial. Pt may benefit from more palatable food choices to increase PO intake with no additional risk of aspiration. SAGGER PREPARER recommending upgrade to Chopped/Advanced Solids (NDD3) with Thin Liquids. Meds Crushed in Puree. Pt requires 1:1 feeding. [place] Operator Clinican/Clinical Fellow: No Supervisory Statement: I have reviewed and agree with the student/clinical fellow's documentation: N/A Speech Language Pathologist: Kiko Damon M.A., [facility]-SAGGER PREPARER
--- NOTE | 2024-10-25 15:10 | P.PNIM_ITS ---
Subjective Subjective Date of Service: 10/25/24 Interval History: Pleasantly confused, offers no acute complaints, no recurrent hematuria, no acute events overnight. Review of Systems Unable to obtain due to mental status Physical Exam 2 Vital Signs: Vital Signs: Last Vital Signs Temp 98.0 F 10/25/24 12:00 Pulse 68 10/25/24 12:00 Resp 20 10/25/24 12:00 BP 113/62 10/25/24 12:00 Pulse Ox 97 10/25/24 12:00 O2 Del Method Room Air 10/25/24 12:00 O2 Flow Rate 3 10/18/24 11:12 Oxygen Flow Rate 3 10/14/24 14:19 BMI result Body Mass Index 24.5 Const: Other: General resting comfortably in no acute distress. Neck no JVD. CVS regular rate rhythm, Respiratory lungs clear to auscultation, no respiratory distress, no wheeze, no rhonchi. Gastrointestinal abdomen soft, nontender, bowel sounds audible, no guarding, no rigidity. Extremities no edema. Neuro non focal Skin no rash [place] catheter clear urine Objective Data Active Medications Acetaminophen (Acetaminophen 325 Mg Tablet) 650 mg PO Q6H PRN PRN Reason: Pain, Mild (Pain Scale 1-3), fever or headache Last Admin: 10/23/24 20:37 Dose: 650 mg Documented By: JAGUAR Acetaminophen (Acetaminophen Supp 650 Mg Supp.Rect) 650 mg MI Q4H PRN PRN Reason: Pain/Fever Albuterol Sulfate (Albuterol Sulfate 90 Mcg 8 Gm Inhaler) 2 puff INHALE Q4H PRN PRN Reason: Shortness Of Breath Alprazolam (Alprazolam 0.5 Mg Tablet) 0.5 mg PO BID [facility] Last Admin: 10/17/24 20:42 Dose: 0.5 mg Documented By: JONES Amiodarone HCl (Amiodarone Hcl 200 Mg Tablet) 200 mg PO DAILY [facility] Last Admin: 10/25/24 09:47 Dose: 200 mg Documented By: JAMAR Bisacodyl (Bisacodyl 10 Mg Supp.Rect) 10 mg MI DAILY PRN PRN Reason: Constipation Last Admin: 10/18/24 13:44 Dose: 10 mg Documented By: BHANU Calcium Carbonate (Calcium Carbonate 750 Mg Tab.Chew) 750 mg PO Q4H PRN PRN Reason: Heartburn Last Admin: 10/24/24 11:58 Dose: 750 mg Documented By: JUAN A Divalproex Sodium (Divalproex Sodium Sprinkles 125 Mg ) 750 mg PO BEDTIME [facility] Last Admin: 10/24/24 21:58 Dose: 750 mg Documented By: GIANCARLO Docusate Sodium (Docusate Sodium 100 Mg/10 Ml Liquid) 100 mg PO BEDTIME [facility] Last Admin: 10/24/24 22:45 Dose: 100 mg Documented By: GIANCARLO Doxazosin Mesylate (Doxazosin Mesylate 2 Mg Tablet) 4 mg PO BEDTIME [facility]; Protocol Last Admin: 10/24/24 21:58 Dose: 4 mg Documented By: GIANCARLO Finasteride (Finasteride 5 Mg Tablet) 5 mg PO DAILY [facility] Last Admin: 10/25/24 09:47 Dose: 5 mg Documented By: MALDOLeann Fluticasone/Vilanterol (Fluticasone/Vilanterol 100/25 Blst.W.Dev) 1 puff INHALE RDAILY [facility] Last Admin: 10/25/24 08:44 Dose: Not Given Documented By: ZOEY Non-Admin Reason: See Note Magnesium Hydroxide (Milk Of Magnesia 30 Ml Oral.Susp) 30 ml PO DAILY PRN PRN Reason: Constipation Melatonin (Melatonin 3 Mg Tablet) 6 mg PO BEDTIME PRN PRN Reason: Insomnia Last Admin: 10/22/24 20:46 Dose: 6 mg Documented By: NATHAN Comments: requested for sleep as worried about his Metoprolol Succinate (Metoprolol Succinate Er 50 Mg Tab.Er.24h) 50 mg PO BEDTIME [facility]; Protocol Last Admin: 10/24/24 21:58 Dose: 50 mg Documented By: GAINCARLO Mirtazapine (Mirtazapine 15 Mg Tablet) 15 mg PO BEDTIME [facility] Last Admin: 10/24/24 22:03 Dose: 15 mg Documented By: GIANCARLO Naloxone HCl (Naloxone Hcl 0.4 Mg/Ml Vial) 0.4 mg SUBCUT Q3M PRN PRN Reason: Sedation/Unresponsive Ondansetron HCl (Ondansetron Hcl 4 Mg/2 Ml Vial) 4 mg IVPUSH Q8H PRN PRN Reason: Nausea and Vomiting Polyethylene Glycol (Polyethylene Glycol 3350 17 Gm Powd.Pack) 17 gm PO BID [facility] Last Admin: 10/25/24 09:47 Dose: 17 gm Documented By: JAMAR Risperidone (Risperidone 1 Mg Tablet) 1 mg PO DAILY [facility] Last Admin: 10/25/24 09:47 Dose: 1 mg Documented By: JAMAR Sodium Biphosphate/Sodium Phosphate (Sodium Phosphate,[place]-Dibasic 133 Ml Enema) 118 ml MI DAILY PRN PRN Reason: Constipation Sodium Biphosphate/Sodium Phosphate (Sodium Phosphate,[place]-Dibasic 133 Ml Enema) 133 ml MI ONCE PRN PRN Reason: constipation Sodium Chloride (0.9 % Sodium Chloride Flush 3 Ml Syringe) 3 ml IVFLUSH QSHIFT [facility] Last Admin: 10/25/24 09:46 Dose: 3 ml Documented By: JAMAR Trazodone HCl (Trazodone Hcl 50 Mg Tablet) 50 mg PO BEDTIME [facility] Last Admin: 10/17/24 20:41 Dose: 50 mg Documented By: JONES Labs 10/25/24 06:46 10/25/24 06:46 Labs: Laboratory Results - last 24 hr 10/25/24 10/25/24 10/25/24 06:46 06:46 06:46 MCV 90.5 89.4 MCH 29.1 29.0 MCHC 32.1 RDW Plt Count MPV Immature Gran % (Auto) Neut % (Auto) Lymph % (Auto) [place] % (Auto) Eos % (Auto) Baso % (Auto) Lymph # (Auto) [place] # (Auto) Eos # (Auto) Baso # (Auto) Abs Immat Gran (auto) Absolute Neuts (auto) Absolute Nucleated RBC Nucleated RBC % (auto) Anion Gap Estim Creat Clear Calc Estimated GFR Fasting Glucose Calcium Total Bilirubin AST ALT Alkaline Phosphatase Total Protein Albumin 10/25/24 10/25/24 10/25/24 06:46 06:46 06:46 MCV MCH MCHC 32.4 RDW 14.8 14.9 Plt Count 211 218 MPV 10.1 Immature Gran % (Auto) Neut % (Auto) Lymph % (Auto) Ford % (Auto) Eos % (Auto) Baso % (Auto) Lymph # (Auto) Ford # (Auto) Eos # (Auto) Baso # (Auto) Abs Immat Gran (auto) Absolute Neuts (auto) Absolute Nucleated RBC Nucleated RBC % (auto) Anion Gap Estim Creat Clear Calc Estimated GFR Fasting Glucose Calcium Total Bilirubin AST ALT Alkaline Phosphatase Total Protein Albumin 10/25/24 10/25/24 10/25/24 06:46 06:46 06:46 MCV MCH MCHC RDW Plt Count MPV 9.9 Immature Gran % (Auto) 1.0 H Neut % (Auto) 65.4 Lymph % (Auto) 15.3 L Ford % (Auto) 14.1 H Eos % (Auto) 3.7 Baso % (Auto) 0.5 Lymph # (Auto) 1.3 Ford # (Auto) 1.2 Eos # (Auto) 0.3 Baso # (Auto) 0.0 Abs Immat Gran (auto) 0.08 H Absolute Neuts (auto) 5.5 Absolute Nucleated RBC 0.000 0.000 Nucleated RBC % (auto) 0.0 0.0 Anion Gap 11 L Estim Creat Clear Calc 53.8 Estimated GFR > 60 Fasting Glucose 81 Calcium 9.0 D Total Bilirubin 0.5 AST 46 H ALT 32 Alkaline Phosphatase 35 L Total Protein 5.4 L Albumin 2.7 L Assessment and Plan (1) Aspiration pneumonitis: Status: Acute (2) Hematuria: Status: Acute Plan 84-year-old female with a PMH significant for HFrEF, CKD, paroxysmal AFib on Eliquis, hx of V tach, s/p pacer in place, HLD, urinary retention, BPH, dementia, anxiety, and bipolar disorder?who presented to the ED from [facility] after unwitnessed fall out of bed. Pt admitted to the hospital for treatment and further evaluation of acute hypoxic respiratory failure in the setting of likely aspiration pneumonitis after unwitnessed fall out of bed. 1.Acute hypoxic respiratory failure likely secondary to aspiration pneumonitis - Denies cough, no shortness of breath s/p IV Zosyn x 7days, stable oxygenation on room air - being followed by speech therapy diet advanced to chopped NDD 3 with clear liquids, continue ensure supplements 2.Urinary retention/hematuria - hematuria resolved, continue proscar, and carduara -resume Eliquis since no recurrent hematuria 3.Paroxysmal AFib -acceptable rate control at this time, continue metoprolol and resume Eliquis 4.HFrEF -stable and well compensated at this time 5.Mood disorder/dementia -stable at this time -continue current therapies. Trazodone and alprazolam held due to am sedation. 6. Constipation resolved continue bowel regimen 7. VENU on CKD 3 resolved DNR compression boots requires ongoing inpatient stay for management of aspiration pneumonitis / monitoring on anticoagulation and safe disposition Quality Stroke Does the patient have a stroke diagnosis?: No VTE Prior VTE?: No VTE Risk Level:: Medical - moderate - high VTE Device Contraindication: N/A - Device Ordered VTE Drug Contraindication: Treatment Not Indicated
[2024-10-25 15:22] VITALS: BP 129/65; PULSE 72; RESP 30; TEMP 36.3; O2SAT 97
[2024-10-25 20:00] VITALS: BP 130/67; PULSE 83; RESP 20; TEMP 37; O2SAT 93
[2024-10-25] MEDS: Divalproex Sodium Sprinkles 125 MG CAP.DR.SPR 750 MG PO (20:36)
[2024-10-25] MEDS: Melatonin 3 MG TABLET 6 MG PO (20:39)
[2024-10-25] MEDS: Mirtazapine 15 MG TABLET PO (20:41)
[2024-10-25] MEDS: Doxazosin Mesylate 2 MG TABLET 4 MG PO (20:41)
[2024-10-25] MEDS: Apixaban 2.5 MG TABLET PO (20:41)
[2024-10-25] MEDS: Acetaminophen 325 MG TABLET 650 MG PO (20:42)
[2024-10-25] MEDS: Metoprolol Succinate ER 50 MG TAB.ER.24H PO (20:43)
[2024-10-26] VITALS (7 sets, daily range): BP systolic 111–135; BP diastolic 60–71; PULSE 63–72; RESP 14–20; TEMP 36.1–36.9; O2SAT 92–96
[2024-10-26] MEDS: Finasteride 5 MG TABLET PO (08:37)
[2024-10-26] MEDS: Amiodarone HCL 200 MG TABLET PO (08:37)
[2024-10-26] MEDS: polyethylene glycoL 3350 17 GM POWD.PACK PO (08:37)
[2024-10-26] MEDS: 0.9 % Sodium Chloride Flush 3 ML SYRINGE IVFLUSH ×2 (08:37→20:32)
[2024-10-26] MEDS: risperiDONE 1 MG TABLET PO (08:37)
[2024-10-26] MEDS: Apixaban 2.5 MG TABLET PO ×2 (08:37→20:31)
--- NOTE | 2024-10-26 10:39 | MHC.CLN ---
F/U PT WITH INCREASED NUTRITION RISK R/T PRESSURE INJURY PO INTAKE REMAINS POOR WITH VARIABLE INTAKE RANGING FROM 0-50% NOTED PT REFUSED BREAKFAST YESTERDAY STATING HE WASN'T HUNGRY DIET RX: UPGRADED TO CHOPPED PER PLASTIC CARD GRADER CARDROOM ENSURE TID TO PROMOTE WOUND HEALING SUPPLEMENT PROVIDES 1050 KCALS, 60 G PROTEIN WITH 100% ACCEPTANCE WILL ADD MAGIC CUP WITH MEALS TO INCREASE KCAL INTAKE MONITOR PO INTAKE AND ENCOURAGE SUPPLEMENTS
--- NOTE | 2024-10-26 11:17 | MHC.SL.SWA ---
Speech Pathologist Impression: Mild oropharyngeal dysphagia in presence of inconsistent awareness and age-related changes to swallow mechanism Risk of Aspiration Due to: History of Pneumonia Reduced Cognition Dysphasia Diet Status: ENVIRONMENTAL ENGINEERING INTERN recommending pt remain on Chopped/Advanced Solids (NDD3) with Thin Liquids. Meds Crushed in Puree. Pt requires 1:1 feeding. [ End ] Liquid Consistency and Strategies for Safe Swallow: Liquid Intake Recommendation: Thin Liquid Intake Strategies: Small Sips Solid Food Consistency: Dietary Recommendations: Chopped/Advanced (NDD3) Additional Modifications to Solid Foods: Encourage pt sit upright to highest degree he will comfortably tolerate, slow pacing, encourage PO intake, alternate consistencies, verbally cue pt to choose preferred items, pause feeding pt if he coughs. Oral Medication Intake: Crushed with Puree Please contact the pharmacy regarding appropriate crushable or liquid drug formulations that are available whenever modified delivery is recommended. Compensatory Strategies and Precautions to be Taken for Safe Swallow: Sitting Upright (90 deg) Liquids from Straw Small Bites and Sips Alternate Liquids/Solids Rate of Ingestion Change Supervision While Eating and Drinking for Safe Swallow: Total Supervision (1:1) Foods to Avoid: Mixed consistencies Swallowing Recommended Treatments: Compens. Strategy Educat. Recommendation for Speech: Inpatient Speech Therapy Comment: Physiological function of swallow remains WNL when pt accepts/participates in PO intake. Few behavioral challenges evident in past few treatments. Pt showing improved cognitive ability in maintaining attention during meal to encourage adequate PO intake. ENVIRONMENTAL ENGINEERING INTERN to continue following Frequency/Duration: Date Range for Service Req: Timeline to reassess: Director Of Real Estate Clinican/Clinical Fellow: No Supervisory Statement: I have reviewed and agree with the student/clinical fellow's documentation: N/A Speech Language Pathologist: Madison Dickens M.S., CCC-ENVIRONMENTAL ENGINEERING INTERN
--- NOTE | 2024-10-26 12:17 | P.PNIM_ITS ---
Subjective Subjective Date of Service: 10/26/24 Interval History: Pleasantly confused, tolerating diet with no coughing episodes, no acute events overnight sleeping well, no daytime sedation noted. Review of Systems Unable to obtain due to mental status. Physical Exam 2 Vital Signs: Vital Signs: Last Vital Signs Temp 97.0 F 10/26/24 11:09 Pulse 69 10/26/24 11:09 Resp 17 10/26/24 11:09 BP 111/60 10/26/24 11:09 Pulse Ox 95 10/26/24 11:09 O2 Del Method Room Air 10/26/24 11:09 O2 Flow Rate 3 10/18/24 11:12 Oxygen Flow Rate 3 10/14/24 14:19 BMI result Body Mass Index 24.5 Const: Other: General resting comfortably in no acute distress. Neck no JVD. CVS regular rate rhythm, Respiratory lungs clear to auscultation, no respiratory distress, no wheeze, no rhonchi. Gastrointestinal abdomen soft, nontender, bowel sounds audible, no guarding, no rigidity. Extremities no edema. Neuro non focal , moving all 4 extremities Skin no rash [place] catheter clear urine Objective Data Active Medications Acetaminophen (Acetaminophen 325 Mg Tablet) 650 mg PO Q6H PRN PRN Reason: Pain, Mild (Pain Scale 1-3), fever or headache Last Admin: 10/25/24 20:42 Dose: 650 mg Documented By: CONNOR Acetaminophen (Acetaminophen Supp 650 Mg Supp.Rect) 650 mg MA Q4H PRN PRN Reason: Pain/Fever Albuterol Sulfate (Albuterol Sulfate 90 Mcg 8 Gm Inhaler) 2 puff INHALE Q4H PRN PRN Reason: Shortness Of Breath Alprazolam (Alprazolam 0.5 Mg Tablet) 0.5 mg PO BID [facility] Last Admin: 10/17/24 20:42 Dose: 0.5 mg Documented By: JONES Amiodarone HCl (Amiodarone Hcl 200 Mg Tablet) 200 mg PO DAILY [facility] Last Admin: 10/26/24 08:37 Dose: 200 mg Documented By: JAMAR Apixaban (Apixaban 2.5 Mg Tablet) 2.5 mg PO BID [facility] Last Admin: 10/26/24 08:37 Dose: 2.5 mg Documented By: JAMAR Bisacodyl (Bisacodyl 10 Mg Supp.Rect) 10 mg MA DAILY PRN PRN Reason: Constipation Last Admin: 10/18/24 13:44 Dose: 10 mg Documented By: BHANU Calcium Carbonate (Calcium Carbonate 750 Mg Tab.Chew) 750 mg PO Q4H PRN PRN Reason: Heartburn Last Admin: 10/24/24 11:58 Dose: 750 mg Documented By: JUAN A Divalproex Sodium (Divalproex Sodium Sprinkles 125 Mg Kimo.) 750 mg PO BEDTIME [facility] Last Admin: 10/25/24 20:36 Dose: 750 mg Documented By: CONNOR Docusate Sodium (Docusate Sodium 100 Mg/10 Ml Liquid) 100 mg PO BEDTIME [facility] Last Admin: 10/25/24 20:43 Dose: Not Given Documented By: CONNOR Non-Admin Reason: Patient Refused Doxazosin Mesylate (Doxazosin Mesylate 2 Mg Tablet) 4 mg PO BEDTIME [facility]; Protocol Last Admin: 10/25/24 20:41 Dose: 4 mg Documented By: CONNOR Finasteride (Finasteride 5 Mg Tablet) 5 mg PO DAILY [facility] Last Admin: 10/26/24 08:37 Dose: 5 mg Documented By: JAMAR Fluticasone/Vilanterol (Fluticasone/Vilanterol 100/25 Blst.W.Dev) 1 puff INHALE RDAILY [facility] Last Admin: 10/26/24 07:48 Dose: Not Given Documented By: MAEVE Non-Admin Reason: Patient Asleep Magnesium Hydroxide (Milk Of Magnesia 30 Ml Oral.Susp) 30 ml PO DAILY PRN PRN Reason: Constipation Melatonin (Melatonin 3 Mg Tablet) 6 mg PO BEDTIME PRN PRN Reason: Insomnia Last Admin: 10/25/24 20:39 Dose: 6 mg Documented By: CONNOR Metoprolol Succinate (Metoprolol Succinate Er 50 Mg Tab.Er.24h) 50 mg PO BEDTIME [facility]; Protocol Last Admin: 10/25/24 20:43 Dose: 50 mg Documented By: CONNOR Mirtazapine (Mirtazapine 15 Mg Tablet) 15 mg PO BEDTIME [facility] Last Admin: 10/25/24 20:41 Dose: 15 mg Documented By: CONNOR Naloxone HCl (Naloxone Hcl 0.4 Mg/Ml Vial) 0.4 mg SUBCUT Q3M PRN PRN Reason: Sedation/Unresponsive Ondansetron HCl (Ondansetron Hcl 4 Mg/2 Ml Vial) 4 mg IVPUSH Q8H PRN PRN Reason: Nausea and Vomiting Polyethylene Glycol (Polyethylene Glycol 3350 17 Gm Powd.Pack) 17 gm PO BID [facility] Last Admin: 10/26/24 08:37 Dose: 17 gm Documented By: JAMAR Risperidone (Risperidone 1 Mg Tablet) 1 mg PO DAILY [facility] Last Admin: 10/26/24 08:37 Dose: 1 mg Documented By: JAMAR Sodium Biphosphate/Sodium Phosphate (Sodium Phosphate,[place]-Dibasic 133 Ml Enema) 118 ml MA DAILY PRN PRN Reason: Constipation Sodium Biphosphate/Sodium Phosphate (Sodium Phosphate,[place]-Dibasic 133 Ml Enema) 133 ml MA ONCE PRN PRN Reason: constipation Sodium Chloride (0.9 % Sodium Chloride Flush 3 Ml Syringe) 3 ml IVFLUSH QSHIFT [facility] Last Admin: 10/26/24 08:37 Dose: 3 ml Documented By: JAMAR Trazodone HCl (Trazodone Hcl 50 Mg Tablet) 50 mg PO BEDTIME [facility] Last Admin: 10/17/24 20:41 Dose: 50 mg Documented By: JONES Labs 10/25/24 06:46 10/25/24 06:46 Assessment and Plan (1) Aspiration pneumonitis: Status: Acute (2) Hematuria: Status: Acute (3) Acute urinary retention: Status: Acute Plan 84-year-old female with a PMH significant for HFrEF, CKD, paroxysmal AFib on Eliquis, hx of V tach, s/p pacer in place, HLD, urinary retention, BPH, dementia, anxiety, and bipolar disorder?who presented to the ED from [facility] after unwitnessed fall out of bed. Pt admitted to the hospital for treatment and further evaluation of acute hypoxic respiratory failure in the setting of likely aspiration pneumonitis after unwitnessed fall out of bed. 1.Acute hypoxic respiratory failure likely secondary to aspiration pneumonitis - no shortness of breath noted, s/p IV Zosyn x 7days, stable oxygenation on room air - being followed by speech therapy diet advanced to chopped NDD 3 with clear liquids, continue ensure supplements 2.Urinary retention/hematuria - hematuria resolved, continue proscar, and carduara -resumed Eliquis 10/25, since no recurrent hematuria 3.Paroxysmal AFib -acceptable rate control at this time, continue metoprolol and Eliquis 4.HFrEF -stable and well compensated at this time 5.Mood disorder/dementia -stable at this time -continue current therapies. Trazodone and alprazolam held due to am sedation. 6. Constipation resolved continue bowel regimen 7. VENU on CKD 3 resolved DNR compression boots requires ongoing inpatient stay for management of aspiration pneumonitis / monitoring on anticoagulation and safe disposition Quality Stroke Does the patient have a stroke diagnosis?: No VTE Prior VTE?: No VTE Risk Level:: Medical - moderate - high VTE Device Contraindication: N/A - Device Ordered VTE Drug Contraindication: Treatment Not Indicated
--- NOTE | 2024-10-26 12:20 | MHC.CM.PN ---
Per [facility] [employer]/Cassi, Patient's Daughter/HCP/Freida indicated to Cassi yesterday that her intention is to take her Father/Patient home, not to LTC. FARA called Freida, but was only able to leave a detailed message. FARA awaits a return call from Freida to set up a home dc today, since Patient is medically cleared for dc.
--- NOTE | 2024-10-26 16:19 | HO.WOUND ---
Wound Consult: Initial 84yr old male? admitted to [facility] on 10/14/24 - See progress notes and H&P for detailed history.? Wound consult placed for Coccyx / Sacral wound.? Patient agreeable to assessment and photo documentation.? Sacrum Etiology: ??Unstageable Pressure Injury Present on Admission Measurements: 3cm x 4cm x 0.3cm Wound Bed: adherent yellow slough Drainage / Odor: yellow nath drainage moderate amount no odor noted Edges: ? irregular [place] wound: ?MASD - red pink blanchable tissue with dry desquamation noted - No Induration, Fluctuance or Warmth noted Pain: tenderness reported Goals of Treatment: ? Off load pressure - Triad with foam dressing to allow for autolytic debridement Recommendations: 1. Turn and Reposition every 2 hours and as needed for patient comfort.? Use pillows or wedges to support off loading positions. 2. Off Load all bony prominences with use of pillows and heel boots if needed.? Apply Preventative foams where needed. ? 3. Monitor for incontinence and moisture control, use barrier creams when needed for prevention and treatment. 4. Provide adequate and supplemental nutrition.? 5. Continue low air loss mattress. 6. When applicable maintain blood glucose levels per Providers order. 7. Sacrum - Off Load Pressure? - Cleanse with PH balance spray or wipes, pat dry. ?Apply thin layer of Triad to wound bed. Do not remove all of paste between applications as this may cause further skin damage.? Cover with foam dressing to aid in off loading and protection from friction. Change every 5 days and PRN. Re-consult wound care Nurse for wound deterioration or wound changes.
[2024-10-26] MEDS: Divalproex Sodium Sprinkles 125 MG CAP.DR.SPR 750 MG PO (20:31)
[2024-10-26] MEDS: Doxazosin Mesylate 2 MG TABLET 4 MG PO (20:31)
[2024-10-26] MEDS: Mirtazapine 15 MG TABLET PO (20:31)
[2024-10-26] MEDS: Metoprolol Succinate ER 50 MG TAB.ER.24H PO (20:31)
[2024-10-26] MEDS: Docusate Sodium 100 MG/10 ML LIQUID 200 MG PO (20:40)
[2024-10-27 02:54] VITALS: BP 110/63; PULSE 57; RESP 14; TEMP 36.4; O2SAT 93
[2024-10-27 07:08] VITALS: BP 123/62; PULSE 60; RESP 19; TEMP 36.4; O2SAT 95
[2024-10-27] MEDS: Amiodarone HCL 200 MG TABLET PO (09:36)
[2024-10-27] MEDS: Finasteride 5 MG TABLET PO (09:36)
[2024-10-27] MEDS: 0.9 % Sodium Chloride Flush 3 ML SYRINGE IVFLUSH ×3 (09:36→21:53)
[2024-10-27] MEDS: polyethylene glycoL 3350 17 GM POWD.PACK PO (09:36)
[2024-10-27] MEDS: risperiDONE 1 MG TABLET PO (09:36)
[2024-10-27] MEDS: Apixaban 2.5 MG TABLET PO ×2 (09:36→21:43)
[2024-10-27 10:48] VITALS: BP 119/63; PULSE 60; RESP 16; TEMP 36.6; O2SAT 94
--- NOTE | 2024-10-27 12:15 | HO.PM.IMPN ---
Subjective Subjective Date of Service: 10/27/24 Interval History: Being followed for hypoxic respiratory failure/urinary retention and hematuria All medical issues resolved, patient remains pleasantly confused, offers no acute symptoms, no acute events overnight. Review of Systems Unable to obtain due to mental status. Physical Exam Vital Signs: Vital Signs: Last Vital Signs Temp 97.9 F 10/27/24 10:48 Pulse 60 10/27/24 10:48 Resp 16 10/27/24 10:48 BP 119/63 10/27/24 10:48 Pulse Ox 94 10/27/24 10:48 O2 Del Method Room Air 10/27/24 10:48 O2 Flow Rate 3 10/18/24 11:12 Oxygen Flow Rate 3 10/14/24 14:19 BMI result Body Mass Index 24.5 Const: Other: General resting comfortably in no acute distress. Neck no JVD. CVS regular rate rhythm, Respiratory lungs clear to auscultation, no respiratory distress, no wheeze, no rhonchi. Gastrointestinal abdomen soft, nontender, bowel sounds audible, no guarding, no rigidity. Extremities no edema. Neuro non focal , moving all 4 extremities Skin no rash [place] catheter clear urine Objective Data Active Medications Acetaminophen (Acetaminophen 325 Mg Tablet) 650 mg PO Q6H PRN PRN Reason: Pain, Mild (Pain Scale 1-3), fever or headache Last Admin: 10/25/24 20:42 Dose: 650 mg Documented By: CONNOR Acetaminophen (Acetaminophen Supp 650 Mg Supp.Rect) 650 mg [place] Q4H PRN PRN Reason: Pain/Fever Albuterol Sulfate (Albuterol Sulfate 90 Mcg 8 Gm Inhaler) 2 puff INHALE Q4H PRN PRN Reason: Shortness Of Breath Alprazolam (Alprazolam 0.5 Mg Tablet) 0.5 mg PO BID [facility] Last Admin: 10/17/24 20:42 Dose: 0.5 mg Documented By: JONES Amiodarone HCl (Amiodarone Hcl 200 Mg Tablet) 200 mg PO DAILY [facility] Last Admin: 10/27/24 09:36 Dose: 200 mg Documented By: KATHRINE Apixaban (Apixaban 2.5 Mg Tablet) 2.5 mg PO BID [facility] Last Admin: 10/27/24 09:36 Dose: 2.5 mg Documented By: KATHRINE Bisacodyl (Bisacodyl 10 Mg Supp.Rect) 10 mg NH DAILY PRN PRN Reason: Constipation Last Admin: 10/18/24 13:44 Dose: 10 mg Documented By: BHANU Calcium Carbonate (Calcium Carbonate 750 Mg Tab.Chew) 750 mg PO Q4H PRN PRN Reason: Heartburn Last Admin: 10/24/24 11:58 Dose: 750 mg Documented By: JUAN A Divalproex Sodium (Divalproex Sodium Sprinkles 125 Mg Kimo.Spr) 750 mg PO BEDTIME SHAYY Last Admin: 10/26/24 20:31 Dose: 750 mg Documented By: DEANA Docusate Sodium (Docusate Sodium 100 Mg/10 Ml Liquid) 200 mg PO BEDTIME SHAYY Last Admin: 10/26/24 20:40 Dose: 200 mg Documented By: DEANA Doxazosin Mesylate (Doxazosin Mesylate 2 Mg Tablet) 4 mg PO BEDTIME SHAYY; Protocol Last Admin: 10/26/24 20:31 Dose: 4 mg Documented By: DEANA Finasteride (Finasteride 5 Mg Tablet) 5 mg PO DAILY [facility] Last Admin: 10/27/24 09:36 Dose: 5 mg Documented By: KATHRINE Fluticasone/Vilanterol (Fluticasone/Vilanterol 100/25 Blst.W.Dev) 1 puff INHALE RDAILY [facility] Last Admin: 10/27/24 07:32 Dose: Not Given Documented By: BEN Non-Admin Reason: Patient Condition Contraindication Magnesium Hydroxide (Milk Of Magnesia 30 Ml Oral.Susp) 30 ml PO DAILY PRN PRN Reason: Constipation Melatonin (Melatonin 3 Mg Tablet) 6 mg PO BEDTIME PRN PRN Reason: Insomnia Last Admin: 10/25/24 20:39 Dose: 6 mg Documented By: CONNOR Metoprolol Succinate (Metoprolol Succinate Er 50 Mg Tab.Er.24h) 50 mg PO BEDTIME SHAYY; Protocol Last Admin: 10/26/24 20:31 Dose: 50 mg Documented By: DEANA Mirtazapine (Mirtazapine 15 Mg Tablet) 15 mg PO BEDTIME SHAYY Last Admin: 10/26/24 20:31 Dose: 15 mg Documented By: DEANA Naloxone HCl (Naloxone Hcl 0.4 Mg/Ml Vial) 0.4 mg SUBCUT Q3M PRN PRN Reason: Sedation/Unresponsive Ondansetron HCl (Ondansetron Hcl 4 Mg/2 Ml Vial) 4 mg IVPUSH Q8H PRN PRN Reason: Nausea and Vomiting Polyethylene Glycol (Polyethylene Glycol 3350 17 Gm Powd.Pack) 17 gm PO DAILY [facility] Last Admin: 10/27/24 09:36 Dose: 17 gm Documented By: KATHRINE Risperidone (Risperidone 1 Mg Tablet) 1 mg PO DAILY [facility] Last Admin: 10/27/24 09:36 Dose: 1 mg Documented By: KATHRINE Sodium Biphosphate/Sodium Phosphate (Sodium Phosphate,Worth-Dibasic 133 Ml Enema) 118 ml NH DAILY PRN PRN Reason: Constipation Sodium Biphosphate/Sodium Phosphate (Sodium Phosphate,Worth-Dibasic 133 Ml Enema) 133 ml NH ONCE PRN PRN Reason: constipation Sodium Chloride (0.9 % Sodium Chloride Flush 3 Ml Syringe) 3 ml IVFLUSH QSHIFT [facility] Last Admin: 10/27/24 09:36 Dose: 3 ml Documented By: KATHRINE Trazodone HCl (Trazodone Hcl 50 Mg Tablet) 50 mg PO BEDTIME [facility] Last Admin: 10/17/24 20:41 Dose: 50 mg Documented By: JONES Labs 10/25/24 06:46 10/25/24 06:46 Assessment and Plan (1) Aspiration pneumonitis: Status: Acute (2) Hematuria: Status: Acute Plan 84-year-old female with a PMH significant for HFrEF, CKD, paroxysmal AFib on Eliquis, hx of V tach, s/p pacer in place, HLD, urinary retention, BPH, dementia, anxiety, and bipolar disorder?who presented to the ED from [facility] after unwitnessed fall out of bed. Pt admitted to the hospital for treatment and further evaluation of acute hypoxic respiratory failure in the setting of likely aspiration pneumonitis after unwitnessed fall out of bed. 1.Acute hypoxic respiratory failure likely secondary to aspiration pneumonitis - asymptomatic, s/p IV Zosyn x 7days, stable oxygenation on room air - being followed by speech therapy diet advanced to chopped NDD 3 with clear liquids, continue ensure supplements 2.Urinary retention/hematuria - hematuria resolved, continue proscar, and Shayna soares discontinued -resumed Eliquis 10/25, no recurrent hematuria, check CBC at a.m. 3.Paroxysmal AFib -acceptable rate control , continue metoprolol and Eliquis 4.HFrEF -stable and well compensated 5.Mood disorder/dementia -stable ,continue current therapies. Trazodone and alprazolam held due to am sedation. 6. Constipation resolved continue bowel regimen 7. VENU on CKD 3 resolved DNR compression boots requires ongoing inpatient stay for management of aspiration pneumonitis / monitoring on anticoagulation and safe disposition Quality Stroke Does the patient have a stroke diagnosis?: No VTE Prior VTE?: No VTE Risk Level:: Medical - moderate - high VTE Device Contraindication: N/A - Device Ordered VTE Drug Contraindication: Treatment Not Indicated
--- NOTE | 2024-10-27 13:10 | P.CDIM_ITS ---
PROVIDER RESPONSE TEXT: To clarify, the appropriate diagnosis supported by the clinical indicators: Pressure injury sacrum, unstageable: as per wound nurse QUERY TEXT: PHYSICIAN'S DOCUMENTATION REQUEST Date of Query: 10/27/2024 12:57 PM EST Patient Name: Ramsey Caldera Admit Date: 10/15/2024 Dear Avani Varela MD, A review of the medical record indicates additional documentation may be needed. Please review below and update the documentation accordingly. Clinical Indicators: Wound care notes 10/26 - Unstageable Pressure injury sacrum, present on admission. Treatment: Off load pressure - Triad with foam dressing to allow for autolytic debridement. Based on the above, could you please provide further information regarding the ulcer/wound/injury: Pressure injury sacrum, unstageable possible, probable, suspected etc. Other (explain) Clinically unable to determine (explain) Thank you, Tanna Bowles, CCS, CDIS Use of terms such as suspected, likely, concern for, or probable (associated with a specific diagnosi s that is being evaluated, monitored, or treated as if it exists) are acceptable and can be coded in the inpatient se tting, when documented at the time of discharge. Please use your independent medical judgment in providing your response. THIS QUERY IS PART OF THE PERMANENT MEDICAL RECORD
--- NOTE | 2024-10-27 13:25 | MHC.SL.SWA ---
Speech Pathologist Impression: Risk of Aspiration Due to: History of Pneumonia Reduced Cognition Dysphasia Diet Status: Recommend continue on current diet of Chopped/Advanced (NDD3) with thin liquids, please restrict use of straws, pills whole in puree. Liquid Consistency and Strategies for Safe Swallow: Liquid Intake Recommendation: Thin Liquid Intake Strategies: Small Sips No Straws Solid Food Consistency: Dietary Recommendations: Chopped/Advanced (NDD3) Additional Modifications to Solid Foods: No straws. Patient requires 1-1 feed, aspiration precautions. Oral Medication Intake: Whole or crushed with Puree Please contact the pharmacy regarding appropriate crushable or liquid drug formulations that are available whenever modified delivery is recommended. Compensatory Strategies and Precautions to be Taken for Safe Swallow: Sitting Upright (90 deg) Liquids from Cup Small Bites and Sips Alternate Liquids/Solids Rate of Ingestion Change Supervision While Eating and Drinking for Safe Swallow: Total Assistance (1:1) Foods to Avoid: Mixed consistencies Swallowing Recommended Treatments: Compens. Strategy Educat. Recommendation for Speech: Inpatient Speech Therapy Comment:Patient seen at lunch today. CODING CONSULTANT had already attempted lunch with patient, with patient consuming only about 1/8 of meal, then declining. FURNACE COOLER offered patient Magic Cup on tray, which with encouragement he was able to try. Patient was producing baseline swallow pattern of mild delay initiating swallow when given this texture, but had no clinical signs of aspiration. Patient then encouraged to take sips by straw of nutritional shake, with patient taking two serial sips, then coughing repeatedly after swallow, and evidencing wet vocal quality, which improved with repeat coughs to clear. Patient very confused, but pleasant and cooperative today. Recommend continue on current diet of Chopped/Advanced (NDD3) with thin liquids, please restrict use of straws, pills whole in puree. Patient continues to require 1-1 feed. Frequency/Duration: Date Range for Service Req: Timeline to reassess: Inspector Plumbing Clinican/Clinical Fellow: No Supervisory Statement: I have reviewed and agree with the student/clinical fellow's documentation: N/A Speech Language Pathologist: Ann Dodd M.A., CCC-FURNACE COOLER
[2024-10-27 15:12] VITALS: BP 117/67; PULSE 80; RESP 16; TEMP 36.6; O2SAT 97
[2024-10-27 19:08] VITALS: BP 130/63; PULSE 87; RESP 18; TEMP 36.6; O2SAT 95
[2024-10-27] MEDS: Mirtazapine 15 MG TABLET PO (21:43)
[2024-10-27] MEDS: Metoprolol Succinate ER 50 MG TAB.ER.24H PO (21:43)
[2024-10-27] MEDS: Divalproex Sodium Sprinkles 125 MG CAP.DR.SPR 750 MG PO (21:43)
[2024-10-27] MEDS: Doxazosin Mesylate 2 MG TABLET 4 MG PO (21:43)
[2024-10-27] MEDS: Docusate Sodium 100 MG/10 ML LIQUID 200 MG PO (21:54)
[2024-10-27 23:36] VITALS: BP 116/66; PULSE 77; RESP 18; TEMP 37.1; O2SAT 95
[2024-10-28 03:56] VITALS: BP 110/56; PULSE 70; RESP 18; TEMP 36.6; O2SAT 94
[2024-10-28 07:05] VITALS: BP 124/64; PULSE 73; RESP 20; TEMP 36.6; O2SAT 96
[2024-10-28 07:16] LABS: Hematocrit 27.5 % (42.0-52.0); Hemoglobin 8.8 g/dl (14.0-18.0); Mean Corpuscular Hemoglobin 28.3 pg (27.0-33.0); Mean Corpuscular Volume 88.4 fL (80.0-98.0); Mean Platelet Volume 10.2 fL (9.4-12.4); Platelet Count 241 X10*3/uL (160-400); Red Blood Count 3.11 X10*6/uL (4.60-5.80); Red Cell Distribution Width 14.6 % (11.0-16.0); White Blood Count 7.2 X10*3/uL (4.8-10.8)
[2024-10-28] MEDS: 0.9 % Sodium Chloride Flush 3 ML SYRINGE IVFLUSH (08:35)
[2024-10-28] MEDS: Finasteride 5 MG TABLET PO (08:35)
[2024-10-28] MEDS: Apixaban 2.5 MG TABLET PO ×2 (08:35→21:44)
[2024-10-28] MEDS: polyethylene glycoL 3350 17 GM POWD.PACK PO (08:35)
[2024-10-28] MEDS: risperiDONE 1 MG TABLET PO (08:35)
[2024-10-28] MEDS: Amiodarone HCL 200 MG TABLET PO (08:35)
--- NOTE | 2024-10-28 10:48 | MHC.CM.PN ---
CM spoke with Daughter/HCP/Freida, who would like to take Patient home to live with her on 10/30/2024, via BLS. Daughter explains that she is working with the [facility] on equipment, including the installation of a w/c ramp from the carport to the door. Daughter explains that she hurt her back and has been dealing with the recent of her Sister, but is eager to try to take her Father home; A referral has been made to [facility].Patient's PCP is Dr. Meredith in [place]. CM did remind Daughter that HINN was issued on 10/25/2024 and she asked about paying with a certified check.CM will follow.
--- NOTE | 2024-10-28 10:54 | PC.NURSE ---
Pressure injury to sacrum : wound bed with yellow color , [facility] Naylor was notified , re consult wound care . Reposition pt q 2 hr dressing was changed today
--- NOTE | 2024-10-28 11:00 | MHC.CM.PN ---
Addendum entered by Luz Elena Yee 10/28/24 11:05: Additional [facility] referrals have been made in case a dc to home indeed happens, but LTC is the recommendation. CM will follow. Daughter has not cooperated with [facility] [employer] on the [facility] Queue-it bennie. Original Note: Per [facility], they are unable to accept Patient r/t concerns that a dc to home may not be the best option. CM will follow.
[2024-10-28 11:02] VITALS: BP 105/59; PULSE 84; RESP 20; TEMP 36.7; O2SAT 95
--- NOTE | 2024-10-28 11:17 | MHC.SL.SWA ---
Speech Pathologist Impression: Risk of Aspiration Risk of Aspiration Due to: History of Pneumonia Reduced Cognition Dysphasia Diet Status: Recommend continue on current diet of Chopped/Advanced (NDD3) with thin liquids, please restrict use of straws, pills whole in puree. Liquid Consistency and Strategies for Safe Swallow: Liquid Intake Recommendation: Thin Liquid Intake Strategies: Small Sips No Straws Solid Food Consistency: Dietary Recommendations: Chopped/Advanced (NDD3) Additional Modifications to Solid Foods: Do not attempt if patient is overly lethargic, discontinue if patient becomes too lethargic during meal, or with evidence/clinical signs of aspiration (coughing, increased upper airway noise, drop in 02 sats). Oral Medication Intake: Crushed with Puree Please contact the pharmacy regarding appropriate crushable or liquid drug formulations that are available whenever modified delivery is recommended. Compensatory Strategies and Precautions to be Taken for Safe Swallow: Sitting Upright (90 deg) Liquids from Cup Small Bites and Sips Alternate Liquids/Solids Rate of Ingestion Change Supervision While Eating and Drinking for Safe Swallow: Total Assistance (1:1) Foods to Avoid: Mixed consistencies Swallowing Recommended Treatments: Compens. Strategy Educat. Recommendation for Speech: Inpatient Speech Therapy Comment: Pt with increased confusion, inability to follow simple cues, perseverations pronounced. Physiological function of swallow WNL when pt accepts/participates in PO intake, but behavioral challenges and cognitive interference limit pt ability to maintain adequate PO intake. [employer] SUPERVISOR to continue following Frequency/Duration: Date Range for Service Req: Timeline to reassess: Lead Slot Technician Clinican/Clinical Fellow: No Supervisory Statement: I have reviewed and agree with the student/clinical fellow's documentation: N/A Speech Language Pathologist: Merle Sahni M.A., CCC-[employer] SUPERVISOR
--- NOTE | 2024-10-28 11:34 | MHC.CLN ---
F/U PO INTAKE 25-50% DIET RX: CHOPPED PER SITE PROJECT MANAGER ENSURE TID TO PROMOTE WOUND HEALING SUPPLEMENT PROVIDES 1050 KCALS, 60 G PROTEIN WITH 100% ACCEPTANCE ALSO RECEIVING MAGIC CUP WITH MEALS TO INCREASE KCAL INTAKE CONTINUE TO MONITOR PO INTAKE AND ENCOURAGE SUPPLEMENTS
--- NOTE | 2024-10-28 13:35 | P.PNIM_ITS ---
Subjective Subjective Date of Service: 10/28/24 Interval History: Seen and examined this morning Follow-up for hematuria No further hematuria Remains pleasantly confused Review of Systems unable to obtain full ROS due to underlying dementia Physical Exam 2 Vital Signs: Vital Signs: Last Vital Signs Temp 98.1 F 10/28/24 11:02 Pulse 84 10/28/24 11:02 Resp 20 10/28/24 11:02 BP 105/59 L 10/28/24 11:02 Pulse Ox 95 10/28/24 11:02 O2 Del Method Room Air 10/28/24 11:02 O2 Flow Rate 3 10/18/24 11:12 Oxygen Flow Rate 3 10/14/24 14:19 BMI result Body Mass Index 24.5 Const: General: alert and awake Nutritional Appearance: average body habitus Resp: Effort & Inspection: normal respiratory effort, able to speak in complete sentences, no respiratory distress and no use of accessory muscles Cardio: Rate: regular rate GI: Inspection: No distended Palpation (GI): Soft to palpation and nontender : Other: chow - no hematuria Neuro: Other: difficult to assess due to confused, dementia; grossly nonfocal Objective Data Active Medications Acetaminophen (Acetaminophen 325 Mg Tablet) 650 mg PO Q6H PRN PRN Reason: Pain, Mild (Pain Scale 1-3), fever or headache Last Admin: 10/25/24 20:42 Dose: 650 mg Documented By: CONNOR Acetaminophen (Acetaminophen Supp 650 Mg Supp.Rect) 650 mg [place] Q4H PRN PRN Reason: Pain/Fever Albuterol Sulfate (Albuterol Sulfate 90 Mcg 8 Gm Inhaler) 2 puff INHALE Q4H PRN PRN Reason: Shortness Of Breath Alprazolam (Alprazolam 0.5 Mg Tablet) 0.5 mg PO BID [facility] Last Admin: 10/17/24 20:42 Dose: 0.5 mg Documented By: JONES Amiodarone HCl (Amiodarone Hcl 200 Mg Tablet) 200 mg PO DAILY [facility] Last Admin: 10/28/24 08:35 Dose: 200 mg Documented By: SIVAKUMAR Apixaban (Apixaban 2.5 Mg Tablet) 2.5 mg PO BID [facility] Last Admin: 10/28/24 08:35 Dose: 2.5 mg Documented By: SIVAKUMAR Bisacodyl (Bisacodyl 10 Mg Supp.Rect) 10 mg [place] DAILY PRN PRN Reason: Constipation Last Admin: 10/18/24 13:44 Dose: 10 mg Documented By: BHANU Calcium Carbonate (Calcium Carbonate 750 Mg Tab.Chew) 750 mg PO Q4H PRN PRN Reason: Heartburn Last Admin: 10/24/24 11:58 Dose: 750 mg Documented By: JUAN A Divalproex Sodium (Divalproex Sodium Sprinkles 125 Mg ) 750 mg PO BEDTIME SHAYY Last Admin: 10/27/24 21:43 Dose: 750 mg Documented By: DEANA Docusate Sodium (Docusate Sodium 100 Mg/10 Ml Liquid) 200 mg PO BEDTIME SHAYY Last Admin: 10/27/24 21:54 Dose: 200 mg Documented By: DEANA Doxazosin Mesylate (Doxazosin Mesylate 2 Mg Tablet) 4 mg PO BEDTIME [facility]; Protocol Last Admin: 10/27/24 21:43 Dose: 4 mg Documented By: DEANA Finasteride (Finasteride 5 Mg Tablet) 5 mg PO DAILY [facility] Last Admin: 10/28/24 08:35 Dose: 5 mg Documented By: SIVAKUMAR Fluticasone/Vilanterol (Fluticasone/Vilanterol 100/25 Blst.W.Dev) 1 puff INHALE RDAILY [facility] Last Admin: 10/28/24 07:31 Dose: Not Given Documented By: BEN Non-Admin Reason: Patient Condition Contraindication Magnesium Hydroxide (Milk Of Magnesia 30 Ml Oral.Susp) 30 ml PO DAILY PRN PRN Reason: Constipation Melatonin (Melatonin 3 Mg Tablet) 6 mg PO BEDTIME PRN PRN Reason: Insomnia Last Admin: 10/25/24 20:39 Dose: 6 mg Documented By: CONNOR Metoprolol Succinate (Metoprolol Succinate Er 50 Mg Tab.Er.24h) 50 mg PO BEDTIME SHAYY; Protocol Last Admin: 10/27/24 21:43 Dose: 50 mg Documented By: DEANA Mirtazapine (Mirtazapine 15 Mg Tablet) 15 mg PO BEDTIME SHAYY Last Admin: 10/27/24 21:43 Dose: 15 mg Documented By: DEANA Naloxone HCl (Naloxone Hcl 0.4 Mg/Ml Vial) 0.4 mg SUBCUT Q3M PRN PRN Reason: Sedation/Unresponsive Ondansetron HCl (Ondansetron Hcl 4 Mg/2 Ml Vial) 4 mg IVPUSH Q8H PRN PRN Reason: Nausea and Vomiting Polyethylene Glycol (Polyethylene Glycol 3350 17 Gm Powd.Pack) 17 gm PO DAILY [facility] Last Admin: 10/28/24 08:35 Dose: 17 gm Documented By: SIVAKUMAR Risperidone (Risperidone 1 Mg Tablet) 1 mg PO DAILY [facility] Last Admin: 10/28/24 08:35 Dose: 1 mg Documented By: SIVAKUMAR Sodium Biphosphate/Sodium Phosphate (Sodium Phosphate,Winkler-Dibasic 133 Ml Enema) 118 ml FL DAILY PRN PRN Reason: Constipation Sodium Biphosphate/Sodium Phosphate (Sodium Phosphate,Winkler-Dibasic 133 Ml Enema) 133 ml FL ONCE PRN PRN Reason: constipation Sodium Chloride (0.9 % Sodium Chloride Flush 3 Ml Syringe) 3 ml IVFLUSH QSHIFT [facility] Last Admin: 10/28/24 08:35 Dose: 3 ml Documented By: SIVAKUMAR Trazodone HCl (Trazodone Hcl 50 Mg Tablet) 50 mg PO BEDTIME [facility] Last Admin: 10/17/24 20:41 Dose: 50 mg Documented By: JONES Labs 10/28/24 06:32 10/25/24 06:46 Labs: Laboratory Results - last 24 hr 10/28/24 06:32 MCV 88.4 MCH 28.3 MCHC 32.0 RDW 14.6 Plt Count 241 MPV 10.2 Absolute Nucleated RBC 0.000 Nucleated RBC % (auto) 0.0 Assessment and Plan (1) Hematuria: Status: Acute Plan 84-year-old female with a PMH significant for HFrEF, CKD, paroxysmal AFib on Eliquis, hx of V tach, s/p pacer in place, HLD, urinary retention, BPH, dementia, anxiety, and bipolar disorder?who presented to the ED from [facility] after unwitnessed fall out of bed. Pt admitted to the hospital for treatment and further evaluation of acute hypoxic respiratory failure in the setting of likely aspiration pneumonitis after unwitnessed fall out of bed. Acute hypoxic respiratory failure likely secondary to aspiration pneumonitis s/p IV Zosyn x 7days, stable oxygenation on room air being followed by speech therapy diet advanced to chopped NDD 3 with clear liquids, continue ensure supplements Urinary retention/hematuria hematuria resolved, continue proscar, and carduara, Chow discontinued resumed Eliquis 10/25, no recurrent hematuria follow cbc Paroxysmal AFib acceptable rate control , continue metoprolol and Eliquis HFrEF stable and well compensated Mood disorder/dementia stable,continue current therapies. Trazodone and alprazolam held due to am sedation. Constipation resolved continue bowel regimen VENU on CKD 3 resolved DNR compression boots requires ongoing inpatient stay for safe disposition Quality Stroke Does the patient have a stroke diagnosis?: No VTE Prior VTE?: No VTE Risk Level:: Medical - moderate - high VTE Device Contraindication: N/A - Device Ordered VTE Drug Contraindication: Treatment Not Indicated
[2024-10-28 16:00] VITALS: BP 111/57; PULSE 73; RESP 20; TEMP 37.6; O2SAT 96
[2024-10-28 21:38] VITALS: BP 145/69; PULSE 80; RESP 16; O2SAT 96
[2024-10-28] MEDS: Doxazosin Mesylate 2 MG TABLET 4 MG PO (21:43)
[2024-10-28] MEDS: Divalproex Sodium Sprinkles 125 MG CAP.DR.SPR 750 MG PO (21:43)
[2024-10-28] MEDS: Metoprolol Succinate ER 50 MG TAB.ER.24H PO (21:43)
[2024-10-28] MEDS: Docusate Sodium 100 MG/10 ML LIQUID 200 MG PO (21:43)
[2024-10-28] MEDS: Mirtazapine 15 MG TABLET PO (21:44)
[2024-10-29] VITALS (7 sets, daily range): BP systolic 97–133; BP diastolic 54–72; PULSE 62–73; RESP 18–20; TEMP 36.5–37.1; O2SAT 95–97
[2024-10-29 07:44] LABS: Hemoglobin 8.1 g/dl (14.0-18.0)
[2024-10-29] MEDS: Finasteride 5 MG TABLET PO (09:43)
[2024-10-29] MEDS: polyethylene glycoL 3350 17 GM POWD.PACK PO (09:44)
[2024-10-29] MEDS: risperiDONE 1 MG TABLET PO (09:44)
[2024-10-29] MEDS: Apixaban 2.5 MG TABLET PO ×2 (09:44→19:36)
[2024-10-29] MEDS: Amiodarone HCL 200 MG TABLET PO (09:44)
--- NOTE | 2024-10-29 14:29 | HO.PM.IMPN ---
Subjective Subjective Date of Service: 10/29/24 Interval History: Seen and examined this morning Follow-up for hematuria No further hematuria Remains pleasantly confused Review of Systems unable to obtain full ROS due to underlying dementia Physical Exam Vital Signs: Vital Signs: Last Vital Signs Temp 98.5 F 10/29/24 11:40 Pulse 62 10/29/24 11:40 Resp 20 10/29/24 11:40 BP 103/65 10/29/24 11:40 Pulse Ox 95 10/29/24 11:40 O2 Del Method Room Air 10/29/24 11:40 O2 Flow Rate 3 10/18/24 11:12 Oxygen Flow Rate 3 10/14/24 14:19 BMI result Body Mass Index 24.5 Appearing in no acute distress heart regular rate rhythm, clear S1, S2 positive bowel sounds, abdomen is soft, nontender neuro patient is alert, confused Objective Data Active Medications Acetaminophen (Acetaminophen 325 Mg Tablet) 650 mg PO Q6H PRN PRN Reason: Pain, Mild (Pain Scale 1-3), fever or headache Last Admin: 10/25/24 20:42 Dose: 650 mg Documented By: CONNOR Acetaminophen (Acetaminophen Supp 650 Mg Supp.Rect) 650 mg [place] Q4H PRN PRN Reason: Pain/Fever Albuterol Sulfate (Albuterol Sulfate 90 Mcg 8 Gm Inhaler) 2 puff INHALE Q4H PRN PRN Reason: Shortness Of Breath Alprazolam (Alprazolam 0.5 Mg Tablet) 0.5 mg PO BID [facility] Last Admin: 10/17/24 20:42 Dose: 0.5 mg Documented By: JONES Amiodarone HCl (Amiodarone Hcl 200 Mg Tablet) 200 mg PO DAILY [facility] Last Admin: 10/29/24 09:44 Dose: 200 mg Documented By: CONSUELO Apixaban (Apixaban 2.5 Mg Tablet) 2.5 mg PO BID [facility] Last Admin: 10/29/24 09:44 Dose: 2.5 mg Documented By: CONSUELO Bisacodyl (Bisacodyl 10 Mg Supp.Rect) 10 mg [place] DAILY PRN PRN Reason: Constipation Last Admin: 10/18/24 13:44 Dose: 10 mg Documented By: BHANU Calcium Carbonate (Calcium Carbonate 750 Mg Tab.Chew) 750 mg PO Q4H PRN PRN Reason: Heartburn Last Admin: 10/24/24 11:58 Dose: 750 mg Documented By: JUAN A Divalproex Sodium (Divalproex Sodium Sprinkles 125 Mg ) 750 mg PO BEDTIME [facility] Last Admin: 10/28/24 21:43 Dose: 750 mg Documented By: AISSATOU Docusate Sodium (Docusate Sodium 100 Mg/10 Ml Liquid) 200 mg PO BEDTIME [facility] Last Admin: 10/28/24 21:43 Dose: 200 mg Documented By: AISSATOU Doxazosin Mesylate (Doxazosin Mesylate 2 Mg Tablet) 4 mg PO BEDTIME [facility]; Protocol Last Admin: 10/28/24 21:43 Dose: 4 mg Documented By: AISSATOU Finasteride (Finasteride 5 Mg Tablet) 5 mg PO DAILY [facility] Last Admin: 10/29/24 09:43 Dose: 5 mg Documented By: RICCIHUE Fluticasone/Vilanterol (Fluticasone/Vilanterol 100/25 Blst.W.Dev) 1 puff INHALE RDAILY [facility] Last Admin: 10/29/24 07:25 Dose: Not Given Documented By: JOHN Non-Admin Reason: See Note Magnesium Hydroxide (Milk Of Magnesia 30 Ml Oral.Susp) 30 ml PO DAILY PRN PRN Reason: Constipation Melatonin (Melatonin 3 Mg Tablet) 6 mg PO BEDTIME PRN PRN Reason: Insomnia Last Admin: 10/25/24 20:39 Dose: 6 mg Documented By: CONNOR Metoprolol Succinate (Metoprolol Succinate Er 50 Mg Tab.Er.24h) 50 mg PO BEDTIME [facility]; Protocol Last Admin: 10/28/24 21:43 Dose: 50 mg Documented By: AISSATOU Mirtazapine (Mirtazapine 15 Mg Tablet) 15 mg PO BEDTIME [facility] Last Admin: 10/28/24 21:44 Dose: 15 mg Documented By: AISSATOU Naloxone HCl (Naloxone Hcl 0.4 Mg/Ml Vial) 0.4 mg SUBCUT Q3M PRN PRN Reason: Sedation/Unresponsive Ondansetron HCl (Ondansetron Hcl 4 Mg/2 Ml Vial) 4 mg IVPUSH Q8H PRN PRN Reason: Nausea and Vomiting Polyethylene Glycol (Polyethylene Glycol 3350 17 Gm Powd.Pack) 17 gm PO DAILY [facility] Last Admin: 10/29/24 09:44 Dose: 17 gm Documented By: CONSUELO Risperidone (Risperidone 1 Mg Tablet) 1 mg PO DAILY [facility] Last Admin: 10/29/24 09:44 Dose: 1 mg Documented By: CONSUELO Sodium Biphosphate/Sodium Phosphate (Sodium Phosphate,[place]-Dibasic 133 Ml Enema) 118 ml [place] DAILY PRN PRN Reason: Constipation Sodium Biphosphate/Sodium Phosphate (Sodium Phosphate,[place]-Dibasic 133 Ml Enema) 133 ml [place] ONCE PRN PRN Reason: constipation Sodium Chloride (0.9 % Sodium Chloride Flush 3 Ml Syringe) 3 ml IVFLUSH QSHIFT [facility] Last Admin: 10/29/24 09:44 Dose: 3 ml Documented By: CONSUELO Trazodone HCl (Trazodone Hcl 50 Mg Tablet) 50 mg PO BEDTIME [facility] Last Admin: 10/17/24 20:41 Dose: 50 mg Documented By: JONES Labs 10/29/24 07:19 10/25/24 06:46 Assessment and Plan (1) Hematuria: Status: Acute Plan 84-year-old female with a PMH significant for HFrEF, CKD, paroxysmal AFib on Eliquis, hx of V tach, s/p pacer in place, HLD, urinary retention, BPH, dementia, anxiety, and bipolar disorder?who presented to the ED from [facility] after unwitnessed fall out of bed. Pt admitted to the hospital for treatment and further evaluation of acute hypoxic respiratory failure in the setting of likely aspiration pneumonitis after unwitnessed fall out of bed. Acute hypoxic respiratory failure likely secondary to aspiration pneumonitis s/p IV Zosyn x 7days, stable oxygenation on room air being followed by speech therapy diet advanced to chopped NDD 3 with clear liquids, continue ensure supplements Urinary retention/hematuria hematuria resolved, continue proscar, and carduara, Corral discontinued resumed Eliquis 10/25, no recurrent hematuria follow cbc Paroxysmal AFib acceptable rate control , continue metoprolol and Eliquis HFrEF stable and well compensated Mood disorder/dementia stable,continue current therapies. Trazodone and alprazolam held due to am sedation. Constipation resolved continue bowel regimen VENU on CKD 3 resolved DNR compression boots requires ongoing inpatient stay for safe disposition Quality Stroke Does the patient have a stroke diagnosis?: No VTE Prior VTE?: No VTE Risk Level:: Medical - moderate - high VTE Device Contraindication: N/A - Device Ordered VTE Drug Contraindication: Treatment Not Indicated
[2024-10-29] MEDS: Mirtazapine 15 MG TABLET PO (19:36)
[2024-10-29] MEDS: Metoprolol Succinate ER 50 MG TAB.ER.24H PO (19:36)
[2024-10-29] MEDS: Divalproex Sodium Sprinkles 125 MG CAP.DR.SPR 750 MG PO (19:37)
[2024-10-29] MEDS: Docusate Sodium 100 MG/10 ML LIQUID 200 MG PO (19:37)
[2024-10-29] MEDS: Doxazosin Mesylate 2 MG TABLET 4 MG PO (19:37)
--- NOTE | 2024-10-29 22:18 | PC.NURSE ---
Assumed care of patient at 19:00. Please see patient shift assessment, MAR, and tasks for full details. Bed alarm, safety measures, in-room camera remain in place. Handoff report given at 21:45 to fire extinguisher charger.
--- NOTE | 2024-10-30 | ECG_ITS ---
Test Reason : CP Blood Pressure : / mmHG Vent. Rate : 072 BPM Atrial Rate : 072 BPM P-R Int : 152 ms QRS Dur : 128 ms QT Int : 456 ms P-R-T Axes : 063 019 -55 degrees QTc Int : 499 ms Atrial-sensed ventricular-paced rhythm with occasional Premature ventricular complexes Abnormal ECG When compared with ECG of 14-OCT-2024 15:33, Premature ventricular complexes are now Present Vent. rate has decreased BY 12 BPM Referred By: Genoveva Kiran Electronically Signed By:Alfred Priest
[2024-10-30 03:10] VITALS: BP 100/61; PULSE 59; RESP 18; TEMP 36.3; O2SAT 97
[2024-10-30 07:10] VITALS: BP 117/62; PULSE 88; RESP 17; TEMP 36.4; O2SAT 96
[2024-10-30] MEDS: polyethylene glycoL 3350 17 GM POWD.PACK PO (08:21)
[2024-10-30] MEDS: Apixaban 2.5 MG TABLET PO ×2 (08:21→20:40)
[2024-10-30] MEDS: risperiDONE 1 MG TABLET PO (08:22)
[2024-10-30] MEDS: Finasteride 5 MG TABLET PO (08:22)
[2024-10-30] MEDS: Amiodarone HCL 200 MG TABLET PO (08:22)
[2024-10-30 09:42] LABS: Anion Gap 13 (12-20); Blood Urea Nitrogen 20 mg/dL (9-16); Carbon Dioxide 26 mmol/L (22-29); Chloride 109 mmol/L (96-108); Creatinine Clr Calc Pharmacy 52.4; Estimated Glomerular Filt Rate > 60; Glucose Random 90 mg/dL (60-115); Potassium 3.8 mmol/L (3.3-5.1); Sodium 144 mmol/L (135-145)
[2024-10-30 09:50] LABS: Troponin-I High Sensitivity 10.3 ng/L (<3.5-35.0)
[2024-10-30 11:08] VITALS: BP 128/82; PULSE 84; RESP 18; TEMP 36.6; O2SAT 93
--- NOTE | 2024-10-30 11:28 | HO.PM.IMPN ---
Subjective Subjective Date of Service: 10/30/24 Interval History: Seen and examined this morning Follow-up for hematuria No further hematuria Remains pleasantly confused Review of Systems unable to obtain full ROS due to underlying dementia Physical Exam Vital Signs: Vital Signs: Last Vital Signs Temp 97.8 F 10/30/24 11:08 Pulse 84 10/30/24 11:08 Resp 18 10/30/24 11:08 BP 128/82 10/30/24 11:08 Pulse Ox 93 10/30/24 11:08 O2 Del Method Room Air 10/30/24 11:08 O2 Flow Rate 3 10/18/24 11:12 Oxygen Flow Rate 3 10/14/24 14:19 BMI result Body Mass Index 24.5 Appearing in no acute distress lung sounds are clear to auscultation heart regular rate rhythm, clear S1, S2 positive bowel sounds, abdomen is soft, nontender neuro patient is alert, confused Objective Data Active Medications Acetaminophen (Acetaminophen 325 Mg Tablet) 650 mg PO Q6H PRN PRN Reason: Pain, Mild (Pain Scale 1-3), fever or headache Last Admin: 10/25/24 20:42 Dose: 650 mg Documented By: CONNOR Acetaminophen (Acetaminophen Supp 650 Mg Supp.Rect) 650 mg [place] Q4H PRN PRN Reason: Pain/Fever Albuterol Sulfate (Albuterol Sulfate 90 Mcg 8 Gm Inhaler) 2 puff INHALE Q4H PRN PRN Reason: Shortness Of Breath Alprazolam (Alprazolam 0.5 Mg Tablet) 0.5 mg PO BID [facility] Last Admin: 10/17/24 20:42 Dose: 0.5 mg Documented By: JONES Amiodarone HCl (Amiodarone Hcl 200 Mg Tablet) 200 mg PO DAILY [facility] Last Admin: 10/30/24 08:22 Dose: 200 mg Documented By: CONSUELO Apixaban (Apixaban 2.5 Mg Tablet) 2.5 mg PO BID [facility] Last Admin: 10/30/24 08:21 Dose: 2.5 mg Documented By: CONSUELO Bisacodyl (Bisacodyl 10 Mg Supp.Rect) 10 mg [place] DAILY PRN PRN Reason: Constipation Last Admin: 10/18/24 13:44 Dose: 10 mg Documented By: BHANU Calcium Carbonate (Calcium Carbonate 750 Mg Tab.Chew) 750 mg PO Q4H PRN PRN Reason: Heartburn Last Admin: 10/24/24 11:58 Dose: 750 mg Documented By: JUAN A Divalproex Sodium (Divalproex Sodium Sprinkles 125 Mg ) 750 mg PO BEDTIME [facility] Last Admin: 10/29/24 19:37 Dose: 750 mg Documented By: ANA LAURA Docusate Sodium (Docusate Sodium 100 Mg/10 Ml Liquid) 200 mg PO BEDTIME [facility] Last Admin: 10/29/24 19:37 Dose: 200 mg Documented By: ANA LAURA Doxazosin Mesylate (Doxazosin Mesylate 2 Mg Tablet) 4 mg PO BEDTIME [facility]; Protocol Last Admin: 10/29/24 19:37 Dose: 4 mg Documented By: ANA LAURA Finasteride (Finasteride 5 Mg Tablet) 5 mg PO DAILY [facility] Last Admin: 10/30/24 08:22 Dose: 5 mg Documented By: CONSUELO Fluticasone/Vilanterol (Fluticasone/Vilanterol 100/25 Blst.W.Dev) 1 puff INHALE RDAILY [facility] Last Admin: 10/30/24 07:18 Dose: Not Given Documented By: JOHN Non-Admin Reason: See Note Magnesium Hydroxide (Milk Of Magnesia 30 Ml Oral.Susp) 30 ml PO DAILY PRN PRN Reason: Constipation Melatonin (Melatonin 3 Mg Tablet) 6 mg PO BEDTIME PRN PRN Reason: Insomnia Last Admin: 10/25/24 20:39 Dose: 6 mg Documented By: CONNOR Metoprolol Succinate (Metoprolol Succinate Er 50 Mg Tab.Er.24h) 50 mg PO BEDTIME [facility]; Protocol Last Admin: 10/29/24 19:36 Dose: 50 mg Documented By: ANA LAURA Mirtazapine (Mirtazapine 15 Mg Tablet) 15 mg PO BEDTIME [facility] Last Admin: 10/29/24 19:36 Dose: 15 mg Documented By: ANA LAURA Naloxone HCl (Naloxone Hcl 0.4 Mg/Ml Vial) 0.4 mg SUBCUT Q3M PRN PRN Reason: Sedation/Unresponsive Ondansetron HCl (Ondansetron Hcl 4 Mg/2 Ml Vial) 4 mg IVPUSH Q8H PRN PRN Reason: Nausea and Vomiting Polyethylene Glycol (Polyethylene Glycol 3350 17 Gm Powd.Pack) 17 gm PO DAILY [facility] Last Admin: 10/30/24 08:21 Dose: 17 gm Documented By: CONSUELO Risperidone (Risperidone 1 Mg Tablet) 1 mg PO DAILY [facility] Last Admin: 10/30/24 08:22 Dose: 1 mg Documented By: CONSUELO Sodium Biphosphate/Sodium Phosphate (Sodium Phosphate,[place]-Dibasic 133 Ml Enema) 118 ml [place] DAILY PRN PRN Reason: Constipation Sodium Biphosphate/Sodium Phosphate (Sodium Phosphate,[place]-Dibasic 133 Ml Enema) 133 ml [place] ONCE PRN PRN Reason: constipation Sodium Chloride (0.9 % Sodium Chloride Flush 3 Ml Syringe) 3 ml IVFLUSH QSHIFT [facility] Last Admin: 10/30/24 08:21 Dose: Not Given Documented By: CONSUELO Non-Admin Reason: No Access Trazodone HCl (Trazodone Hcl 50 Mg Tablet) 50 mg PO BEDTIME [facility] Last Admin: 10/17/24 20:41 Dose: 50 mg Documented By: JONES Labs 10/29/24 07:19 10/30/24 08:56 Labs: Laboratory Results - last 24 hr 10/30/24 08:56 Anion Gap 13 Estim Creat Clear Calc 52.4 Estimated GFR > 60 Random Glucose 90 Calcium 9.0 Troponin I High Sens 10.3 Assessment and Plan (1) Hematuria: Status: Acute Plan 84-year-old female with a PMH significant for HFrEF, CKD, paroxysmal AFib on Eliquis, hx of V tach, s/p pacer in place, HLD, urinary retention, BPH, dementia, anxiety, and bipolar disorder?who presented to the ED from [facility] after unwitnessed fall out of bed. Pt admitted to the hospital for treatment and further evaluation of acute hypoxic respiratory failure in the setting of likely aspiration pneumonitis after unwitnessed fall out of bed. Acute hypoxic respiratory failure likely secondary to aspiration pneumonitis s/p IV Zosyn x 7days, stable oxygenation on room air being followed by speech therapy diet advanced to chopped NDD 3 with clear liquids, continue ensure supplements Urinary retention/hematuria hematuria resolved, continue proscar, and carduara, Corral discontinued resumed Eliquis 10/25, no recurrent hematuria follow cbc Paroxysmal AFib acceptable rate control , continue metoprolol and Eliquis HFrEF stable and well compensated Mood disorder/dementia stable,continue current therapies. Trazodone and alprazolam held due to am sedation. Constipation resolved continue bowel regimen VENU on CKD 3 resolved DNR compression boots requires ongoing inpatient stay for safe disposition Quality Stroke Does the patient have a stroke diagnosis?: No VTE Prior VTE?: No VTE Risk Level:: Medical - moderate - high VTE Device Contraindication: N/A - Device Ordered VTE Drug Contraindication: Treatment Not Indicated
--- NOTE | 2024-10-30 12:48 | HO.SKINPHOTO ---
Location : Category: pressure injury Stage: unstagable Length: Width: Depth: cm Location: Category: Stage: Length: Width: Depth: cm Location: Category: Stage: Length: Width: Depth: cm Location: Category: Stage: Length: Width: Depth: cm Location: Category: Stage: Length: Width: Depth: cm Location: Category: Stage: Length: Width: Depth: cm
[2024-10-30 15:29] VITALS: BP 117/67; PULSE 68; RESP 17; TEMP 36.2; O2SAT 95
[2024-10-30 20:00] VITALS: BP 126/72; PULSE 71; RESP 20; TEMP 37.1; O2SAT 94
[2024-10-30] MEDS: Melatonin 3 MG TABLET 6 MG PO (20:39)
[2024-10-30] MEDS: Divalproex Sodium Sprinkles 125 MG CAP.DR.SPR 750 MG PO (20:39)
[2024-10-30] MEDS: Mirtazapine 15 MG TABLET PO (20:39)
[2024-10-30] MEDS: Acetaminophen 325 MG TABLET 650 MG PO (20:40)
[2024-10-30] MEDS: Docusate Sodium 100 MG/10 ML LIQUID 200 MG PO (20:40)
[2024-10-30] MEDS: Metoprolol Succinate ER 50 MG TAB.ER.24H PO (20:44)
[2024-10-30] MEDS: Doxazosin Mesylate 2 MG TABLET 4 MG PO (20:44)
[2024-10-30] MEDS: Haloperidol Lactate 5 MG/ML VIAL 2.5 MG IM (23:03)
[2024-10-30 23:05] VITALS: BP 103/59; PULSE 62; RESP 20; TEMP 37.1; O2SAT 95
[2024-10-31 03:49] VITALS: BP 110/62; PULSE 61; RESP 20; TEMP 36.1; O2SAT 98
[2024-10-31 07:26] VITALS: BP 115/64; PULSE 62; RESP 18; TEMP 36.3; O2SAT 96
[2024-10-31] MEDS: Amiodarone HCL 200 MG TABLET PO (08:57)
[2024-10-31] MEDS: risperiDONE 1 MG TABLET PO (08:57)
[2024-10-31] MEDS: Finasteride 5 MG TABLET PO (08:57)
[2024-10-31] MEDS: Apixaban 2.5 MG TABLET PO ×2 (08:57→19:52)
[2024-10-31] MEDS: polyethylene glycoL 3350 17 GM POWD.PACK PO (08:58)
--- NOTE | 2024-10-31 09:00 | HO.PM.IMPN ---
Subjective Subjective Date of Service: 10/31/24 Interval History: Seen and examined this morning Follow-up for hematuria No further hematuria Remains pleasantly confused Review of Systems unable to obtain full ROS due to underlying dementia Physical Exam Vital Signs: Vital Signs: Last Vital Signs Temp 97.4 F 10/31/24 07:26 Pulse 62 10/31/24 07:26 Resp 18 10/31/24 07:26 BP 115/64 10/31/24 07:26 Pulse Ox 96 10/31/24 07:26 O2 Del Method Room Air 10/31/24 07:26 O2 Flow Rate 3 10/18/24 11:12 Oxygen Flow Rate 3 10/14/24 14:19 BMI result Body Mass Index 24.5 Appearing in no acute distress lung sounds are clear to auscultation heart regular rate rhythm, clear S1, S2 positive bowel sounds, abdomen is soft, nontender neuro patient is alert, confused Objective Data Active Medications Acetaminophen (Acetaminophen 325 Mg Tablet) 650 mg PO Q6H PRN PRN Reason: Pain, Mild (Pain Scale 1-3), fever or headache Last Admin: 10/30/24 20:40 Dose: 650 mg Documented By: NATHAN Acetaminophen (Acetaminophen Supp 650 Mg Supp.Rect) 650 mg [place] Q4H PRN PRN Reason: Pain/Fever Albuterol Sulfate (Albuterol Sulfate 90 Mcg 8 Gm Inhaler) 2 puff INHALE Q4H PRN PRN Reason: Shortness Of Breath Alprazolam (Alprazolam 0.5 Mg Tablet) 0.5 mg PO BID [facility] Last Admin: 10/17/24 20:42 Dose: 0.5 mg Documented By: JONES Amiodarone HCl (Amiodarone Hcl 200 Mg Tablet) 200 mg PO DAILY [facility] Last Admin: 10/30/24 08:22 Dose: 200 mg Documented By: CONSUELO Apixaban (Apixaban 2.5 Mg Tablet) 2.5 mg PO BID [facility] Last Admin: 10/30/24 20:40 Dose: 2.5 mg Documented By: NATHAN Bisacodyl (Bisacodyl 10 Mg Supp.Rect) 10 mg [place] DAILY PRN PRN Reason: Constipation Last Admin: 10/18/24 13:44 Dose: 10 mg Documented By: BHANU Calcium Carbonate (Calcium Carbonate 750 Mg Tab.Chew) 750 mg PO Q4H PRN PRN Reason: Heartburn Last Admin: 10/24/24 11:58 Dose: 750 mg Documented By: JUAN A Divalproex Sodium (Divalproex Sodium Sprinkles 125 Mg ) 750 mg PO BEDTIME [facility] Last Admin: 10/30/24 20:39 Dose: 750 mg Documented By: NATHAN Docusate Sodium (Docusate Sodium 100 Mg/10 Ml Liquid) 200 mg PO BEDTIME [facility] Last Admin: 10/30/24 20:40 Dose: 200 mg Documented By: NATHAN Doxazosin Mesylate (Doxazosin Mesylate 2 Mg Tablet) 4 mg PO BEDTIME [facility]; Protocol Last Admin: 10/30/24 20:44 Dose: 4 mg Documented By: NATHAN Finasteride (Finasteride 5 Mg Tablet) 5 mg PO DAILY [facility] Last Admin: 10/30/24 08:22 Dose: 5 mg Documented By: CONSUELO Fluticasone/Vilanterol (Fluticasone/Vilanterol 100/25 Blst.W.Dev) 1 puff INHALE RDAILY [facility] Last Admin: 10/31/24 07:55 Dose: Not Given Documented By: MAEVE Non-Admin Reason: pt confused Magnesium Hydroxide (Milk Of Magnesia 30 Ml Oral.Susp) 30 ml PO DAILY PRN PRN Reason: Constipation Melatonin (Melatonin 3 Mg Tablet) 6 mg PO BEDTIME PRN PRN Reason: Insomnia Last Admin: 10/30/24 20:39 Dose: 6 mg Documented By: NATHAN Comments: requested for sleep Metoprolol Succinate (Metoprolol Succinate Er 50 Mg Tab.Er.24h) 50 mg PO BEDTIME [facility]; Protocol Last Admin: 10/30/24 20:44 Dose: 50 mg Documented By: NATHAN Mirtazapine (Mirtazapine 15 Mg Tablet) 15 mg PO BEDTIME [facility] Last Admin: 10/30/24 20:39 Dose: 15 mg Documented By: NATHAN Naloxone HCl (Naloxone Hcl 0.4 Mg/Ml Vial) 0.4 mg SUBCUT Q3M PRN PRN Reason: Sedation/Unresponsive Polyethylene Glycol (Polyethylene Glycol 3350 17 Gm Powd.Pack) 17 gm PO DAILY [facility] Last Admin: 10/30/24 08:21 Dose: 17 gm Documented By: CONSUELO Risperidone (Risperidone 1 Mg Tablet) 1 mg PO DAILY [facility] Last Admin: 10/30/24 08:22 Dose: 1 mg Documented By: CONSUELO Sodium Biphosphate/Sodium Phosphate (Sodium Phosphate,[place]-Dibasic 133 Ml Enema) 118 ml [place] DAILY PRN PRN Reason: Constipation Sodium Biphosphate/Sodium Phosphate (Sodium Phosphate,[place]-Dibasic 133 Ml Enema) 133 ml [place] ONCE PRN PRN Reason: constipation Sodium Chloride (0.9 % Sodium Chloride Flush 3 Ml Syringe) 3 ml IVFLUSH QSHIFT [facility] Last Admin: 10/31/24 02:03 Dose: Not Given Documented By: NATHAN Non-Admin Reason: No Access Trazodone HCl (Trazodone Hcl 50 Mg Tablet) 50 mg PO BEDTIME [facility] Last Admin: 10/17/24 20:41 Dose: 50 mg Documented By: JONES Labs 10/29/24 07:19 10/30/24 08:56 Labs: Laboratory Results - last 24 hr 10/30/24 08:56 Anion Gap 13 Estim Creat Clear Calc 52.4 Estimated GFR > 60 Random Glucose 90 Calcium 9.0 Troponin I High Sens 10.3 Assessment and Plan (1) Hematuria: Status: Acute Plan 84-year-old female with a PMH significant for HFrEF, CKD, paroxysmal AFib on Eliquis, hx of V tach, s/p pacer in place, HLD, urinary retention, BPH, dementia, anxiety, and bipolar disorder?who presented to the ED from [facility] after unwitnessed fall out of bed. Pt admitted to the hospital for treatment and further evaluation of acute hypoxic respiratory failure in the setting of likely aspiration pneumonitis after unwitnessed fall out of bed. Acute hypoxic respiratory failure likely secondary to aspiration pneumonitis s/p IV Zosyn x 7days, stable oxygenation on room air being followed by speech therapy diet advanced to chopped NDD 3 with clear liquids, continue ensure supplements Urinary retention/hematuria hematuria resolved, continue proscar, and carduara, Corral discontinued resumed Eliquis 10/25, no recurrent hematuria follow cbc Paroxysmal AFib acceptable rate control , continue metoprolol and Eliquis HFrEF stable and well compensated Mood disorder/dementia stable,continue current therapies. Trazodone and alprazolam held due to am sedation. Constipation resolved continue bowel regimen VENU on CKD 3 resolved DNR compression boots requires ongoing inpatient stay for safe disposition Quality Stroke Does the patient have a stroke diagnosis?: No VTE Prior VTE?: No VTE Risk Level:: Medical - moderate - high VTE Device Contraindication: N/A - Device Ordered VTE Drug Contraindication: Treatment Not Indicated
--- NOTE | 2024-10-31 10:06 | MHC.CLN ---
F/U PO INTAKE 25-50% DIET RX: CHOPPED PER MAINTENANCE MAN ENSURE TID TO PROMOTE WOUND HEALING SUPPLEMENT PROVIDES 1050 KCALS, 60 G PROTEIN WITH 100% ACCEPTANCE ALSO RECEIVING MAGIC CUP WITH MEALS TO INCREASE KCAL INTAKE CONTINUE TO MONITOR PO INTAKE AND ENCOURAGE SUPPLEMENTS
--- NOTE | 2024-10-31 10:11 | MHC.SL.SWA ---
Speech Pathologist Impression: Risk of Aspiration Due to: History of Pneumonia Reduced Cognition Dysphasia Diet Status: Recommend continue on current diet of Chopped/Advanced (NDD3) with thin liquids, straws ok, pills whole in puree. Liquid Consistency and Strategies for Safe Swallow: Liquid Intake Recommendation: Thin Liquid Intake Strategies: Small Sips No Straws Solid Food Consistency: Dietary Recommendations: Chopped/Advanced (NDD3) Additional Modifications to Solid Foods: Oral Medication Intake: Whole in Puree Please contact the pharmacy regarding appropriate crushable or liquid drug formulations that are available whenever modified delivery is recommended. Compensatory Strategies and Precautions to be Taken for Safe Swallow: Sitting Upright (90 deg) Small Bites and Sips Alternate Liquids/Solids Rate of Ingestion Change Straws ok Supervision While Eating and Drinking for Safe Swallow: Total Assistance (1:1) Foods to Avoid: Mixed consistencies Swallowing Recommended Treatments: Compens. Strategy Educat. Recommendation for Speech: Inpatient Speech Therapy Comment: Pt with increased confusion, inability to follow simple cues, perseverations pronounced. Physiological function of swallow WNL when pt accepts/participates in PO intake, but behavioral challenges and cognitive interference limit pt ability to maintain adequate PO intake. ASSEMBLER ENGINE to continue following Frequency/Duration: Date Range for Service Req: Timeline to reassess: Top Hat Body Maker Clinican/Clinical Fellow: No Supervisory Statement: I have reviewed and agree with the student/clinical fellow's documentation: N/A Speech Language Pathologist: Madison Dickens M.S., [facility]-ASSEMBLER ENGINE
[2024-10-31 10:31] VITALS: BP 94/56; PULSE 68; RESP 16; TEMP 36.6; O2SAT 95
--- NOTE | 2024-10-31 12:31 | PC.NURSE ---
oob to chair with 3 assist
[2024-10-31 15:25] VITALS: BP 132/63; PULSE 71; RESP 18; TEMP 36.2; O2SAT 92
--- NOTE | 2024-10-31 16:13 | HO.WOUND ---
Wound Consult: Follow up 84yr old male? admitted to [facility] on 10/14/24 - See progress notes and H&P for detailed history.? Wound consult follow up for Coccyx / Sacral wound.? Direct care team reports concern for worsening wound bed development. Patient agreeable to assessment and photo documentation.? See review below the periwound and some areas of the wound bed have improved however the thickness of the slough appears it may have thickened. Recommend switching to Santyl for enzymartic debridement to aid in cleaning the wound bed faster. 10/26/24 10/31/24 Sacrum Etiology: ??Unstageable Pressure Injury Present on Admission Measurements: 4cm x 1.5cm x 1cm Wound Bed: adherent yellow slough Drainage / Odor: yellow nath drainage moderate amount no odor noted Edges: ? irregular Gricel wound: ?MASD - dark red pink blanchable tissue with dry desquamation noted - No Induration, Fluctuance or Warmth noted Pain: tenderness reported Goals of Treatment: ? Off load pressure - Change to Santly for enzymatic debridement - Provider to order form pharmacy Recommendations: 1. Turn and Reposition every 2 hours and as needed for patient comfort.? Use pillows or wedges to support off loading positions. 2. Off Load all bony prominences with use of pillows and heel boots if needed.? Apply Preventative foams where needed. ? 3. Monitor for incontinence and moisture control, use barrier creams when needed for prevention and treatment. 4. Provide adequate and supplemental nutrition.? 5. Continue low air loss mattress. 6. When applicable maintain blood glucose levels per Providers order. 7. Sacrum - Off Load Pressure? with Q2hr turns. Cleanse with normal saline, pat dry. ?Apply barrier to the immediate gricel wound, apply thick layer of Santyl to entire wound bed, cover with saline moist gauze, secure ABD pad dressing, change Daily. Re-consult wound care Nurse for wound deterioration or wound changes.
[2024-10-31] MEDS: Collagenase Clostridium Hist. 30 GM TUBE 1 APPL TOPICAL (16:46)
[2024-10-31 19:31] VITALS: BP 130/62; PULSE 78; RESP 16; TEMP 37; O2SAT 99
[2024-10-31] MEDS: Mirtazapine 15 MG TABLET PO (19:52)
[2024-10-31] MEDS: Divalproex Sodium Sprinkles 125 MG CAP.DR.SPR 750 MG PO (19:52)
[2024-10-31] MEDS: Doxazosin Mesylate 2 MG TABLET 4 MG PO (19:52)
[2024-10-31] MEDS: Docusate Sodium 100 MG/10 ML LIQUID 200 MG PO (19:53)
[2024-10-31] MEDS: Metoprolol Succinate ER 50 MG TAB.ER.24H PO (19:53)
[2024-10-31 23:31] VITALS: BP 129/68; PULSE 64; RESP 16; TEMP 36.2; O2SAT 95
[2024-11-01] MEDS: Haloperidol Lactate 5 MG/ML VIAL 2.5 MG IM ×2 (00:55→22:14)
[2024-11-01] MEDS: Acetaminophen 325 MG TABLET 650 MG PO (01:08)
[2024-11-01] MEDS: Melatonin 3 MG TABLET 6 MG PO (01:09)
[2024-11-01 07:26] VITALS: BP 110/61; PULSE 60; RESP 18; TEMP 36.2; O2SAT 98
[2024-11-01] MEDS: Apixaban 2.5 MG TABLET PO ×2 (09:12→20:26)
[2024-11-01] MEDS: Finasteride 5 MG TABLET PO (09:12)
[2024-11-01] MEDS: risperiDONE 1 MG TABLET PO (09:12)
[2024-11-01] MEDS: Amiodarone HCL 200 MG TABLET PO (09:12)
[2024-11-01] MEDS: Collagenase Clostridium Hist. 30 GM TUBE 1 APPL TOPICAL (09:13)
[2024-11-01] MEDS: polyethylene glycoL 3350 17 GM POWD.PACK PO (09:13)
--- NOTE | 2024-11-01 09:13 | HO.PM.IMPN ---
Subjective Subjective Date of Service: 11/01/24 Interval History: Seen and examined this morning Follow-up for hematuria No further hematuria Remains pleasantly confused Review of Systems unable to obtain full ROS due to underlying dementia Physical Exam Vital Signs: Vital Signs: Last Vital Signs Temp 97.1 F 11/01/24 07:26 Pulse 60 11/01/24 07:26 Resp 18 11/01/24 07:26 BP 110/61 11/01/24 07:26 Pulse Ox 98 11/01/24 07:26 O2 Del Method Room Air 11/01/24 07:26 O2 Flow Rate 3 10/18/24 11:12 Oxygen Flow Rate 3 10/14/24 14:19 BMI result Body Mass Index 24.5 Appearing in no acute distress lung sounds are clear to auscultation heart regular rate rhythm, clear S1, S2 positive bowel sounds, abdomen is soft, nontender neuro patient is alert, confused Objective Data Active Medications Acetaminophen (Acetaminophen 325 Mg Tablet) 650 mg PO Q6H PRN PRN Reason: Pain, Mild (Pain Scale 1-3), fever or headache Last Admin: 11/01/24 01:08 Dose: 650 mg Documented By: NATHAN Acetaminophen (Acetaminophen Supp 650 Mg Supp.Rect) 650 mg [place] Q4H PRN PRN Reason: Pain/Fever Albuterol Sulfate (Albuterol Sulfate 90 Mcg 8 Gm Inhaler) 2 puff INHALE Q4H PRN PRN Reason: Shortness Of Breath Alprazolam (Alprazolam 0.5 Mg Tablet) 0.5 mg PO BID [facility] Last Admin: 10/17/24 20:42 Dose: 0.5 mg Documented By: JONES Amiodarone HCl (Amiodarone Hcl 200 Mg Tablet) 200 mg PO DAILY [facility] Last Admin: 10/31/24 08:57 Dose: 200 mg Documented By: SIVAKUMAR Apixaban (Apixaban 2.5 Mg Tablet) 2.5 mg PO BID [facility] Last Admin: 10/31/24 19:52 Dose: 2.5 mg Documented By: LOTTIE Bisacodyl (Bisacodyl 10 Mg Supp.Rect) 10 mg [place] DAILY PRN PRN Reason: Constipation Last Admin: 10/18/24 13:44 Dose: 10 mg Documented By: BHANU Calcium Carbonate (Calcium Carbonate 750 Mg Tab.Chew) 750 mg PO Q4H PRN PRN Reason: Heartburn Last Admin: 10/24/24 11:58 Dose: 750 mg Documented By: JUAN A Collagenase (Collagenase Clostridium Hist. 30 Gm Tube) 1 appl TOPICAL DAILY SHAYY; Protocol Last Admin: 10/31/24 16:46 Dose: 1 appl Documented By: SIVAKUMAR Divalproex Sodium (Divalproex Sodium Sprinkles 125 Mg ) 750 mg PO BEDTIME SHAYY Last Admin: 10/31/24 19:52 Dose: 750 mg Documented By: LOTTIE Docusate Sodium (Docusate Sodium 100 Mg/10 Ml Liquid) 200 mg PO BEDTIME SHAYY Last Admin: 10/31/24 19:53 Dose: 200 mg Documented By: LOTTIE Doxazosin Mesylate (Doxazosin Mesylate 2 Mg Tablet) 4 mg PO BEDTIME SHAYY; Protocol Last Admin: 10/31/24 19:52 Dose: 4 mg Documented By: LOTTIE Finasteride (Finasteride 5 Mg Tablet) 5 mg PO DAILY SHAYY Last Admin: 10/31/24 08:57 Dose: 5 mg Documented By: SIVAKUMAR Fluticasone/Vilanterol (Fluticasone/Vilanterol 100/25 Blst.W.Dev) 1 puff INHALE RDAILY [facility] Last Admin: 11/01/24 07:07 Dose: Not Given Documented By: HARMAN Non-Admin Reason: Patient Asleep Magnesium Hydroxide (Milk Of Magnesia 30 Ml Oral.Susp) 30 ml PO DAILY PRN PRN Reason: Constipation Melatonin (Melatonin 3 Mg Tablet) 6 mg PO BEDTIME PRN PRN Reason: Insomnia Last Admin: 11/01/24 01:09 Dose: 6 mg Documented By: NATHAN Comments: promote sleep Metoprolol Succinate (Metoprolol Succinate Er 50 Mg Tab.Er.24h) 50 mg PO BEDTIME SHAYY; Protocol Last Admin: 10/31/24 19:53 Dose: 50 mg Documented By: LOTTIE Mirtazapine (Mirtazapine 15 Mg Tablet) 15 mg PO BEDTIME SHAYY Last Admin: 10/31/24 19:52 Dose: 15 mg Documented By: LOTTIE Naloxone HCl (Naloxone Hcl 0.4 Mg/Ml Vial) 0.4 mg SUBCUT Q3M PRN PRN Reason: Sedation/Unresponsive Polyethylene Glycol (Polyethylene Glycol 3350 17 Gm Powd.Pack) 17 gm PO DAILY [facility] Last Admin: 10/31/24 08:58 Dose: 17 gm Documented By: SIVAKUMAR Risperidone (Risperidone 1 Mg Tablet) 1 mg PO DAILY [facility] Last Admin: 10/31/24 08:57 Dose: 1 mg Documented By: SIVAKUMAR Sodium Biphosphate/Sodium Phosphate (Sodium Phosphate,[place]-Dibasic 133 Ml Enema) 118 ml [place] DAILY PRN PRN Reason: Constipation Sodium Biphosphate/Sodium Phosphate (Sodium Phosphate,[place]-Dibasic 133 Ml Enema) 133 ml [place] ONCE PRN PRN Reason: constipation Sodium Chloride (0.9 % Sodium Chloride Flush 3 Ml Syringe) 3 ml IVFLUSH QSHIFT [facility] Last Admin: 11/01/24 00:48 Dose: Not Given Documented By: NATHAN Non-Admin Reason: No Access Trazodone HCl (Trazodone Hcl 50 Mg Tablet) 50 mg PO BEDTIME [facility] Last Admin: 10/17/24 20:41 Dose: 50 mg Documented By: JONES Labs 10/29/24 07:19 10/30/24 08:56 Assessment and Plan (1) Hematuria: Status: Acute Plan 84-year-old female with a PMH significant for HFrEF, CKD, paroxysmal AFib on Eliquis, hx of V tach, s/p pacer in place, HLD, urinary retention, BPH, dementia, anxiety, and bipolar disorder?who presented to the ED from [facility] after unwitnessed fall out of bed. Pt admitted to the hospital for treatment and further evaluation of acute hypoxic respiratory failure in the setting of likely aspiration pneumonitis after unwitnessed fall out of bed. Acute hypoxic respiratory failure likely secondary to aspiration pneumonitis s/p IV Zosyn x 7days, stable oxygenation on room air being followed by speech therapy diet advanced to chopped NDD 3 with clear liquids, continue ensure supplements Urinary retention/hematuria hematuria resolved, continue proscar, and carduara, Corral discontinued resumed Eliquis 10/25, no recurrent hematuria follow cbc Paroxysmal AFib acceptable rate control , continue metoprolol and Eliquis HFrEF stable and well compensated Mood disorder/dementia stable,continue current therapies. Trazodone and alprazolam held due to am sedation. Constipation resolved continue bowel regimen VENU on CKD 3 resolved DNR compression boots requires ongoing inpatient stay for safe disposition Quality Stroke Does the patient have a stroke diagnosis?: No VTE Prior VTE?: No VTE Risk Level:: Medical - moderate - high VTE Device Contraindication: N/A - Device Ordered VTE Drug Contraindication: Treatment Not Indicated
--- NOTE | 2024-11-01 10:47 | MHC.CM.PN ---
CM spoke with Daughter/HCP/Freida @ listed # and explained that CM has been unable to secure a VNA that feels Patient's needs can be safely met in the home setting. Freida was crying and explaining how much she has going on and how overwhelmed she is and CM pointed out that that is exactly why taking her dad home now, may not be a good idea. Freida is willing to meet with [facility] after 2PM today to do the [employer] bennie for LTC. [facility] is aware and CM has asked that they arrange a time to meet today. CM will follow.
[2024-11-01 11:29] VITALS: BP 100/65; PULSE 60; RESP 18; TEMP 36.2; O2SAT 98
--- NOTE | 2024-11-01 12:43 | MHC.SL.DTX ---
Dysphagia Diet modifications: Last documented Solid diet consistencies: Chopped/Advanced (NDD3) Last documented Liquid consistency: Thin Changes made to current diet?: No Liquid Consistency and Strategies: Liquid Intake Recommendation: Thin Compensatory Strategies for Safe Swallow: Small Sips No Straws Compensatory Strategies for Safe Swallow(b): Sitting Upright (90 deg) Liquids from Cup Small Bites and Sips Alternate Liquids/Solids Rate of Ingestion Change Solid Food Consistency: Dietary Recommendations: Chopped/Advanced (NDD3) Additional Modifications to Solids: Provide liquids by tsp and/or cup sip as tolerated. Blend gravies into purees, break up/soften if congealed. Do not attempt if patient is overly lethargic, discontinue if patient becomes too lethargic during meal, or with evidence/clinical signs of aspiration (coughing, increased upper airway noise, drop in 02 sats). Oral Medication Intake: Whole with Liquid Strategies and Precautions to be Taken for Safe Swallow: Sitting Upright (90 deg) Liquids from Cup Small Bites and Sips Alternate Liquids/Solids Rate of Ingestion Change Supervision While Eating and/Drinking: Total Assistance (1:1) Foods to Avoid: Mixed consistencies Swallowing Recommended Treatments: Compens. Strategy Educat. Level of Impact on: Daily activities: Mild Interpersonal interactions: Education: None Employment: None Community: Mild Prognosis for Improvement: Fair Recommendation for Speech: Discharge Inpatient Speech Therapy Additional Comments: Pt has been tolerating NDD3 with thins, good efficiency in oropharyngeal coordination when interested in eating. Treatment: Pt is resting in bed with his eyes open. Per RN, he was medicated with Halidol last night and has been sleeping all morning. He has his breakfast tray next to him with only some of the beverages taken. He is initially resistant to try any PO, but with encouragement and presentation he complies. He trials bites of Puree Solid (Pudding) and Chopped/Advanced Solid (Muffin with Butter) with mild delay on Chopped/Advanced but adequate oral clearance and no overt s/s of aspiration after providing Thin Liquids via Straw. After one administration of Liquids he verbally requested x3 follow-up sips independently. Recommend continue on current diet of Chopped/Advanced (NDD3) with thin liquids, straws ok, pills whole in puree. Pt will continue to require 1:1 Assistance with meals. No further skilled TOWER CLIMBER intervention at this time as Pt has demonstrated toleration of across visits and is not deemed a candidate for further advancement. Electrical W[employer] Lin[employer] Clinican/Clinical Fellow: No Supervisory Statement: I have reviewed and agree with the student/clinical fellow's documentation: N/A Speech Language Pathologist: Kiko Damon M.A., [facility]
[2024-11-01 15:16] VITALS: BP 101/62; PULSE 64; RESP 18; TEMP 36.4; O2SAT 94
[2024-11-01 15:26] LABS: Appearance Urine Turbid; Color Urine Dark Yellow; Glucose Urine UA Negative (Negative); Leukocyte Esterase Urine Large (3+) (Negative); Nitrite Urine Negative (Negative); PH 6.5 (5.0-9.0); UMIC TRIGGER UACC YES; Urine Blood Large (3+) (Negative); Urine Ketones Trace mg/dL (Negative); Urine Protein 100 (2+) mg/dL (Neg-Trace)
[2024-11-01 15:38] LABS: Bacteria Urine None Seen (None Seen); Calcium Oxalate Crystals Urine Present; RBC Urine >20 /HPF (0-2); Squamous Epithelial Cell Urine 0-2 /HPF (0-2); UACC Culture Trigger YES; WBC Urine >50 /HPF (0-5)
--- NOTE | 2024-11-01 15:57 | PC.NURSE ---
st cath for 200 ml cloudy , red tinged urine, bladder scanned for 224 ml. urine sent to the lab, awaiting results , Genoveva Kiran NP notified
[2024-11-01 19:25] VITALS: BP 110/60; PULSE 70; RESP 18; TEMP 36.3; O2SAT 94
[2024-11-01] MEDS: Doxazosin Mesylate 2 MG TABLET 4 MG PO (20:27)
[2024-11-01] MEDS: Mirtazapine 15 MG TABLET PO (20:27)
[2024-11-01 20:28] VITALS: BP 110/70; PULSE 70
[2024-11-01] MEDS: Divalproex Sodium Sprinkles 125 MG CAP.DR.SPR 750 MG PO (20:28)
[2024-11-01] MEDS: Metoprolol Succinate ER 50 MG TAB.ER.24H PO (20:28)
[2024-11-01] MEDS: Docusate Sodium 100 MG/10 ML LIQUID 200 MG PO (20:29)
[2024-11-02] VITALS (10 sets, daily range): BP systolic 103–122; BP diastolic 58–66; PULSE 60–80; RESP 16–20; TEMP 36.1–37.1; O2SAT 94–97
--- NOTE | 2024-11-02 05:00 | PC.NURSE ---
CARE ASSUMED 7PM..AWAKE...CONVERSES...ORIENTED TO PERSON ONLY...INCREASED RESTLESS AND AGITATION IN EVENING..PER SHIFT REPORT PATIENT REQUIRED HALDOL IM THURSDAY AND NGHTS...XANAX AND TRAZADINE REMAIN ON HOLD...PROVIDER UPDATED...HALDOL 2.5MG IM GIVEN WITH GRADUAL RESTFUL EFFECT...SWALLOWS H20 FROM CUP W/O DIFFICULTY..INCONTINANT URINE X2,,2ND INCONTINANCE ASSOCIATED WITH LARGE AMOUNT LOOSE STOOL AND MODERATE AMOUNT URINE...BLADDER SCANNED FOR 194ml post-incontinance....remains awake ,,,conversant...disoriented to place/time/recent events...embarressed by incontinance...dressing to coccyx changed after personal care given
[2024-11-02] MEDS: Fluticasone/Vilanterol 100/25 BLST.W.DEV 1 PUFF INHALE (07:41)
--- NOTE | 2024-11-02 09:27 | HO.PM.IMPN ---
Subjective Subjective Date of Service: 11/02/24 Interval History: Seen and examined this morning Follow-up for hematuria No further hematuria Remains pleasantly confused Review of Systems unable to obtain full ROS due to underlying dementia Physical Exam Vital Signs: Vital Signs: Last Vital Signs Temp 98.3 F 11/02/24 07:08 Pulse 60 11/02/24 07:42 Resp 16 11/02/24 07:42 BP 103/60 11/02/24 07:08 Pulse Ox 94 11/02/24 07:08 O2 Del Method Room Air 11/02/24 07:08 O2 Flow Rate 3 10/18/24 11:12 Oxygen Flow Rate 3 10/14/24 14:19 BMI result Body Mass Index 24.5 Appearing in no acute distress lung sounds are clear to auscultation heart regular rate rhythm, clear S1, S2 positive bowel sounds, abdomen is soft, nontender neuro patient is alert, confused Objective Data Active Medications Acetaminophen (Acetaminophen 325 Mg Tablet) 650 mg PO Q6H PRN PRN Reason: Pain, Mild (Pain Scale 1-3), fever or headache Last Admin: 11/01/24 01:08 Dose: 650 mg Documented By: NATHAN Acetaminophen (Acetaminophen Supp 650 Mg Supp.Rect) 650 mg [place] Q4H PRN PRN Reason: Pain/Fever Albuterol Sulfate (Albuterol Sulfate 90 Mcg 8 Gm Inhaler) 2 puff INHALE Q4H PRN PRN Reason: Shortness Of Breath Alprazolam (Alprazolam 0.5 Mg Tablet) 0.5 mg PO BID [facility] Last Admin: 10/17/24 20:42 Dose: 0.5 mg Documented By: JONES Amiodarone HCl (Amiodarone Hcl 200 Mg Tablet) 200 mg PO DAILY [facility] Last Admin: 11/01/24 09:12 Dose: 200 mg Documented By: KATHRINE Apixaban (Apixaban 2.5 Mg Tablet) 2.5 mg PO BID [facility] Last Admin: 11/01/24 20:26 Dose: 2.5 mg Documented By: ADRIA Bisacodyl (Bisacodyl 10 Mg Supp.Rect) 10 mg [place] DAILY PRN PRN Reason: Constipation Last Admin: 10/18/24 13:44 Dose: 10 mg Documented By: BHANU Calcium Carbonate (Calcium Carbonate 750 Mg Tab.Chew) 750 mg PO Q4H PRN PRN Reason: Heartburn Last Admin: 10/24/24 11:58 Dose: 750 mg Documented By: JUAN A Collagenase (Collagenase Clostridium Hist. 30 Gm Tube) 1 appl TOPICAL DAILY SHAYY; Protocol Last Admin: 11/01/24 09:13 Dose: 1 appl Documented By: KATHRINE Divalproex Sodium (Divalproex Sodium Sprinkles 125 Mg Kimo.) 750 mg PO BEDTIME SHAYY Last Admin: 11/01/24 20:28 Dose: 750 mg Documented By: ADRIA Docusate Sodium (Docusate Sodium 100 Mg/10 Ml Liquid) 200 mg PO BEDTIME SHAYY Last Admin: 11/01/24 20:29 Dose: 200 mg Documented By: ADRIA Doxazosin Mesylate (Doxazosin Mesylate 2 Mg Tablet) 4 mg PO BEDTIME SHAYY; Protocol Last Admin: 11/01/24 20:27 Dose: 4 mg Documented By: ADRIA Finasteride (Finasteride 5 Mg Tablet) 5 mg PO DAILY [facility] Last Admin: 11/01/24 09:12 Dose: 5 mg Documented By: KATHRINE Fluticasone/Vilanterol (Fluticasone/Vilanterol 100/25 Blst.W.Dev) 1 puff INHALE RDAILY [facility] Last Admin: 11/02/24 07:41 Dose: 1 puff Documented By: NEDA Magnesium Hydroxide (Milk Of Magnesia 30 Ml Oral.Susp) 30 ml PO DAILY PRN PRN Reason: Constipation Melatonin (Melatonin 3 Mg Tablet) 6 mg PO BEDTIME PRN PRN Reason: Insomnia Last Admin: 11/01/24 01:09 Dose: 6 mg Documented By: NATHAN Comments: promote sleep Metoprolol Succinate (Metoprolol Succinate Er 50 Mg Tab.Er.24h) 50 mg PO BEDTIME SHAYY; Protocol Last Admin: 11/01/24 20:28 Dose: 50 mg Documented By: ADRIA Mirtazapine (Mirtazapine 15 Mg Tablet) 15 mg PO BEDTIME SHAYY Last Admin: 11/01/24 20:27 Dose: 15 mg Documented By: ADRIA Naloxone HCl (Naloxone Hcl 0.4 Mg/Ml Vial) 0.4 mg SUBCUT Q3M PRN PRN Reason: Sedation/Unresponsive Polyethylene Glycol (Polyethylene Glycol 3350 17 Gm Powd.Pack) 17 gm PO DAILY [facility] Last Admin: 11/01/24 09:13 Dose: 17 gm Documented By: KATHRINE Risperidone (Risperidone 1 Mg Tablet) 1 mg PO DAILY [facility] Last Admin: 11/01/24 09:12 Dose: 1 mg Documented By: KATHRINE Sodium Biphosphate/Sodium Phosphate (Sodium Phosphate,[place]-Dibasic 133 Ml Enema) 118 ml [place] DAILY PRN PRN Reason: Constipation Sodium Biphosphate/Sodium Phosphate (Sodium Phosphate,[place]-Dibasic 133 Ml Enema) 133 ml [place] ONCE PRN PRN Reason: constipation Sodium Chloride (0.9 % Sodium Chloride Flush 3 Ml Syringe) 3 ml IVFLUSH QSHIFT [facility] Last Admin: 11/01/24 20:39 Dose: Not Given Documented By: ADRIA Non-Admin Reason: No Access Trazodone HCl (Trazodone Hcl 50 Mg Tablet) 50 mg PO BEDTIME [facility] Last Admin: 10/17/24 20:41 Dose: 50 mg Documented By: JONES Labs 10/29/24 07:19 10/30/24 08:56 Labs: Laboratory Results - last 24 hr 11/01/24 15:05 Urine Color Dark Yellow Urine Appearance Turbid Urine pH 6.5 Ur Specific [place] 1.020 Urine Protein 100 (2+) H Urine Glucose (UA) Negative Urine Ketones Trace Urine Blood Large (3+) H Urine Nitrite Negative Ur Leukocyte Esterase Large (3+) H Urine RBC >20 H Urine WBC >50 H Ur Squamous Epith Cells 0-2 Calcium Oxalate Crystal Present Urine Bacteria None Seen Hyaline Casts 3-5 Urine Yeast Present Assessment and Plan (1) Hematuria: Status: Acute Plan 84-year-old female with a PMH significant for HFrEF, CKD, paroxysmal AFib on Eliquis, hx of V tach, s/p pacer in place, HLD, urinary retention, BPH, dementia, anxiety, and bipolar disorder?who presented to the ED from [facility] after unwitnessed fall out of bed. Pt admitted to the hospital for treatment and further evaluation of acute hypoxic respiratory failure in the setting of likely aspiration pneumonitis after unwitnessed fall out of bed. Acute hypoxic respiratory failure likely secondary to aspiration pneumonitis s/p IV Zosyn x 7days, stable oxygenation on room air being followed by speech therapy diet advanced to chopped NDD 3 with clear liquids, continue ensure supplements Urinary retention/hematuria hematuria resolved, continue proscar, and carduara, Corral discontinued resumed Eliquis 10/25, no recurrent hematuria follow cbc Paroxysmal AFib acceptable rate control , continue metoprolol and Eliquis HFrEF stable and well compensated Mood disorder/dementia stable,continue current therapies. Trazodone and alprazolam held due to am sedation. intermittently refuses medications Constipation resolved continue bowel regimen VENU on CKD 3 resolved DNR compression boots oob with lift requires ongoing inpatient stay for safe disposition Quality Stroke Does the patient have a stroke diagnosis?: No VTE Prior VTE?: No VTE Risk Level:: Medical - moderate - high VTE Device Contraindication: N/A - Device Ordered VTE Drug Contraindication: Treatment Not Indicated
[2024-11-02] MEDS: Collagenase Clostridium Hist. 30 GM TUBE 1 APPL TOPICAL (09:33)
--- NOTE | 2024-11-02 09:42 | MHC.CM.PN ---
Per [facility] financial, Daughter did not answer the phone yesterday to set up an appointment to come in to initiate the [facility] bennie; Per Financial, they will attempt again today to reach the Daughter. CM will follow.
[2024-11-02] MEDS: Acetaminophen 325 MG TABLET 650 MG PO (11:20)
[2024-11-02] MEDS: Apixaban 2.5 MG TABLET PO ×2 (12:11→20:55)
[2024-11-02] MEDS: Finasteride 5 MG TABLET PO (12:11)
[2024-11-02] MEDS: risperiDONE 1 MG TABLET PO (12:11)
[2024-11-02] MEDS: Amiodarone HCL 200 MG TABLET PO (12:12)
--- NOTE | 2024-11-02 12:42 | MHC.CM.PN ---
Per [facility] Financial, they spoke with Daughter today, who agreed to a phone screening for information, has a list of things to bring to [facility] tomorrow, at which time, application should be signed. CM will follow.
[2024-11-02] MEDS: Docusate Sodium 100 MG/10 ML LIQUID 200 MG PO (20:53)
[2024-11-02] MEDS: Metoprolol Succinate ER 50 MG TAB.ER.24H PO (20:53)
[2024-11-02] MEDS: Doxazosin Mesylate 2 MG TABLET 4 MG PO (20:55)
[2024-11-02] MEDS: Mirtazapine 15 MG TABLET PO (20:55)
[2024-11-02] MEDS: Divalproex Sodium Sprinkles 125 MG CAP.DR.SPR 750 MG PO (20:55)
[2024-11-03] VITALS (11 sets, daily range): BP systolic 78–124; BP diastolic 50–67; PULSE 60–85; RESP 14–20; TEMP 36.1–37.1; O2SAT 93–98
[2024-11-03] MEDS: Acetaminophen 325 MG TABLET 650 MG PO ×2 (05:53→21:08)
[2024-11-03] MEDS: Fluticasone/Vilanterol 100/25 BLST.W.DEV 1 PUFF INHALE (07:47)
[2024-11-03] MEDS: Apixaban 2.5 MG TABLET PO ×2 (09:07→21:08)
[2024-11-03] MEDS: Amiodarone HCL 200 MG TABLET PO (09:07)
[2024-11-03] MEDS: risperiDONE 1 MG TABLET PO (09:07)
[2024-11-03] MEDS: Collagenase Clostridium Hist. 30 GM TUBE 1 APPL TOPICAL (09:07)
[2024-11-03] MEDS: Albumin Human 25 % 100 ML IV ×2 (10:23→11:42)
[2024-11-03 10:29] LABS: Hematocrit 28.7 % (42.0-52.0); Hemoglobin 9.4 g/dl (14.0-18.0)
[2024-11-03] MEDS: Lactated Ringers 500 ML 100 ML IVCONT (12:14)
[2024-11-03] MEDS: Nystatin Powder 15 GM BOTTLE 1 APPL TOPICAL ×2 (12:14→21:12)
[2024-11-03 12:27] LABS: MANUAL DIFF FLAG NO
[2024-11-03 12:30] LABS: Basophils Percent Auto 0.3 % (0-2); Eosinophils Absolute Auto 0.2 X10*3/uL (0.0-0.4); Eosinophils Percent Auto 2.2 % (0-4); Hematocrit 25.6 % (42.0-52.0); Hemoglobin 8.2 g/dl (14.0-18.0); Imm Gran Abs Auto 0.06 X10*3/uL (0.00-0.03); Imm Gran Pct Auto 0.8 % (0.0-0.4); Lymphocytes Absolute Auto 1.1 X10*3/uL (1.2-4.9); Lymphocytes Percent Auto 13.8 % (20-40); Mean Corpuscular Hemoglobin 28.5 pg (27.0-33.0); Mean Corpuscular Volume 88.9 fL (80.0-98.0); Mean Platelet Volume 8.9 fL (9.4-12.4); Monocytes Absolute Auto 0.8 X10*3/uL (0.1-1.2); Monocytes Percent Auto 10.2 % (2-11); Neutrophils Absolute Auto 5.6 x10*3/uL (2.0-8.3); Neutrophils Percent Auto 72.7 % (45-73); Platelet Count 280 X10*3/uL (160-400); Red Blood Count 2.88 X10*6/uL (4.60-5.80); Red Cell Distribution Width 14.6 % (11.0-16.0); White Blood Count 7.8 X10*3/uL (4.8-10.8)
[2024-11-03 12:45] LABS: Anion Gap 11 (12-20); Blood Urea Nitrogen 22 mg/dL (9-16); Calcium 9.3 mg/dL (8.4-10.2); Carbon Dioxide 26 mmol/L (22-29); Chloride 110 mmol/L (96-108); Creatinine Clr Calc Pharmacy 44.5; Estimated Glomerular Filt Rate 51; Glucose Random 113 mg/dL (60-115); Sodium 143 mmol/L (135-145)
--- NOTE | 2024-11-03 13:06 | HO.PM.IMPN ---
Subjective Subjective Date of Service: 11/03/24 Interval History: seen and examined this morning Follow-up for placement Blood pressure low, patient awake, alert, poor historian but denies dizziness unable to obtain full ROS due to underlying dementia Physical Exam Vital Signs: Vital Signs: Last Vital Signs Temp 98.5 F 11/03/24 11:28 Pulse 62 11/03/24 11:28 Resp 16 11/03/24 11:28 BP 97/57 L 11/03/24 12:21 Pulse Ox 96 11/03/24 11:28 O2 Del Method Room Air 11/03/24 11:28 O2 Flow Rate 3 10/18/24 11:12 Oxygen Flow Rate 3 10/14/24 14:19 BMI result Body Mass Index 24.5 Const: General: cooperative, comfortable, no acute distress, alert and awake Nutritional Appearance: thin Orientation/consciousness: oriented to person Resp: Effort & Inspection: normal respiratory effort, able to speak in complete sentences, no respiratory distress and no use of accessory muscles Auscultation: clear to auscultation bilaterally Cardio: Rate: regular rate GI: Inspection: No distended Palpation (GI): Soft to palpation and nontender Neuro: Other: grossly nonfocal General: oriented to person and moves all extremities Extrem: General: Yes no pedal edema Objective Data Active Medications Acetaminophen (Acetaminophen 325 Mg Tablet) 650 mg PO Q6H PRN PRN Reason: Pain, Mild (Pain Scale 1-3), fever or headache Last Admin: 11/03/24 05:53 Dose: 650 mg Documented By: APRIL Acetaminophen (Acetaminophen Supp 650 Mg Supp.Rect) 650 mg OK Q4H PRN PRN Reason: Pain/Fever Albuterol Sulfate (Albuterol Sulfate 90 Mcg 8 Gm Inhaler) 2 puff INHALE Q4H PRN PRN Reason: Shortness Of Breath Alprazolam (Alprazolam 0.5 Mg Tablet) 0.5 mg PO BID [facility] Last Admin: 10/17/24 20:42 Dose: 0.5 mg Documented By: JONES Amiodarone HCl (Amiodarone Hcl 200 Mg Tablet) 200 mg PO DAILY [facility] Last Admin: 11/03/24 09:07 Dose: 200 mg Documented By: TIM Apixaban (Apixaban 2.5 Mg Tablet) 2.5 mg PO BID [facility] Last Admin: 11/03/24 09:07 Dose: 2.5 mg Documented By: TIM Bisacodyl (Bisacodyl 10 Mg Supp.Rect) 10 mg OK DAILY PRN PRN Reason: Constipation Last Admin: 10/18/24 13:44 Dose: 10 mg Documented By: BHANU Calcium Carbonate (Calcium Carbonate 750 Mg Tab.Chew) 750 mg PO Q4H PRN PRN Reason: Heartburn Last Admin: 10/24/24 11:58 Dose: 750 mg Documented By: JUAN A Collagenase (Collagenase Clostridium Hist. 30 Gm Tube) 1 appl TOPICAL DAILY [facility]; Protocol Last Admin: 11/03/24 09:07 Dose: 1 appl Documented By: TIM Divalproex Sodium (Divalproex Sodium Sprinkles 125 Mg Kimo.) 750 mg PO BEDTIME [facility] Last Admin: 11/02/24 20:55 Dose: 750 mg Documented By: APRIL Docusate Sodium (Docusate Sodium 100 Mg/10 Ml Liquid) 200 mg PO BEDTIME [facility] Last Admin: 11/02/24 20:53 Dose: 200 mg Documented By: APRIL Doxazosin Mesylate (Doxazosin Mesylate 2 Mg Tablet) 4 mg PO BEDTIME [facility]; Protocol Last Admin: 11/02/24 20:55 Dose: 4 mg Documented By: APRIL Finasteride (Finasteride 5 Mg Tablet) 5 mg PO DAILY [facility] Last Admin: 11/03/24 07:43 Dose: Not Given Documented By: TIM Non-Admin Reason: Physician Held Med Fluticasone/Vilanterol (Fluticasone/Vilanterol 100/25 Blst.W.Dev) 1 puff INHALE RDAILY [facility] Last Admin: 11/03/24 07:47 Dose: 1 puff Documented By: PINKY Lactated Ringer's (Lr) 500 mls @ 100 mls/hr IVCONT .Q5H [facility] Stop: 11/03/24 17:14 Last Admin: 11/03/24 12:14 Dose: 100 mls/hr Documented By: TIM Magnesium Hydroxide (Milk Of Magnesia 30 Ml Oral.Susp) 30 ml PO DAILY PRN PRN Reason: Constipation Melatonin (Melatonin 3 Mg Tablet) 6 mg PO BEDTIME PRN PRN Reason: Insomnia Last Admin: 11/01/24 01:09 Dose: 6 mg Documented By: NATHAN Comments: promote sleep Metoprolol Succinate (Metoprolol Succinate Er 25 Mg Tab.Er.24h) 25 mg PO BEDTIME [facility]; Protocol Mirtazapine (Mirtazapine 15 Mg Tablet) 15 mg PO BEDTIME [facility] Last Admin: 11/02/24 20:55 Dose: 15 mg Documented By: APRIL Naloxone HCl (Naloxone Hcl 0.4 Mg/Ml Vial) 0.4 mg SUBCUT Q3M PRN PRN Reason: Sedation/Unresponsive Nystatin (Nystatin Powder 15 Gm Bottle) 1 appl TOPICAL BID [facility]; Protocol Last Admin: 11/03/24 12:14 Dose: 1 appl Documented By: TIM Polyethylene Glycol (Polyethylene Glycol 3350 17 Gm Powd.Pack) 17 gm PO DAILY [facility] Last Admin: 11/03/24 09:07 Dose: Not Given Documented By: TIM Non-Admin Reason: Patient Refused Risperidone (Risperidone 1 Mg Tablet) 1 mg PO DAILY [facility] Last Admin: 11/03/24 09:07 Dose: 1 mg Documented By: TIM Sodium Biphosphate/Sodium Phosphate (Sodium Phosphate,[place]-Dibasic 133 Ml Enema) 118 ml OK DAILY PRN PRN Reason: Constipation Sodium Biphosphate/Sodium Phosphate (Sodium Phosphate,[place]-Dibasic 133 Ml Enema) 133 ml OK ONCE PRN PRN Reason: constipation Sodium Chloride (0.9 % Sodium Chloride Flush 3 Ml Syringe) 3 ml IVFLUSH QSHIFT [facility] Last Admin: 11/03/24 09:07 Dose: Not Given Documented By: TIM Non-Admin Reason: No Access Trazodone HCl (Trazodone Hcl 50 Mg Tablet) 50 mg PO BEDTIME [facility] Last Admin: 10/17/24 20:41 Dose: 50 mg Documented By: JONES Labs 11/03/24 12:12 11/03/24 12:12 Labs: Laboratory Results - last 24 hr 11/03/24 11/03/24 09:08 12:12 MCV 88.9 MCH 28.5 MCHC 32.0 RDW 14.6 Plt Count 280 MPV 8.9 L Immature Gran % (Auto) 0.8 H Neut % (Auto) 72.7 Lymph % (Auto) 13.8 L [place] % (Auto) 10.2 Eos % (Auto) 2.2 Baso % (Auto) 0.3 Lymph # (Auto) 1.1 L [place] # (Auto) 0.8 Eos # (Auto) 0.2 Baso # (Auto) 0.0 Abs Immat Gran (auto) 0.06 H Absolute Neuts (auto) 5.6 Absolute Nucleated RBC 0.000 Nucleated RBC % (auto) 0.0 Anion Gap 11 L Estim Creat Clear Calc 44.5 Estimated GFR 51 Random Glucose 113 Calcium 9.3 Hold Yellow Top See Note Microbiology Microbiology Results: Microbiology 11/01/24 Unknown Urine Culture - Preliminary Urine clean catch - Clean Catch Midstream Culture in progress. Assessment and Plan (1) Dementia: Status: Acute Plan 84-year-old female with a PMH significant for HFrEF, CKD, paroxysmal AFib on Eliquis, hx of V tach, s/p pacer in place, HLD, urinary retention, BPH, dementia, anxiety, and bipolar disorder?who presented to the ED from [facility] after unwitnessed fall out of bed. Pt admitted to the hospital for treatment and further evaluation of acute hypoxic respiratory failure in the setting of likely aspiration pneumonitis after unwitnessed fall out of bed. hypotension seems asymptomatic no obvious source of infection, afebrile, no leukocytosis suspect due to volume depletion, hypoalbuminemia from poor po intake albumin and gentle fluid will reduce dose of metoprolol follow closely Acute hypoxic respiratory failure likely secondary to aspiration pneumonitis s/p IV Zosyn x 7days, stable oxygenation on room air being followed by speech therapy diet advanced to chopped NDD 3 with clear liquids, continue ensure supplements Urinary retention/hematuria hematuria resolved continue proscar, and carduara [place] discontinued resumed Eliquis 10/25, no recurrent hematuria cbc stable Paroxysmal AFib acceptable rate control continue metoprolol and Eliquis HFrEF stable and well compensated Mood disorder/dementia stable,continue current therapies. Trazodone and alprazolam held due to am sedation. intermittently refuses medications Constipation resolved continue bowel regimen VENU on CKD 3 resolved unstagable pressure injury of sacrum POA wound care nurse following continue local wound care, frequent repositioning DNR dvt ppx - compression boots/eliquis oob with lift requires ongoing inpatient stay for safe disposition Quality Stroke Does the patient have a stroke diagnosis?: No VTE Prior VTE?: No VTE Risk Level:: Medical - moderate - high VTE Device Contraindication: N/A - Device Ordered VTE Drug Contraindication: Treatment Not Indicated
[2024-11-03] MEDS: Melatonin 3 MG TABLET 6 MG PO (21:08)
[2024-11-03] MEDS: Divalproex Sodium Sprinkles 125 MG CAP.DR.SPR 750 MG PO (21:08)
[2024-11-03] MEDS: Mirtazapine 15 MG TABLET PO (21:08)
[2024-11-03] MEDS: Docusate Sodium 100 MG/10 ML LIQUID 200 MG PO (21:11)
[2024-11-03] MEDS: 0.9 % Sodium Chloride Flush 3 ML SYRINGE IVFLUSH (21:12)
[2024-11-04 03:16] VITALS: BP 110/58; PULSE 80; RESP 18; TEMP 36; O2SAT 94
[2024-11-04 07:34] LABS: Anion Gap 12 (12-20); Blood Urea Nitrogen 27 mg/dL (9-16); Calcium 9.1 mg/dL (8.4-10.2); Carbon Dioxide 25 mmol/L (22-29); Chloride 112 mmol/L (96-108); Creatinine Clr Calc Pharmacy 50.2; Estimated Glomerular Filt Rate 59; Glucose Random 100 mg/dL (60-115); Potassium 4.3 mmol/L (3.3-5.1); Sodium 145 mmol/L (135-145)
[2024-11-04 07:39] VITALS: BP 99/57; PULSE 70; RESP 20; TEMP 36.6; O2SAT 94
[2024-11-04] MEDS: polyethylene glycoL 3350 17 GM POWD.PACK PO (09:47)
[2024-11-04] MEDS: Apixaban 2.5 MG TABLET PO ×2 (09:47→20:34)
[2024-11-04] MEDS: risperiDONE 1 MG TABLET PO (09:47)
[2024-11-04] MEDS: 0.9 % Sodium Chloride Flush 3 ML SYRINGE IVFLUSH ×3 (09:47→20:46)
[2024-11-04] MEDS: Nystatin Powder 15 GM BOTTLE 1 APPL TOPICAL ×2 (09:47→20:41)
[2024-11-04] MEDS: Amiodarone HCL 200 MG TABLET PO (09:47)
--- NOTE | 2024-11-04 09:51 | HO.WOUND ---
Wound Consult: Follow up 84yr old male? admitted to [facility] on 10/14/24 - See progress notes and H&P for detailed history.? Wound consult follow up for Coccyx / Sacral wound.? Patient agreeable to assessment and photo documentation.? See review below the periwound and some areas of the wound bed have improved however the thickness of the slough appears it may have thickened, there is new observed green drainage consistent with pseudomonas invasion. Recommend adding Dakin's in addition to Santyl for enzymartic debridement and treatment of Pseudomonas. TT to [facility] with above information. Of note new Pulsate bed from [employer] ordered for envelopment technology to treat periwound and aid in wound healing. Direct care nurse advised to document and ensure proper turns are performed to off load pressure. 10/26/24 10/31/24 11/04/24 Sacrum Etiology: ??Unstageable Pressure Injury Present on Admission Measurements: 3cm x 7cm x 0.3cm Wound Bed: adherent yellow slough Drainage / Odor: green drainage moderate amount no odor noted Edges: ? irregular Gricel wound: ?MASD - dark red pink blanchable tissue with areas of slight maceration noted - No Induration, Fluctuance or Warmth noted Pain: tenderness reported Goals of Treatment: ? Off load pressure - Add Dakins and continue Santyl for enzymatic debridement - Provider to order form pharmacy Recommendations: 1. Turn and Reposition every 2 hours and as needed for patient comfort.? Use pillows or wedges to support off loading positions. 2. Off Load all bony prominences with use of pillows and heel boots if needed.? Apply Preventative foams where needed. ? 3. Monitor for incontinence and moisture control, use barrier creams when needed for prevention and treatment. 4. Provide adequate and supplemental nutrition.? 5. Continue low air loss mattress. - [employer] Pulsate bed ordered. 6. When applicable maintain blood glucose levels per Providers order. 7. Sacrum - Off Load Pressure? with Q2hr turns. Cleanse with Dakin's, pat dry. ?Apply barrier to the immediate gricel wound, apply thick layer of Santyl to entire wound bed, cover with Dakins moist gauze, secure ABD pad dressing, change Daily. Re-consult wound care Nurse for wound deterioration or wound changes.
[2024-11-04 11:09] VITALS: BP 124/62; PULSE 83; RESP 20; TEMP 36.3; O2SAT 98
--- NOTE | 2024-11-04 11:34 | MHC.CM.PN ---
Per ROUNDS, PA may discuss Hospice option with Daughter/HCP. CM will follow.
[2024-11-04 15:21] VITALS: BP 126/65; PULSE 80; RESP 18; TEMP 37.3; O2SAT 94
--- NOTE | 2024-11-04 15:35 | MHC.CM.PN ---
Per PA, Daughter/HCP is interested in a Hospice Informational. A referral has been sent to [facility] and CM will follow.
--- NOTE | 2024-11-04 15:48 | P.PNIM_ITS ---
Subjective Subjective Date of Service: 11/04/24 Interval History: seen and examined this morning follow up for dementia, placement still with limited po intake unable to obtain full ros due to dementia Physical Exam 2 Vital Signs: Vital Signs: Last Vital Signs Temp 99.2 F 11/04/24 15:21 Pulse 80 11/04/24 15:21 Resp 18 11/04/24 15:21 BP 126/65 11/04/24 15:21 Pulse Ox 94 11/04/24 15:21 O2 Del Method Room Air 11/04/24 15:21 O2 Flow Rate 3 10/18/24 11:12 Oxygen Flow Rate 3 10/14/24 14:19 BMI result Body Mass Index 24.5 Const: General: cooperative, comfortable, no acute distress, alert and awake Nutritional Appearance: average body habitus and thin O rientation/consciousness: oriented to person Resp: Effort & Inspection: normal respiratory effort, able to speak in complete sentences, no respiratory distress and no use of accessory muscles A uscultation: clear to auscultation bilaterally Cardio: Rate: regular rate GI: Inspection: No distended Palpation (GI): Soft to palpation and nontender : Other: chow - no hematuria Neuro: Other: grossly nonfocal General: oriented to person and moves all extremities Extrem: General: Yes no pedal edema Objective Data Active Medications Acetaminophen (Acetaminophen 325 Mg Tablet) 650 mg PO Q6H PRN PRN Reason: Pain, Mild (Pain Scale 1-3), fever or headache Last Admin: 11/03/24 21:08 Dose: 650 mg Documented By: APRIL Acetaminophen (Acetaminophen Supp 650 Mg Supp.Rect) 650 mg IA Q4H PRN PRN Reason: Pain/Fever Albuterol Sulfate (Albuterol Sulfate 90 Mcg 8 Gm Inhaler) 2 puff INHALE Q4H PRN PRN Reason: Shortness Of Breath Amiodarone HCl (Amiodarone Hcl 200 Mg Tablet) 200 mg PO DAILY [facility] Last Admin: 11/04/24 09:47 Dose: 200 mg Documented By: TIM Apixaban (Apixaban 2.5 Mg Tablet) 2.5 mg PO BID [facility] Last Admin: 11/04/24 09:47 Dose: 2.5 mg Documented By: TIM Bisacodyl (Bisacodyl 10 Mg Supp.Rect) 10 mg IA DAILY PRN PRN Reason: Constipation Last Admin: 10/18/24 13:44 Dose: 10 mg Documented By: BHANU Calcium Carbonate (Calcium Carbonate 750 Mg Tab.Chew) 750 mg PO Q4H PRN PRN Reason: Heartburn Last Admin: 10/24/24 11:58 Dose: 750 mg Documented By: JUAN A Collagenase (Collagenase Clostridium Hist. 30 Gm Tube) 1 appl TOPICAL DAILY [facility]; Protocol Last Admin: 11/04/24 09:48 Dose: Not Given Documented By: TIM Non-Admin Reason: wound RN changed dsg this am Divalproex Sodium (Divalproex Sodium Sprinkles 125 Mg Kimo.) 750 mg PO BEDTIME [facility] Last Admin: 11/03/24 21:08 Dose: 750 mg Documented By: APRIL Docusate Sodium (Docusate Sodium 100 Mg/10 Ml Liquid) 200 mg PO BEDTIME [facility] Last Admin: 11/03/24 21:11 Dose: 200 mg Documented By: APRIL Doxazosin Mesylate (Doxazosin Mesylate 2 Mg Tablet) 4 mg PO BEDTIME [facility]; Protocol Last Admin: 11/03/24 21:11 Dose: Not Given Documented By: APRIL Non-Admin Reason: HELD per , soft BP Finasteride (Finasteride 5 Mg Tablet) 5 mg PO DAILY [facility] Last Admin: 11/04/24 08:39 Dose: Not Given Documented By: TIM Non-Admin Reason: Physician Held Med Fluticasone/Vilanterol (Fluticasone/Vilanterol 100/25 Blst.W.Dev) 1 puff INHALE RDAILY [facility] Last Admin: 11/04/24 07:30 Dose: Not Given Documented By: MAEVE Non-Admin Reason: Patient Condition Contraindication Magnesium Hydroxide (Milk Of Magnesia 30 Ml Oral.Susp) 30 ml PO DAILY PRN PRN Reason: Constipation Melatonin (Melatonin 3 Mg Tablet) 6 mg PO BEDTIME PRN PRN Reason: Insomnia Last Admin: 11/03/24 21:08 Dose: 6 mg Documented By: APRIL Metoprolol Succinate (Metoprolol Succinate Er 25 Mg Tab.Er.24h) 25 mg PO BEDTIME [facility]; Protocol Last Admin: 11/03/24 21:11 Dose: Not Given Documented By: APRIL Non-Admin Reason: HELD per MD, low BP Mirtazapine (Mirtazapine 15 Mg Tablet) 15 mg PO BEDTIME [facility] Last Admin: 11/03/24 21:08 Dose: 15 mg Documented By: APRIL Naloxone HCl (Naloxone Hcl 0.4 Mg/Ml Vial) 0.4 mg SUBCUT Q3M PRN PRN Reason: Sedation/Unresponsive Nystatin (Nystatin Powder 15 Gm Bottle) 1 appl TOPICAL BID [facility]; Protocol Last Admin: 11/04/24 09:47 Dose: 1 appl Documented By: TIM Polyethylene Glycol (Polyethylene Glycol 3350 17 Gm Powd.Pack) 17 gm PO DAILY [facility] Last Admin: 11/04/24 09:47 Dose: 17 gm Documented By: TIM Risperidone (Risperidone 1 Mg Tablet) 1 mg PO DAILY [facility] Last Admin: 11/04/24 09:47 Dose: 1 mg Documented By: TIM Sodium Biphosphate/Sodium Phosphate (Sodium Phosphate,[place]-Dibasic 133 Ml Enema) 118 ml IA DAILY PRN PRN Reason: Constipation Sodium Biphosphate/Sodium Phosphate (Sodium Phosphate,[place]-Dibasic 133 Ml Enema) 133 ml IA ONCE PRN PRN Reason: constipation Sodium Chloride (0.9 % Sodium Chloride Flush 3 Ml Syringe) 3 ml IVFLUSH QSHIFT [facility] Last Admin: 11/04/24 15:26 Dose: 3 ml Documented By: TIM Labs 11/03/24 12:12 11/04/24 06:46 Labs: Laboratory Results - last 24 hr 11/04/24 06:46 Hold Purple Top SEE NOTE Anion Gap 12 Estim Creat Clear Calc 50.2 Estimated GFR 59 Random Glucose 100 Calcium 9.1 Microbiology Microbiology Results: Microbiology 11/01/24 Unknown Urine Culture - Preliminary Urine clean catch - Clean Catch Midstream Yeast Assessment and Plan (1) Dementia: Status: Acute Plan 84-year-old female with a PMH significant for HFrEF, CKD, paroxysmal AFib on Eliquis, hx of V tach, s/p pacer in place, HLD, urinary retention, BPH, dementia, anxiety, and bipolar disorder?who presented to the ED from [facility] after unwitnessed fall out of bed. Pt admitted to the hospital for treatment and further evaluation of acute hypoxic respiratory failure in the setting of likely aspiration pneumonitis after unwitnessed fall out of bed. hypotension asymptomatic no obvious source of infection, afebrile, no leukocytosis suspect due to volume depletion, hypoalbuminemia from poor po intake s/p albumin and gentle fluid reduced dose of metoprolol bp improved Acute hypoxic respiratory failure likely secondary to aspiration pneumonitis s/p IV Zosyn x 7days, stable oxygenation on room air being followed by speech therapy diet advanced to chopped NDD 3 with clear liquids, continue supplements Urinary retention/hematuria hematuria resolved continue proscar, and carduara [place] discontinued resumed Eliquis 10/25, no recurrent hematuria cbc stable Paroxysmal AFib acceptable rate control continue metoprolol and Eliquis HFrEF stable and well compensated Mood disorder/dementia stable,continue current therapies. Trazodone and alprazolam d/c due to am sedation. intermittently refuses medications Constipation resolved continue bowel regimen VENU on CKD 3 resolved unstagable pressure injury of sacrum. POA wound care nurse following continue local wound care, frequent repositioning DNR dvt ppx - compression boots/eliquis oob with lift overall doing poorly - failure to thrive with decreasing po intake. discussed with daughter, plan for hospice informational. CM aware requires ongoing inpatient stay for safe disposition Quality Stroke Does the patient have a stroke diagnosis?: No VTE Prior VTE?: No VTE Risk Level:: Medical - moderate - high VTE Device Contraindication: N/A - Device Ordered VTE Drug Contraindication: Treatment Not Indicated
[2024-11-04 19:45] VITALS: BP 96/54; PULSE 87; RESP 14; TEMP 37.1; O2SAT 97
[2024-11-04] MEDS: Docusate Sodium 100 MG/10 ML LIQUID 200 MG PO (20:34)
[2024-11-04] MEDS: Mirtazapine 15 MG TABLET PO (20:35)
[2024-11-04] MEDS: Divalproex Sodium Sprinkles 125 MG CAP.DR.SPR 750 MG PO (20:40)
[2024-11-05] VITALS (7 sets, daily range): BP systolic 102–140; BP diastolic 59–75; PULSE 59–87; RESP 14–20; TEMP 35.9–36.7; O2SAT 96–97
[2024-11-05] MEDS: Fluticasone/Vilanterol 100/25 BLST.W.DEV 1 PUFF INHALE (07:23)
[2024-11-05] MEDS: Finasteride 5 MG TABLET PO (10:09)
[2024-11-05] MEDS: polyethylene glycoL 3350 17 GM POWD.PACK PO (10:09)
[2024-11-05] MEDS: Amiodarone HCL 200 MG TABLET PO (10:09)
[2024-11-05] MEDS: Apixaban 2.5 MG TABLET PO ×2 (10:09→20:24)
[2024-11-05] MEDS: risperiDONE 1 MG TABLET PO (10:09)
[2024-11-05] MEDS: Collagenase Clostridium Hist. 30 GM TUBE 1 APPL TOPICAL (10:10)
[2024-11-05] MEDS: Nystatin Powder 15 GM BOTTLE 1 APPL TOPICAL ×2 (10:10→20:32)
[2024-11-05] MEDS: 0.9 % Sodium Chloride Flush 3 ML SYRINGE IVFLUSH ×3 (10:10→23:51)
[2024-11-05] MEDS: Milk of Magnesia 30 ML ORAL.SUSP PO (12:11)
--- NOTE | 2024-11-05 14:31 | HO.PM.IMPN ---
Subjective Subjective Date of Service: 11/05/24 Interval History: seen and examined this morning follow up for dementia, placement no overnight events awake, alert; knows his name and that he is in the hospital unable to obtain full ROS due to dementia Physical Exam Vital Signs: Vital Signs: Last Vital Signs Temp 97.6 F 11/05/24 11:46 Pulse 59 11/05/24 11:46 Resp 18 11/05/24 11:46 BP 112/59 L 11/05/24 11:46 Pulse Ox 97 11/05/24 11:46 O2 Del Method Room Air 11/05/24 11:46 O2 Flow Rate 3 10/18/24 11:12 Oxygen Flow Rate 3 10/14/24 14:19 BMI result Body Mass Index 24.5 Const: General: cooperative, comfortable, no acute distress, alert and awake Nutritional Appearance: average body habitus and thin Orientation/consciousness: oriented to person Resp: Effort & Inspection: normal respiratory effort, able to speak in complete sentences, no respiratory distress and no use of accessory muscles Auscultation: clear to auscultation bilaterally Cardio: Rate: regular rate GI: Inspection: No distended Palpation (GI): Soft to palpation and nontender Neuro: Other: grossly nonfocal General: oriented to person and moves all extremities Extrem: General: Yes no pedal edema Objective Data Active Medications Acetaminophen (Acetaminophen 325 Mg Tablet) 650 mg PO Q6H PRN PRN Reason: Pain, Mild (Pain Scale 1-3), fever or headache Last Admin: 11/03/24 21:08 Dose: 650 mg Documented By: APRIL Acetaminophen (Acetaminophen Supp 650 Mg Supp.Rect) 650 mg CA Q4H PRN PRN Reason: Pain/Fever Albuterol Sulfate (Albuterol Sulfate 90 Mcg 8 Gm Inhaler) 2 puff INHALE Q4H PRN PRN Reason: Shortness Of Breath Amiodarone HCl (Amiodarone Hcl 200 Mg Tablet) 200 mg PO DAILY [facility] Last Admin: 11/05/24 10:09 Dose: 200 mg Documented By: SIVAKUMAR Apixaban (Apixaban 2.5 Mg Tablet) 2.5 mg PO BID [facility] Last Admin: 11/05/24 10:09 Dose: 2.5 mg Documented By: SIVAKUMAR Bisacodyl (Bisacodyl 10 Mg Supp.Rect) 10 mg CA DAILY PRN PRN Reason: Constipation Last Admin: 10/18/24 13:44 Dose: 10 mg Documented By: BHANU Calcium Carbonate (Calcium Carbonate 750 Mg Tab.Chew) 750 mg PO Q4H PRN PRN Reason: Heartburn Last Admin: 10/24/24 11:58 Dose: 750 mg Documented By: JUAN A Collagenase (Collagenase Clostridium Hist. 30 Gm Tube) 1 appl TOPICAL DAILY [facility]; Protocol Last Admin: 11/05/24 10:10 Dose: 1 appl Documented By: SIVAKUMAR Divalproex Sodium (Divalproex Sodium Sprinkles 125 Mg ) 750 mg PO BEDTIME [facility] Last Admin: 11/04/24 20:40 Dose: 750 mg Documented By: GIAN Docusate Sodium (Docusate Sodium 100 Mg/10 Ml Liquid) 200 mg PO BEDTIME [facility] Last Admin: 11/04/24 20:34 Dose: 200 mg Documented By: GIAN Doxazosin Mesylate (Doxazosin Mesylate 2 Mg Tablet) 4 mg PO BEDTIME [facility]; Protocol Last Admin: 11/04/24 20:35 Dose: Not Given Documented By: GIAN Non-Admin Reason: Physician Held Med Comments: per Dr. Gandara Finasteride (Finasteride 5 Mg Tablet) 5 mg PO DAILY [facility] Last Admin: 11/05/24 10:09 Dose: 5 mg Documented By: SIVAKUMAR Fluticasone/Vilanterol (Fluticasone/Vilanterol 100/25 Blst.W.Dev) 1 puff INHALE RDAILY [facility] Last Admin: 11/05/24 07:23 Dose: 1 puff Documented By: PINKY Magnesium Hydroxide (Milk Of Magnesia 30 Ml Oral.Susp) 30 ml PO DAILY PRN PRN Reason: Constipation Last Admin: 11/05/24 12:11 Dose: 30 ml Documented By: SIVAKUMAR Melatonin (Melatonin 3 Mg Tablet) 6 mg PO BEDTIME PRN PRN Reason: Insomnia Last Admin: 11/03/24 21:08 Dose: 6 mg Documented By: APRIL Metoprolol Succinate (Metoprolol Succinate Er 25 Mg Tab.Er.24h) 25 mg PO BEDTIME [facility]; Protocol Last Admin: 12/13/24 20:28 Dose: Not Given Documented By: GIAN Non-Admin Reason: Physician Held Med Comments: Held per Dr. Gandara Mirtazapine (Mirtazapine 15 Mg Tablet) 15 mg PO BEDTIME [facility] Last Admin: 11/04/24 20:35 Dose: 15 mg Documented By: GIAN Naloxone HCl (Naloxone Hcl 0.4 Mg/Ml Vial) 0.4 mg SUBCUT Q3M PRN PRN Reason: Sedation/Unresponsive Nystatin (Nystatin Powder 15 Gm Bottle) 1 appl TOPICAL BID [facility]; Protocol Last Admin: 11/05/24 10:10 Dose: 1 appl Documented By: SIVAKUMAR Polyethylene Glycol (Polyethylene Glycol 3350 17 Gm Powd.Pack) 17 gm PO DAILY [facility] Last Admin: 11/05/24 10:09 Dose: 17 gm Documented By: SIVAKUMAR Risperidone (Risperidone 1 Mg Tablet) 1 mg PO DAILY [facility] Last Admin: 11/05/24 10:09 Dose: 1 mg Documented By: SIVAKUMAR Sodium Biphosphate/Sodium Phosphate (Sodium Phosphate,Piatt-Dibasic 133 Ml Enema) 118 ml CA DAILY PRN PRN Reason: Constipation Sodium Biphosphate/Sodium Phosphate (Sodium Phosphate,Piatt-Dibasic 133 Ml Enema) 133 ml CA ONCE PRN PRN Reason: constipation Sodium Chloride (0.9 % Sodium Chloride Flush 3 Ml Syringe) 3 ml IVFLUSH QSHIFT [facility] Last Admin: 11/05/24 10:10 Dose: 3 ml Documented By: SIVAKUMAR Labs 11/03/24 12:12 11/04/24 06:46 Microbiology Microbiology Results: Microbiology 11/01/24 Unknown Urine Culture - Preliminary Urine clean catch - Clean Catch Midstream Yeast Assessment and Plan (1) Dementia: Status: Acute Plan 84-year-old female with a PMH significant for HFrEF, CKD, paroxysmal AFib on Eliquis, hx of V tach, s/p pacer in place, HLD, urinary retention, BPH, dementia, anxiety, and bipolar disorder?who presented to the ED from [facility] after unwitnessed fall out of bed. Pt admitted to the hospital for treatment and further evaluation of acute hypoxic respiratory failure in the setting of likely aspiration pneumonitis after unwitnessed fall out of bed. hypotension asymptomatic no obvious source of infection, afebrile, no leukocytosis suspect due to volume depletion, hypoalbuminemia from poor po intake s/p albumin and gentle fluid reduced dose of metoprolol bp improved Acute hypoxic respiratory failure likely secondary to aspiration pneumonitis s/p IV Zosyn x 7days, stable oxygenation on room air being followed by speech therapy diet advanced to chopped NDD 3 with clear liquids, continue supplements Urinary retention/hematuria hematuria resolved continue proscar, and carduara [place] discontinued resumed Eliquis 10/25, no recurrent hematuria cbc stable Paroxysmal AFib acceptable rate control continue metoprolol and Eliquis HFrEF stable and well compensated Mood disorder/dementia stable,continue current therapies. Trazodone and alprazolam d/c due to am sedation. intermittently refuses medications Constipation resolved continue bowel regimen VENU on CKD 3 resolved unstagable pressure injury of sacrum. POA wound care nurse following continue local wound care, frequent repositioning DNR dvt ppx - compression boots/eliquis oob with lift overall doing poorly - failure to thrive with decreasing po intake. discussed with daughter, plan for hospice informational. CM aware requires ongoing inpatient stay for safe disposition Quality Stroke Does the patient have a stroke diagnosis?: No VTE Prior VTE?: No VTE Risk Level:: Medical - moderate - high VTE Device Contraindication: N/A - Device Ordered VTE Drug Contraindication: Treatment Not Indicated
--- NOTE | 2024-11-05 14:39 | MHC.CM.PN ---
This CM attempted to call pts daughter Freida to inquire about the hospice info session, phone call went to [email or web address] and the mailbox is full. This CM also placed a call to the pts home phone (daughter lives at the same address), phone call went to [email or web address] and the mailbox is full. This CM has also reached out to [facility] to inquire if they have been able to reach the daughter yet, awaiting return response in [facility].
[2024-11-05] MEDS: Doxazosin Mesylate 2 MG TABLET 4 MG PO (20:23)
[2024-11-05] MEDS: Divalproex Sodium Sprinkles 125 MG CAP.DR.SPR 750 MG PO (20:23)
[2024-11-05] MEDS: Docusate Sodium 100 MG/10 ML LIQUID 200 MG PO (20:23)
[2024-11-05] MEDS: Mirtazapine 15 MG TABLET PO (20:24)
[2024-11-05] MEDS: Metoprolol Succinate ER 25 MG TAB.ER.24H PO (20:24)
[2024-11-06] VITALS (8 sets, daily range): BP systolic 86–122; BP diastolic 50–81; PULSE 64–79; RESP 14–20; TEMP 36.2–37; O2SAT 94–97
[2024-11-06] MEDS: risperiDONE 1 MG TABLET PO (08:11)
[2024-11-06] MEDS: Apixaban 2.5 MG TABLET PO ×2 (08:11→21:23)
[2024-11-06] MEDS: Amiodarone HCL 200 MG TABLET PO (08:11)
[2024-11-06] MEDS: polyethylene glycoL 3350 17 GM POWD.PACK PO (08:11)
[2024-11-06] MEDS: Finasteride 5 MG TABLET PO (08:11)
[2024-11-06] MEDS: 0.9 % Sodium Chloride Flush 3 ML SYRINGE IVFLUSH ×2 (08:11→16:21)
[2024-11-06] MEDS: Nystatin Powder 15 GM BOTTLE 1 APPL TOPICAL ×2 (08:12→21:25)
[2024-11-06] MEDS: Collagenase Clostridium Hist. 30 GM TUBE 1 APPL TOPICAL (08:12)
[2024-11-06 08:39] LABS: Hematocrit 28.2 % (42.0-52.0); Hemoglobin 8.9 g/dl (14.0-18.0)
--- NOTE | 2024-11-06 13:27 | P.PNIM_ITS ---
Subjective Subjective Date of Service: 11/06/24 Interval History: Seen and examined this morning new follow-up dementia, placement No overnight events Patient awake, alert, sitting up in bed, being assisted with breakfast Knows he is in the hospital, knows his name Unable to obtain full review of systems due to underlying dementia Physical Exam 2 Vital Signs: Vital Signs: Last Vital Signs Temp 98.6 F 11/06/24 12:00 Pulse 69 11/06/24 12:00 Resp 20 11/06/24 12:00 BP 99/61 11/06/24 12:00 Pulse Ox 96 11/06/24 12:00 O2 Del Method Room Air 11/06/24 12:00 O2 Flow Rate 3 10/18/24 11:12 Oxygen Flow Rate 3 10/14/24 14:19 BMI result Body Mass Index 24.5 Const: General: cooperative, comfortable, no acute distress, alert and awake Nutritional Appearance: average body habitus and thin O rientation/consciousness: oriented to person and oriented to place Resp: Effort & Inspection: normal respiratory effort, able to speak in complete sentences, no respiratory distress and no use of accessory muscles A uscultation: clear to auscultation bilaterally Cardio: Rate: regular rate GI: Inspection: No distended Palpation (GI): Soft to palpation and nontender : Other: chow - no hematuria Neuro: Other: grossly nonfocal General: oriented to person, oriented to place and moves all extremities Extrem: General: Yes no pedal edema Objective Data Active Medications Acetaminophen (Acetaminophen 325 Mg Tablet) 650 mg PO Q6H PRN PRN Reason: Pain, Mild (Pain Scale 1-3), fever or headache Last Admin: 11/03/24 21:08 Dose: 650 mg Documented By: APRIL Acetaminophen (Acetaminophen Supp 650 Mg Supp.Rect) 650 mg CA Q4H PRN PRN Reason: Pain/Fever Albuterol Sulfate (Albuterol Sulfate 90 Mcg 8 Gm Inhaler) 2 puff INHALE Q4H PRN PRN Reason: Shortness Of Breath Amiodarone HCl (Amiodarone Hcl 200 Mg Tablet) 200 mg PO DAILY [facility] Last Admin: 11/06/24 08:11 Dose: 200 mg Documented By: KATHRINE Apixaban (Apixaban 2.5 Mg Tablet) 2.5 mg PO BID [facility] Last Admin: 11/06/24 08:11 Dose: 2.5 mg Documented By: KATHRINE Bisacodyl (Bisacodyl 10 Mg Supp.Rect) 10 mg CA DAILY PRN PRN Reason: Constipation Last Admin: 10/18/24 13:44 Dose: 10 mg Documented By: BHANU Calcium Carbonate (Calcium Carbonate 750 Mg Tab.Chew) 750 mg PO Q4H PRN PRN Reason: Heartburn Last Admin: 10/24/24 11:58 Dose: 750 mg Documented By: JUAN A Collagenase (Collagenase Clostridium Hist. 30 Gm Tube) 1 appl TOPICAL DAILY [facility]; Protocol Last Admin: 11/06/24 08:12 Dose: 1 appl Documented By: KATHRINE Divalproex Sodium (Divalproex Sodium Sprinkles 125 Mg Kimo.) 750 mg PO BEDTIME [facility] Last Admin: 11/05/24 20:23 Dose: 750 mg Documented By: CARLOS Docusate Sodium (Docusate Sodium 100 Mg/10 Ml Liquid) 200 mg PO BEDTIME [facility] Last Admin: 11/05/24 20:23 Dose: 200 mg Documented By: CARLOS Doxazosin Mesylate (Doxazosin Mesylate 2 Mg Tablet) 4 mg PO BEDTIME [facility]; Protocol Last Admin: 11/05/24 20:23 Dose: 4 mg Documented By: CARLOS Finasteride (Finasteride 5 Mg Tablet) 5 mg PO DAILY [facility] Last Admin: 11/06/24 08:11 Dose: 5 mg Documented By: KATHRINE Fluticasone/Vilanterol (Fluticasone/Vilanterol 100/25 Blst.W.Dev) 1 puff INHALE RDAILY [facility] Last Admin: 11/06/24 07:31 Dose: Not Given Documented By: EDER Non-Admin Reason: Patient Asleep Magnesium Hydroxide (Milk Of Magnesia 30 Ml Oral.Susp) 30 ml PO DAILY PRN PRN Reason: Constipation Last Admin: 11/05/24 12:11 Dose: 30 ml Documented By: SIVAKUMAR Melatonin (Melatonin 3 Mg Tablet) 6 mg PO BEDTIME PRN PRN Reason: Insomnia Last Admin: 11/03/24 21:08 Dose: 6 mg Documented By: APRIL Metoprolol Succinate (Metoprolol Succinate Er 25 Mg Tab.Er.24h) 25 mg PO BEDTIME [facility]; Protocol Last Admin: 11/05/24 20:24 Dose: 25 mg Documented By: CARLOS Mirtazapine (Mirtazapine 15 Mg Tablet) 15 mg PO BEDTIME [facility] Last Admin: 11/05/24 20:24 Dose: 15 mg Documented By: CARLOS Naloxone HCl (Naloxone Hcl 0.4 Mg/Ml Vial) 0.4 mg SUBCUT Q3M PRN PRN Reason: Sedation/Unresponsive Nystatin (Nystatin Powder 15 Gm Bottle) 1 appl TOPICAL BID [facility]; Protocol Last Admin: 11/06/24 08:12 Dose: 1 appl Documented By: KATHRINE Polyethylene Glycol (Polyethylene Glycol 3350 17 Gm Powd.Pack) 17 gm PO DAILY [facility] Last Admin: 11/06/24 08:11 Dose: 17 gm Documented By: KATHRINE Risperidone (Risperidone 1 Mg Tablet) 1 mg PO DAILY [facility] Last Admin: 11/06/24 08:11 Dose: 1 mg Documented By: KATHRINE Sodium Biphosphate/Sodium Phosphate (Sodium Phosphate,Gordon-Dibasic 133 Ml Enema) 118 ml CA DAILY PRN PRN Reason: Constipation Sodium Biphosphate/Sodium Phosphate (Sodium Phosphate,Gordon-Dibasic 133 Ml Enema) 133 ml CA ONCE PRN PRN Reason: constipation Sodium Chloride (0.9 % Sodium Chloride Flush 3 Ml Syringe) 3 ml IVFLUSH QSHIFT [facility] Last Admin: 11/06/24 08:11 Dose: 3 ml Documented By: KATHRINE Labs 11/06/24 08:17 11/04/24 06:46 Microbiology Microbiology Results: Microbiology 11/01/24 Unknown Urine Culture - Final Urine clean catch - Clean Catch Midstream Yeast Assessment and Plan (1) Dementia: Status: Acute Plan 84-year-old female with a PMH significant for HFrEF, CKD, paroxysmal AFib on Eliquis, hx of V tach, s/p pacer in place, HLD, urinary retention, BPH, dementia, anxiety, and bipolar disorder?who presented to the ED from [facility] after unwitnessed fall out of bed. Pt admitted to the hospital for treatment and further evaluation of acute hypoxic respiratory failure in the setting of likely aspiration pneumonitis after unwitnessed fall out of bed. hypotension. resolved asymptomatic no obvious source of infection, afebrile, no leukocytosis suspect due to volume depletion, hypoalbuminemia from poor po intake s/p albumin and gentle fluid reduced dose of metoprolol Acute hypoxic respiratory failure likely secondary to aspiration pneumonitis s/p IV Zosyn x 7days, stable oxygenation on room air being followed by speech therapy diet advanced to chopped NDD 3 with clear liquids, continue supplements Urinary retention/hematuria hematuria resolved continue proscar, and carduara Chow discontinued resumed Eliquis 10/25, no recurrent hematuria cbc stable Paroxysmal AFib acceptable rate control continue metoprolol and Eliquis HFrEF stable and well compensated Mood disorder/dementia stable,continue current therapies. Trazodone and alprazolam d/c due to am sedation. intermittently refuses medications Constipation resolved continue bowel regimen VENU on CKD 3 resolved unstagable pressure injury of sacrum. POA wound care nurse following continue local wound care, frequent repositioning DNR dvt ppx - compression boots/eliquis oob with lift overall doing poorly - failure to thrive with decreasing po intake. discussed with daughter, plan for hospice informational. CM aware. daughter has not yet set up hospice informational and have been unable to get in touch with her requires ongoing inpatient stay for safe disposition Quality Stroke Does the patient have a stroke diagnosis?: No VTE Prior VTE?: No VTE Risk Level:: Medical - moderate - high VTE Device Contraindication: N/A - Device Ordered VTE Drug Contraindication: Treatment Not Indicated
[2024-11-06] MEDS: Divalproex Sodium Sprinkles 125 MG CAP.DR.SPR 750 MG PO (21:22)
[2024-11-06] MEDS: Doxazosin Mesylate 2 MG TABLET 4 MG PO (21:23)
[2024-11-06] MEDS: Mirtazapine 15 MG TABLET PO (21:23)
[2024-11-06] MEDS: Metoprolol Succinate ER 25 MG TAB.ER.24H PO (21:23)
[2024-11-06] MEDS: Melatonin 3 MG TABLET 6 MG PO (21:23)
[2024-11-06] MEDS: Acetaminophen 325 MG TABLET 650 MG PO (21:24)
[2024-11-06] MEDS: Docusate Sodium 100 MG/10 ML LIQUID 200 MG PO (21:24)
[2024-11-07] VITALS (7 sets, daily range): BP systolic 99–103; BP diastolic 55–63; PULSE 60–78; RESP 16–19; TEMP 36.4–37.1; O2SAT 94–97
--- NOTE | 2024-11-07 00:59 | PM.EVENT ---
Event Note Date of Service: 11/07/24 Event Note: 1:00 AM - Contacted to notify 50. Received metoprolol last night. Low suspicion for sepsis. We will discontinue metoprolol for now and give a fluid bolus of 500 ml. Time Spent With Patient Time: Total time managing care of this patient today ____ minutes.
[2024-11-07] MEDS: 0.9 % Sodium Chloride 500 ML IV (01:11)
[2024-11-07] MEDS: 0.9 % Sodium Chloride Flush 3 ML SYRINGE IVFLUSH ×3 (01:12→20:52)
[2024-11-07] MEDS: glucagon HCL 1 MG VIAL IM (01:49)
[2024-11-07] MEDS: Fluticasone/Vilanterol 100/25 BLST.W.DEV 1 PUFF INHALE (07:51)
--- NOTE | 2024-11-07 10:33 | MHC.CM.PN ---
[facility] apparently completed the Hospice Informational on Thursday11/06/2024, after having difficulty reaching Daughter. Patient's Daughter/HCP/Would-be Caregiver/Freida has 2 appointments on Thursday11/08/2024 and [facility] is having the hospital bed being delivered on Thursday11/09/2024 between 10AM and 2 PM. Goal is home with Hospice on 11/09/2024; is aware of these details. CM will follow.
[2024-11-07] MEDS: Finasteride 5 MG TABLET PO (10:38)
[2024-11-07] MEDS: Apixaban 2.5 MG TABLET PO ×2 (10:38→20:51)
[2024-11-07] MEDS: Amiodarone HCL 200 MG TABLET PO (10:38)
[2024-11-07] MEDS: risperiDONE 1 MG TABLET PO (10:38)
[2024-11-07] MEDS: Nystatin Powder 15 GM BOTTLE 1 APPL TOPICAL ×2 (10:39→20:52)
[2024-11-07] MEDS: polyethylene glycoL 3350 17 GM POWD.PACK PO (10:39)
[2024-11-07] MEDS: Collagenase Clostridium Hist. 30 GM TUBE 1 APPL TOPICAL (10:43)
--- NOTE | 2024-11-07 11:37 | HO.PM.IMPN ---
Subjective Subjective Date of Service: 11/07/24 Interval History: Follow-up on dementia placement Events from last night noted patient was hypotensive beta-blockers held IV fluid given, BP improved remained soft, patient offers no symptoms of lightheadedness or dizziness Review of Systems Unable to obtain due to dementia. Physical Exam Vital Signs: Vital Signs: Last Vital Signs Temp 98.2 F 11/07/24 11:22 Pulse 60 11/07/24 11:22 Resp 16 11/07/24 11:22 BP 99/63 11/07/24 11:22 Pulse Ox 96 11/07/24 11:22 O2 Del Method Room Air 11/07/24 11:22 O2 Flow Rate 3 10/18/24 11:12 Oxygen Flow Rate 3 10/14/24 14:19 BMI result Body Mass Index 24.5 Const: Other: 84-year-old female with a PMH significant for HFrEF, CKD, paroxysmal AFib on Eliquis, hx of V tach, s/p pacer in place, HLD, urinary retention, BPH, dementia, anxiety, and bipolar disorder?who presented to the ED from [facility] after unwitnessed fall out of bed. Pt admitted to the hospital for treatment and further evaluation of acute hypoxic respiratory failure in the setting of likely aspiration pneumonitis after unwitnessed fall out of bed. hypotension. resolved asymptomatic no obvious source of infection, afebrile, no leukocytosis suspect due to volume depletion, hypoalbuminemia from poor po intake s/p albumin and gentle fluid reduced dose of metoprolol Acute hypoxic respiratory failure likely secondary to aspiration pneumonitis s/p IV Zosyn x 7days, stable oxygenation on room air being followed by speech therapy diet advanced to chopped NDD 3 with clear liquids, continue supplements Urinary retention/hematuria hematuria resolved continue proscar, and carduara Corral discontinued resumed Eliquis 10/25, no recurrent hematuria cbc stable Paroxysmal AFib acceptable rate control continue metoprolol and Eliquis HFrEF stable and well compensated Mood disorder/dementia stable,continue current therapies. Trazodone and alprazolam d/c due to am sedation. intermittently refuses medications Constipation resolved continue bowel regimen VENU on CKD 3 resolved unstagable pressure injury of sacrum. POA wound care nurse following continue local wound care, frequent repositioning DNR dvt ppx - compression boots/eliquis oob with lift overall doing poorly - failure to thrive with decreasing po intake. discussed with daughter, plan for hospice informational. CM aware. daughter has not yet set up hospice informational and have been unable to get in touch with her requires ongoing inpatient stay for safe disposition Objective Data Active Medications Acetaminophen (Acetaminophen 325 Mg Tablet) 650 mg PO Q6H PRN PRN Reason: Pain, Mild (Pain Scale 1-3), fever or headache Last Admin: 11/06/24 21:24 Dose: 650 mg Documented By: NATHAN Acetaminophen (Acetaminophen Supp 650 Mg Supp.Rect) 650 mg [place] Q4H PRN PRN Reason: Pain/Fever Albuterol Sulfate (Albuterol Sulfate 90 Mcg 8 Gm Inhaler) 2 puff INHALE Q4H PRN PRN Reason: Shortness Of Breath Amiodarone HCl (Amiodarone Hcl 200 Mg Tablet) 200 mg PO DAILY [facility] Last Admin: 11/07/24 10:38 Dose: 200 mg Documented By: BHANU Apixaban (Apixaban 2.5 Mg Tablet) 2.5 mg PO BID [facility] Last Admin: 11/07/24 10:38 Dose: 2.5 mg Documented By: BHANU Bisacodyl (Bisacodyl 10 Mg Supp.Rect) 10 mg [place] DAILY PRN PRN Reason: Constipation Last Admin: 10/18/24 13:44 Dose: 10 mg Documented By: BHANU Calcium Carbonate (Calcium Carbonate 750 Mg Tab.Chew) 750 mg PO Q4H PRN PRN Reason: Heartburn Last Admin: 10/24/24 11:58 Dose: 750 mg Documented By: JUAN A Collagenase (Collagenase Clostridium Hist. 30 Gm Tube) 1 appl TOPICAL DAILY [facility]; Protocol Last Admin: 11/07/24 10:43 Dose: 1 appl Documented By: BHANU Divalproex Sodium (Divalproex Sodium Sprinkles 125 Mg ) 750 mg PO BEDTIME [facility] Last Admin: 11/06/24 21:22 Dose: 750 mg Documented By: NATHAN Docusate Sodium (Docusate Sodium 100 Mg/10 Ml Liquid) 200 mg PO BEDTIME [facility] Last Admin: 11/06/24 21:24 Dose: 200 mg Documented By: NATHAN Doxazosin Mesylate (Doxazosin Mesylate 2 Mg Tablet) 4 mg PO BEDTIME [facility]; Protocol Last Admin: 11/06/24 21:23 Dose: 4 mg Documented By: NATHAN Finasteride (Finasteride 5 Mg Tablet) 5 mg PO DAILY [facility] Last Admin: 11/07/24 10:38 Dose: 5 mg Documented By: BHANU Fluticasone/Vilanterol (Fluticasone/Vilanterol 100/25 Blst.W.Dev) 1 puff INHALE RDAILY [facility] Last Admin: 11/07/24 07:51 Dose: 1 puff Documented By: NEDA Magnesium Hydroxide (Milk Of Magnesia 30 Ml Oral.Susp) 30 ml PO DAILY PRN PRN Reason: Constipation Last Admin: 11/05/24 12:11 Dose: 30 ml Documented By: SIVAKUMAR Melatonin (Melatonin 3 Mg Tablet) 6 mg PO BEDTIME PRN PRN Reason: Insomnia Last Admin: 11/06/24 21:23 Dose: 6 mg Documented By: NATHAN Comments: promote sleep Metoprolol Succinate (Metoprolol Succinate Er 25 Mg Tab.Er.24h) 25 mg PO BEDTIME [facility]; Protocol Last Admin: 11/06/24 21:23 Dose: 25 mg Documented By: NATHAN Mirtazapine (Mirtazapine 15 Mg Tablet) 15 mg PO BEDTIME [facility] Last Admin: 11/06/24 21:23 Dose: 15 mg Documented By: NATHAN Naloxone HCl (Naloxone Hcl 0.4 Mg/Ml Vial) 0.4 mg SUBCUT Q3M PRN PRN Reason: Sedation/Unresponsive Nystatin (Nystatin Powder 15 Gm Bottle) 1 appl TOPICAL BID [facility]; Protocol Last Admin: 11/07/24 10:39 Dose: 1 appl Documented By: BHANU Polyethylene Glycol (Polyethylene Glycol 3350 17 Gm Powd.Pack) 17 gm PO DAILY [facility] Last Admin: 11/07/24 10:39 Dose: 17 gm Documented By: BHANU Risperidone (Risperidone 1 Mg Tablet) 1 mg PO DAILY [facility] Last Admin: 11/07/24 10:38 Dose: 1 mg Documented By: BHANU Sodium Biphosphate/Sodium Phosphate (Sodium Phosphate,[place]-Dibasic 133 Ml Enema) 118 ml [place] DAILY PRN PRN Reason: Constipation Sodium Biphosphate/Sodium Phosphate (Sodium Phosphate,[place]-Dibasic 133 Ml Enema) 133 ml [place] ONCE PRN PRN Reason: constipation Sodium Chloride (0.9 % Sodium Chloride Flush 3 Ml Syringe) 3 ml IVFLUSH QSHIFT [facility] Last Admin: 11/07/24 10:42 Dose: 3 ml Documented By: BHANU Labs 11/06/24 08:17 11/04/24 06:46 Microbiology Microbiology Results: Microbiology 11/01/24 Unknown Urine Culture - Final Urine clean catch - Clean Catch Midstream Yeast Assessment and Plan (1) Dementia: Status: Acute (2) Aspiration pneumonitis: Status: Acute (3) CKD (chronic kidney disease): Status: Acute (4) Hypotension: Status: Acute Plan 84-year-old female with a PMH significant for HFrEF, CKD, paroxysmal AFib on Eliquis, hx of V tach, s/p pacer in place, HLD, urinary retention, BPH, dementia, anxiety, and bipolar disorder?who presented to the ED from [facility] after unwitnessed fall out of bed. Pt admitted to the hospital for treatment and further evaluation of acute hypoxic respiratory failure in the setting of likely aspiration pneumonitis after unwitnessed fall out of bed. hypotension. Noted to have low blood pressure last night, patient remained afebrile no obvious source of infection, afebrile, no leukocytosis suspect due to volume depletion, hypoalbuminemia from poor po intake s/p albumin and gentle fluid Dose of metoprolol recently reduced, will DC metoprolol and follow Acute hypoxic respiratory failure likely secondary to aspiration pneumonitis s/p IV Zosyn x 7days, stable oxygenation on room air being followed by speech therapy diet advanced to chopped NDD 3 with clear liquids, continue supplements Urinary retention/hematuria hematuria resolved continue proscar, and carduara Corral discontinued resumed Eliquis 10/25, no recurrent hematuria cbc stable Paroxysmal AFib acceptable rate control continue amiodarone and Eliquis, metoprolol discontinued HFrEF stable and well compensated Mood disorder/dementia stable,continue current therapies including Depakote, Remeron, and risperidone. Trazodone and alprazolam d/c due to am sedation. intermittently refuses medications Constipation resolved continue bowel regimen. VENU on CKD 3 resolved unstagable pressure injury of sacrum. POA wound care nurse following continue local wound care, frequent repositioning DNR dvt ppx - compression boots/eliquis oob with lift overall doing poorly - failure to thrive with decreasing po intake. CM notified that hospice informational was done by [facility], patient will be discharged home on Thursday on hospice, hospital bed will be delivered on Thursday between 10 in 2 Will discharge home on hospice medications . requires ongoing inpatient stay for safe disposition. Quality Stroke Does the patient have a stroke diagnosis?: No VTE Prior VTE?: No VTE Risk Level:: Medical - moderate - high VTE Device Contraindication: N/A - Device Ordered VTE Drug Contraindication: Treatment Not Indicated
--- NOTE | 2024-11-07 13:34 | MHC.CLN ---
F/U PO INTAKE VARIABLE DIET RX: CHOPPED PER [employer] ENSURE TID TO PROMOTE WOUND HEALING SUPPLEMENT PROVIDES 1050 KCALS, 60 G PROTEIN WITH 100% ACCEPTANCE ALSO RECEIVING MAGIC CUP WITH MEALS TO INCREASE KCAL INTAKE CONTINUE TO MONITOR PO INTAKE AND ENCOURAGE SUPPLEMENTS PT PENDING D/C HOME ON THURSDAY WITH HOSPICE
[2024-11-07] MEDS: Docusate Sodium 100 MG/10 ML LIQUID 200 MG PO (20:49)
[2024-11-07] MEDS: Acetaminophen 325 MG TABLET 650 MG PO (20:49)
[2024-11-07] MEDS: Doxazosin Mesylate 2 MG TABLET 4 MG PO (20:50)
[2024-11-07] MEDS: Melatonin 3 MG TABLET 6 MG PO (20:51)
[2024-11-07] MEDS: Mirtazapine 15 MG TABLET PO (20:51)
[2024-11-07] MEDS: Divalproex Sodium Sprinkles 125 MG CAP.DR.SPR 750 MG PO (20:51)
[2024-11-08] VITALS (7 sets, daily range): BP systolic 98–128; BP diastolic 56–63; PULSE 58–84; RESP 18–20; TEMP 36.2–36.9; O2SAT 93–98
[2024-11-08] MEDS: Fluticasone/Vilanterol 100/25 BLST.W.DEV 1 PUFF INHALE (07:51)
[2024-11-08] MEDS: Amiodarone HCL 200 MG TABLET PO (10:28)
[2024-11-08] MEDS: risperiDONE 1 MG TABLET PO (10:28)
[2024-11-08] MEDS: Finasteride 5 MG TABLET PO (10:28)
[2024-11-08] MEDS: Apixaban 2.5 MG TABLET PO ×2 (10:28→19:59)
[2024-11-08] MEDS: Nystatin Powder 15 GM BOTTLE 1 APPL TOPICAL ×2 (10:28→20:00)
[2024-11-08] MEDS: 0.9 % Sodium Chloride Flush 3 ML SYRINGE IVFLUSH ×3 (10:30→19:59)
--- NOTE | 2024-11-08 11:36 | HO.WOUND ---
Wound Consult: Follow up 84yr old male? admitted to [facility] on 10/14/24 - See progress notes and H&P for detailed history.? Wound consult follow up for Coccyx / Sacral wound.? Patient agreeable to assessment and photo documentation.? Patient awaiting placement. See review below the periwound and some areas of the wound bed have improved however the thickness of the slough appears it may have thickened. Recommend continue with Dakin's and Santyl for enzymartic debridement and treatment of Pseudomonas. Pulsate bed from [employer] in use. 10/26/24 10/31/24 11/04/24 11/08/24 Sacrum Etiology: ??Unstageable Pressure Injury Present on Admission Wound Bed: adherent yellow slough Edges: ? irregular Gricel wound: ?improving MASD Pain: tenderness reported Goals of Treatment: ? Off load pressure -continue Dakins and Santyl for enzymatic debridement No new topical recommendations needed at this time. Recommendations: 1. Turn and Reposition every 2 hours and as needed for patient comfort.? Use pillows or wedges to support off loading positions. 2. Off Load all bony prominences with use of pillows and heel boots if needed.? Apply Preventative foams where needed. ? 3. Monitor for incontinence and moisture control, use barrier creams when needed for prevention and treatment. 4. Provide adequate and supplemental nutrition.? 5. Continue low air loss mattress. - [employer] Pulsate bed ordered. 6. When applicable maintain blood glucose levels per Providers order. 7. Sacrum - Off Load Pressure? with Q2hr turns. Cleanse with Dakin's, pat dry. ?Apply barrier to the immediate gricel wound, apply thick layer of Santyl to entire wound bed, cover with Dakins moist gauze, secure ABD pad dressing, change Daily. Re-consult wound care Nurse for wound deterioration or wound changes.
--- NOTE | 2024-11-08 12:30 | P.PNIM_ITS ---
Subjective Subjective Date of Service: 11/08/24 Interval History: Unable to obtain meaningful history due to dementia No acute events overnight. Tolerating diet with no nausea, no vomiting or abdominal pain. Review of Systems Unable to obtain due to dementia Constitutional Constitutional: Reports as per HPI and Reports no additional constitutional complaints Cardiovascular Cardiovascular: Reports as per HPI and Reports no additional cardiovascular complaints Respiratory Respiratory: Reports as per HPI and Reports no additional respiratory complaints Gastrointestinal Gastrointestinal: Reports as per HPI and Reports no additional gastrointestinal complaints Genitourinary Genitourinary: Reports as per HPI Musculoskeletal Musculoskeletal: Reports no additional musculoskeletal complaints and Reports as per HPI Neurologic Neurologic: Reports system reviewed and no additional complaints, except as documented and Reports as per HPI Physical Exam 2 Vital Signs: Vital Signs: Last Vital Signs Temp 97.3 F 11/08/24 10:58 Pulse 73 11/08/24 10:58 Resp 18 11/08/24 10:58 BP 98/56 L 11/08/24 10:58 Pulse Ox 95 11/08/24 10:58 O2 Del Method Room Air 11/08/24 10:58 O2 Flow Rate 3 10/18/24 11:12 Oxygen Flow Rate 3 10/14/24 14:19 BMI result Body Mass Index 24.5 Const: Other: General resting comfortably in no acute distress. Neck no JVD. CVS regular rate rhythm, Respiratory lungs clear to auscultation, no respiratory distress, no wheeze, no rhonchi. Gastrointestinal abdomen soft, non tender, bowel sounds audible Extremities no edema. Neuro speech clear. Skin no rash Poor insight Objective Data Active Medications Acetaminophen (Acetaminophen 325 Mg Tablet) 650 mg PO Q6H PRN PRN Reason: Pain, Mild (Pain Scale 1-3), fever or headache Last Admin: 11/07/24 20:49 Dose: 650 mg Documented By: ISABEL Acetaminophen (Acetaminophen Supp 650 Mg Supp.Rect) 650 mg [place] Q4H PRN PRN Reason: Pain/Fever Albuterol Sulfate (Albuterol Sulfate 90 Mcg 8 Gm Inhaler) 2 puff INHALE Q4H PRN PRN Reason: Shortness Of Breath Amiodarone HCl (Amiodarone Hcl 200 Mg Tablet) 200 mg PO DAILY [facility] Last Admin: 11/08/24 10:28 Dose: 200 mg Documented By: JAMAR Apixaban (Apixaban 2.5 Mg Tablet) 2.5 mg PO BID [facility] Last Admin: 11/08/24 10:28 Dose: 2.5 mg Documented By: JAMAR Bisacodyl (Bisacodyl 10 Mg Supp.Rect) 10 mg [place] DAILY PRN PRN Reason: Constipation Last Admin: 10/18/24 13:44 Dose: 10 mg Documented By: BHANU Calcium Carbonate (Calcium Carbonate 750 Mg Tab.Chew) 750 mg PO Q4H PRN PRN Reason: Heartburn Last Admin: 10/24/24 11:58 Dose: 750 mg Documented By: JUAN A Collagenase (Collagenase Clostridium Hist. 30 Gm Tube) 1 appl TOPICAL DAILY [facility]; Protocol Last Admin: 11/08/24 10:30 Dose: Not Given Documented By: JAMAR Non-Admin Reason: Med Not Available Divalproex Sodium (Divalproex Sodium Sprinkles 125 Mg Kimo.) 750 mg PO BEDTIME [facility] Last Admin: 11/07/24 20:51 Dose: 750 mg Documented By: ISABEL Docusate Sodium (Docusate Sodium 100 Mg/10 Ml Liquid) 200 mg PO BEDTIME [facility] Last Admin: 11/07/24 20:49 Dose: 200 mg Documented By: ISABEL Doxazosin Mesylate (Doxazosin Mesylate 2 Mg Tablet) 4 mg PO BEDTIME [facility]; Protocol Last Admin: 11/07/24 20:50 Dose: 4 mg Documented By: ISABEL Finasteride (Finasteride 5 Mg Tablet) 5 mg PO DAILY [facility] Last Admin: 11/08/24 10:28 Dose: 5 mg Documented By: JAMAR Fluticasone/Vilanterol (Fluticasone/Vilanterol 100/25 Blst.W.Dev) 1 puff INHALE RDAILY [facility] Last Admin: 11/08/24 07:51 Dose: 1 puff Documented By: KEVIN Magnesium Hydroxide (Milk Of Magnesia 30 Ml Oral.Susp) 30 ml PO DAILY PRN PRN Reason: Constipation Last Admin: 11/05/24 12:11 Dose: 30 ml Documented By: SIVAKUMAR Melatonin (Melatonin 3 Mg Tablet) 6 mg PO BEDTIME PRN PRN Reason: Insomnia Last Admin: 11/07/24 20:51 Dose: 6 mg Documented By: ISABEL Mirtazapine (Mirtazapine 15 Mg Tablet) 15 mg PO BEDTIME [facility] Last Admin: 11/07/24 20:51 Dose: 15 mg Documented By: ISABEL Naloxone HCl (Naloxone Hcl 0.4 Mg/Ml Vial) 0.4 mg SUBCUT Q3M PRN PRN Reason: Sedation/Unresponsive Nystatin (Nystatin Powder 15 Gm Bottle) 1 appl TOPICAL BID [facility]; Protocol Last Admin: 11/08/24 10:28 Dose: 1 appl Documented By: JAMAR Polyethylene Glycol (Polyethylene Glycol 3350 17 Gm Powd.Pack) 17 gm PO DAILY [facility] Last Admin: 11/08/24 10:29 Dose: Not Given Documented By: JMAAR Non-Admin Reason: Pt too tired Risperidone (Risperidone 1 Mg Tablet) 1 mg PO DAILY [facility] Last Admin: 11/08/24 10:28 Dose: 1 mg Documented By: JAMAR Sodium Biphosphate/Sodium Phosphate (Sodium Phosphate,[place]-Dibasic 133 Ml Enema) 118 ml [place] DAILY PRN PRN Reason: Constipation Sodium Biphosphate/Sodium Phosphate (Sodium Phosphate,[place]-Dibasic 133 Ml Enema) 133 ml [place] ONCE PRN PRN Reason: constipation Sodium Chloride (0.9 % Sodium Chloride Flush 3 Ml Syringe) 3 ml IVFLUSH QSHIFT [facility] Last Admin: 11/08/24 10:30 Dose: 3 ml Documented By: JAMAR Labs 11/06/24 08:17 11/04/24 06:46 Assessment and Plan (1) Hypotension: Status: Acute (2) Dementia: Status: Acute Plan 84-year-old female with a PMH significant for HFrEF, CKD, paroxysmal AFib on Eliquis, hx of V tach, s/p pacer in place, HLD, urinary retention, BPH, dementia, anxiety, and bipolar disorder?who presented to the ED from [facility] after unwitnessed fall out of bed. Pt admitted to the hospital for treatment and further evaluation of acute hypoxic respiratory failure in the setting of likely aspiration pneumonitis after unwitnessed fall out of bed. hypotension. No recurrent episode , BP soft no obvious source of infection, afebrile, no leukocytosis suspect due to volume depletion, hypoalbuminemia from poor po intake s/p albumin and gentle fluid/metoprolol discontinued Acute hypoxic respiratory failure likely secondary to aspiration pneumonitis s/p IV Zosyn x 7days, stable oxygenation on room air being followed by speech therapy diet advanced to chopped NDD 3 with clear liquids, continue supplements Urinary retention/hematuria hematuria resolved continue proscar, and carduara Corral discontinued resumed Eliquis 10/25, no recurrent hematuria cbc stable Paroxysmal AFib acceptable rate control continue amiodarone and Eliquis, metoprolol discontinued HFrEF stable and well compensated Mood disorder/dementia stable,continue current therapies including Depakote, Remeron, and risperidone. Trazodone and alprazolam d/c due to am sedation. intermittently refuses medications Constipation resolved continue bowel regimen. VENU on CKD 3 resolved unstagable pressure injury of sacrum. POA wound care nurse following continue local wound care, frequent repositioning DNR dvt ppx - compression boots/eliquis oob with lift overall doing poorly - failure to thrive with decreasing po intake. CM notified that hospice informational was done by [facility], patient will be discharged home on Thursday on hospice, hospital bed will be delivered on Thursday between 10 and 2 Will discharge home on hospice medications . requires ongoing inpatient stay for safe disposition. Quality Stroke Does the patient have a stroke diagnosis?: No VTE Prior VTE?: No VTE Risk Level:: Medical - moderate - high VTE Device Contraindication: N/A - Device Ordered VTE Drug Contraindication: Treatment Not Indicated
[2024-11-08] MEDS: Doxazosin Mesylate 2 MG TABLET 4 MG PO (19:58)
[2024-11-08] MEDS: Divalproex Sodium Sprinkles 125 MG CAP.DR.SPR 750 MG PO (19:59)
[2024-11-08] MEDS: Docusate Sodium 100 MG/10 ML LIQUID 200 MG PO (19:59)
[2024-11-08] MEDS: Mirtazapine 15 MG TABLET PO (19:59)
[2024-11-08] MEDS: Melatonin 3 MG TABLET 6 MG PO (20:05)
[2024-11-09 04:00] VITALS: BP 104/66; PULSE 73; RESP 17; TEMP 36.4; O2SAT 96
[2024-11-09 07:04] VITALS: BP 122/66; PULSE 78; RESP 17; TEMP 36.4; O2SAT 95
[2024-11-09] MEDS: 0.9 % Sodium Chloride Flush 3 ML SYRINGE IVFLUSH ×2 (08:51→20:29)
[2024-11-09] MEDS: risperiDONE 1 MG TABLET PO (08:51)
[2024-11-09] MEDS: Finasteride 5 MG TABLET PO (08:51)
[2024-11-09] MEDS: Apixaban 2.5 MG TABLET PO ×2 (08:51→20:28)
[2024-11-09] MEDS: Amiodarone HCL 200 MG TABLET PO (08:51)
[2024-11-09] MEDS: Nystatin Powder 15 GM BOTTLE 1 APPL TOPICAL ×2 (08:51→20:28)
[2024-11-09] MEDS: Collagenase Clostridium Hist. 30 GM TUBE 1 APPL TOPICAL (08:51)
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
[2024-11-09 11:10] VITALS: BP 126/75; PULSE 71; RESP 18; TEMP 36.2; O2SAT 95
--- NOTE | 2024-11-09 11:52 | MHC.CM.PN ---
Addendum entered by Zari Iraheta 11/09/24 15:26: This CM spoke with pts daughter/HCP Freida, she is in agreement with her fathers discharge plan for tomorrow 11/10, Second IMM addressed with her today 11/09. Original Note: EMR reviewed and per MD rounds, pt is medically cleared for discharge home with [facility], discharge has been planned for today at 4pm. This CM called pts daughter to confirm DME delivery, per daughter Freida she cannot have him come home today as she has a lot going on and is out for medical appointments today and unsure of when she will return home. This CM called [facility] to discuss discharge plans, according to them, the daughter Freida had already called to cancel the DME delivery for today, they have rescheduled it for delivery for tomorrow and have requested we pre-book the ambulance for tomorrow 11/10 at 10am. Hospitalist aware.
--- NOTE | 2024-11-09 12:24 | P.PNIM_ITS ---
Subjective Subjective Date of Service: 11/09/24 Interval History: Unable to obtain meaningful history due to dementia No acute events overnight Tolerating diet, no nausea, no vomiting, no fevers. Review of Systems Unable to obtain due to mental status. Physical Exam 2 Vital Signs: Vital Signs: Last Vital Signs Temp 97.1 F 11/09/24 11:10 Pulse 71 11/09/24 11:10 Resp 18 11/09/24 11:10 BP 126/75 11/09/24 11:10 Pulse Ox 95 11/09/24 11:10 O2 Del Method Room Air 11/09/24 11:10 O2 Flow Rate 3 10/18/24 11:12 Oxygen Flow Rate 3 10/14/24 14:19 BMI result Body Mass Index 24.5 Const: Other: General resting comfortably in no acute distress. Neck no JVD. CVS regular rate rhythm, Respiratory lungs clear to auscultation, no respiratory distress, no wheeze, no rhonchi. Gastrointestinal abdomen soft, non tender, bowel sounds audible Extremities no edema. Neuro speech clear. Skin no rash Poor insight Objective Data Active Medications Acetaminophen (Acetaminophen 325 Mg Tablet) 650 mg PO Q6H PRN PRN Reason: Pain, Mild (Pain Scale 1-3), fever or headache Last Admin: 11/07/24 20:49 Dose: 650 mg Documented By: ISABEL Acetaminophen (Acetaminophen Supp 650 Mg Supp.Rect) 650 mg OH Q4H PRN PRN Reason: Pain/Fever Albuterol Sulfate (Albuterol Sulfate 90 Mcg 8 Gm Inhaler) 2 puff INHALE Q4H PRN PRN Reason: Shortness Of Breath Amiodarone HCl (Amiodarone Hcl 200 Mg Tablet) 200 mg PO DAILY [facility] Last Admin: 11/09/24 08:51 Dose: 200 mg Documented By: JAMAR Apixaban (Apixaban 2.5 Mg Tablet) 2.5 mg PO BID [facility] Last Admin: 11/09/24 08:51 Dose: 2.5 mg Documented By: JAMAR Bisacodyl (Bisacodyl 10 Mg Supp.Rect) 10 mg OH DAILY PRN PRN Reason: Constipation Last Admin: 10/18/24 13:44 Dose: 10 mg Documented By: BHANU Calcium Carbonate (Calcium Carbonate 750 Mg Tab.Chew) 750 mg PO Q4H PRN PRN Reason: Heartburn Last Admin: 10/24/24 11:58 Dose: 750 mg Documented By: JUAN A Collagenase (Collagenase Clostridium Hist. 30 Gm Tube) 1 appl TOPICAL DAILY SHAYY; Protocol Last Admin: 11/09/24 08:51 Dose: 1 appl Documented By: JAMAR Divalproex Sodium (Divalproex Sodium Sprinkles 125 Mg ) 750 mg PO BEDTIME SHAYY Last Admin: 11/08/24 19:59 Dose: 750 mg Documented By: RACHEAL Docusate Sodium (Docusate Sodium 100 Mg/10 Ml Liquid) 200 mg PO BEDTIME SHAYY Last Admin: 11/08/24 19:59 Dose: 200 mg Documented By: RACHEAL Doxazosin Mesylate (Doxazosin Mesylate 2 Mg Tablet) 4 mg PO BEDTIME SHAYY; Protocol Last Admin: 11/08/24 19:58 Dose: 4 mg Documented By: RACHEAL Finasteride (Finasteride 5 Mg Tablet) 5 mg PO DAILY [facility] Last Admin: 11/09/24 08:51 Dose: 5 mg Documented By: JAMAR Fluticasone/Vilanterol (Fluticasone/Vilanterol 100/25 Blst.W.Dev) 1 puff INHALE RDAILY [facility] Last Admin: 11/09/24 08:26 Dose: Not Given Documented By: ZOEY Non-Admin Reason: pt confused Magnesium Hydroxide (Milk Of Magnesia 30 Ml Oral.Susp) 30 ml PO DAILY PRN PRN Reason: Constipation Last Admin: 11/05/24 12:11 Dose: 30 ml Documented By: SIVAKUMAR Melatonin (Melatonin 3 Mg Tablet) 6 mg PO BEDTIME PRN PRN Reason: Insomnia Last Admin: 11/08/24 20:05 Dose: 6 mg Documented By: RACHEAL Mirtazapine (Mirtazapine 15 Mg Tablet) 15 mg PO BEDTIME SHAYY Last Admin: 11/08/24 19:59 Dose: 15 mg Documented By: RACHEAL Naloxone HCl (Naloxone Hcl 0.4 Mg/Ml Vial) 0.4 mg SUBCUT Q3M PRN PRN Reason: Sedation/Unresponsive Nystatin (Nystatin Powder 15 Gm Bottle) 1 appl TOPICAL BID SHAYY; Protocol Last Admin: 11/09/24 08:51 Dose: 1 appl Documented By: JAMAR Polyethylene Glycol (Polyethylene Glycol 3350 17 Gm Powd.Pack) 17 gm PO DAILY SHAYY Last Admin: 11/09/24 08:51 Dose: Not Given Documented By: JAMAR Non-Admin Reason: Patient Refused Risperidone (Risperidone 1 Mg Tablet) 1 mg PO DAILY SHAYY Last Admin: 11/09/24 08:51 Dose: 1 mg Documented By: JAMAR Sodium Biphosphate/Sodium Phosphate (Sodium Phosphate,Beaver-Dibasic 133 Ml Enema) 118 ml OH DAILY PRN PRN Reason: Constipation Sodium Biphosphate/Sodium Phosphate (Sodium Phosphate,Beaver-Dibasic 133 Ml Enema) 133 ml OH ONCE PRN PRN Reason: constipation Sodium Chloride (0.9 % Sodium Chloride Flush 3 Ml Syringe) 3 ml IVFLUSH QSHIFT SHAYY Last Admin: 11/09/24 08:51 Dose: 3 ml Documented By: JAMAR Labs 11/06/24 08:17 11/04/24 06:46 Assessment and Plan (1) Hypotension: Status: Acute (2) Dementia: Status: Acute Plan 84-year-old female with a PMH significant for HFrEF, CKD, paroxysmal AFib on Eliquis, hx of V tach, s/p pacer in place, HLD, urinary retention, BPH, dementia, anxiety, and bipolar disorder?who presented to the ED from [facility] after unwitnessed fall out of bed. Pt admitted to the hospital for treatment and further evaluation of acute hypoxic respiratory failure in the setting of likely aspiration pneumonitis after unwitnessed fall out of bed. hypotension. No recurrent episode , BP soft no obvious source of infection, afebrile, no leukocytosis suspect due to volume depletion, hypoalbuminemia from poor po intake s/p albumin and gentle fluid/metoprolol discontinued Acute hypoxic respiratory failure likely secondary to aspiration pneumonitis s/p IV Zosyn x 7days, stable oxygenation on room air being followed by speech therapy diet advanced to chopped NDD 3 with clear liquids, continue supplements Urinary retention/hematuria hematuria resolved continue proscar, and carduara Corral discontinued resumed Eliquis 10/25, no recurrent hematuria cbc stable Paroxysmal AFib acceptable rate control continue amiodarone and Eliquis, metoprolol discontinued HFrEF stable and well compensated Mood disorder/dementia stable,continue current therapies including Depakote, Remeron, and risperidone. Trazodone and alprazolam d/c due to am sedation. intermittently refuses medications Constipation resolved continue bowel regimen. VENU on CKD 3 resolved unstagable pressure injury of sacrum. POA wound care nurse following continue local wound care, frequent repositioning DNR dvt ppx - compression boots/eliquis oob with lift overall doing poorly - failure to thrive with decreasing po intake. CM notified that hospice informational was done by [place] [facility], patient was supposed to be discharged home today with hospice however daughters not available at home today. Possible discharge tomorrow morning with hospice. Will discharge home on hospice medications . requires ongoing inpatient stay for safe disposition. Quality Stroke Does the patient have a stroke diagnosis?: No VTE Prior VTE?: No VTE Risk Level:: Medical - moderate - high VTE Device Contraindication: N/A - Device Ordered VTE Drug Contraindication: Treatment Not Indicated
[2024-11-09 15:05] VITALS: BP 116/60; PULSE 69; RESP 18; TEMP 36.4; O2SAT 93
[2024-11-09 19:17] VITALS: BP 98/58; PULSE 66; RESP 16; TEMP 36.6; O2SAT 98
[2024-11-09] MEDS: Doxazosin Mesylate 2 MG TABLET 4 MG PO (20:27)
[2024-11-09] MEDS: Mirtazapine 15 MG TABLET PO (20:28)
[2024-11-09] MEDS: Divalproex Sodium Sprinkles 125 MG CAP.DR.SPR 750 MG PO (20:28)
[2024-11-09] MEDS: Docusate Sodium 100 MG/10 ML LIQUID 200 MG PO (20:38)
[2024-11-09 23:19] VITALS: BP 129/72; PULSE 80; RESP 16; TEMP 36.8; O2SAT 95
[2024-11-10 03:13] VITALS: BP 111/64; PULSE 71; RESP 16; TEMP 36.4; O2SAT 95
[2024-11-10 06:58] VITALS: BP 113/66; PULSE 66; RESP 22; TEMP 36.5; O2SAT 96
[2024-11-10] MEDS: Albuterol Sulfate 90 MCG 8 GM INHALER 2 PUFF INHALE (07:43)
[2024-11-10] MEDS: Fluticasone/Vilanterol 100/25 BLST.W.DEV 1 PUFF INHALE (07:43)
[2024-11-10 07:48] VITALS: PULSE 62; RESP 18
[2024-11-10] MEDS: 0.9 % Sodium Chloride Flush 3 ML SYRINGE IVFLUSH (08:02)
[2024-11-10] MEDS: Nystatin Powder 15 GM BOTTLE 1 APPL TOPICAL (08:02)
[2024-11-10] MEDS: Apixaban 2.5 MG TABLET PO (08:02)
[2024-11-10] MEDS: Finasteride 5 MG TABLET PO (08:02)
[2024-11-10] MEDS: Amiodarone HCL 200 MG TABLET PO (08:02)
[2024-11-10] MEDS: Collagenase Clostridium Hist. 30 GM TUBE 1 APPL TOPICAL (08:02)
[2024-11-10] MEDS: risperiDONE 1 MG TABLET PO (08:02)
[2024-11-10] MEDS: polyethylene glycoL 3350 17 GM POWD.PACK PO (08:04)
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
== END 2024-11-10 10:34 | disposition hospice, home (50) | DRG 177 ==
LOC: HO.ED 19:18 → HO.EDOVER 19:36 → HO.IMC 19:46
PROVIDERS: Hospitalist; Nurse Practitioner Acute Care; Physician Assistant; Physician Assistant Medical; Admitting Provider Student in an Organized Health Care Education/Training Program; Emergency Provider Emergency Medicine; PCP Family Medicine; Visit Provider Hospitalist
DX: J69.0 Pneumonitis due to inhalation of food and vomit (principal); J96.01 Acute respiratory failure with hypoxia; I13.0 Hypertensive heart and chronic kidney disease with heart failure and stage 1 through stage 4 chronic kidney disease, or unspecified chronic kidney disease; I47.20 Ventricular tachycardia, unspecified; I50.22 Chronic systolic (congestive) heart failure; N17.9 Acute kidney failure, unspecified; E87.1 Hypo-osmolality and hyponatremia; N40.1 Benign prostatic hyperplasia with lower urinary tract symptoms; Z66 Do not resuscitate; D63.1 Anemia in chronic kidney disease; R31.0 Gross hematuria; R33.8 Other retention of urine; K59.00 Constipation, unspecified; F03.90 Unspecified dementia, unspecified severity, without behavioral disturbance, psychotic disturbance, mood disturbance, and anxiety; I95.9 Hypotension, unspecified; L89.150 Pressure ulcer of sacral region, unstageable; R62.7 Adult failure to thrive; Z68.24 Body mass index [BMI] 24.0-24.9, adult; E88.09 Other disorders of plasma-protein metabolism, not elsewhere classified; N18.30 Chronic kidney disease, stage 3 unspecified; I48.0 Paroxysmal atrial fibrillation; F31.9 Bipolar disorder, unspecified; Z20.822 Contact with and (suspected) exposure to COVID-19; Z95.0 Presence of cardiac pacemaker; Z79.01 Long term (current) use of anticoagulants; Z79.899 Other long term (current) drug therapy
CPT/HCPCS: 0241U; 36415; 36600; 70450; 71250; 72125; 74176; 76705; 80048; 80053; 80076; 81001; 82140; 82803; 83605; 83690; 83735; 83880; 84484; 85014; 85018; 85025; 85027; 85610; 87040; 87086; 92526; 92610; 93005; 94640; 97161; 99285; C1758; J1610; J1630; J2270; J2543; J3480; J7120; P9047

== ENCOUNTER → 2024-10-14 14:30 | Outpatient (BNV) | payer MEDICARE, SELFPAY | PROVIDERS: Admitting Provider Student in an Organized Health Care Education/Training Program; Emergency Provider Emergency Medicine; PCP Family Medicine; Visit Provider Internal Medicine Cardiovascular Disease | DX: R94.31 Abnormal electrocardiogram [ECG] [EKG] (principal) | CPT/HCPCS: 93010 ==

== ENCOUNTER 2024-10-14 19:25 | Outpatient (BNV) | payer MEDICARE, SELFPAY | END 2024-10-30 08:31 | PROVIDERS: Admitting Provider Student in an Organized Health Care Education/Training Program; Emergency Provider Emergency Medicine; PCP Family Medicine; Visit Provider Internal Medicine Cardiovascular Disease | DX: I49.3 Ventricular premature depolarization (principal) | CPT/HCPCS: 93010 ==

== ENCOUNTER → 2024-10-14 19:25 | Outpatient (BNV) | payer MEDICARE, SELFPAY | PROVIDERS: Admitting Provider Student in an Organized Health Care Education/Training Program; Emergency Provider Emergency Medicine; PCP Family Medicine; Visit Provider Urology | DX: R33.8 Other retention of urine (principal); R31.9 Hematuria, unspecified | CPT/HCPCS: 99222 ==

== ENCOUNTER → 2024-10-14 19:25 | Outpatient (BNV) | payer MEDICARE, SELFPAY | PROVIDERS: Admitting Provider Student in an Organized Health Care Education/Training Program; Emergency Provider Emergency Medicine; PCP Family Medicine; Visit Provider Student in an Organized Health Care Education/Training Program | DX: R31.9 Hematuria, unspecified (principal) | CPT/HCPCS: 99223; 99231; 99232 ==